=== PATIENT | female | born 1970 | race Caucasian/White ===

== ENCOUNTER 2019-11-19 07:22 | Outpatient (REF) | payer MEDICAID, SELFPAY ==
[2019-11-19 08:04] LABS: MANUAL DIFF FLAG NO
[2019-11-19 08:07] LABS: Basophils Percent Auto 0.3 % (0-2); Eosinophils Absolute Auto 0.4 X10*3/uL (0.0-0.4); Eosinophils Percent Auto 5.6 % (0-4); Hematocrit 35.7 % (37-47); Hemoglobin 11.7 g/dl (12.0-16.0); Imm Gran Abs Auto 0.03 X10*3/uL (0.00-0.03); Imm Gran Pct Auto 0.5 % (0.0-0.4); Lymphocytes Absolute Auto 1.6 X10*3/uL (1.2-4.9); Mean Corpuscular HGB Conc 32.8 g/dl (31.0-35.0); Mean Corpuscular Hemoglobin 27.7 pg (27.0-33.0); Mean Corpuscular Volume 84.4 fL (80-98); Mean Platelet Volume 10.7 fL (9.4-12.3); Monocytes Absolute Auto 0.6 X10*3/uL (0.1-1.2); Monocytes Percent Auto 10.1 % (2-11); Neutrophils Absolute Auto 3.6 X10*3/uL (2.0-8.3); Neutrophils Percent Auto 57.5 % (45-73); Platelet Count 252 X10*3/uL (160-400); Red Blood Count 4.23 X10*6/uL (4.20-5.50); Red Cell Distribution Width 13.2 % (11.0-16.0); White Blood Count 6.3 X10*3/uL (4.8-10.8)
[2019-11-19 08:49] LABS: Alanine Aminotransferase 28 U/L (0-31); Alkaline Phosphatase 73 U/L (39-117); Anion Gap 11 (12-20); Aspartate Amino Transferase 26 U/L (5-31); Bilirubin Direct 0.2 mg/dL (0.0-0.5); Bilirubin Total 0.5 mg/dL (0.0-1.0); Blood Urea Nitrogen 10 mg/dL (9-16); Calcium 8.6 mg/dL (8.4-10.2); Carbon Dioxide 26 mmol/L (22-29); Chloride 105 mmol/L (96-108); Cholesterol 184 mg/dL; Estimated Glomerular Filt Rate > 60; Glucose Random 100 mg/dL (60-115); HDL Cholesterol 50 mg/dL; LDL Cholesterol Calculated 113 mg/dl; Potassium 4.2 mmol/l (3.3-5.1); Sodium 138 mmol/L (135-145); Total Protein 6.7 g/dL (6.5-8.0); Triglycerides 106 mg/dL
[2019-11-19 09:13] LABS: Glucose Urine UA NEG (NEG); Leukocyte Esterase Urine NEG (NEG); Nitrite Urine POS (NEG); Specific Gravity - Urine 1.025 (1.005-1.025); Urine Blood NEG (NEG); Urine Ketones NEG (NEG); Urine Protein NEG (NEG-TRACE)
[2019-11-19 09:17] LABS: Amphetamine Screen Urine Not Detected (Not Detect); Barbiturates, Urine Not Detected (Not Detect); Benzodiazepines Screen Urine Not Detected (Not Detect); Cannabinoid Screen Urine Not Detected (Not Detect); Cocaine Screen Urine Not Detected (Not Detect); Opiate Screen Urine Not Detected (Not Detect); Phencyclidine Screen Urine Not Detected (Not Detect)
[2019-11-19 09:34] LABS: Appearance Urine HAZY; Color Urine YELLOW
[2019-11-19 09:52] LABS: Bacteria Urine TRACE /LPF; Squamous Epithelial Cell Urine 1+ /LPF
== END 2019-11-19 07:23 | disposition home or self-care (01) ==
LOC: HO.LAB 07:22
PROVIDERS: PCP Nurse Practitioner Family; Visit Provider Nurse Practitioner Psychiatric/Mental Health
DX: Z79.899 Other long term (current) drug therapy (principal)
CPT/HCPCS: 36415; 80053; 80061; 80076; 80307; 81001; 81003; 85025

== ENCOUNTER 2020-02-23 10:38 | Outpatient (REF) | payer MEDICAID, SELFPAY | END 2020-02-23 10:39 | disposition home or self-care (01) | LOC: HO.LAB 10:38 | PROVIDERS: Visit Provider Internal Medicine | DX: Z20.828 Contact with and (suspected) exposure to other viral communicable diseases (principal) | CPT/HCPCS: 36415; C9803; U0003 ==

== ENCOUNTER 2020-05-15 10:15 | Outpatient (REF) | payer MEDICAID, SELFPAY ==
--- NOTE | ~2020-05-15 | XR_ITS ---
EXAMINATION: XR LUMBOSACRAL SPINE WITH OBLIQUES CLINICAL INFORMATION: Lower back pain COMPARISON: 08/04/2012 CT TECHNIQUE: AP, both oblique, and lateral views of the lumbar spine. Lateral view of the lumbosacral junction. FINDINGS: The vertebral bodies and posterior elements are normal. The disc spaces are preserved and the vertebral alignment is normal. There is mild multilevel facet arthropathy at the lower lumbar spine. The sacroiliac joints are symmetric. The sacrum appears intact. The paraspinal soft tissues are normal. XR/XR lumbar spine 4V min IMPRESSION: Degenerative changes of the lower lumbar spine with facet arthropathy.
== END 2020-05-15 10:16 | disposition home or self-care (01) ==
LOC: HO.XRAY 10:15
PROVIDERS: PCP Registered Nurse Community Health; Visit Provider Registered Nurse Community Health
DX: M54.5 Low back pain (principal)
CPT/HCPCS: 72110

== ENCOUNTER → 2020-06-24 08:16 | Outpatient (BNVA) | payer MEDICAID, SELFPAY | PROVIDERS: Visit Provider Physician Assistant ==

== ENCOUNTER 2020-11-20 12:10 | Outpatient (REF) | payer MEDICAID, SELFPAY ==
--- NOTE | ~2020-11-20 | XR_ITS ---
EXAMINATION: XR KNEE, RIGHT CLINICAL INFORMATION: Pain. COMPARISON: None TECHNIQUE: Four views of the right knee. FINDINGS: Bones and soft tissues are normal. No fracture or joint effusion. Alignment is anatomic. Joint spaces are well maintained. No abnormal soft tissue calcification. XR/XR knee RT 4V IMPRESSION: Normal right knee.
== END 2020-11-20 12:11 | disposition home or self-care (01) ==
LOC: HO.XRAY 12:10
PROVIDERS: PCP Registered Nurse Community Health; Visit Provider Registered Nurse Community Health
DX: M25.561 Pain in right knee (principal)
CPT/HCPCS: 73564

== ENCOUNTER 2023-01-12 | Outpatient (REF) | payer MEDICAID, SELFPAY ==
[2023-01-14 23:53] LABS: C. trachomatis RNA TMA NOT DETECTED (NOT DETECTED); Candida glabrata RNA NOT DETECTED (NOT DETECTED); Candida species RNA NOT DETECTED (NOT DETECTED); N. gonorrhoeae RNA TMA NOT DETECTED (NOT DETECTED); Trichomonas vaginalis RNA NOT DETECTED (NOT DETECTED)
== END 2023-01-12 00:01 | disposition home or self-care (01) ==
LOC: HO.HHCLNP
PROVIDERS: Visit Provider Emergency Medicine
DX: N89.8 Other specified noninflammatory disorders of vagina (principal)
CPT/HCPCS: 36415; 81513; 87481; 87491; 87591; 87661

== ENCOUNTER 2023-01-18 11:14 | Outpatient (REF) | payer MEDICAID, SELFPAY | END 2023-01-18 11:15 | disposition home or self-care (01) | LOC: HO.HHCL 11:14 | PROVIDERS: Visit Provider Emergency Medicine | DX: R30.0 Dysuria (principal) | CPT/HCPCS: 87086 ==

== ENCOUNTER 2023-01-27 09:01 | Outpatient (REF) | payer MEDICAID, SELFPAY ==
[2023-01-27 11:39] LABS: MANUAL DIFF FLAG NO
[2023-01-27 12:06] LABS: Basophils Percent Auto 0.4 % (0-2); Eosinophils Absolute Auto 0.2 X10*3/uL (0.0-0.4); Eosinophils Percent Auto 2.7 % (0-4); Hematocrit 37.4 % (37.0-47.0); Hemoglobin 11.9 g/dl (12.0-16.0); Imm Gran Abs Auto 0.02 X10*3/uL (0.00-0.03); Imm Gran Pct Auto 0.3 % (0.0-0.4); Lymphocytes Absolute Auto 1.7 X10*3/uL (1.2-4.9); Lymphocytes Percent Auto 25.9 % (20-40); Mean Corpuscular HGB Conc 31.8 g/dl (31.0-35.0); Mean Corpuscular Hemoglobin 27.2 pg (27.0-33.0); Mean Corpuscular Volume 85.4 fL (80.0-98.0); Mean Platelet Volume 11.1 fL (9.4-12.3); Monocytes Absolute Auto 0.5 X10*3/uL (0.1-1.2); Monocytes Percent Auto 7.8 % (2-11); Neutrophils Absolute Auto 4.2 x10*3/uL (2.0-8.3); Neutrophils Percent Auto 62.9 % (45-73); Platelet Count 313 X10*3/uL (160-400); Red Blood Count 4.38 X10*6/uL (4.20-5.50); Red Cell Distribution Width 13.6 % (11.0-16.0); White Blood Count 6.7 X10*3/uL (4.8-10.8)
[2023-01-27 12:18] LABS: Cholesterol 223 mg/dL (<200); HDL Cholesterol 56 mg/dL (>40); LDL Cholesterol Calculated 144 mg/dL (<100); Triglycerides 118 mg/dL (<150)
[2023-01-27 12:40] LABS: TSH reflex Free T4 3.16 uIU/mL (0.32-4.0)
== END 2023-01-27 09:02 | disposition home or self-care (01) ==
LOC: HO.HHCL 09:01
PROVIDERS: Visit Provider Registered Nurse
DX: N95.1 Menopausal and female climacteric states (principal)
CPT/HCPCS: 36415; 80061; 84443; 85025

== ENCOUNTER 2023-08-31 09:03 | Outpatient (REF) | payer MEDICAID, SELFPAY ==
[2023-09-03 00:09] LABS: TS Negative Control Passed; TS Panel A 0; TS Panel B 0; TS Positive Control Passed; TSpotTB Negative (Negative)
== END 2023-08-31 09:04 | disposition home or self-care (01) ==
LOC: HO.HHCL 09:03
PROVIDERS: Visit Provider Registered Nurse
DX: Z11.1 Encounter for screening for respiratory tuberculosis (principal)
CPT/HCPCS: 36415; 86481

== ENCOUNTER 2023-10-31 10:03 | Outpatient (REF) | payer MEDICAID, SELFPAY ==
[2023-10-31 11:39] LABS: MANUAL DIFF FLAG NO
[2023-10-31 11:52] LABS: Basophils Percent Auto 0.5 % (0-2); Eosinophils Absolute Auto 0.2 X10*3/uL (0.0-0.4); Eosinophils Percent Auto 2.6 % (0-4); Hematocrit 37.9 % (37.0-47.0); Hemoglobin 12.7 g/dl (12.0-16.0); Imm Gran Abs Auto 0.02 X10*3/uL (0.00-0.03); Imm Gran Pct Auto 0.3 % (0.0-0.4); Lymphocytes Absolute Auto 1.6 X10*3/uL (1.2-4.9); Lymphocytes Percent Auto 23.7 % (20-40); Mean Corpuscular HGB Conc 33.5 g/dl (31.0-35.0); Mean Corpuscular Hemoglobin 27.7 pg (27.0-33.0); Mean Corpuscular Volume 82.8 fL (80.0-98.0); Mean Platelet Volume 10.9 fL (9.4-12.3); Monocytes Absolute Auto 0.4 X10*3/uL (0.1-1.2); Monocytes Percent Auto 6.7 % (2-11); Neutrophils Absolute Auto 4.3 x10*3/uL (2.0-8.3); Neutrophils Percent Auto 66.2 % (45-73); Platelet Count 267 X10*3/uL (160-400); Red Blood Count 4.58 X10*6/uL (4.20-5.50); Red Cell Distribution Width 13.4 % (11.0-16.0); White Blood Count 6.5 X10*3/uL (4.8-10.8)
[2023-10-31 12:31] LABS: Ferritin 104 ng/mL (10-250); TSH reflex Free T4 1.89 uIU/mL (0.32-4.0)
[2023-11-02 15:24] LABS: HPV mRNA E6/E7 Not Detected (Not Detected)
== END 2023-10-31 10:04 | disposition home or self-care (01) ==
LOC: HO.HHCL 10:03
PROVIDERS: Visit Provider Registered Nurse
DX: Z12.4 Encounter for screening for malignant neoplasm of cervix (principal); R53.83 Other fatigue; R30.0 Dysuria
CPT/HCPCS: 36415; 82728; 84443; 85025; 87086; 87088; 87186; 87624; 88175

== ENCOUNTER 2023-11-18 10:32 | Outpatient (REF) | payer MEDICAID, SELFPAY ==
--- NOTE | ~2023-11-18 | US_ITS ---
EXAMINATION: US PELVIS, LIMITED/FOLLOW UP CLINICAL INFORMATION: Palpable nodule of the right external vulva. COMPARISON: None available. TECHNIQUE: Using a linear array transducer with grayscale and color modalities, ultrasound examination is performed in the area of clinical concern in the right labia majora. FINDINGS: Within the right labia majora, a 3.4 x 2.0 x 2.3 cm heterogeneous echotexture cystic and solid lesion is noted. This shows no associated color Doppler flow, and there is decrease in through sound transmission. Margins are circumscribed. US/US pelvic limited IMPRESSION: A 3.4 cm cystic and solid, nonvascular lesion is seen of the right labia majora, corresponding with the palpable finding. This could represent a complex Bartholin's gland cyst or tumor or possibly a complex Tamie's duct cyst. Gynecology evaluation and management is recommended. Electronically signed by: Nino Gaines MD 01/12/2024 08:14 PM ELMO
== END 2023-11-18 10:33 | disposition home or self-care (01) ==
LOC: HO.US 10:32
PROVIDERS: PCP Registered Nurse; Visit Provider Registered Nurse
DX: N90.89 Other specified noninflammatory disorders of vulva and perineum (principal)
CPT/HCPCS: 76857

== ENCOUNTER 2023-12-20 09:05 | Outpatient (REF) | payer MEDICAID, SELFPAY ==
--- NOTE | ~2023-12-20 | MM_ITS ---
EXAMINATION: MM SCREENING DIGITAL BREAST TOMOSYNTHESIS, BILATERAL CLINICAL INFORMATION: Screening. Asymptomatic. COMPARISON: Mammography: Comparison is made with available priors TECHNIQUE: Digital breast mammography with tomosynthesis is performed in both the craniocaudal and mediolateral oblique views along with computer-aided detection (CAD). FINDINGS: There are scattered areas of fibroglandular density (ACR BI-RADS breast composition Category b). Bilateral reduction mammoplasty changes. There are no significant masses, abnormal calcifications, or other abnormalities. MM/MM tomosynthesis screening BI IMPRESSION: No mammographic evidence of malignancy. ASSESSMENT: BI-RADS BI-RADS 2 - Benign Findings RECOMMENDATION: Routine annual mammography screening. 1 year F/U This examination should not preclude the clinical evaluation of a suspicious palpable abnormality. This patient's information was entered into a reminder system with a target due date for their next mammogram. Electronically signed by: Jeannine Richter DO 12/28/2023 12:20 PM ELMO
== END 2023-12-20 09:06 | disposition home or self-care (01) ==
LOC: HO.MAMMO 09:05
PROVIDERS: PCP Registered Nurse; Visit Provider Registered Nurse
DX: Z12.31 Encounter for screening mammogram for malignant neoplasm of breast (principal)
CPT/HCPCS: 77063; 77067

== ENCOUNTER → 2023-12-20 09:15 | Outpatient (BNV) | payer MEDICAID, SELFPAY | PROVIDERS: PCP Registered Nurse; Visit Provider Internal Medicine | DX: Z12.31 Encounter for screening mammogram for malignant neoplasm of breast (principal) | CPT/HCPCS: 77063; 77067 ==

== ENCOUNTER → 2024-03-26 13:26 | Outpatient (REF) | LOC: HO.CARD 13:26 | DX: R07.89 Other chest pain (principal) | CPT/HCPCS: 93225 ==

== ENCOUNTER → 2024-03-26 13:29 | Outpatient (BNV) | payer MEDICAID, SELFPAY | PROVIDERS: PCP Registered Nurse; Visit Provider Internal Medicine | DX: I49.3 Ventricular premature depolarization (principal) | CPT/HCPCS: 93227 ==

== ENCOUNTER 2024-05-07 11:28 | Outpatient (AMB) | payer MEDICAID, SELFPAY ==
--- NOTE | 2024-05-07 11:35 | MHC.OFFVIS ---
Intake Visit Reasons: vulva mass/DO NOT RS Learning Center Instructor Required: Yes Learning Center Instructor Language: Repairer [employer] Services: Learning Center Instructor Present (in person) Learning Center Instructor Name: DELORIS Luis Information Interpreted: non-clinical & clinical Equipment Or Machinery Cleaner: Equipment Or Machinery Cleaner Present (DELORIS Luis) Accompanied by: Self / Same As Patient Allergies morphine [MORPHINE] Adverse Reaction (Intermediate, Verified 05/07/24 11:36) CHEST TIGHTNESS-DYSPHORIA HPI Comments Details: Presenting referred from PCP regarding right vulvar mass of 3 years' duration that has increased in size, the right vulvar mass is mildly tender no history of discharge or resolution or recurrence. In addition the patient is complaining of an episode of postmenopausal bleeding PFSH Surgical History Hx of colonoscopy Hx of esophagogastroduodenoscopy Family History Mother Diabetes HTN (hypertension) Father Diabetes HTN (hypertension) Daughter Diabetes Social History Household Members: Children and None Alcohol intake: never Review of Systems Const All systems reviewed & are unremarkable except as noted in HPI and below Physical Exam General: Yes no CVA tenderness External Female Exam: normal appearance of the urethra and other (Right 4 x 4 cm upper labia majora mass in the subcu layer) Speculum Exam - Vagina: normal appearance of the vagina, normal palpation, no lesions and no masses Speculum Exam - Cervix: normal appearance of the cervix, normal palpation, no lesions, no masses and nontender Bimanual exam- vagina & uterus: normal bimanual exam, normal palpation, uterine size normal, normal palpation, uterine shape normal, No Cervical tenderness present and non-tender Bimanual Exam- Adnexa, other: normal adnexae Back/Spine/Pelvis Back: no CVA tenderness Assessment & Plan Assessment & Plan (1) Vulvar mass: Comment: Right-sided Code(s): N90.89 - Other specified noninflammatory disorders of vulva and perineum Category: Medical Plan: Discussed with the patient the finding on pelvic exam showing a right labia majora upper subcuticular mass, recommended ultrasound-guided biopsy and depending on the pathology , the next step will be determined accordingly. Instructions given the patient to schedule the ultrasound guided biopsy within 1-2 weeks and a follow-up appointment afterwards. (2) Postmenopausal bleeding: Code(s): N95.0 - Postmenopausal bleeding Category: Medical Plan: GC/CT with BV panel collected. Discussed with the patient the differential diagnosis of post menopausal bleeding with normal pelvic exam including but not limited to, endometrial hyperplasia, cancer, polyps and other causes; co testing done, recommended ultrasound to measure the endometrial stripe; discussed with the patient that if the endometrial thickness is 4 mm or less the negative predictive value of endometrial pathology is 99%, otherwise If endometrial thickness is more than 4 mm will proceed with endometrial sampling versus hysteroscopy D&C polypectomy depending on the ultrasound findings. Instructed the patient to schedule an ultrasound with a follow-up appointment in 2 weeks. All questions answered, the patient verbalized understanding and agreed with the plan. This note was generated with a voice recognition program. Some errors may have been overlooked during the review of this note. Sometimes these errors may affect the content or meaning of a given sentence. Orders: Orders US pelvic and transvaginal Today N95.0 - Postmenopausal bleeding US biopsy subcutaneous skin Today N90.89 - Other specified noninflammatory disorders of vulva and perineum Coding Level of Care Code New Pt Level 3 (64138) Diagnoses Vulvar mass N90.89 Postmenopausal bleeding N95.0
== END 2024-05-07 13:34 | disposition home or self-care (01) ==
LOC: HO.HWS 11:28
PROVIDERS: PCP Registered Nurse; Visit Provider Obstetrics & Gynecology
DX: N90.89 Other specified noninflammatory disorders of vulva and perineum (principal); N95.0 Postmenopausal bleeding
CPT/HCPCS: 99203

== ENCOUNTER 2024-05-07 11:28 | Outpatient (REF) | payer MEDICAID, SELFPAY ==
[2024-05-08 11:47] LABS: Bacterial Vaginosis PCR POSITIVE (Negative); Candida Group PCR NOT DETECTED (Not Detect); Candida glab krusei PCR NOT DETECTED (Not Detect); Trichomonas vaginalis PCR NOT DETECTED (Not Detect)
[2024-05-08 12:20] LABS: CT PCR NOT DETECTED (Not Detect.); NG PCR NOT DETECTED (Not Detect.)
[2024-05-10 15:04] LABS: HPV Genotype 16 Negative (Negative); HPV Genotype 18 Negative (Negative); HPV High Risk Negative (Negative)
== END 2024-05-07 11:29 | disposition home or self-care (01) ==
LOC: HO.LNP 11:28
PROVIDERS: PCP Registered Nurse; Visit Provider Obstetrics & Gynecology
DX: N95.0 Postmenopausal bleeding (principal); N90.89 Other specified noninflammatory disorders of vulva and perineum
CPT/HCPCS: 81515; 87491; 87591; 87626; 88175; 99202

== ENCOUNTER 2024-05-18 16:17 | Outpatient (REF) | payer MEDICAID, SELFPAY | END 2024-05-18 16:18 | disposition home or self-care (01) | LOC: HO.HHCLNP 16:17 | PROVIDERS: Visit Provider Registered Nurse | DX: R30.0 Dysuria (principal) | CPT/HCPCS: 87086; 87088; 87186 ==

== ENCOUNTER 2024-06-05 11:20 | Outpatient (REF) | payer MEDICAID, SELFPAY ==
--- NOTE | ~2024-06-05 | US_ITS ---
EXAMINATION: US PELVIS CLINICAL INFORMATION: Postmenopausal bleeding. COMPARISON: None available. TECHNIQUE: Ultrasound of the pelvis is performed using both transabdominal and transvaginal transducers along with Doppler. Transvaginal imaging is performed due to inadequate visualization transabdominally. FINDINGS: Uterus: The uterus is retroverted, retroflexed, and measures 7.3 x 3.5 x 4.0 cm. Normal cervix with small bulla seen cysts. The endometrium could not be visualized as per technologist note due to retroverted uterus with shadowing. The uterus is smooth in contour and has normal myometrial echogenicity. No visible fibroid. Adnexa: The right ovary was visualized. There is a normal color flow to the right adnexa. The left ovary could not be visualized. There is no pelvic ascites or fluid collection. Right ovary: Not visualized. Left ovary measures 1.7 x 1.2 x 1.2 cm. Volume = 1.2 mL. Normal sonographic appearance. US/US pelvic and transvaginal IMPRESSION: 1. Limited examination due to the technologist unable to visualize the endometrium as detailed in the technologist's note. Retroverted and retroflexed uterus without definite fibroid. 2. Right ovary could not be visualized. 3. Normal left ovary. Electronically signed by: Manuelito Florian MD 06/06/2024 12:23 PM EDT
--- OUTSIDE RECORDS SUMMARY | 2024-06-05 13:39 | XMS_ITS | Clinical Summary ---
Author Organization [employer] Address [address] [facility] [address] [place] [address] Care Team Providers Care Silk Weaver Name Role Phone Lyn [facility] Primary Care Provider [phone] Allergies No known active allergies Medications cloNIDine (Catapres) 0.1 MG tablet TAKE 1 TABLET BY MOUTH TWICE A DAY NEEDED FOR ANXIETY/PANIC Active cyclobenzaprine (Flexeril) 10 MG tablet TAKE 1/2 TO 1 TABLET BY MOUTH EVERY NIGHT AT BEDTIME NEEDED Active fluconazole (Diflucan) 150 MG tablet TOME HESHAM TABLETA TODOS LOS D ONE DOSE Active fluticasone (Flonase) 50 MCG/ACT nasal spray SPRAY 1 - 2 SPRAYS IN EACH NOSTRIL EVERY DAY NEEDED Active ketorolac (Toradol) 10 MG tablet PLEASE SEE ATTACHED FOR DETAILED DIRECTIONS Active Lidocaine, Anorectal, (Topicaine 5) 5 % gel Apply to affected area as needed Active linaCLOtide (Linzess) 145 MCG capsule Take by mouth. Act evita meloxicam (Mobic) 15 MG tablet TOME HESHAM TABLETA TODOS LOS D CON ALIMENTO Active mirtazapine (Remeron) 45 MG tablet TOME HESHAM TABLETA TODOS LOS D AL ACOSTARSE Active montelukast (Singulair) 10 MG tablet TOME HESHAM TABLETA TODOS LOS D EN LA NOCHE Active OXcarbazepine (Trileptal) 300 MG tablet Take 300 mg by mouth at bedtime. Take (150mg) by mouth in the morning and 300mg in the evening. Prescribed by psych team Active escitalopram (Lexapro) 20 MG tablet TOME HESHAM TABLETA TODOS LOS D 023 Active cetirizine (ZyrTEC) 10 MG tablet TOME HESHAM TABLETA TODOS LOS IBARRA CUANDO SEA NECESARIO 90 tablet 3 024 Active omeprazole (PriLOSEC) [address] capsuleIndicati ons:Dyspepsia TAKE 2 CAPSULE BY MOUTH EVERY DAY BEFORE A MEAL 180 capsule 1 024 Active albuterol (2.5 MG/3ML) 0.083% nebulizer solution inhale 3 milliliter by nebulization route 3 times every day 75 mL 025 Active budesonide-form oterol (Symbicort) 80-4.5 MCG/ACT inhalerIndicati ons:Mild intermittent asthma without complication Inhale 2 puffs every 4-6 hours as needed for cough or wheezing 1 each 11 025 Active Ventolin HFA 108 (90 Base) MCG/ACT inhalerIndicati ons:Exacerbatio n of asthma, unspecified asthma severity, unspecified whether persistent INHALE 2 PUFFS POR VIA ORAL EVERY 4 HOURS IF NEEDED FOR WHEEZING. 18 g 1 025 Active ARIPiprazole (Abilify) 20 MG tablet TOME 1 TABLETA POR V A ORAL TODOS LOS D 025 Active OXcarbazepine (Trileptal) 150 MG tablet TAKE 1 TABLET BY MOUTH EVERY MORNING (TAKES 900MG AT BEDTIME,THIS DOSE IN ADDED TO TAKE IN MORNING 025 Active polyethylene glycol, PEG, 3350 (MiraLax) 17 GM/SCOOP powderIndicatio ns:Constipation , unspecified constipation type Take 17 g by mouth Once per day. 510 g 025 2024 Active senna (Senokot) 8.6 MG tabletIndicatio ns:Constipation , unspecified constipation type Take 1 tablet (8.6 mg) by mouth at bedtime. 120 tablet 025 Active topiramate (Topamax) 25 MG tabletIndicatio ns:Hot flashes Take 1 tablet (25 mg) by mouth before evening meal. 30 tablet 11 025 2025 Active D3-1000 25 MCG (1000 UT) capsuleIndicati ons:Hot flashes Take 1 capsule (25 mcg) by mouth Once per day. 30 capsule 11 025 2025 Active Ketotifen Fumarate 0.035 % solutionIndicat ions:Seasonal allergic rhinitis due to other allergic trigger Administer 1 drop into affected eye(s) if needed in the morning and at bedtime (itchitness). 5 mL 1 025 2024 Active docusate sodium (Colace) 100 MG capsuleIndicati ons:Constipatio n, unspecified constipation type TOME 1 CAPSULA POR VIA ORAL TODOS LOS IBARRA 90 capsule Active ARIPiprazole (Abilify) 30 MG tablet TOME HESHAM TABLETA TODOS LOS D 022 2024 Discontinued(T herapy completed) benzonatate (Tessalon) 100 MG capsule TOME HESHAM C PSULA NATHANAEL VECES AL D A CUANDO SEA NECESARIO PARA LA TOS 022 2024 Discontinued D3-1000 25 MCG (1000 UT) capsule TOME HESHAM C PSULA TODOS LOS D 022 2024 Discontinued(R eorder (will not trigger notification to Pharmacy)) estradiol-noret hindrone (CombiPatch) 0.05-0.14 MG/DAYIndicatio ns:Menopause syndrome Place 1 patch on the skin 2 (two) times a week. 8 patch 11 023 2024 Discontinued ketotifen (Zaditor) 0.025 % ophthalmic solution instill 1 Drop by Ophthalmic route 2 times every day as needed 10 mL 3 024 2024 Discontinued(T herapy completed) albuterol 108 (90 Base) MCG/ACT inhalerIndicati ons:Exacerbatio n of asthma, unspecified asthma severity, unspecified whether persistent INHALE 2 PUFFS EVERY 4 HOURS IF NEEDED FOR WHEEZING. 8.5 g 1 025 2024 Discontinued docusate sodium (Colace) 100 MG capsuleIndicati ons:Constipatio n, unspecified constipation type Take 1 capsule (100 mg) by mouth Once per day. 30 capsule 1 025 2024 Discontinued nitrofurantoin, macrocrystal-mo nohydrate, (Macrobid) 100 MG capsuleIndicati ons:Acute cystitis without hematuria Take 1 capsule (100 mg) by mouth 2 times daily for 5 days. 10 capsule 025 2024 Active Problems Patient Care Coordination No te Formatting of this note migh t be different from the original. C3/CM Livia Johnson RN Problem Noted Date Diagnosed Date Asthma exacerbation 03/06/2024 Assessment & Plan (03/06/2024 2:51 PM EST): Refills for inhalers done Patient educated to avoid triggers ED precautions reviewed Prednisone 40mg for 5 days Albuterol PRN Acute bacterial conjunctivitis of both eyes 02/15 Primary osteoarthritis involving multiple joints 02/16/2022 Severe recurrent major depre ssion without psychotic features 09/15/2018 Panic attack 03/24/2018 Posttraumatic stress disorder 03/24/2018 Vitamin D deficiency 03/24/2018 Allergic rhinitis 06/10/2016 Constipation 06/10/2016 Hemangioma of liver 06/10/2016 Mild persistent asthma 06/10/2016 Encounters Date Type Department Care Team Description 05/25/2024 Outside Procedure [facility] [address] [place] [address] Donnie Schroedern, OD Presbyopia (Primary Dx) 05/24/2024 2:45 PM EDT Office Visit [facility] [address] [place] [address] Donnie Schroedern, OD Myopia of both eyes (Primary Dx) 05/24/2024 Telephone [facility] [address] [place] [address] Deborah Nicholson FNP recall 05/18/2024 11:15 AM EDT Office Visit [facility] [address] [place], [place] [phone] Deborah Nicholson FNP Acute cystitis without hematuria (Primary Dx); Constipation, unspecified constipation type; Hot flashes; Seasonal allergic rhinitis due to other allergic trigger; Encounter for screening for malignant neoplasm of colon 05/18/2024 Refill [facility] [address] [place] [address] Deborah Nicholson FNP Constipation, unspecified constipation type 05/18/2024 Travel 05/09/2024 Refill [facility] [address] [place] [address] Deborah Nicholson FNP Exacerbation of asthma, unspecified asthma severity, unspecified whether persistent 05/07/2024 Orders Only GENERIC EXTERNAL DATA DEPARTMENT Provider, Generic External Data 04/27/2024 Population Health Risk Score [facility] () Department [address] [place] [phone] Provider, Population Health Generic 04/26/2024 3:00 PM EDT Office Visit [facility] [address] [place] [address] Alexandre, Lizzette, OD Presbyopia (Primary Dx); 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 04/26/2024 Travel 03/16/2024 11:00 AM EST Office Visit [facility] [address] [place] [address] Deborah Nicholson FNP Intermittent left-sided chest pain (Primary Dx); Mild intermittent asthma without complication; Vulvar mass; Class 1 obesity due to excess calories with serious comorbidity and body mass index (BMI) of 33.0 to 33.9 in adult; Dietary counseling; Exercise counseling 03/16/2024 Travel 03/15/2024 Telephone [facility] [address] [place] [address] Deborah Nicholson FNP chart prep from Last 3 Months Immunizations Name Administration Dates Next Due Hep B, Adolescent or Pediatric 05/07/2002,2001,11/13/2001 MMR 06/20/1995 Pneumococcal Polysaccharide PPSV23 06/15/2010 TD (adult), 2 Lf tetanus tox oid, preservative free, adsorbed 08/23/2005,06/20/1995 Tdap 06/14/2018,06/01/2012 Social History Tobacco Use Types Packs/Day Years Used Date Smoking Tobacco: Never Smokeless Tobacco: Never Tobacco Cessation:Counseling Given: Not Answered Alcohol Use Standard Drinks/Week Comments Never 0 (1 standard drink = 0.6 oz pur e alcohol) Alcohol Answer Date Recorded How often do you have a drink containing alcohol ? 1 03/16/2024 Average Number of Drinks Not on file 025 Frequency of Binge Drinking Not on file 02/16 Depression Answer Date Recorded Patient Health Questionnaire-9 Score 17 03/16/2024 Patient Health Questionnaire-9 Score 17 03/16/2024 Last PHQ-9: Questionnaire Data Not on file 0 03/16/2024 Housing Stability Answer Date Recorded What is your housing situation today? I have uriel beasley 03/16/[address] you li ve. Do you have problems with any of the following? None of the above 03/16/2024 Food Insecurity Answer Date Recorded Within the past 12 months, y ou worried that your food would run out before you got money to buy more: Never True 03/16/2024 Within the past 12 months,th e food you bought just didn't last and you didn't have enough money to get more: Never True Transportation Answer Date Recorded In the past 12 months, has l ack of transportation kept you from medical appts, meetings, work or from getting things needed for daily living? No 03/16/2024 Utilities Answer Date Recorded In the past 12 months, has t he electric, gas, oil or water company threatened to shut off services in your home? No 03/16/2024 Depression Answer Date Recorded Patient Health Questionnaire-2 Score 5 03/16/2024 Internet Access Answer Date Recorded Internet Access Q1 Yes 03/16/2024 Internet Access Q2 Not on file 03/16/2024 Comments Unknown Sex and Gender Information Value Date Recorded Sex Assigned at Female 12/14/2021 10:14 AM EDT Legal Sex Female 10:14 AM EDT Gender Identity Female 12/14/2021 10:14 AM EDT Sexual Orientation Straight 12/14/2021 10 :14 AM EDT Last Filed Vital Signs Vital Sign Reading Time Taken Comments Blood Pressure 123/86 05/18/2024 11:15 AM EDT Pulse 72 05/18/2024 11:15 AM EDT Temperature 36.2 ??C (97.1 ??F) 05/18/2024 11:15 AM E DT Respiratory Rate 18 05/18/2024 11:15 AM EDT Oxygen Saturation 99% 03/16/2024 10:57 AM EST Inhaled Oxygen Concentration - - Weight 78.7 kg (173 lb 9.6 oz) 05/18/2024 11:15 AM EDT Height 157.5 cm (5' 2 ) 05/18/2024 11:15 AM EDT Body Mass Index 31.75 05/18/2024 11:15 AM EDT Plan of Treatment Upcoming Encounters Date Type Department Care Team (Late st Contact Info) Description 08/29/2024 11:30 AM EDT Office Visit [facility] [address] [place] [address] [place], Deborah, TAFFY CANDY MAKER [address] [place], [place] [phone] Health Maintenance Due Date Last Done Comments CT Colonography 1971 FIT DNA/Cologuard 1970 FIT 1970 FOBT 1970 HIV Screening 1970 Sigmoidoscopy 1970 Family Planning (PISQ) 12/24/1986 Hepatitis C Screening 12/24/1989 Hepatitis A Vaccines (1 of 2 - Risk 2-dose series) 12/24/1990 Hepatitis B Vaccines (1 of 3 - 19+ 3-dose series) 12/24/1990 05/07/2002, 12/13/2001, 11/13/2001 Pneumococcal Vaccine: 50+ Years (2 of 2 - PCV) 06/16/2011 06/15/2010 Colonoscopy 02/29/2020 02/28/2019 Colorectal Cancer Screening 02/29/2020 Zoster Vaccines (1 of 2) 12/24/2021 COVID-19 Vaccine (3 - 2023- season) 2023 10/23/2020, 10/02/2020 Influenza Vaccine (#1) 2023 Depression Monitoring 09/13/2024 03/16/2024, 025 Mammogram 12/19/2024 12/20/2023 Alcohol/Substance Use Screening 03/16/2025 03/16/2024 Depression Screening 03/16/2025 03/16/2024, 03/16/19 25 SDOH Screening 03/16/2025 03/16/2024 Tobacco Screening 05/21/2025 05/21/2024 Lipid Panel 01/28/2028 01/27/2023 DTaP/Tdap/Td Vaccines (3 - Td or Tdap) 06/14/2028 06/14/2018, 06/01/2012, 08/23/2005, Additional history exists Cervical Cancer Screening 05/07/2029 HPV/Cotest 05/07/2029 05/07/2024, 10/15, 06/10/2016 Pap Smear 05/07/2029 05/07/2024, 10/31/2023 RSV Patients and Patients Aged 60 years or older (1 - 1-dose 75+ series) 12/24/2046 HIB Vaccines Aged Out No longer eligi ble based on patient's age to complete this topic HPV Vaccines Aged Out No longer eligi ble based on patient's age to complete this topic IPV Vaccines Aged Out No longer eligi ble based on patient's age to complete this topic Meningococcal Vaccine Aged Out No jaycee darrius eligible based on patient's age to complete this topic RSV under 20 months Aged Out No longe r eligible based on patient's age to complete this topic Rotavirus Vaccines Aged Out No longer eligible based on patient's age to complete this topic Procedures Procedure Name Priority Date/Time Associated Diagnosis Comments CULTURE, URINE, ROUTINE Routine 05/18/2024 11:33 AM EDT Acute cystitis without hematuria PAP SMEAR Routine 05/07/2024 12:31 PM EDT HPV DNA, LOW/HIGH RISK Routine 12:31 PM EDT CHLAMYDIA/N. GONORRHOEAE RNA, TMA, UROGENITAL Routine 05/07/2024 11:28 AM EDT BACTERIAL VAGINOSIS PANEL Routine 05/07/2024 11:28 AM EDT BI MAMMOGRAM SCREENING TOMOSYNTHESIS BILATERAL Routine 12/20/2023 9:15 AM EST Encounter for screening mammogram for breast cancer LIPID PANEL, STANDARD Routine 01/27/2023 9:05 AM EST Menopause syndrome HM COLONOSCOPY Routine 02/28/2019 8:21 AM EST from Last 3 Months or Most Recently Relevant to Health Maintenance Results * Culture, Urine, Routine (05/18/2024 11:33 AM EDT) Urine Urine specimen obtained by clean catch procedure / Unknown 05/18/2024 11:33 AM EDT 05/18/2024 4:17 PM EDT Comment:UACC Narrative [facility] - 05/20/2024 8:16 AM EDT Escherichia coli Quant > 100,000 cfu/mL Escherichia coli: Ampicillin >=32(R) Escherichia coli: Cefazolin (Urine) <=1(S) Escherichia coli: Cefepime <=0.12(S) Escherichia coli: Ceftriaxone <=0.25(S) Escherichia coli: Ciprofloxacin >=4(R) Escherichia coli: Gentamicin <=1(S) Escherichia coli: Nitrofurantoin <=16(S) Escherichia coli: Trimethoprim/Sulfamethoxazole <=20(S) Specimen Source: Urine clean catch [facility] LAB MICROBIOLOGY - GENERAL OR DERABLES Final Result [facility] [address] [place] [phone] * HPV DNA, Low/High Risk (05/07/2024 12:31 PM EDT) HPV High Risk Negative Negative [facility] HPV Genotype 16 Negative Negative [facility] HPV Genotype 18 Negative Negative [facility] Comment:HPV testing performe d at [facility] (CLIA#[id number]), [address] [place] [address].Testing for HPV was performed using the Ander ROSA M 6800system. The presence of HPV in the female genital tract isassociated with a number of diseases, including cervicalcarcinoma. The HPV DNA high risk pool tests for HPV 31, 33,35, 39, 45, 51, 52, 56, 58, 59, 66 and 68. The testing forHPV 16 and 18 genotypes has also been performed. A positiveresult indicates detection of nucleic acid sequences fromone or more subtypes, whereas a negative result indicatessuch sequences were not detected. 05/07/2024 12:3 1 PM EDT 05/08/2024 6:00 AM EDT us Generic External Data Provider LAB BLOOD ORDERAB LES Final Result [facility] [address] [place] [phone] * Pap Smear (05/07/2024 12:31 PM EDT) 05/07/2024 12:3 1 PM EDT 05/08/2024 6:00 AM EDT Narrative [facility] - 05/10/2024 10:43 AM EDT ----- ------- Name: Serrano,Magalys ?Age/Sex: 53/F ? : 1970 Unit#: [id number] ?? Attend Dr: Philippe Layton MD ?Re05/07/24 ?Status: DEP REF ? Location: HO.LNP ?Disch: ? ----- ------- SPEC : [id number] ? RECD: 05/08/24 ? STATUS: ??SOUT ? REQ NUM: [id number] ? SARAH: 05/07/24-1231 ? SUBM DR: Philippe Layton MD ? ENTERED: ??05/08/24 ?SP TYPE: Pap Smr ?OTHR DR: Deborah Nicholson TAFFY CANDY MAKER ? ORDERED: ??Pap Smear ? Interpretation ?? Satisfactory for evaluation. ?? Negative for intraepithelial lesion or malignancy. ? HPV High Risk: ??Negative ? HPV Genotyping 16: ??Negative ?? HPV Genotyping 18: ??Negative ?Clinical Information LMP: Post menopausal Previous PAP test: Unknown date/findings ? Material Received ?? Cervix Copies To: ?? Deborah Nicholson TAFFY CANDY MAKER ?? [address] ?? [place] [address] ?? [phone] ?? Philippe Layton MD ?? [facility] ?? [address] ?? [place] [address] ?? [phone] ----- ------- Signed (signature on file) KO Marie (ASCP) 05/10/24 1043 ? ----- ------- ? END OF REPORT ? us Generic External Data Provider LAB CYTOLOGY CHRISTIE PONCE Final Result [facility] [address] [place] [phone] * (ABNORMAL) Bacterial Vaginosis (05/07/2024 11:28 AM EDT) TRICHOMONAS VAGINALIS DETECTION BY PCR NOT DETECTED Not Detect [facility] BACTERIAL VAGINOSIS DETECTION BY PCR POSITIVE(A) Negative [facility] Comment:The BV organism targ ets of the Xpert Xpress MVP test can becommensal in women; Xpert Xpress MVP positive results forbacterial vaginosis should be considered in conjunction withother clinical and patient information to determine thedisease status. Organisms that are not detected by the XpertXpress MVP test have also been reported to be associatedwith BV and aerobic vaginitis.The Xpert Xpress MVP test performance has not been evaluatedin patients under the age of 14. RACHEL GROUP DETECTION BY PCR NOT DETECTED Not Detect [facility] Rachel glab krusei PCR NOT DETECTED Not Detect [facility] 05/07/2024 11:2 8 AM EDT 05/07/2024 3:17 PM EDT us Generic External Data Provider LAB MICROBIOLOGY - GENERAL ORDERABLES Final Result [facility] [address] [place] [phone] * Chlamydia/N. Gonorrhoeae RNA, TMA, Urogenitial (05/07/2024 11:28 AM EDT) CT PCR NOT DETECTED Not Detect. [facility] Comment:A not detected test result does not exclude the possibilityof infection because test results can be affected byimproper specimen collection, concurrent antibiotic therapy,or the number of organisms in the specimen which may bebelow the sensitivity of the test. As with many diagnostictests, results from the Xpert CT/NG assay should beinterpreted in conjunction with other laboratory andclinical data available to the clinician.Xpert CT/NG performance has not been evaluated in patientsless than 14 years of age. The assay should not be used forthe evaluationof suspected sexual abuse or for other medico-legalindications. Additional testing is recommended in anycircumstance when false positive or false negative resultscould lead to adverse medical, social or psychologicalconsequences. NG PCR NOT DETECTED Not Detect. [facility] Comment:A not detected test result does not exclude the possibilityof infection because test results can be affected byimproper specimen collection, concurrent antibiotic therapy,or the number of organisms in the specimen which may bebelow the sensitivity of the test. As with many diagnostictests, results from the Xpert CT/NG assay should beinterpreted in conjunction with other laboratory andclinical data available to the clinician.Xpert CT/NG performance has not been evaluated in patientsless than 14 years of age. The assay should not be used forthe evaluationof suspected sexual abuse or for other medico-legalindications. Additional testing is recommended in anycircumstance when false positive or false negative resultscould lead to adverse medical, social or psychologicalconsequences. 05/07/2024 11:2 8 AM EDT 05/07/2024 3:17 PM EDT Narrative [facility] - 05/08/2024 12:20 PM EDT Vaginal us Generic External Data Provider LAB MICROBIOLOGY - GENERAL ORDERABLES Final Result Performing Organization Address City/State/RUST Co de Phone Number [facility] [address] [place] [address] [phone] * BI Mammogram Screening Tomosynthesis Bilateral (12/20/2023 9:15 AM EST) Anatomical Region Laterality Modality Breast Bilateral Mammography 12/20/2023 9:15 AM EST Narrative 12/28/2023 12:23 PM EST ? [facility] ? [address] ?[place] [address] ? Mammography Report ? Signed ? Patient: Serrano,Magalys ?MR#: [id number] ? : 1970 ?Acct:[id number] ? Age/Sex: 52 / F ?ADM Date: 11//24 ? Loc: HO.MAMMO ? Attending Dr: Deborah [place] TAFFY CANDY MAKER ? Ordering Physician: Lyn,Deborah TAFFY CANDY MAKER ?Results: 2Beni ?? gn Findings ? Date of Service: 12/19/ ?Follow Up: 1 Year From Orig ?? inal Mammogram ? Procedure(s): MM tomosynthesis screening BI ?? Accession Number(s): [id number] ? cc: Lyn,Deborah TAFFY CANDY MAKER ? EXAMINATION: ?? MM SCREENING DIGITAL BREAST TOMOSYNTHESIS, BILATERAL ? CLINICAL INFORMATION: ? Screening. Asymptomatic. ? COMPARISON: ?? Mammography: Comparison is made with available priors ? TECHNIQUE: ?? Digital breast mammography with tomosynthesis is performed in both the ?? craniocaudal and mediolateral oblique views along with computer-aided ?? detection (CAD). ? FINDINGS: ?? There are scattered areas of fibroglandular density (ACR BI-RADS breast ?? composition Category b). ?? Bilateral reduction mammoplasty changes. ?? There are no significant masses, abnormal calcifications, or other ?? abnormalities. ? MM/MM tomosynthesis screening BI ?? IMPRESSION: ?? No mammographic evidence of malignancy. ? ASSESSMENT: ? BI-RADS BI-RADS 2 - Benign Findings ? RECOMMENDATION: ?? Routine annual mammography screening. ? 1 year F/U ? This examination should not preclude the clinical evaluation of a ?? suspicious palpable abnormality. ? This patient's information was entered into a reminder system with a ?? target due date for their next mammogram. ? Electronically signed by: ??Jeannine Richter DO ??12/28/2023 12:20 PM EST ? Dictated By: ?Jeannine Richter DO ? Signed By: ?<Electronically signed by Jeannine Richter, DO in OV> ? 12/28/23 1220 ? DD/ 4 ? TD/TT: 12/20/23 0930 ? Social Research Assistant: ? Procedure Note Oliver Maharaj - 12/28/2023 [facility] [address] [place] [address] Dr. [place], [place] [address] Mammography Report Signed Patient: Bart Serrano#: [id number] : 1970Acct:[id number] Age/Sex: 52 / FADM Date: 12/20/23 Loc: HO.MAMMO Attending Dr: Deborah Nicholson TAFFY CANDY MAKER Ordering Physician: Deborah Nicholson FNPResults: 2Beni gn Findings Date of Service: 12/20/23Follow Up: 1 Year From Orig inal Mammogram Procedure(s): MM tomosynthesis screening BI Accession Number(s): [id number] cc: Deborah Nicholson TAFFY CANDY MAKER EXAMINATION: MM SCREENING DIGITAL BREAST TOMOSYNTHESIS, BILATERAL CLINICAL INFORMATION: Screening. Asymptomatic. COMPARISON: Mammography: Comparison is made with available priors TECHNIQUE: Digital breast mammography with tomosynthesis is performed in both the craniocaudal and mediolateral oblique views along with computer-aided detection (CAD). FINDINGS: There are scattered areas of fibroglandular density (ACR BI-RADS breast composition Category b). Bilateral reduction mammoplasty changes. There are no significant masses, abnormal calcifications, or other abnormalities. MM/MM tomosynthesis screening BI IMPRESSION: No mammographic evidence of malignancy. ASSESSMENT: BI-RADS BI-RADS 2 - Benign Findings RECOMMENDATION: Routine annual mammography screening. 1 year F/U This examination should not preclude the clinical evaluation of a suspicious palpable abnormality. This patient's information was entered into a reminder system with a target due date for their next mammogram. Electronically signed by: Jeannine Richter DO 12/28/2023 12:20 PM EST Dictated By: Jeannine Richter DO Signed By: <Electronically signed by Jeannine Richter DO in OV> 12/28/23 1220 DD/ 0915 TD/TT: 12/20/23 0930 Social Research Assistant: [facility] TAFFY CANDY MAKER IMG BI PROCEDURES Final Resul t * (ABNORMAL) Lipid Panel, Standard (01/27/2023 9:05 AM EST) Triglycerides 118 <150 mg/dL [facility] Comment:Desirable Triglyceri de: less than 150 mg/dLBorderline High Triglyceride 150-199 mg/dLHigh Triglyceride: 200-499 mg/dLVery High Triglyceride: greater than or equal to 5OO mg/dL Cholesterol 223(H) <200 mg/dL [facility] [facility] Comment:Desirable Cholestero l: less than 200 mg/dLBorderline High Cholesterol: 200-239 mg/dLHigh Cholesterol: greater than 239 mg/dL LDL Cholesterol Calculated 144(H) <100 mg/dL [facility] Comment:Desirable LDL: less than 100 mg/dLNear Optimal/Above Optimal LDL: 110- 129 mg/dLBorderline High LDL: 130-159 mg/dLHigh LDL: 160-189 mg/dLVery High LDL: greater than or equal to 190 mg/dL HDL Cholesterol 56 >40 mg/dL [facility] Comment:Desirable HDL: great er than 40 mg/dL Note: This HDL assay may give artificially low results in patients with liver disease. Blood Venous blood specimen / Unknown 01/27/2023 9:05 AM EST 01/27/2023 11:36 AM EST [facility] LAB BLOOD ORDERABLES Final Re sult [facility] [address] [place] [phone] * Hm Colonoscopy (02/28/2019 8:21 AM EST) Historical Provider HEALTH MAINTENANCE Final Result from Last 3 Months or Most Recently Relevant to Health Maintenance Insurance [facility] C3 Care Teams Silk Weaver Relationship Specialty Start Date End Date Deborah Nicholson FNP [address] [place] [id number] PCP - General Family Medicine 10/12/21
--- OUTSIDE RECORDS SUMMARY | 2024-06-05 13:39 | XMS_ITS | Encounter Summary ---
Author Organization [employer] Address [address] [facility] [address]t [place] [address] Care Team Providers Care Cotton Dispatcher Name Role Phone Idamay [facility] Primary Care Provider [phone] Reason for Visit * Reason Comments Med Refill Encounter Details Date Type Department Care Team ([facility] Contact Info) Description 09/12/2023 Refill [facility] [address] [place], [place] [phone] [facility] [address] [place], [place] [phone] Social History Tobacco Use Types Packs/Day Years Used Date Smoking Tobacco: Never Smokeless Tobacco: Never Alcohol Use Standard Drinks/Week Comments Never 0 (1 standard drink = 0.6 oz pur e alcohol) Depression Answer Date Recorded Patient Health Questionnaire-9 Score 8 03/16/2023 Patient Health Questionnaire-9 Score 8 03/16/2023 Last PHQ-9: Questionnaire Data Not on file 0 03/16/2023 Housing Stability Answer Date Recorded What is your housing situation today? I have uriel beasley 12/20/[address] you li ve. Do you have problems with any of the following? None of the above 12/20/2022 Food Insecurity Answer Date Recorded Within the past 12 months, y ou worried that your food would run out before you got money to buy more: Never True 03/04/2023 Within the past 12 months,th e food you bought just didn't last and you didn't have enough money to get more: Never True Transportation Answer Date Recorded In the past 12 months, has l ack of transportation kept you from medical appts, meetings, work or from getting things needed for daily living? No 12/20/2022 Utilities Answer Date Recorded In the past 12 months, has t he electric, gas, oil or water company threatened to shut off services in your home? No 12/20/2022 Depression Answer Date Recorded Patient Health Questionnaire-2 Score 2 03/16/2023 Comments Unknown Sex and Gender Information Value Date Recorded Sex Assigned at Female 12/14/2021 10:14 AM EDT Legal Sex Female 10:14 AM EDT Gender Identity Female 12/14/2021 10:14 AM EDT Sexual Orientation Straight 12/14/2021 10 :14 AM EDT documented as of this encounter Plan of Treatment Upcoming Encounters Date Type Department Care Team (Late st Contact Info) Description 08/29/2024 11:30 AM EDT Office Visit [facility] [address] [place] [address] Deborah Nicholson FNP [address] [place] [address] documented as of this encounter Visit Diagnoses Not on filedocumented in this encounter Additional Health Concerns Assessment Noted Time PHQ-9 Depression Total Score: 8 03/16/19 24 2:08 PM EST documented as of this encounter Care Teams Cotton Dispatcher Relationship Specialty Start Date End Date Deborah Nicholson FNP [address] [place] [phone] PCP - General Family Medicine 10/12/21 documented as of this encounter
--- OUTSIDE RECORDS SUMMARY | 2024-06-05 13:39 | XMS_ITS | Encounter Summary ---
Author Organization [employer] Address [address] [facility] 7t [place] [address] Care Team Providers Care Wood Gluer Name Role Phone [facility] Primary Care Provider [phone] Encounter Details Date Type Department Care Team ([facility] st Contact Info) Description 08/23/2023 Telephone [facility] MED[facility]INE [address] [place], [place] [phone] [facility] [address] [place], [place] [phone] Social History Tobacco Use Types Packs/Day Years [...] t he electric, gas, oil or water [employer] threatened to shut off services in your home? No 12/20/2022 Depression Answer Date Recorded Patient Health Questionnaire-2 Score 2 03/16/2023 Comments Unknown Sex and Gender Information Value Date Recorded Sex Assigned at Female 12/14/2021 10:14 AM EDT Legal Sex Female 10:14 AM EDT Gender Identity Female 12/14/2021 10:14 AM EDT Sexual Orientation Straight 12/14/2021 10 :14 AM EDT documented as of this encounter Miscellaneous Notes * Telephone Encounter - Cortney Montiel RN - 08/23/2023 4:39 PM EDT TB order placed, pt. Had physical completed 03/16/23. documented in this encounter Plan of Treatment Upcoming Encounters Date Type Department Care Team (Late st Contact Info) Description 08/29/2024 11:30 AM EDT Office Visit [facility] MED[facility]INE [address] [place], [place] [phone] [facility] [address] [place], [place] [phone] documented as of this encounter Procedures Procedure Name Priority Date/Time Associated Diagnosis Comments T-SPOT(R).TB Routine 08/31/2023 9:06 AM EDT Screening examination for pulmonary tuberculosis documented in this encounter Results * T-SPOT??.TB (08/31/2023 9:06 AM EDT) [facility] T Spot TB Negative Negative [facility] Comment:A negative test resu lt does not exclude the possibilityof exposure to or infection with Mycobacteriumtuberculosis (M. tuberculosis). Patients with recentexposure to TB infected individuals exhibiting anegative T-SPOT.TB result should be considered forretesting within 6 weeks or if other relevant clinicalsymptoms indicate. Results from T-SPOT.TB testing mustbe used in conjunction with each individual'sepidemiological history, current medical status,and results of other diagnostic evaluations.The T-SPOT.TB test is qualitative and results arereported as positive, borderline, or negative, giventhat the test controls perform as expected. In linewith the Centers for Disease Control and Prevention's2010 recommendation to report quantitative measurementsalongside the qualitative result, the laboratoryprovides spot counts for informational purposes only.The T-SPOT.TB test should not be interpreted as aquantitative test. TS PANEL A 0 [facility] TS PANEL B 0 [facility] Negative Control Passed [facility] Positive Control Passed [facility] Comment:For additional infor mation, please refer tohttp://education.Entelos/faq/GAO298(This link is being provided for informational/educational purposes only.)THIS TEST WAS PERFORMED AT[facility] [employer] [id number] [place] [id number] W. MASON,MD,PHD 08/31/2023 9:06 AM EDT 08/31/2023 11:12 AM EDT [facility] LAB BLOOD ORDERABLES Final Re sult [facility] [address] [place] [phone] documented in this encounter Visit Diagnoses Diagnosis Screening examination for pulmonary tuberculosis documented in this encounter Additional Health Concerns Assessment Noted Time PHQ-9 Depression Total Score: 8 03/16/19 24 2:08 PM EST documented as of this encounter Care Teams Wood Gluer Relationship Specialty Start Date End Date [facility] [address] [place] [phone] PCP - General Family Medicine 10/12/21 documented as of this encounter
--- OUTSIDE RECORDS SUMMARY | 2024-06-05 13:39 | XMS_ITS | Encounter Summary ---
Author Organization [employer] Address [address] [facility] 7t [place] [address] Care Team Providers Care Costume Director Name Role Phone Elkins [facility] Primary Care Provider [phone] Reason for Visit * Reason Comments Med Refill Encounter Details Date Type Department Care Team ([facility] Contact Info) Description 06/14/2023 Refill [facility] [address] [place], [place] [phone] [facility] [address] [place], [place] [phone] Dyspepsia Social History Tobacco Use Types Packs/Day Years [...] Description 08/29/2024 11:30 AM EDT Office Visit [facility] [address] [place] [address] Deborah Nicholson FNP [address] [place] [address] documented as of this encounter Visit Diagnoses Diagnosis Dyspepsia Dyspepsia and other specified disorders of function of stomach documented in this encounter Additional Health Concerns Assessment Noted Time PHQ-9 Depression Total Score: 8 03/16/19 24 2:08 PM EST documented as of this encounter Care Teams Costume Director Relationship Specialty Start Date End Date Deborah Nicholson FNP [address] [place] [address] PCP - General Family Medicine 10/12/21 documented as of this encounter
--- OUTSIDE RECORDS SUMMARY | 2024-06-05 13:39 | XMS_ITS | Encounter Summary ---
Author Organization [employer] Address [address] [place] [address] Care Team Providers Care Desktop Specialist Name Role Phone Deborah Nicholson [employer] Primary Care Provider [phone] Encounter Details Date Type Department Care Team (Late st Contact Info) Description 05/25/2023 Orders Only [facility] MEDICINE [address] [place], [place] [phone] Provider, MD Kaye Social History Tobacco Use Types Packs/Day Years [...] is your housing situation today? I have uriellenka beasley 12/20/[address] you [...] Description 08/29/2024 11:30 AM EDT Office Visit [facility] [address] [place] [address] Deborah Nicholson FNP [address] [place] [address] documented as of this encounter Procedures Procedure Name Priority Date/Time Associated Diagnosis Comments HM COLONOSCOPY Routine 02/28/2019 8:21 AM EST documented in this encounter Results * Hm Colonoscopy (02/28/2019 8:21 AM EST) us Historical Provider HEALTH MAINTENANCE Final Result documented in this encounter Visit Diagnoses Not on filedocumented in this encounter Additional Health Concerns Assessment Noted Time PHQ-9 Depression Total Score: 8 03/16/19 24 2:08 PM EST documented as of this encounter Care Teams Desktop Specialist Relationship Specialty Start Date End Date Deborah Nicholson FNP [address] [place] [address] PCP - General Family Medicine 10/12/21 documented as of this encounter
== END 2024-06-05 11:21 | disposition home or self-care (01) ==
LOC: HO.US 11:20
PROVIDERS: PCP Registered Nurse; Visit Provider Obstetrics & Gynecology
DX: N95.0 Postmenopausal bleeding (principal)
CPT/HCPCS: 76830; 76856

== ENCOUNTER → 2024-06-05 11:22 | Outpatient (BNV) | payer MEDICAID, SELFPAY | PROVIDERS: PCP Registered Nurse; Visit Provider Radiology Diagnostic Radiology | DX: N95.0 Postmenopausal bleeding (principal) | CPT/HCPCS: 76830; 76856 ==

== ENCOUNTER 2024-06-11 16:11 | Outpatient (REF) | payer MEDICAID, SELFPAY ==
[2024-06-11 18:10] LABS: Bacterial Vaginosis PCR POSITIVE (Negative); Candida Group PCR NOT DETECTED (Not Detect); Candida glab krusei PCR NOT DETECTED (Not Detect); Trichomonas vaginalis PCR NOT DETECTED (Not Detect)
--- OUTSIDE RECORDS SUMMARY | 2024-06-11 18:54 | XMS_ITS | Encounter Summary ---
Author Organization [employer] Address [address] [facility] 7t [place] [address] Care Team Providers Care Bridge Inspector Name Role Phone Lyn Deborah LAUNDRY TECH Primary Care Provider [phone] Encounter Details Date Type Department Care Team (Latest Contact Info) Description 06/11/2024 Travel Social History Tobacco Use Types Packs/Day Years [...] your housing situation today? I have uriel gale 03/16/[address] you li [...] t he electric, gas, oil or water [employer] threatened to shut off services in your [...] Description 08/29/2024 11:30 AM EDT Office Visit [facility] MEDICINE [address] [place] [address] Deborah Nicholson FNP [address] [place] [address] documented as of this encounter Visit Diagnoses Not on filedocumented in this encounter Additional Health Concerns Assessment Noted Time PHQ-9 Depression Total Score: 17 025 11:26 AM EST documented as of this encounter Care Teams Bridge Inspector Relationship Specialty Start Date End Date Deborah Nicholson FNP [address] [place] [address] PCP - General Family Medicine 10/12/21 documented as of this encounter
--- OUTSIDE RECORDS SUMMARY | 2024-06-11 18:54 | XMS_ITS | Encounter Summary ---
Author Organization [employer] Address [address] [facility] 7[address] [place] [address] Care Team Providers Care Syrup Maker Cook Name Role Phone Deborah Nicholson ANIMAL HEALTH TECHNICIAN Primary Care Provider [phone] Reason for Visit * Reason Comments sick onsite Vaginal odor Encounter Details Date Type Department Care Team ([facility] Contact Info) Description 06/11/2024 11:15 AM EDT Office Visit [facility] [address] [place], [place] [phone] Jie Nicolas NP [address] [place], [place] [phone] Vaginal symptom (Primary Dx); Urinary frequency Social History Tobacco Use Types Packs/Day Years [...] AM EDT documented as of this encounter Last Filed Vital Signs Vital Sign Reading Time Taken Comments Blood Pressure 125/78 06/11/2024 11:25 AM EDT Pulse 69 06/11/2024 11:25 AM EDT Temperature 36.7 ??C (98 ??F) 06/11/2024 11: 25 AM EDT Respiratory Rate 18 06/11/2024 11:2 5 AM EDT Oxygen Saturation 98% 06/11/2024 11: 25 AM EDT Inhaled Oxygen Concentration - - Weight 77.9 kg (171 lb 12.8 oz) 025 11:25 AM EDT Height 157.5 cm (5' 2 ) 06/11/2024 11:2 5 AM EDT Body Mass Index 31.42 06/11/2024 11:25 AM EDT documented in this encounter Progress Notes * Jie Nicolas NP - 06/11/2024 11:15 AM EDT SUBJECTIVE: Magalys Serrano is a 53 y.o. female presents for sick visit. Complains of vaginal odor. HPI: Magalys reports malodorous vaginal discharge that's been present since undergoing transvaginal US six days ago. She also complains of dysuria and and urinary frequency. States she was recently treatedfor UTI and believes urinary frequency is r/t menopause symptoms. She denies pelvic, abdominal, or flank pains, fever, or chills. She is sexually active with male partner; denies concern for STI. Review of Systems Constitutional: Negative. Negative for chills and fever. Respiratory: Negative for chest tightness and shortness of breath. Cardiovascular: Negative for chest pain. Gastrointestinal: Negative for abdominal pain, constipation, diarrhea and nausea. Genitourinary: Positive for dysuria, frequency and vaginal discharge. Negative for difficulty urinating, dyspareunia, flank pain, menstrual problem, pelvic pain, urgency, vaginal bleeding and vaginalpain. Musculoskeletal: Negative for arthralgias, back pain, myalgias and neck pain. Skin: Negative. Negative for rash and wound. Neurological: Negative for weakness, light-headedness and headaches. Psychiatric/Behavioral: Negative for behavioral problems, confusion, decreased concentration and suicidal ideas. OBJECTIVE: Visit Vitals BP 125/78 (BP Location: Left arm, Patient Position: Sitting, BP Cuff Size: Large adult) Pulse 69 Temp 98 ??F (36.7 ??C) (Oral) Resp 18 Ht 5' 2 (1.575 m) Wt 171 lb 12.8 oz (77.9 kg) SpO2 98% BMI 31.42 kg/m?? Smoking Status Never BSA 1.85 m?? 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 ([facility]) Vitamin D deficiency Asthma exacerbation Acute bacterial conjunctivitis of both eyes Current Outpatient Medications: albuterol (2.5 MG/3ML) 0.083% nebulizer solution, inhale 3 milliliter by nebulization route 3 timesevery day, Disp: 75 mL, Rfl: 0 ARIPiprazole (Abilify) 20 MG tablet, TOME 1 TABLETA POR V A ORAL TODOS LOS D , Disp: , Rfl: budesonide-formoterol (Symbicort) 80-4.5 MCG/ACT inhaler, Inhale 2 puffs every 4-6 hours as needed for cough or wheezing, Disp: 1 each, Rfl: 11 cetirizine (ZyrTEC) 10 MG tablet, TOME HESHAM TABLETA TODOS LOS IBARRA CUANDO SEA NECESARIO, Disp: 90 tablet, Rfl: 3 cloNIDine (Catapres) 0.1 MG tablet, TAKE 1 TABLET BY MOUTH TWICE A DAY NEEDED FOR ANXIETY/PANIC,Disp: , Rfl: cyclobenzaprine (Flexeril) 10 MG tablet, TAKE 1/2 TO 1 TABLET BY MOUTH EVERY NIGHT AT BEDTIME NEEDED, Disp: , Rfl: D3-1000 25 MCG (1000 UT) capsule, Take 1 capsule (25 mcg) by mouth Once per day., Disp: 30 capsule,Rfl: 11 docusate sodium (Colace) 100 MG capsule, TOME 1 CAPSULA POR VIA ORAL TODOS LOS IBARRA, Disp: 90 capsule, Rfl: 0 escitalopram (Lexapro) 20 MG tablet, TOME HESHAM TABLETA TODOS LOS D , Disp: , Rfl: fluconazole (Diflucan) 150 MG tablet, TOME HESHAM TABLETA LOS D ONE DOSE, Disp: , Rfl: fluticasone (Flonase) 50 MCG/ACT nasal spray, SPRAY 1 - 2 SPRAYS IN EACH NOSTRIL EVERY DAY NEEDED, Disp: , Rfl: ketorolac (Toradol) 10 MG tablet, PLEASE SEE ATTACHED FOR DETAILED DIRECTIONS, Disp: , Rfl: Ketotifen Fumarate 0.035 % solution, Administer 1 drop into affected eye(s) if needed in the morning and at bedtime (itchitness)., Disp: 5 mL, Rfl: 1 Lidocaine, Anorectal, (Topicaine 5) 5 % gel, Apply to affected area as needed, Disp: , Rfl: linaCLOtide (Linzess) 145 MCG capsule, Take by mouth., Disp: , Rfl: meloxicam (Mobic) 15 MG tablet, TOME HESHAM TABLETA TODOS LOS D CON ALIMENTO, Disp: , Rfl: mirtazapine (Remeron) 45 MG tablet, TOME HESHAM TABLETA TODOS LOS D AL ACOSTARSE, Disp: , Rfl: montelukast (Singulair) 10 MG tablet, TOME HESHAM TABLETA TODOS LOS D EN LA NOCHE, Disp: , Rfl: nitrofurantoin, macrocrystal-monohydrate, (Macrobid) 100 MG capsule, Take 1 capsule (100 mg) by mouth 2 times daily for 7 days., Disp: 14 capsule, Rfl: 0 omeprazole (PriLOSEC) [address] capsule, TAKE 2 CAPSULE BY MOUTH EVERY DAY BEFORE A MEAL, Disp: 180 capsule, Rfl: 1 OXcarbazepine (Trileptal) 150 MG tablet, TAKE 1 TABLET BY MOUTH EVERY MORNING (TAKES 900MG AT BEDTIME,THIS DOSE IN ADDED TO TAKE IN MORNING, Disp: , Rfl: OXcarbazepine (Trileptal) 300 MG tablet, Take 300 mg by mouth at bedtime. Take (150mg) by mouth in the morning and 300mg in the evening. Prescribed by psych team , Disp: , Rfl: polyethylene glycol, PEG, 3350 (MiraLax) 17 GM/SCOOP powder, Take 17 g by mouth Once per day., Disp: 510 g, Rfl: 0 senna (Senokot) 8.6 MG tablet, Take 1 tablet (8.6 mg) by mouth at bedtime., Disp: 120 tablet, Rfl: 0 topiramate (Topamax) 25 MG tablet, Take 1 tablet (25 mg) by mouth before evening meal., Disp: 30 tablet, Rfl: 11 Ventolin HFA 108 (90 Base) MCG/ACT inhaler, INHALE 2 PUFFS POR VIA ORAL EVERY 4 HOURS IF NEEDED FORWHEEZING., Disp: 18 g, Rfl: 1 Office Visit on 06/11/2024 Component Date Value Ref Range Status Color, UA 06/11/2024 Yellow Final Clarity, UA 06/11/2024 Clear Final Glucose, UA 06/11/2024 Negative Final Bilirubin, UA 06/11/2024 Negative Final Ketones, 06/11/2024 Negative Final Spec Grav, UA 06/11/2024 1.025 Final Blood, UA 06/11/2024 Positive (A) Negative, None Detected Final trace-intact pH, UA 06/11/2024 5.5 Final Protein, UA 06/11/2024 Trace Final Urobilinogen, UA 06/11/2024 0.2 Final Leukocytes, UA 06/11/2024 Negative Negative, Rare, Trace Final Nitrite, UA 06/11/2024 Positive (A) Negative, None Detected Final Appearance, UA 06/11/2024 clear Final QC Media Lot # 06/11/2024 [id number] Final Lot# Expiration Date 06/11/2024 113,025 Final Physical Exam Vitals reviewed. Constitutional: General: She is not in acute distress. Appearance: Normal appearance. She is not ill-appearing. HENT: Head: Normocephalic and atraumatic. Right Ear: External ear normal. Left Ear: External ear normal. Nose: Nose normal. Eyes: General: No scleral icterus. Extraocular Movements: Extraocular movements intact. Cardiovascular: Rate and Rhythm: Normal rate and regular rhythm. Pulses: Normal pulses. Heart sounds: Normal heart sounds. Pulmonary: Effort: Pulmonary effort is normal. No respiratory distress. Breath sounds: Normal breath sounds. Abdominal: Tenderness: There is no abdominal tenderness. There is no guarding. Musculoskeletal: General: Normal range of motion. Cervical back: Normal range of motion. Skin: General: Skin is warm and dry. Neurological: General: No focal deficit present. Mental Status: She is alert and oriented to person, place, and time. Gait: Gait normal. Psychiatric: Mood and Affect: Mood normal. Behavior: Behavior normal. Current Outpatient Medications Medication Sig Dispense Refill albuterol (2.5 MG/3ML) 0.083% nebulizer solution inhale 3 milliliter by nebulization route 3 times every day 75 mL 0 ARIPiprazole (Abilify) 20 MG tablet TOME 1 TABLETA POR V A ORAL TODOS LOS D budesonide-formoterol (Symbicort) 80-4.5 MCG/ACT inhaler Inhale 2 puffs every 4- 6 hours as needed for cough or wheezing 1 each 11 cetirizine (ZyrTEC) 10 MG tablet TOME HESHAM TABLETA TODOS LOS IBARRA CUANDO SEA NECESARIO 90 tablet 3 cloNIDine (Catapres) 0.1 MG tablet TAKE 1 TABLET BY MOUTH TWICE A DAY NEEDED FOR ANXIETY/PANIC cyclobenzaprine (Flexeril) 10 MG tablet TAKE 1/2 TO 1 TABLET BY MOUTH EVERY NIGHT AT BEDTIME NEEDED D3-1000 25 MCG (1000 UT) capsule Take 1 capsule (25 mcg) by mouth Once per day. 30 capsule 11 docusate sodium (Colace) 100 MG capsule TOME 1 CAPSULA POR VIA ORAL TODOS LOS IBARRA 90 capsule 0 escitalopram (Lexapro) 20 MG tablet TOME HESHAM TABLETA TODOS LOS D fluconazole (Diflucan) 150 MG tablet TOME HESHAM TABLETA TODOS LOS D ONE DOSE fluticasone (Flonase) 50 MCG/ACT nasal spray SPRAY 1 - 2 SPRAYS IN EACH NOSTRIL EVERY DAY NEEDED ketorolac (Toradol) 10 MG tablet PLEASE SEE ATTACHED FOR DETAILED DIRECTIONS Ketotifen Fumarate 0.035 % solution Administer 1 drop into affected eye(s) if needed in the morningand at bedtime (itchitness). 5 mL 1 Lidocaine, Anorectal, (Topicaine 5) 5 % gel Apply to affected area as needed linaCLOtide (Linzess) 145 MCG capsule Take by mouth. meloxicam (Mobic) 15 MG tablet TOME HESHAM TABLETA TODOS LOS D CON ALIMENTO mirtazapine (Remeron) 45 MG tablet TOME HESHAM TABLETA TODOS LOS D AL ACOSTARSE montelukast (Singulair) 10 MG tablet TOME HESHAM TABLETA TODOS LOS D EN LA NOCHE nitrofurantoin, macrocrystal-monohydrate, (Macrobid) 100 MG capsule Take 1 capsule (100 mg) by mouth 2 times daily for 7 days. 14 capsule 0 omeprazole (PriLOSEC) [address] capsule TAKE 2 CAPSULE BY MOUTH EVERY DAY BEFORE A MEAL 180 capsule 1 OXcarbazepine (Trileptal) 150 MG tablet TAKE 1 TABLET BY MOUTH EVERY MORNING (TAKES 900MG AT BEDTIME,THIS DOSE IN ADDED TO TAKE IN MORNING OXcarbazepine (Trileptal) 300 MG tablet Take 300 mg by mouth at bedtime. Take (150mg) by mouth in the morning and 300mg in the evening. Prescribed by psych team polyethylene glycol, PEG, 3350 (MiraLax) 17 GM/SCOOP powder Take 17 g by mouth Once per day. 510 g 0 senna (Senokot) 8.6 MG tablet Take 1 tablet (8.6 mg) by mouth at bedtime. 120 tablet 0 topiramate (Topamax) 25 MG tablet Take 1 tablet (25 mg) by mouth before evening meal. 30 tablet 11 Ventolin HFA 108 (90 Base) MCG/ACT inhaler INHALE 2 PUFFS POR VIA ORAL EVERY 4 HOURS IF NEEDED FOR WHEEZING. 18 g 1 No current facility-administered medications for this visit. Assessment/Plan Diagnoses and all orders for this visit: Vaginal symptom Comments: -vaginal swab obtained to test for BV/yeast. -will treat according to infection type. Patient prefers oral treatment if BV positive. -advised if BV test positive, consider having partner treated to prevent reinfection given + BV 1 month ago. -will call with results Orders: - Bacterial Vaginosis, Yeast and Trich; Future - POCT urinalysis dipstick manually resulted Urinary frequency Comments: -POCT urinalysis positive with nitrites and trace blood; sample sent out for culture -rx'ed nitrufurantoin -advised increase water intake, and pure cranberry juice consumption -patient re-educated on feminine cleansing techniques -Return and emergency precautions reviewed -Will call with results Orders: - Culture, Urine, Routine; Future - nitrofurantoin, macrocrystal-monohydrate, (Macrobid) 100 MG capsule; Take 1 capsule (100 mg) by mouth 2 times daily for 7 days. Visit Conducted in: Faroese Translation by: Provided by [employer] Manager Phone Service [employer] ID #[id number] documented in this encounter Plan of Treatment Upcoming Encounters Date Type Department Care Team (Late st Contact Info) Description 08/29/2024 11:30 AM EDT Office Visit [facility] [address] [place] [address] [facility] [address] [place] [address] Scheduled Orders Name Type Priority Associated Diagnoses Orde r Schedule Bacterial Vaginosis, Yeast and Trich Microbiology Routine Vaginal symptom Expected: 06/11/2024 (Approximate), Expires: 06/11/2025 Culture, Urine, Routine Microbiology Routine Urinary frequency Expected: 06/11/2024 (Approximate), Expires: 06/11/2025 documented as of this encounter Procedures Procedure Name Priority Date/Time Associated Diagnosis Comments POCT URINALYSIS DIPSTICK Routine 06/11/2024 12:10 PM EDT Vaginal symptom documented in this encounter Results * (ABNORMAL) POCT urinalysis dipstick manually resulted (06/11/2024 12:10 PM EDT) Color, UA Yellow Clarity, UA Clear Glucose, UA Negative Bilirubin, UA Negative Ketones, UA Negative Spec Grav, UA 1.025 Blood, UA Positive(A) Negative, None Detected Comment:trace-intact pH, UA 5.5 Protein, UA Trace Urobilinogen, UA 0.2 Leukocytes, UA Negative Negative, Rare, Trace Nitrite, UA Positive(A) Negative, None Detected Appearance, UA clear QC Media Lot # [id number] Lot# Expiration Date Urine 06/11/2024 12:1 0 PM EDT Jie Nicolas PERSONAL LINES INSURANCE AGENT POINT OF CARE TEST ENTER/EDIT O RDERABLES Final Result documented in this encounter Visit Diagnoses Diagnosis Vaginal symptom- Primary Urinary frequency documented in this encounter Additional Health Concerns Assessment Noted Time PHQ-9 Depression Total Score: 17 025 11:26 AM EST documented as of this encounter Care Teams Syrup Maker Cook Relationship Specialty Start Date End Date Deborah Nicholson FNP [address] [place] [id number] PCP - General Family Medicine 10/12/21 documented as of this encounter
--- OUTSIDE RECORDS SUMMARY | 2024-06-11 18:54 | XMS_ITS | Encounter Summary ---
Author Organization [employer] Address [address] [facility] 7t [place] [address] Care Team Providers Care Clinical Documentation Improvement Specialist Name Role Phone [place] [facility] Primary Care Provider [phone] Reason for Visit * Reason Onset Date Comments Nurse Triage 06/08/2024 Encounter Details Date Type Department Care Team ([facility] Contact Info) Description 06/08/2024 Telephone [facility] [address] [place], [place] [phone] [facility] [address] [place], [place] [phone] Nurse Triage Social History Tobacco Use Types Packs/Day Years [...] encounter Miscellaneous Notes * Telephone Encounter - Daksha Hooper RN - 06/08/2024 1:27 PM EDT Triage call Pt reports was at [facility] 06/05/24 and had a vaginal ultra sound. Pt reports, something was put into the vagina and now there is a bad odor. Pt was recently treated for acute cystits and hematuria 05/18/24 OV. Pt was prescribed antibiotics at that time. Pt reports continues to have urinary sx as well. Pt is offered to come to [facility] today to be seen but, declines reports, I cant walk today . ASK apt with [facility] 06/11/24 @ 1115am. Pt agrees with this disposition. Insurance is verifiedas active prior to booking. Protocol Used: Vaginal Symptoms (Adult) Protocol-Based Disposition: See in Office or Video Visit within 3 Days Positive Triage Question: * Patient wants to be seen * All higher-acuity triage questions were negative Care Advice Discussed: * Reasons To Call Back - Rash or severe itching - Yellow or green vaginal discharge - Discharge smells bad - You become worse * Telephone Encounter - Judd Cardona - 06/08/2024 1:08 PM EDT Symptom: Vaginal Symptoms - Not Bleeding Outcome: Schedule an urgent appointment (within 4 hours) or talk to a nurse or provider soon Reason: Foul-smelling vaginal discharge The caller accepted this outcome. documented in this encounter Plan of Treatment Upcoming Encounters Date Type Department Care Team (Late st Contact Info) Description 08/29/2024 11:30 AM EDT Office Visit [facility] [address] [place] [address] Deborah Nicholson FNP [address] [place] [address] documented as of this encounter Visit Diagnoses Not on filedocumented in this encounter Additional Health Concerns Assessment Noted Time PHQ-9 Depression Total Score: 17 025 11:26 AM EST documented as of this encounter Care Teams Clinical Documentation Improvement Specialist Relationship Specialty Start Date End Date Deborah Nicholson FNP [address] [place] [id number] PCP - General Family Medicine 10/12/21 documented as of this encounter
--- OUTSIDE RECORDS SUMMARY | 2024-06-11 18:54 | XMS_ITS | Clinical Summary ---
Author Organization [employer] Address 75 [facility] 7t [place] [address] Care Team Providers Care Oil Gas And Pipe Tester Name Role Phone Lyn [facility] Primary Care Provider [phone] Allergies No known active allergies Medications cloNIDine [...] ORAL TODOS LOS IBARRA 90 capsule Active nitrofurantoin, macrocrystal-mo nohydrate, (Macrobid) 100 MG capsuleIndicati ons:Urinary frequency Take 1 capsule (100 mg) by mouth 2 times daily for 7 days. 14 capsule 025 2024 Active benzonatate (Tessalon) 100 MG capsule TOME HESHAM C PSULA NATHANAEL VECES AL D A CUANDO SEA NECESARIO PARA LA TOS 2024 Discontinued D3-1000 25 MCG (1000 UT) capsule TOME HESHAM C PSULA TODOS LOS D 022 2024 Discontinued(R eorder (will not trigger notification to Pharmacy)) estradiol-noret hindrone (CombiPatch) 0.05-0.14 MG/DAYIndicatio ns:Menopause syndrome Place 1 patch on the skin 2 (two) times a week. 8 patch 11 023 2024 Discontinued docusate sodium (Colace) 100 MG [...] Encounters Date Type Department Care Team Description 06/11/2024 11:15 AM EDT Office Visit [facility] [address] [place] [address] Jie Nicolas NP Vaginal symptom (Primary Dx); Urinary frequency 06/11/2024 Orders Only [facility] [address] [place] [address] Jie Nicolas NP 06/11/2024 Travel 06/08/2024 Telephone [facility] [address] [place] [address] Deborah Nicholson FNP Nurse Triage 05/25/2024 Outside Procedure [facility] [address] [place] [address] Lizzette Schroeder, OD Presbyopia (Primary Dx) 05/24/2024 2:45 PM EDT Office Visit [facility] [address] [place] [address] Donnie Schroedern, OD Myopia of both eyes (Primary Dx) 05/24/2024 Telephone [facility] [address] [place] [address] Deborah Nicholson FNP julia's recall 05/18/2024 11:15 AM EDT Office Visit [facility] [address] [place] [address] Deborah NicholsonBERNARDP Acute cystitis without hematuria (Primary Dx); Constipation, unspecified constipation type; Hot flashes; Seasonal allergic rhinitis due to other allergic trigger; Encounter for screening for malignant neoplasm of colon 05/18/2024 Refill [facility] [address] [place] [address] Deborah Nicholson FNP Constipation, unspecified constipation type 05/18/2024 Travel 05/09/2024 Refill [facility] [address] [place] [address] Deborah NicholsonDANIEL Exacerbation of asthma, unspecified asthma severity, unspecified whether persistent 05/07/2024 Orders Only GENERIC EXTERNAL DATA DEPARTMENT Provider, Generic External Data 04/27/2024 Population Health Risk Score [facility] (C3) Department [address] [place] [phone] Provider, Population Health Generic 04/26/2024 3:00 PM EDT Office Visit [facility] [address] [place] [address] Alexandre, Lizzette, OD Presbyopia (Primary Dx); 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 04/26/2024 Travel 03/16/2024 11:00 AM EST Office Visit [facility] [address] [place] [address] Lyn BERNARD CabreraP Intermittent left-sided chest pain (Primary Dx); Mild intermittent asthma without complication; Vulvar mass; Class 1 obesity due to excess calories with serious comorbidity and body mass index (BMI) of 33.0 to 33.9 in adult; Dietary counseling; Exercise counseling 03/16/2024 Travel 03/15/2024 Telephone [facility] [address] [place] [address] Lyn DANIEL Cabrera chart prep from Last 3 Months Immunizations [...] Mass Index 31.42 06/11/2024 11:25 AM EDT Plan of Treatment Upcoming Encounters Date Type Department Care Team (Late st Contact Info) Description 08/29/2024 11:30 AM EDT Office Visit [facility] [address] [place], [place] [phone] [facility] [address] [place], [place] [phone] Health Maintenance Due Date Last Done Comments [...] 2023 10/23/2020, 10/02/2020 Influenza Vaccine (#1) 2023 Mammogram 12/19/2024 12/20/2023 Alcohol/Substance Use Screening 03/16/2025 03/16/2024 Depression Screening 03/16/2025 03/16/2024, 03/16/19 25 SDOH Screening 03/16/2025 03/16/2024 Tobacco Screening 06/11/2025 06/11/2024 Lipid Panel 01/28/2028 01/27/2023 DTaP/Tdap/Td Vaccines (3 [...] Routine 06/11/2024 12:10 PM EDT Vaginal symptom BACTERIAL VAGINOSIS PANEL Routine 06/11/2024 12:00 AM EDT US PELVIS TRANSVAGINAL Routine 11:37 AM EDT CULTURE, URINE, ROUTINE Routine 05/18/2024 11:33 AM [...] Recently Relevant to Health Maintenance Results * (ABNORMAL) POCT urinalysis dipstick manually [...] 06/11/2024 12:1 0 PM EDT Jie Nicolas ICT SECURITY SPECIALIST POINT OF CARE TEST ENTER/EDIT O RDERABLES Final Result * (ABNORMAL) Bacterial Vaginosis (06/11/2024 12:00 AM EDT) Only the most recent of2 resultswithin the time period is included. TRICHOMONAS VAGINALIS DETECTION BY PCR NOT DETECTED Not Detect [facility] BACTERIAL VAGINOSIS DETECTION BY PCR POSITIVE(A) Negative [facility] Comment:The BV organism targ ets of [...] DETECTION BY PCR NOT DETECTED Not Detect [facility] Rachel glab krusei PCR NOT DETECTED Not Detect [facility] 06/11/2024 06/11/2024 Jie Nicolas ICT SECURITY SPECIALIST LAB MICROBIOLOGY - GENERAL [place] ROSARIO Final Result [facility] [address] [place] [address] [phone] * Pelvis Transvaginal (06/05/2024 11:37 AM EDT) Anatomical Region Laterality Modality Pelvis Ultrasound 06/05/2024 11:3 7 AM EDT Narrative 06/06/2024 12:26 PM EDT ? [facility] ?[address] ?[place] [address] ? Ultrasound Report ? Signed ? Patient: Magalys Serrano ?MR#: [id number] ? : 1970 ?Acct:[id number] ? Age/Sex: 53 / F ?ADM Date: 06/05/24 ? Loc: HO.US ? Attending Dr: Philippe Layton MD ? Ordering Physician: Philippe Layton MD ?? Date of Service: 06/05/24 ?? Procedure(s): US pelvic and transvaginal ?? Accession Number(s): [id number] ? cc: Deborah Nicholson MODEL MAKER PLASTIC; Philippe Layton MD ? EXAMINATION: ? US PELVIS ? CLINICAL INFORMATION: ? Postmenopausal bleeding. ? COMPARISON: ?? None available. ? TECHNIQUE: ?? Ultrasound of the pelvis is performed using both transabdominal and ?? transvaginal transducers along with Doppler. Transvaginal imaging is ?? performed due to inadequate visualization transabdominally. ? FINDINGS: ?? Uterus: ?? The uterus is retroverted, retroflexed, and measures 7.3 x 3.5 x 4.0 ?? cm. ??Normal cervix with small bulla seen cysts. ? The endometrium could not be visualized as per technologist note due to ?? retroverted uterus with shadowing. ? The uterus is smooth in contour and has normal myometrial echogenicity. ?No visible fibroid. ? Adnexa: ?? The right ovary was visualized. There is a normal color flow to the ?? right adnexa. The left ovary could not be visualized. There is no ?? pelvic ascites or fluid collection. ? Right ovary: Not visualized. ? Left ovary measures 1.7 x 1.2 x 1.2 cm. Volume = 1.2 mL. Normal ?? sonographic appearance. ? US/US pelvic and transvaginal ?? IMPRESSION: ?? 1. Limited examination due to the technologist unable to visualize the ?? endometrium as detailed in the technologist's note. Retroverted and ?? retroflexed uterus without definite fibroid. ?? 2. Right ovary could not be visualized. ?? 3. Normal left ovary. ? Electronically signed by: ??Manuelito Florian MD ??06/06/2024 12:23 PM EDT RP ? Dictated By: ?Manuelito Florian MD ? Signed By: ?<Electronically signed by Manuelito Florian MD in OV> ?06/06/24 1223 ? DD/ 1137 ? TD/TT: 06/05/24 1149 ? Sexual Assault Counselor: ? Procedure Note Oliver Maharaj - 06/06/[address] [address] Ultrasound Report Signed Patient: Bart Serrano#: [id number] : 1970Acct:[id number] Age/Sex: 53 / FADM Date: 06/05/24 Loc: HO.US Attending Dr: Philippe Layton MD Ordering Physician: Philippe Layton MD Date of Service: 06/05/24 Procedure(s): US pelvic and transvaginal Accession Number(s): [id number] cc: Deborah Nicholson MODEL MAKER PLASTIC; Philippe Layton MD EXAMINATION: US PELVIS CLINICAL INFORMATION: Postmenopausal bleeding. COMPARISON: None available. TECHNIQUE: Ultrasound of the pelvis is performed using both transabdominal and transvaginal transducers along with Doppler. Transvaginal imaging is performed due to inadequate visualization transabdominally. FINDINGS: Uterus: The uterus is retroverted, retroflexed, and measures 7.3 x 3.5 x 4.0 cm. Normal cervix with small bulla seen cysts. The endometrium could not be visualized as per technologist note due to retroverted uterus with shadowing. The uterus is smooth in contour and has normal myometrial echogenicity. No visible fibroid. Adnexa: The right ovary was visualized. There is a normal color flow to the right adnexa. The left ovary could not be visualized. There is no pelvic ascites or fluid collection. Right ovary: Not visualized. Left ovary measures 1.7 x 1.2 x 1.2 cm. Volume = 1.2 mL. Normal sonographic appearance. US/US pelvic and transvaginal IMPRESSION: 1. Limited examination due to the technologist unable to visualize the endometrium as detailed in the technologist's note. Retroverted and retroflexed uterus without definite fibroid. 2. Right ovary could not be visualized. 3. Normal left ovary. Electronically signed by: Manuelito Florian MD 06/06/2024 12:23 PM EDT Dictated By: Manuelito Florian MD Signed By: <Electronically signed by Manuelito Florian MD in OV> 06/06/24 1223 DD/ 1137 TD/TT: 06/05/24 1149 Sexual Assault Counselor: [facility] External Provider IMG US PROCEDURES Final Result * Culture, Urine, Routine (05/18/2024 11:33 AM EDT) Urine Urine specimen obtained by clean catch procedure / Unknown 05/18/2024 11:33 AM EDT 05/18/2024 4:17 PM EDT Comment:RUST Narrative [facility] - 05/20/2024 8:16 AM EDT Escherichia coli Quant > 100,000 cfu/mL Escherichia coli: Ampicillin >=32(R) Escherichia coli: Cefazolin (Urine) <=1(S) Escherichia coli: Cefepime <=0.12(S) Escherichia coli: Ceftriaxone <=0.25(S) Escherichia coli: Ciprofloxacin >=4(R) Escherichia coli: Gentamicin <=1(S) Escherichia coli: Nitrofurantoin <=16(S) Escherichia coli: Trimethoprim/Sulfamethoxazole <=20(S) Specimen Source: Urine clean catch [facility] MODEL MAKER PLASTIC LAB MICROBIOLOGY - GENERAL OR DERABLES Final Result Performing Organization Address [facility]/ZIP Co de Phone Number [facility] [address] [place] [address] [phone] * HPV DNA, Low/High Risk (05/07/2024 12:31 PM EDT) Pathologist [facility] HPV High Risk Negative Negative [facility] HPV Genotype 16 Negative Negative [facility] HPV Genotype 18 Negative Negative [facility] Comment:HPV testing performe d at [facility] (CLIA#[id number]), [address] [place] [address].Testing for HPV was performed using the Ander [...] 1 PM EDT 05/08/2024 6:00 AM EDT Generic External Data Provider LAB BLOOD ORDERAB LES Final Result Performing Organization Address [facility]/ZIP Co de Phone Number [facility] [address] [place] [address] [phone] * Pap Smear (05/07/2024 12:31 PM EDT) 05/07/2024 12:3 1 PM EDT 05/08/2024 6:00 AM EDT [facility] - 05/10/2024 10:43 AM EDT ----- ------- Name: Magalys Serrano ?Age/Sex: 53/F ? : 1970 Unit#: [id number] ?? Attend Dr: Philippe Layton MD ?Re05/07/24 ?Status: DEP REF ? Location: HO.LNP ?Disch: ? ----- ------- SPEC : [id number] ? RECD: 05/08/24-599 ? STATUS: ??SOUT ? REQ NUM: [id number] ? SARAH: 05/07/24-1231 ? SUBM DR: Philippe Layton MD ? ENTERED: ??05/08/24-636 ?SP TYPE: Pap Smr ?OTHR DR: Deborah Nciholson MODEL MAKER PLASTIC ? ORDERED: ??Pap Smear ? Interpretation ?? Satisfactory for evaluation. ?? Negative for intraepithelial lesion or malignancy. ? HPV High Risk: ??Negative ? HPV Genotyping 16: ??Negative ?? HPV Genotyping 18: ??Negative ?Clinical Information LMP: Post menopausal Previous PAP test: Unknown date/findings ? Material Received ?? Cervix Copies To: ?? Deborah Nicholson MODEL MAKER PLASTIC ?? [address] ?? [place] [address] ?? [phone] ?? Philippe Layton MD ?? [facility] ?? [address] ?? [place] [address] ?? [phone] ----- ------- Signed (signature on file) KO Marie (ASC) 05/10/24 1043 ? ----- ------- ? END OF REPORT ? us Generic External Data Provider LAB CYTOLOGY CHRISTIE PONCE Final Result [facility] [address] [place] [address] [phone] * Chlamydia/N. Gonorrhoeae RNA, TMA, Urogenitial (05/07/2024 11:28 AM EDT) CT PCR NOT DETECTED Not Detect. [facility] Comment:A not detected test result does [...] psychologicalconsequences. NG PCR NOT DETECTED Not Detect. [facility] Comment:A not detected test result does [...] AM EDT 05/07/2024 3:17 PM EDT Narrative [facility] - 05/08/2024 12:20 PM EDT Vaginal us Generic External Data Provider LAB MICROBIOLOGY - GENERAL ORDERABLES Final Result [facility] [address] [place] [address] [phone] * BI Mammogram Screening Tomosynthesis Bilateral (12/20/2023 9:15 AM EST) Anatomical Region Laterality Modality Breast Bilateral Mammography 12/20/2023 9:15 AM EST Narrative 12/28/2023 12:23 PM EST ? [facility] ? [address] ?[place] [address] ? Mammography Report ? Signed ? Patient: Serrano,Magalys ?MR#: [id number] ? : 1970 ?Acct:[id number] ? Age/Sex: 52 / F ?ADM Date: 11/05/24 ? Loc: HO.MAMMO ? Attending Dr: Deborah Lyn MODEL MAKER PLASTIC ? Ordering Physician: Lyn,Deborah MODEL MAKER PLASTIC ?Results: 2Beni ?? gn Findings ? Date of Service: 11//24 ?Follow Up: 1 Year From Orig ?? inal Mammogram ? Procedure(s): MM tomosynthesis screening BI ?? Accession Number(s): [id number] ? cc: Deborah Nicholson MODEL MAKER PLASTIC ? EXAMINATION: ?? MM SCREENING DIGITAL BREAST [...] ??12/28/2023 12:20 PM EST ? Dictated By: ?Rober,Jeannine DO ? Signed By: ?<Electronically signed by Jeannine Richter, DO in OV> ? 12/28/23 1220 ? DD/ 0915 ? TD/TT: 12/20/23 0930 ? Sexual Assault Counselor: ? Procedure Note Oliver Maharaj - 12/28/2023 [place] [facility] [address] [place] [address] Mammography Report Signed Patient: Melissa SerranoJeremy#: [id number] : 1970Acct:[id number] Age/Sex: 52 / FADM Date: 12/20/23 Loc: HO.MAMMO Attending Dr: Deborah WAGNERP Ordering Physician: Deborah Nicholson FNPResults: 2Beni gn Findings Date of Service: 12/20/23Follow Up: 1 Year From [facility] ina Mammogram Procedure(s): MM tomosynthesis screening BI Accession Number(s): [id number] cc: Deborah Nicholson MODEL MAKER PLASTIC EXAMINATION: MM SCREENING DIGITAL BREAST TOMOSYNTHESIS, BILATERAL [...] 12/28/23 1220 DD/ 0915 TD/TT: 12/20/23 0930 Sexual Assault Counselor: [facility] MODEL MAKER PLASTIC IMG BI PROCEDURES Final Resul t * (ABNORMAL) Lipid Panel, Standard (01/27/2023 9:05 AM EST) Triglycerides 118 <150 mg/dL [facility] Comment:Desirable Triglyceri de: less than 150 mg/dLBorderline High Triglyceride 150-199 mg/dLHigh Triglyceride: 200-499 mg/dLVery High Triglyceride: greater than or equal to 5OO mg/dL Cholesterol 223(H) <200 mg/dL [facility] Comment:Desirable Cholestero l: less than 200 mg/dLBorderline High Cholesterol: 200-239 mg/dLHigh Cholesterol: greater than 239 mg/dL LDL Cholesterol Calculated 144(H) <100 mg/dL [facility] Comment:Desirable LDL: less than 100 mg/dLNear Optimal/Above Optimal LDL: 110- 129 mg/dLBorderline High LDL: 130-159 mg/dLHigh LDL: 160-189 mg/dLVery High LDL: greater than or equal to 190 mg/dL HDL Cholesterol 56 >40 mg/dL [facility] Comment:Desirable HDL: great er than 40 mg/dL Note: This HDL assay may give artificially low results in patients with liver disease. Blood Venous blood specimen / Unknown 01/27/2023 9:05 AM EST 01/27/2023 11:36 AM EST [facility] MODEL MAKER PLASTIC LAB BLOOD ORDERABLES Final Re sult [facility] [address] [place] [address] [phone] * Hm Colonoscopy (02/28/2019 8:21 AM EST) Historical Provider HEALTH MAINTENANCE Final Result from Last 3 Months or Most Recently Relevant to Health Maintenance Insurance [address] [place] [address] [facility] Care Teams Oil Gas And Pipe Tester Relationship Specialty Start Date End Date RowleyDeborah hayes FNP [address] [place] [address] PCP - General Family Medicine 10/12/21
--- OUTSIDE RECORDS SUMMARY | 2024-06-11 18:55 | XMS_ITS | Encounter Summary ---
Author Organization [employer] Address 75 [facility] 7t [place] [address] Care Team Providers Care Health Associate Name Role Phone [place] [facility] Primary Care Provider [phone] Reason for Visit * Reason Comments Med Refill Encounter Details Date Type Department Care Team ([facility] Contact Info) Description 09/12/2023 Refill [facility] [address] [place], [place] [phone] [facility] [address] [place], [place] [phone] Social History Tobacco Use Types Packs/Day Years [...] Description 08/29/2024 11:30 AM EDT Office Visit [facility] [address] [place] [address] Deborah Nicholson FNP [address] [place] [address] documented as of this encounter Visit Diagnoses Not on filedocumented in this encounter Additional Health Concerns Assessment Noted Time PHQ-9 Depression Total Score: 8 03/16/19 24 2:08 PM EST documented as of this encounter Care Teams Health Associate Relationship Specialty Start Date End Date Deborah Nicholson FNP [address] [place] [address] PCP - General Family Medicine 10/12/21 documented as of this encounter
--- OUTSIDE RECORDS SUMMARY | 2024-06-11 18:55 | XMS_ITS | Encounter Summary ---
Author Organization [employer] Address 75 [facility] 7t [place] [address] Care Team Providers Care Marine Radio Installer And Servicer Name Role Phone [place] [facility] Primary Care Provider [phone] Encounter Details Date Type Department Care Team ([facility] st Contact Info) Description 08/23/[address] [facility] [address] [place], [place] [phone] [place] [facility] [address] [place], [place] [phone] Social History Tobacco Use Types Packs/Day Years [...] t he electric, gas, oil or water Collarity threatened to shut off services in your [...] Description 08/29/2024 11:30 [address] EDT [address] [facility] [address] [place], [place] [phone] [facility] [address] [place], [place] [phone] documented as of this encounter Procedures Procedure Name Priority Date/Time Associated Diagnosis Comments T-SPOT(R).TB Routine 08/31/2023 9:06 AM EDT Screening examination for pulmonary tuberculosis documented in this encounter Results * T-SPOT??.TB (08/31/2023 9:06 AM EDT) [facility] T Spot TB Negative Negative [facility] Comment:A negative test resu lt [...] as aquantitative test. TS PANEL A 0 [facility] TS PANEL B 0 [facility] Negative Control Passed [facility] Positive Control Passed [facility] Comment:For additional infor mation, please refer tohttp://education.[employer]/faq/REP575(This link is being provided for informational/educational purposes only.)THIS TEST WAS PERFORMED AT:[employer] [id number] [place] [address]GTVUJPQ W. MASON,MD,PHD 08/31/2023 9:06 AM EDT 08/31/2023 11:12 AM EDT [facility] LAB BLOOD ORDERABLES Final Re sult [facility] [address] [place] [phone] documented in this encounter Visit Diagnoses Diagnosis Screening examination for pulmonary tuberculosis documented in this encounter Additional Health Concerns Assessment Noted Time PHQ-9 Depression Total Score: 8 03/16/19 24 2:08 PM EST documented as of this encounter Care Teams Marine Radio Installer And Servicer Relationship Specialty Start Date End Date [facility] [address] [place] [phone] PCP - General Family Medicine 10/12/21 documented as of this encounter
--- OUTSIDE RECORDS SUMMARY | 2024-06-11 18:55 | XMS_ITS | Encounter Summary ---
Author Organization [employer] Address 75 [facility] 7t [place] [address] Care Team Providers Care Parachute Cushion Installer Name Role Phone Deborah Nicholson MENTAL HEALTH UNIT LEAD PSYCHOLOGIST Primary Care Provider [phone] Encounter Details Date Type Department Care Team ([facility] st Contact Info) Description 06/11/2024 Orders Only [facility] [address] [place], [place] [phone] Jie Nicolas NP [address] [place], [place] [phone] Social History Tobacco Use Types Packs/Day Years [...] Description 08/29/2024 11:30 AM EDT Office Visit [facility] [address] [place] [address] [facility] [address] [place] [address] documented as of this encounter Procedures Procedure Name Priority Date/Time Associated Diagnosis Comments BACTERIAL VAGINOSIS PANEL Routine 06/11/2024 12:00 AM EDT documented in this encounter Results * (ABNORMAL) Bacterial Vaginosis (06/11/2024 12:00 AM EDT) TRICHOMONAS VAGINALIS DETECTION BY PCR NOT DETECTED Not Detect [facility] BACTERIAL VAGINOSIS DETECTION BY PCR POSITIVE(A) Negative [facility] Comment:The BV organism targ [...] DETECTION BY PCR NOT DETECTED Not Detect [facility] Rachel glab krusei PCR NOT DETECTED Not Detect [facility] 06/11/2024 06/11/2024 Jie Nicolas POOL HALL INSPECTOR LAB MICROBIOLOGY - GENERAL CHRISTIE PONCE Final Result [facility] [address] [place] [address] [phone] documented in this encounter Visit Diagnoses Not on filedocumented in this encounter Additional Health Concerns Assessment Noted Time PHQ-9 Depression Total Score: 17 025 11:26 AM EST documented as of this encounter Care Teams Parachute Cushion Installer Relationship Specialty Start Date End Date Deborah Nicholson FNP [address] [place] [phone] PCP - General Family Medicine 10/12/21 documented as of this encounter
--- OUTSIDE RECORDS SUMMARY | 2024-06-11 18:55 | XMS_ITS | Encounter Summary ---
Author Organization [employer] Address [address] [facility] [address] 7[address] [place] [address] Care Team Providers Care Paster Operator Name Role Phone Deborah Nicholson SALES REPRESENTATIVE ELECTRIC SERVICE Primary Care Provider [phone] Encounter Details Date Type Department Care Team (Late st Contact Info) Description 05/25/2023 Orders Only [facility] [address] [place], [place] [phone] Provider, MD Kaye Social History Tobacco Use [...] Description 08/29/2024 11:30 AM EDT Office Visit [facility] [address] [place] [address] Deborah Nicholson FNP [address] [place] [address] documented as of this encounter Procedures Procedure [...] documented as of this encounter Care Teams Paster Operator Relationship Specialty Start Date End Date Deborah Nicholson FNP [address] [place] [address] PCP - General Family Medicine 10/12/21 documented as of this encounter
--- OUTSIDE RECORDS SUMMARY | 2024-06-11 18:55 | XMS_ITS | Encounter Summary ---
Author Organization [employer] Address [address] [facility] 7t [place] [address] Care Team Providers Care Teacher Of The Visually Impaired Name Role Phone [place] [facility] Primary Care Provider [phone] Reason for Visit * Reason Comments Med Refill Encounter Details Date Type Department Care Team ([facility] Contact Info) Description 06/14/2023 Refill [facility] [address] [place], [place] [phone] [facility] [address] [place], [place] [phone] Dyspepsia Social History Tobacco Use Types Packs/Day [...] Description 08/29/2024 11:30 AM EDT Office Visit [facility] [address] [place] [address] Deborah Nicholson FNP [address] [place] [address] documented as of this encounter Visit Diagnoses Diagnosis Dyspepsia Dyspepsia and other specified disorders of function of stomach documented in this encounter Additional Health Concerns Assessment Noted Time PHQ-9 Depression Total Score: 8 03/16/19 24 2:08 PM EST documented as of this encounter Care Teams Teacher Of The Visually Impaired Relationship Specialty Start Date End Date Deborah Nicholson FNP [address] [place] [address] PCP - General Family Medicine 10/12/21 documented as of this encounter
== END 2024-06-11 16:12 | disposition home or self-care (01) ==
LOC: HO.HHCLNP 16:11
PROVIDERS: Visit Provider Nurse Practitioner
DX: R35.0 Frequency of micturition (principal); N94.9 Unspecified condition associated with female genital organs and menstrual cycle
CPT/HCPCS: 81515; 87086; 87088; 87186

== ENCOUNTER 2024-06-14 15:40 | Outpatient (AMB) | payer MEDICAID, SELFPAY ==
--- NOTE | 2024-06-14 15:53 | A.OFFVIS_ITS ---
Vital Signs 06/14/24 16:05 Height 5 ft 3 in Weight 170 lb BMI 30.1 BP 120/74 Intake Visit Reasons: EMB Systems Design Engineer Required: Yes Systems Design Engineer Language: Revenue Enforcement Collection Agent Services: Systems Design Engineer Present (in person) Systems Design Engineer Name: Lisbeth PUENTES Information Interpreted: non-clinical & clinical National Service Officer: National Service Officer Present (Lisbeth PUENTES) Accompanied by: Spouse Allergies morphine [MORPHINE] Adverse Reaction (Intermediate, Verified 06/14/24 16:06) CHEST TIGHTNESS-DYSPHORIA Is last menstrual period known: Yes Last menstrual period: 12/13/19 Post menopausal: Yes Patient : No Do you need a note to return to daycare/school/sports/work: Yes (for surgery on tuesday) HPI Comments Details: Presenting for EMB [facility] Surgical History Hx of colonoscopy Hx of esophagogastroduodenoscopy Family History Mother Diabetes HTN (hypertension) Father Diabetes HTN (hypertension) Daughter Diabetes Social History Household Members: Children and None Alcohol intake: never Female Reproductive History Menstrual Date of last menstrual period: 12/13/19 Total pregnancies: 2 Full term: 2 Review of Systems Card Reports as per HPI and Reports no additional complaints Resp Reports as per HPI and Reports no additional complaints GI Reports as per HPI and Reports no additional complaints Reports as per HPI Physical Exam Vital Signs: Last Vital Signs BP 120/74 06/14/24 16:05 BMI result Body Mass Index 30.1 Const General: cooperative, healthy appearing and comfortable Resp Effort & Inspection: normal respiratory effort Auscultation: clear to auscultation bilaterally Percussion: percussion normal Cardio Palpation: normal PMI Rate: regular rate Rhythm: regular rhythm Heart sounds: no murmurs and no rubs Peripheral pulses: Peripheral pulses 2+ throughout GI Inspection: Yes normal to inspection Palpation (GI): Soft to palpation, nontender, no guarding, not rigid and No hepatosplenomegaly present Percussion: Yes normal to percussion Auscultation: normal bowel sounds Rectal Exam - Female: deferred Assessment & Plan Assessment & Plan (1) Postmenopausal bleeding: Code(s): N95.0 - Postmenopausal bleeding Category: Medical Plan: EMB attempted, the patient could not tolerate the procedure, the procedure was aborted per patient's request. Recommended next step hysteroscopy D&C possible polypectomy/myomectomy. Discussed with the patient the procedure , all benefits and risks including but not limited to inability to complete the procedure , insufficient endometrial tissue for a complete evaluation of the endometrial cavity , bleeding, infection, possible need for blood transfusion with all its risk ( HIV,syphilis, Hepatitis, anaphylaxis shock, others..), injury to bladder, rectum, possible need for laparoscopy/laparotomy or hysterectomy. The patient verbalized understanding and signed the consent. Instructions given the patient to stay NPO after midnight the day prior to the procedure and to take only the specific medication (s) discussed the morning of the surgical procedure and to schedule a 2 week postoperative appointment Coding Level of Care Code Est Pt Level 3 (31136) Diagnoses Postmenopausal bleeding N95.0
[2024-06-14 16:05] VITALS: BP 120/74; BMI 30.1
--- OUTSIDE RECORDS SUMMARY | 2024-06-14 17:16 | XMS_ITS | Clinical Summary ---
Author Organization [employer] Address [address] [facility] 7t [place] [address] Care Team Providers Care Machinist Mate Name Role Phone Lyn [facility] Primary Care Provider [phone] Allergies No known active allergies Medications cloNIDine [...] 7 days. 14 capsule 025 2024 Active metroNIDAZOLE (Flagyl) 500 MG tabletIndicatio ns:Bacterial vaginosis Take 1 tablet (500 mg) by mouth 2 times daily for 7 days. 14 tablet 2024 Active benzonatate (Tessalon) 100 MG capsule [...] Encounters Date Type Department Care Team Description 06/13/2024 Telephone [facility] [address] [place] [address] Jie Nicolas NP Results 06/12/2024 Telephone [facility] [address] [place] [address] JeffersonDeborah FNP Results 06/12/[address] [address] Mary Lou Chilel [place] Results 06/12/2024 Orders Only [facility] [address] [place] [address] Jie Nicolas NP Bacterial vaginosis (Primary Dx) 06/11/2024 11:15 AM EDT Office Visit [facility] [address] [place] [address] Jie Nicolas NP Vaginal symptom (Primary Dx); Urinary frequency 06/11/2024 Orders Only [facility] [address] [place] [address] Jie Nicolas NP 06/11/2024 Travel 06/08/2024 Telephone [facility] [address] [facility] [place] [address] Deborah Nicholson FNP Nurse Triage 05/25/2024 Outside Procedure [facility] [address] [place] [address] Donnie Schroedern, OD Presbyopia (Primary Dx) 05/24/2024 2:45 PM EDT Office Visit [facility] [address] [facility] [place] [address] Alexandre Lizzette, OD Myopia of both eyes (Primary Dx) 05/24/2024 Telephone [facility] [address] [facility] [place] [address] Deborah Nicholson FNP august' recall 05/18/2024 11:15 AM EDT Office Visit [facility] [address] [facility] [place] [address] Deborah Nicholson FNP Acute cystitis without hematuria (Primary Dx); Constipation, unspecified constipation type; Hot flashes; Seasonal allergic rhinitis due to other allergic trigger; Encounter for screening for malignant neoplasm of colon 05/18/2024 Refill [facility] [address] [facility] [place] [address] Deborah Nicholson FNP Constipation, unspecified constipation type 05/18/2024 Travel 05/09/2024 Refill [facility] [address] [facility] [place] [address] Deborah Nicholson FNP Exacerbation of asthma, unspecified asthma severity, unspecified whether persistent 05/07/2024 Orders Only GENERIC EXTERNAL DATA DEPARTMENT Provider, Generic External Data 04/27/2024 Population Health Risk Score [facility] [address] [place] [phone] Provider, Population Health Generic 04/26/2024 3:00 PM EDT Office Visit [facility] [address] [facility] [address] Donnie Schroedern, OD Presbyopia (Primary Dx); 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 04/26/2024 Travel from Last 3 Months Immunizations Name Administration [...] Description 08/29/2024 11:30 AM EDT Office Visit [facility] [address] [place] [address] [facility] [address] [place] [address] Health Maintenance Due Date Last Done Comments [...] Vaccines (1 of 2) 12/24/2021 COVID-19 Vaccine ( season) 2023 10/23/2020, 10/02/2020 Influenza Vaccine (#1) [...] VAGINOSIS PANEL Routine 06/11/2024 12:00 AM EDT CULTURE, URINE, ROUTINE Routine 06/11/2024 12:00 AM EDT Urinary frequency US PELVIS TRANSVAGINAL Routine 11:37 AM EDT [...] Date Urine 06/11/2024 12:1 0 PM EDT us Jie Nicolas NP POINT OF CARE TEST ENTER/EDIT O RDERABLES Final Result * (ABNORMAL) Bacterial Vaginosis (06/11/2024 12:00 AM EDT) Only the most recent of2 resultswithin the time period is included. TRICHOMONAS VAGINALIS DETECTION BY PCR NOT DETECTED Not Detect [facility] BACTERIAL VAGINOSIS DETECTION BY PCR POSITIVE(A) Negative [facility] Comment:The BV organism targ [...] DETECTION BY PCR NOT DETECTED Not Detect [facility] Rachel glab krusei PCR NOT DETECTED Not Detect [facility] 06/11/2024 06/11/2024 [facility] MICROBIOLOGY - GENERAL ORDE [facility] Final Result [facility] [address] [place] [phone] * Culture, Urine, Routine (06/11/2024 12:00 AM EDT) Only the most recent of2 resultswithin the time period is included. Urine Urine specimen obtained by clean catch procedure / Unknown 06/11/2024 06/11/2024 Comment:UA Narrative [facility] - 06/13/2024 8:09 AM EDT Escherichia coli Quant > 100,000 cfu/mL Escherichia coli: Ampicillin >=32(R) Escherichia coli: Cefazolin (Urine) <=1(S) Escherichia coli: Cefepime <=0.12(S) Escherichia coli: Ceftriaxone <=0.25(S) Escherichia coli: Ciprofloxacin >=4(R) Escherichia coli: Gentamicin <=1(S) Escherichia coli: Nitrofurantoin <=16(S) Escherichia coli: Trimethoprim/Sulfamethoxazole <=20(S) Specimen Source: Urine clean catch [employer] LAB MICROBIOLOGY - GENERAL ORDE RABLarosco Final Result [facility] [address] [place] [address] [phone] * US Pelvis Transvaginal (06/05/2024 11:37 AM EDT) Anatomical Region Laterality Modality Pelvis Ultrasound 06/05/2024 11:3 7 AM EDT Narrative 06/06/2024 12:26 PM EDT ? [facility] ?[address] ?[place] [address] ? Ultrasound Report ? Signed ? Patient: Serrano,Magalys ?MR#: [id number] ? : 1970 ?Acct:[id number] ? Age/Sex: 53 / F ?ADM Date: 06/05/24 ? Loc: HO.US ? Attending Dr: Philippe Layton MD ? Ordering Physician: Philippe Layton MD ?? Date of Service: 06/05/24 ?? Procedure(s): US pelvic and transvaginal ?? Accession Number(s): [id number] ? cc: Deborah Nicholson; Philippe Layton MD ? EXAMINATION: ? US [...] DD/ 1137 ? TD/TT: 06/05/24 1149 ? Drone Operator: ? Procedure Note Donotosmaninterpreter, Image - 06/06/2024 [place] [address] Ultrasound Report Signed Patient: Bart Serrano#: [id number] : 1970Acct:[id number] Age/Sex: 53 / FADM Date: 06/05/24 Loc: HO.US Attending Dr: Philippe Layton MD Ordering Physician: Philippe Layton MD Date of Service: 06/05/24 Procedure(s): US pelvic and transvaginal Accession Number(s): [id number] cc: Deborah Nicholson; Philippe Layton MD EXAMINATION: US PELVIS CLINICAL [...] Manuelito Florian MD 06/06/2024 12:23 PM EDT RP Dictated By: Manuelito Florian MD Signed By: <Electronically signed by Manuelito Florian MD in OV> 06/06/24 1223 DD/ 1137 TD/TT: 06/05/24 1149 Drone Operator: [facility] External Provider IMG US PROCEDURES Final Result * HPV DNA, Low/High Risk (05/07/2024 12:31 PM EDT) HPV High Risk Negative Negative [facility] HPV Genotype 16 Negative Negative [facility] HPV Genotype 18 Negative Negative [facility] Comment:HPV testing performe d at [facility] (CLIA#[id number]), [address] [place] [address].Testing for HPV was performed using the Ander [...] Provider LAB BLOOD ORDERAB LES Final Result [facility] [address] [place] [address] [phone] * Pap Smear (05/07/2024 12:31 PM EDT) 05/07/2024 12:3 1 PM EDT 05/08/2024 6:00 AM EDT Narrative [facility] - 05/10/2024 10:43 AM EDT ----- ------- Name: Magalys Serrano ?Age/Sex: 53/F ? : 1970 Unit#: [id number] ?? Attend Dr: Philippe Layton MD ?Re05/07/24 ?Status: DEP REF ? Location: HO.LNP ?Disch: ? ----- ------- SPEC : [id number] ? RECD: 05/08/24 ? STATUS: ??SOUT ? REQ NUM: [id number] ? SARAH: 05/07/24-1231 ? SUBM DR: Philippe Layton MD ? ENTERED: ??05/08/24 ?SP TYPE: Pap Smr ?OTHR DR: Deborah Nicholson BLOOD BANK ORDER CONTROL CLERK ? ORDERED: ??Pap Smear ? Interpretation ?? Satisfactory for evaluation. ?? Negative for intraepithelial lesion or malignancy. ? HPV High Risk: ??Negative ? HPV Genotyping 16: ??Negative ?? HPV Genotyping 18: ??Negative ?Clinical Information LMP: Post menopausal Previous PAP test: Unknown date/findings ? Material Received ?? Cervix Copies To: ?? LynDeborah BLOOD BANK ORDER CONTROL CLERK ?? [address] [facility] ?? [place] [address] ?? [phone] ?? Philippe Layton MD ?? [facility] ?? [address] [facility] [address] ?? [place] [address] ?? [phone] ----- ------- Signed (signature on file) KO Marie ([facility]) 05/10/24 1043 ? ----- ------- ? END OF REPORT ? us Generic External Data Provider LAB CYTOLOGY CHRISTEI PONCE Final Result [facility] [address] [place] [phone] * Chlamydia/N. Gonorrhoeae RNA, TMA, Urogenitial (05/07/2024 11:28 AM EDT) [facility] CT PCR NOT DETECTED Not Detect. [facility] Comment:A not detected test [...] psychologicalconsequences. NG PCR NOT DETECTED Not Detect. [facility] Comment:A not detected test [...] AM EDT 05/07/2024 3:17 PM EDT Narrative [facility] - 05/08/2024 12:20 PM EDT Vaginal us Generic External Data Provider LAB MICROBIOLOGY - GENERAL ORDERABLES Final Result Performing Organization Address City/State/[facility] de Phone Number [facility] [address] [place] [address] [phone] * BI Mammogram Screening Tomosynthesis Bilateral (12/20/2023 9:15 AM EST) Anatomical Region Laterality Modality Breast Bilateral Mammography 12/20/2023 9:15 AM EST Narrative 12/28/2023 12:23 PM EST ? [facility] ? [address] [facility] ?[place] [address] ? Mammography Report ? Signed ? Patient: Serrano,Magalys ?MR#: [id number] ? : 1970 ?Acct:[id number] ? Age/Sex: 52 / F ?ADM Date: 11/05/24 ? Loc: HO.MAMMO ? Attending Dr: Deborah Jefferson BLOOD BANK ORDER CONTROL CLERK ? Ordering Physician: Jefferson,Deborah BLOOD BANK ORDER CONTROL CLERK ?Results: 2Beni ?? gn Findings ? Date of Service: 12/20/23 ?Follow Up: 1 Year From Orig ?? inal Mammogram ? Procedure(s): MM tomosynthesis screening BI ?? Accession Number(s): [id number] ? cc: Deborah Nicholson BLOOD BANK ORDER CONTROL CLERK ? EXAMINATION: ?? MM SCREENING DIGITAL BREAST [...] ??Jeannine Richter DO ??12/28/2023 12:20 PM EST ?? RP ? Dictated By: ?Jeannine Richter DO ? Signed By: ?<Electronically signed by Jeannine Richter, DO in OV> ? 12/28/23 1220 ? DD/ 0915 ? TD/TT: 12/20/23 0930 ? Drone Operator: ? Procedure Note Donotuseinterpreter, Image - 12/28/2023 [facility] [address] [place] [address] Mammography Report Signed Patient: Bart Serrano#: [id number] : 1970Acct:[id number] Age/Sex: 52 / FADM Date: 12/20/23 Loc: HO.MAMMO Attending Dr: Deborah Nicholson BLOOD BANK ORDER CONTROL CLERK Ordering Physician: Deborah Nicholson FNPResults: 2Beni gn Findings Date of Service: 12/20/23Follow Up: 1 Year From Orig inal Mammogram Procedure(s): MM tomosynthesis screening BI Accession Number(s): [id number] cc: Deborah Nicholson EXAMINATION: MM SCREENING DIGITAL BREAST TOMOSYNTHESIS, BILATERAL [...] by: Jeannine Richter DO 12/28/2023 12:20 PM [facility] Dictated By: Jeannine Richter DO Signed By: <Electronically signed by Jeannine Richter DO in OV> 12/28/23 1220 DD/ 0915 TD/TT: 12/20/23 0930 Drone Operator: [facility] IMG BI PROCEDURES Final Resul t * (ABNORMAL) Lipid Panel, Standard (01/27/2023 9:05 AM EST) Triglycerides 118 <150 mg/dL [facility] Comment:Desirable Triglyceri de: less than 150 mg/dLBorderline High Triglyceride 150-199 mg/dLHigh Triglyceride: 200-499 mg/dLVery High Triglyceride: greater than or equal to 5OO mg/dL Cholesterol 223(H) <200 mg/dL [facility] Comment:Desirable Cholestero l: less than 200 mg/dLBorderline High Cholesterol: 200-239 mg/dLHigh Cholesterol: greater than 239 mg/dL LDL Cholesterol Calculated 144(H) <100 mg/dL [facility] Comment:Desirable LDL: less than 100 mg/dLNear Optimal/Above Optimal LDL: 110- 129 mg/dLBorderline High LDL: 130-159 mg/dLHigh LDL: 160-189 mg/dLVery High LDL: greater than or equal to 190 mg/dL HDL Cholesterol 56 >40 mg/dL [facility] Comment:Desirable HDL: great er than 40 mg/dL Note: This HDL assay may give artificially low results in patients with liver disease. Blood Venous blood specimen / Unknown 01/27/2023 9:05 AM EST 01/27/2023 11:36 AM EST [facility] LAB BLOOD ORDERABLES Final Re sult [facility] [address] [place] [phone] * Colonoscopy (02/28/2019 8:21 AM EST) Historical Provider HEALTH MAINTENANCE Final Result from Last 3 Months or Most Recently Relevant to Health Maintenance Insurance [facility] C3 Care Teams Machinist Mate Relationship Specialty Start Date End Date Deborah Nicholson FNP [address] [place] [address] PCP - General Family Medicine 10/12/21
--- OUTSIDE RECORDS SUMMARY | 2024-06-14 17:16 | XMS_ITS | Encounter Summary ---
Author Organization [employer] Address [address] [facility] 7t [place] [address] Care Team Providers Care Exhibit Preparator Name Role Phone Lyn Deborah HOSE INSPECTOR AND PATCHER Primary Care Provider [phone] Encounter Details Date Type Department Care Team [...] t he electric, gas, oil or water [employer] threatened to shut off services in your [...] Description 08/29/2024 11:30 AM EDT Office Visit [facility] [address] [place] [address] Deborah Nicholson FNP [address] [place] [address] documented as of this encounter Visit Diagnoses Not on filedocumented in this encounter Additional Health Concerns Assessment Noted Time PHQ-9 Depression Total Score: 17 025 11:26 AM EST documented as of this encounter Care Teams Exhibit Preparator Relationship Specialty Start Date End Date Deborah Nicholson FNP [address] [place] [address] PCP - General Family Medicine 10/12/21 documented as of this encounter
--- OUTSIDE RECORDS SUMMARY | 2024-06-14 17:16 | XMS_ITS | Encounter Summary ---
Author Organization [employer] Address [address] [facility] 7t [place] [address] Care Team Providers Care Ribbon Cutter Name Role Phone Deborah Nicholson BOILER RELINER Primary Care Provider [phone] Reason for Visit * Reason Comments sick onsite Vaginal odor Encounter Details Date Type Department Care Team ([facility] Contact Info) Description 06/11/2024 11:15 AM EDT Office Visit [facility] [address] [place], [place] [phone] Jie Nicolas NP [address] [place], [place] [phone] Vaginal symptom (Primary Dx); Urinary frequency Social [...] Severe recurrent major depression without psychotic features ([facility]) Vitamin D deficiency Asthma exacerbation Acute bacterial [...] 1 CAPSULA POR VIA ORAL [place], Disp: 90 capsule, Rfl: 0 escitalopram (Lexapro) [...] daily for 7 days. Visit Conducted in: [place]i Translation by: Provided by [employer] Phone Service Nkechi ID #[id number] documented in this encounter Plan of Treatment Upcoming Encounters Date Type Department Care Team (Late st Contact Info) Description 08/29/2024 11:30 AM EDT Office Visit [facility] [address] [place] [address] [facility] [address] [place] [address] Scheduled Orders Name Type Priority Associated Diagnoses Orde r Schedule Bacterial Vaginosis, Yeast and Trich Microbiology Routine Vaginal symptom Expected: 06/11/2024 (Approximate), Expires: 06/11/2025 documented as of this encounter Procedures Procedure Name Priority Date/Time Associated Diagnosis Comments POCT URINALYSIS DIPSTICK Routine 06/11/2024 12:10 PM EDT Vaginal symptom CULTURE, URINE, ROUTINE Routine 06/11/2024 12:00 AM EDT Urinary frequency documented in this encounter Results * (ABNORMAL) [...] 06/11/2024 12:1 0 PM EDT Jie Nicolas DESIGN/ANIMATION INSTRUCTOR POINT OF CARE TEST ENTER/EDIT O RDERABLES Final Result * Culture, Urine, Routine (06/11/2024 12:00 AM EDT) Urine Urine specimen obtained by clean catch procedure / Unknown 06/11/2024 06/11/2024 Comment:UACC Narrative [facility] - 06/13/2024 8:09 AM EDT Escherichia coli Quant > 100,000 cfu/mL Escherichia coli: Ampicillin >=32(R) Escherichia coli: Cefazolin (Urine) <=1(S) Escherichia coli: Cefepime <=0.12(S) Escherichia coli: Ceftriaxone <=0.25(S) Escherichia coli: Ciprofloxacin >=4(R) Escherichia coli: Gentamicin <=1(S) Escherichia coli: Nitrofurantoin <=16(S) Escherichia coli: Trimethoprim/Sulfamethoxazole <=20(S) Specimen Source: Urine clean catch Jie Nicolas DESIGN/ANIMATION INSTRUCTOR LAB MICROBIOLOGY - GENERAL CHRISTIE PONCE Final Result [facility] [address] [place] [address] [phone] documented in this encounter Visit Diagnoses Diagnosis Vaginal symptom- Primary Urinary frequency documented in this encounter Additional Health Concerns Assessment Noted Time PHQ-9 Depression Total Score: 17 025 11:26 AM EST documented as of this encounter Care Teams Ribbon Cutter Relationship Specialty Start Date End Date Deborah Nicholson FNP [address] [place] [phone] PCP - General Family Medicine 10/12/21 documented as of this encounter
--- OUTSIDE RECORDS SUMMARY | 2024-06-14 17:17 | XMS_ITS | Encounter Summary ---
Author Organization [employer] Address [address] [facility] [address] 7[address] [place] [address] Care Team Providers Care Leak Inspector Name Role Phone Lyn Deborah COPYIST Primary Care Provider [phone] Encounter Details Date Type Department Care Team (Late st Contact Info) Description 05/25/2023 Orders Only [facility] [address] [place], [place] [phone] Provider, MD Kaye Social History Tobacco Use [...] 08/29/2024 11:30 AM EDT Office Visit [facility] [address] [place] [address] Deborah Nicholson FNP [address] [place] [address] documented as of this encounter Procedures Procedure [...] documented as of this encounter Care Teams Leak Inspector Relationship Specialty Start Date End Date Deborah Nicholson FNP [address] [place] [address] PCP - General Family Medicine 10/12/21 documented as of this encounter
--- OUTSIDE RECORDS SUMMARY | 2024-06-14 17:17 | XMS_ITS | Encounter Summary ---
Author Organization [employer] Address 75 [facility] 7t [place] [address] Care Team Providers Care Enologist Name Role Phone [place] [facility] Primary Care Provider [phone] Reason for Visit * Reason Onset Date Comments Nurse Triage 06/08/2024 Encounter Details Date Type Department Care Team ([facility] Contact Info) Description 06/08/2024 Telephone [facility] [address] [place], [place] [phone] [facility] 230 [place], [place] [phone] Nurse Triage Social History Tobacco Use Types [...] encounter Miscellaneous Notes * Telephone Encounter - Geraldine Luna RN - 06/12/2024 1:53 PM EDT TC x 2 placed to pt via [email or web address] category manager (Ronald ID#[id number]) per below provider message. No answer, LVMto call office back and ask to speak to the blue team nurses. ----- Message from Jie Nicolas sent at 06/12/2024 1:32 PM EDT ----- Please inform patient of positive BV test. Oral metronidazole has been sent to pharmacy for her. Thanks * Telephone Encounter - Daksha Hooper RN - 06/08/2024 1:27 PM EDT Triage call Pt reports was at [facility] [place]24 and had a vaginal ultra sound. Pt reports, something was put into the vagina and now there is a bad odor. Pt was recently treated for acute cystits and hematuria 05/18/24 OV. Pt was prescribed antibiotics at that time. Pt reports continues to have urinarysx as well. Pt is offered to come to [facility] today to be seen but, declines reports, I cant walk today . ASK apt with FORM GRADER OPERATOR [employer] 06/11/24 @ 1115am. Pt agrees with this disposition. Insurance is verified as active prior to booking. Protocol Used: Vaginal [...] 11:30 AM EDT Office Visit [facility] [address] [place] [address] Deborah Nicholson FNP 230 [place] [address] documented as of this encounter Visit Diagnoses Not on filedocumented in this encounter Additional Health Concerns Assessment Noted Time PHQ-9 Depression Total Score: 17 025 11:26 AM EST documented as of this encounter Care Teams Enologist Relationship Specialty Start Date End Date Deborah Nicholson FNP 230 [place] [address] PCP - General Family Medicine 10/12/21 documented as of this encounter
--- OUTSIDE RECORDS SUMMARY | 2024-06-14 17:17 | XMS_ITS | Encounter Summary ---
Author Organization [employer] Address 75 [facility] 7t [place] [address] Care Team Providers Care Hurl Shaker Name Role Phone Deborah Nicholson PROGRAM ADVOCATE Primary Care Provider [phone] Reason for Visit * Reason Onset Date Comments Results 06/13/2024 Encounter Details Date Type Department Care Team ([facility] Contact Info) Description 06/13/2024 Telephone [facility] MED[facility]INE 230 [place], [place] [phone] Jie Nicolas NP 230 [place], [place] [phone] Results Social History Tobacco Use Types Packs/Day Years [...] Telephone Encounter - Geraldine Luna RN - 06/13/2024 9:03 AM EDT TC placed to pt via LogMeIn certified court/medical interpreter (ID#) per below provider message. Pt reports she has picked up one of the medications but not the other. Advised pt they are to take both medications. Pt verbalized understanding of urine culture being positive for infection and they are to complete both medications. Pt denies questions at this time. ----- Message from Jie Nicolas sent at 06/13/2024 8:59 AM EDT ----- Please inform patient urine culture is positive for infection. Advise she complete the nitrofurantoin prescribed during her visit. Also confirm that she's been able to cone picker flagyl to treat the positive BV test. thanks documented in this encounter Plan of Treatment Upcoming Encounters Date Type Department Care Team (Late st Contact Info) Description 08/29/2024 11:30 AM EDT Office Visit [facility] MEDICINE [address] [place] [address] Deborah Nicholson FNP 230 [place] [address] documented as of this encounter Visit Diagnoses Not on filedocumented in this encounter Additional Health Concerns Assessment Noted Time PHQ-9 Depression Total Score: 17 025 11:26 AM EST documented as of this encounter Care Teams Hurl Shaker Relationship Specialty Start Date End Date Deborah Nicholson FNP 230 [place] [address] PCP - General Family Medicine 10/12/21 documented as of this encounter
--- OUTSIDE RECORDS SUMMARY | 2024-06-14 17:17 | XMS_ITS | Encounter Summary ---
Author Organization [employer] Address [address] [facility] 7t [place] [address] Care Team Providers Care Doors Prefitter Name Role Phone [place] [facility] Primary Care Provider [phone] Reason for Visit * Reason Onset Date Comments Results 06/12/2024 Encounter Details Date Type Department Care Team ([facility] Contact Info) Description 06/12/2024 Telephone [facility] MED[facility]INE 230 [place], [place] [phone] [facility] 230 [place], [place] [phone] Results Social History Tobacco Use Types Packs/Day [...] Encounter - Geraldine Luna RN - 06/12/2024 2:25 PM EDT TC placed to pt via Pombai sign language interpreter (Yudith ID#[id number]) per below provider message. Advised of below provider message. Pt verbalized understanding. Pt asked if partner is to be treated as well. Pt reports they do not believe their partner has any symptoms but will ask. Advised to come to WIC or call PCP if pt's partner is symptomatic. Pt agreeable to plan and denies questions at this time. ----- Message from Jie Nicolas sent at 06/12/2024 1:32 PM EDT ----- Please inform patient of positive BV test. Oral metronidazole has been sent to pharmacy for her. Thanks * Telephone Encounter - Dagmar Orosco - 06/12/2024 2:16 PM EDT Tc from pt stating she received a voicemail requesting a call back to divide team nurse. Contact pt at [phone] (mozambican) documented in this encounter Plan of Treatment Upcoming Encounters Date Type Department Care Team (Late st Contact Info) Description 08/29/2024 11:30 AM EDT Office Visit [facility] MEDICINE [address] [place] [address] Deborah Nicholson FNP [address] [place] [address] documented as of this encounter Visit Diagnoses Not on filedocumented in this encounter Additional Health Concerns Assessment Noted Time PHQ-9 Depression Total Score: 17 025 11:26 AM EST documented as of this encounter Care Teams Doors Prefitter Relationship Specialty Start Date End Date Deborah Nicholson FNP [address] [place] [address] PCP - General Family Medicine 10/12/21 documented as of this encounter
--- OUTSIDE RECORDS SUMMARY | 2024-06-14 17:17 | XMS_ITS | Encounter Summary ---
Author Organization [employer] Address 75 [facility] 7t [place] [address] Care Team Providers Care Jetting Machine Operator Name Role Phone [facility] Primary Care Provider [phone] Reason for Visit * Reason Comments Med Refill Encounter Details Date Type Department Care Team ([facility] Contact Info) Description 09/12/2023 Refill [facility] MEDICINE 230 [place], [place] [phone] [facility] 230 [place], [place] [phone] Social History Tobacco Use Types Packs/Day Years [...] Description 08/29/2024 11:30 AM EDT Office Visit [facility] MEDICINE 230 [place] [address] Deborah Nicholson FNP 230 [place] [address] documented as of this encounter Visit Diagnoses Not on filedocumented in this encounter Additional Health Concerns Assessment Noted Time PHQ-9 Depression Total Score: 8 03/16/19 24 2:08 PM EST documented as of this encounter Care Teams Jetting Machine Operator Relationship Specialty Start Date End Date Deborah Nicholson FNP 230 [place] [address] PCP - General Family Medicine 10/12/21 documented as of this encounter
--- OUTSIDE RECORDS SUMMARY | 2024-06-14 17:17 | XMS_ITS | Encounter Summary ---
Author Organization [employer] Address 75 [facility] 7t [place] [address] Care Team Providers Care Brand Representative Name Role Phone [facility] Primary Care Provider [phone] Reason for Visit * Reason Comments Med Refill Encounter Details Date Type Department Care Team ([facility] Contact Info) Description 06/14/2023 Refill [facility] MEDICINE 230 [place], [place] [phone] [facility] 230 [place], [place] [phone] Dyspepsia Social History Tobacco Use Types Packs/Day [...] Visit [facility]INE 230 [place] [address] Deborah Nicholson FNP 230 [place] [address] documented as of this encounter Visit Diagnoses Diagnosis Dyspepsia Dyspepsia and other specified disorders of function of stomach documented in this encounter Additional Health Concerns Assessment Noted Time PHQ-9 Depression Total Score: 8 03/16/19 24 2:08 PM EST documented as of this encounter Care Teams Brand Representative Relationship Specialty Start Date End Date Deborah Nicholson FNP 230 [place] [address] PCP - General Family Medicine 10/12/21 documented as of this encounter
--- OUTSIDE RECORDS SUMMARY | 2024-06-14 17:17 | XMS_ITS | Encounter Summary ---
Author Organization [employer] Address [address] [facility] 7t [place] [address] Care Team Providers Care Senior Firewall Engineer Name Role Phone Lyn Deborah MACHINE HOSTLER Primary Care Provider [phone] Encounter Details Date Type Department Care Team ([facility] st Contact Info) Description 06/12/2024 Orders Only [facility] MEDICINE 230 [place], [place] [phone] Jie Nicolas NP 230 [place], [place] [phone] Bacterial vaginosis (Primary Dx) Social History Tobacco Use Types Packs/Day Years [...] Description 08/29/2024 11:30 AM EDT Office Visit [facility] MEDICINE [address] [place] [address] [facility] 230 [place] [address] documented as of this encounter Visit Diagnoses Diagnosis Bacterial vaginosis- Primary Unspecified vaginitis and vulvovaginitis documented in this encounter Additional Health Concerns Assessment Noted Time PHQ-9 Depression Total Score: 17 025 11:26 AM EST documented as of this encounter Care Teams Senior Firewall Engineer Relationship Specialty Start Date End Date Deborah Nicholson [facility] 230 [place] [address] PCP - General Family Medicine 10/12/21 documented as of this encounter
--- OUTSIDE RECORDS SUMMARY | 2024-06-14 17:17 | XMS_ITS | Encounter Summary ---
Author Organization [employer] Address [address] [facility] 7t [place] [address] Care Team Providers Care Community Service Officer Coordinator Name Role Phone [place] [facility] Primary Care Provider [phone] Encounter Details Date Type Department Care Team ([facility] st Contact Info) Description 08/23/2023 Telephone [facility] MEDICINE 230 [place], [place] [phone] [place] [facility] 230 [place], [place] [phone] Social History Tobacco Use Types Packs/Day Years [...] t he electric, gas, oil or water [employer] threatened to shut off services in your [...] Description 08/29/2024 11:30 AM EDT Office Visit [facility] 230 [place], [place] [phone] [facility] 230 [place], [place] [phone] documented as of this encounter Procedures Procedure Name Priority Date/Time Associated Diagnosis Comments T-SPOT(R).TB Routine 08/31/2023 9:06 AM EDT Screening examination for pulmonary tuberculosis documented in this encounter Results * T-SPOT??.TB (08/31/2023 9:06 AM EDT) [facility] T Spot TB Negative Negative [facility] Comment:A negative test resu lt does [...] as aquantitative test. TS PANEL A 0 [facility] TS PANEL B 0 [facility] Negative Control Passed [facility] Positive Control Passed [facility] Comment:For additional infor mation, please refer tohttp://education.Abiquo/faq/BRK064(This link is being provided for informational/educational purposes only.)THIS TEST WAS PERFORMED AT:[employer] [id number] [place] [address]WYDIDPC W. MASON,MD,PHD 08/31/2023 9:06 AM EDT 08/31/2023 11:12 AM EDT [facility] LAB BLOOD ORDERABLES Final Re sult [facility] [address] [place] [phone] documented in this encounter Visit Diagnoses Diagnosis Screening examination for pulmonary tuberculosis documented in this encounter Additional Health Concerns Assessment Noted Time PHQ-9 Depression Total Score: 8 03/16/19 24 2:08 PM EST documented as of this encounter Care Teams Community Service Officer Coordinator Relationship Specialty Start Date End Date [facility] [address] [place] [address] PCP - General Family Medicine 10/12/21 documented as of this encounter
--- OUTSIDE RECORDS SUMMARY | 2024-06-14 17:17 | XMS_ITS | Encounter Summary ---
Author Organization [employer] Address [address] [facility] 7t [place] [address] Care Team Providers Care Microfilm Technician Name Role Phone Deborah Nicholson MONKEY KEEPER Primary Care Provider Encounter Details Date Type Department Care Team ([facility] st Contact Info) Description 06/11/2024 Orders Only [facility] MEDICINE 230 [place], [place] [phone] Jie Nicolas NP 230 [place], [place] [phone] Social History Tobacco Use Types Packs/Day Years [...] Office Visit [facility] MEDICINE [address] [place] [address] [facility] 230 [place] [address] documented as of this encounter Procedures Procedure Name Priority Date/Time Associated Diagnosis Comments BACTERIAL VAGINOSIS PANEL Routine 06/11/2024 12:00 AM EDT documented in this encounter Results * (ABNORMAL) Bacterial Vaginosis (06/11/2024 12:00 AM EDT) TRICHOMONAS VAGINALIS DETECTION BY PCR NOT DETECTED Not Detect [facility] BACTERIAL VAGINOSIS DETECTION BY PCR POSITIVE(A) Negative [facility] Comment:The BV organism targ ets [...] DETECTION BY PCR NOT DETECTED Not Detect [facility] Rachel glab krusei PCR NOT DETECTED Not Detect [facility] 06/11/2024 06/11/2024 Jie Nicolas IMPORT CUSTOMER SERVICE MANAGER LAB MICROBIOLOGY - GENERAL CHRISTIE PONCE Final Result [facility] [address] [place] [phone] documented in this encounter Visit Diagnoses Not on filedocumented in this encounter Additional Health Concerns Assessment Noted Time PHQ-9 Depression Total Score: 17 025 11:26 AM EST documented as of this encounter Care Teams Microfilm Technician Relationship Specialty Start Date End Date Deborah Nicholson FNP [address] [place] [address] PCP - General Family Medicine 10/12/21 documented as of this encounter
--- OUTSIDE RECORDS SUMMARY | 2024-06-14 17:17 | XMS_ITS | Encounter Summary ---
Author Organization [employer] Address [address] [facility] [address] 7t [place] [address] Care Team Providers Care Checker/Stocker Name Role Phone Lyn Deborah DATA ANALYST ETL DEVELOPER Primary Care Provider [phone] Reason for Visit * Reason Onset Date Comments Results 06/12/2024 Encounter Details Date Type Department Care Team ([facility] Contact Info) Description 06/12/2024 Telephone [facility] 230 [place], [place] [phone] Mary Lou Chilel MA Results Social History Tobacco Use Types Packs/Day [...] encounter Miscellaneous Notes * Telephone Encounter - Mary Lou Chilel MA - 06/12/2024 1:31 PM EDT T/C placed medical apparatus model maker spoke with pt, and explain to the patient PCP instruction about urine results and medication treatment . Pt agree to complete medication treatment given for 7 days for UTI. Waiting for urine culture results if results becomes abnormal PCP will make changes on antibiotics,this was told to the patient has well. documented in this encounter Plan of Treatment Upcoming Encounters Date Type Department Care Team (Late st Contact Info) Description 08/29/2024 11:30 AM EDT Office [facility] [address] [place] [address] Deborah Nicholson FNP [address] [place] [address] documented as of this encounter Visit Diagnoses Not on filedocumented in this encounter Additional Health Concerns Assessment Noted Time PHQ-9 Depression Total Score: 17 025 11:26 AM EST documented as of this encounter Care Teams Checker/Stocker Relationship Specialty Start Date End Date Deborah Nicholson FNP 230 [place] [address] PCP - General Family Medicine 10/12/21 documented as of this encounter
== END 2024-06-14 16:37 | disposition home or self-care (01) ==
LOC: HO.HWS 15:40
PROVIDERS: PCP Registered Nurse; Visit Provider Obstetrics & Gynecology
DX: N95.0 Postmenopausal bleeding (principal)
CPT/HCPCS: 99213

== ENCOUNTER → 2024-06-14 15:40 | Outpatient (BNVA) | payer MEDICAID, SELFPAY | PROVIDERS: PCP Registered Nurse; Visit Provider Obstetrics & Gynecology | DX: N95.0 Postmenopausal bleeding (principal) | CPT/HCPCS: 99212 ==

== ENCOUNTER 2024-06-28 11:26 | Day surgery (SDC) | payer MEDICAID, SELFPAY ==
--- OUTSIDE RECORDS SUMMARY | 2024-06-20 14:34 | XMS_ITS | Encounter Summary ---
Author Organization [employer] Address [address] [facility] 7t [place] [address] Care Team Providers Care Fancy Packer Name Role Phone [facility] Primary Care Provider [phone] Encounter Details Date Type Department Care Team (Late st Contact Info) Description 08/23/2023 Telephone [facility] MEDICINE 230 [place], [place] [phone] [facility] 230 [place], [place] [phone] Social History Tobacco Use Types Packs/Day Years [...] t he electric, gas, oil or water [employer] threatened to shut off services in your [...] 11:30 AM EDT Office Visit [facility] MEDICINE 230 [place] [address] [facility] 230 [place] [address] documented as of this encounter Procedures Procedure Name Priority Date/Time Associated Diagnosis Comments T-SPOT(R).TB Routine 08/31/2023 9:06 AM EDT Screening examination for pulmonary tuberculosis documented in this encounter Results * T-SPOT??.TB (08/31/2023 9:06 AM EDT) [facility] T Spot TB Negative Negative [facility] Comment:A negative test resu lt [...] as aquantitative test. TS PANEL A 0 [facility] TS PANEL B 0 [facility] Negative Control Passed [facility] Positive Control Passed [facility] Comment:For additional infor matalton, please refer tohttp://education.Peoplefilter Technology/faq/UHI790(This link is being provided for informational/educational purposes only.)THIS TEST WAS PERFORMED AT:[employer] [id number] [place] [address]ESENPWVERINN PENA MD,PHD 08/31/2023 9:06 AM EDT 08/31/2023 11:12 AM EDT [facility] LAB BLOOD ORDERABLES Final Re sult [facility] [address] [place] [phone] documented in this encounter Visit Diagnoses Diagnosis Screening examination for pulmonary tuberculosis documented in this encounter Additional Health Concerns Assessment Noted Time PHQ-9 Depression Total Score: 8 03/16/19 24 2:08 PM EST documented as of this encounter Care Teams Fancy Packer Relationship Specialty Start Date End Date [facility] [address] [place] [address] PCP - General Family Medicine 10/12/21 documented as of this encounter
--- OUTSIDE RECORDS SUMMARY | 2024-06-20 14:34 | XMS_ITS | Encounter Summary ---
Author Organization [employer] Address [address] [facility] [address] 7t [place] [address] Care Team Providers Care Computer Instructor Name Role Phone Deborah Nicholson DATABASE MODELER Primary Care Provider [phone] Encounter Details Date Type Department Care Team (Late st Contact Info) Description 05/25/2023 Orders Only [facility] MEDICINE 230 [place], [place] [phone] ProviderKaye MD Social History Tobacco Use Types Packs/Day Years [...] Description 08/29/2024 11:30 AM EDT Office Visit [facility] MEDICINE 230 [place] [address] Deborah Nicholson FNP 230 [place] [address] documented as of this encounter Procedures Procedure [...] documented as of this encounter Care Teams Computer Instructor Relationship Specialty Start Date End Date Deborah Nicholson FNP 230 [place] [address] PCP - General Family Medicine 10/12/21 documented as of this encounter
--- OUTSIDE RECORDS SUMMARY | 2024-06-20 14:34 | XMS_ITS | Encounter Summary ---
Author Organization [employer] Address [address] [facility] 7t [place] [address] Care Team Providers Care Vehicle Fuel Systems Converter Name Role Phone [place] [facility] Primary Care Provider [phone] Reason for Visit * Reason Comments Med Refill Encounter Details Date Type Department Care Team ([facility] Contact Info) Description 06/14/2023 Refill [facility] MEDICINE 230 [place], [place] [phone] [facility] 230 [place], [place] [phone] Dyspepsia Social History Tobacco Use Types Packs/Day [...] Description 08/29/2024 11:30 AM EDT Office Visit [facility] MEDICINE [address] [place] [address] Deborah Nicholson FNP 230 [place] [address] documented as of this encounter Visit Diagnoses Diagnosis Dyspepsia Dyspepsia and other specified disorders of function of stomach documented in this encounter Additional Health Concerns Assessment Noted Time PHQ-9 Depression Total Score: 8 03/16/19 24 2:08 PM EST documented as of this encounter Care Teams Vehicle Fuel Systems Converter Relationship Specialty Start Date End Date Deborah Nicholson FNP 230 [place] [address] PCP - General Family Medicine 10/12/21 documented as of this encounter
--- OUTSIDE RECORDS SUMMARY | 2024-06-20 14:34 | XMS_ITS | Encounter Summary ---
Author Organization [employer] Address 75 [facility] 7t [place] [address] Care Team Providers Care Musical Performer Name Role Phone [facility] Primary Care Provider [phone] Reason for Visit * Reason Comments Med Refill Encounter Details Date Type Department Care Team ([facility] Contact Info) Description 09/12/2023 Refill [facility] MEDICINE 230 [place], [place] [phone] [facility] 230 [place], [place] [phone] Social History Tobacco Use Types Packs/Day Years [...] 11:30 AM EDT Office Visit [facility] MEDICINE 230 [place] [address] Deborah Nicholson FNP 230 [place] [address] documented as of this encounter Visit Diagnoses Not on filedocumented in this encounter Additional Health Concerns Assessment Noted Time PHQ-9 Depression Total Score: 8 03/16/19 24 2:08 PM EST documented as of this encounter Care Teams Musical Performer Relationship Specialty Start Date End Date Deborah Nicholson FNP 230 [place] [address] PCP - General Family Medicine 10/12/21 documented as of this encounter
--- OUTSIDE RECORDS SUMMARY | 2024-06-20 14:34 | XMS_ITS | Clinical Summary ---
Author Organization [employer] Address [address] [facility] 7[address] [place] [address] Care Team Providers Care Hay Chopper Name Role Phone Deborah Nicholson [facility] Primary Care Provider [phone] Allergies No known active allergies Medications cloNIDine (Catapres) 0.1 MG tablet TAKE 1 TABLET BY MOUTH TWICE A DAY NEEDED FOR ANXIETY/PANIC 02/08/20 22 Active cyclobenzaprine (Flexeril) 10 MG tablet TAKE 1/2 TO 1 TABLET BY MOUTH EVERY NIGHT AT BEDTIME NEEDED 11/20/19 22 Active fluconazole (Diflucan) 150 MG tablet TOME HESHAM TABLETA TODOS LOS D ONE DOSE 10/28/19 22 Active fluticasone (Flonase) 50 MCG/ACT nasal spray SPRAY 1 - 2 SPRAYS IN EACH NOSTRIL EVERY DAY NEEDED 05/12/19 22 Active ketorolac (Toradol) 10 MG tablet PLEASE SEE ATTACHED FOR DETAILED DIRECTIONS 05/14/19 22 Active Lidocaine, Anorectal, (Topicaine 5) 5 % gel Apply to affected area as needed 11/21/19 21 Active linaCLOtide (Linzess) 145 MCG capsule Take by mouth. Act evita meloxicam (Mobic) 15 MG tablet TOME HESHAM TABLETA TODOS LOS D CON ALIMENTO 06/05/19 22 Active mirtazapine (Remeron) 45 MG tablet TOME HESHAM TABLETA TODOS LOS D AL ACOSTARSE 01/15/20 22 Active montelukast (Singulair) 10 MG tablet TOME HESHAM TABLETA TODOS LOS D EN LA NOCHE 01/15/20 22 Active OXcarbazepine (Trileptal) 300 MG tablet Take 300 mg by mouth at bedtime. Take (150mg) by mouth in the morning and 300mg in the evening. Prescribed by psych team Active escitalopram (Lexapro) 20 MG tablet TOME HESHAM TABLETA TODOS LOS D 10/16/19 23 Active cetirizine (ZyrTEC) 10 MG tablet TOME HESHAM TABLETA TODOS LOS IBARRA CUANDO SEA NECESARIO 90 tablet 3 11/04/19 24 Active omeprazole (PriLOSEC) [address] capsuleIndicatio ns:Dyspepsia TAKE 2 CAPSULE BY MOUTH EVERY DAY BEFORE A MEAL 180 capsule 1 01/20/20 24 Active albuterol (2.5 MG/3ML) 0.083% nebulizer solution inhale 3 milliliter by nebulization route 3 times every day 75 mL 03/02/19 25 Active budesonide-formo terol (Symbicort) 80-4.5 MCG/ACT inhalerIndicatio ns:Mild intermittent asthma without complication Inhale 2 puffs every 4-6 hours as needed for cough or wheezing 1 each 11 03/16/19 25 Active Ventolin HFA 108 (90 Base) MCG/ACT inhalerIndicatio ns:Exacerbation of asthma, unspecified asthma severity, unspecified whether persistent INHALE 2 PUFFS POR VIA ORAL EVERY 4 HOURS IF NEEDED FOR WHEEZING. 18 g 1 05/10/19 25 Active ARIPiprazole (Abilify) 20 MG tablet TOME 1 TABLETA POR V A ORAL TODOS LOS D 04/03/19 25 Active OXcarbazepine (Trileptal) 150 MG tablet TAKE 1 TABLET BY MOUTH EVERY MORNING (TAKES 900MG AT BEDTIME,THIS DOSE IN ADDED TO TAKE IN MORNING 04/03/19 25 Active senna (Senokot) 8.6 MG tabletIndication s:Constipation, unspecified constipation type Take 1 tablet (8.6 mg) by mouth at bedtime. 120 tablet 05/19/19 25 Active topiramate (Topamax) 25 MG tabletIndication s:Hot flashes Take 1 tablet (25 mg) by mouth before evening meal. 30 tablet 11 05/19/19 25 026 Active D3-1000 25 MCG (1000 UT) capsuleIndicatio ns:Hot flashes Take 1 capsule (25 mcg) by mouth Once per day. 30 capsule 05/19/19 25 026 Active docusate sodium (Colace) 100 MG capsuleIndicatio ns:Constipation, unspecified constipation type TOME 1 CAPSULA POR VIA ORAL TODOS LOS IBARRA 90 capsule 05/19/19 25 Active polyethylene glycol, PEG, 3350 (MiraLax) 17 GM/SCOOP powderIndication s:Constipation, unspecified constipation type Take 17 g by mouth Once per day. 510 g 05/19/19 25 025 nitrofurantoin, macrocrystal-mon ohydrate, (Macrobid) 100 MG capsuleIndicatio ns:Acute cystitis without hematuria Take 1 capsule (100 mg) by mouth 2 times daily for 5 days. 10 capsule 05/19/19 25 025 Ketotifen Fumarate 0.035 % solutionIndicati ons:Seasonal allergic rhinitis due to other allergic trigger Administer 1 drop into affected eye(s) if needed in the morning and at bedtime (itchitness). 5 mL 1 05/19/19 25 025 nitrofurantoin, macrocrystal-mon ohydrate, (Macrobid) 100 MG capsuleIndicatio ns:Urinary frequency Take 1 capsule (100 mg) by mouth 2 times daily for 7 days. 14 capsule 06/12/19 25 025 metroNIDAZOLE (Flagyl) 500 MG tabletIndication s:Bacterial vaginosis Take 1 tablet (500 mg) by mouth 2 times daily for 7 days. 14 tablet 06/13/19 25 025 Active Problems Patient Care Coordination No te [...] Type Department Care Team Description 06/13/[address] [facility] [place] [address] Jie Nicolas NP Results 06/12/2024 Telephone [facility] [address] Deborah Nicholson FNP Results 06/12/[address] [facility] [place] [address] Mary Lou Chilel MA Results 06/12/[address] [facility] [place] [address] Jie Nicolas NP Bacterial vaginosis (Primary Dx) 06/11/2024 11:15 AM EDT Office Visit [facility] [place] [address] Jie Nicolas NP Vaginal symptom (Primary Dx); Urinary frequency 06/11/[address] [facility] [place] [address] Jie Nicolas NP 06/11/2024 Travel 06/08/2024 Telephone [facility] [address] Deborah Nicholson FNP Nurse Triage 05/25/[address] [facility] [address] [place] [address] Lizzette Schroeder, OD Presbyopia (Primary Dx) 05/24/2024 2:45 PM EDT Office Visit [facility] [address] [place] [address] Lizzette Schroeder, OD Myopia of both eyes (Primary Dx) 05/24/[address] [facility] [place] [address] Deborah Nicholson FNP julai's recall 05/18/2024 11:15 AM EDT Office Visit [facility] [place] [address] Lyn, Deborah, [employer] Acute cystitis without hematuria (Primary Dx); Constipation, unspecified constipation type; Hot flashes; Seasonal allergic rhinitis due to other allergic trigger; Encounter for screening for malignant neoplasm of colon 05/18/[address] [facility] [address] [place] [address] Deborah Nicholson FNP Constipation, unspecified constipation type 05/18/2024 Travel 05/09/[address] [facility] [address] [place] [address] Deborah Nicholson FNP Exacerbation of asthma, unspecified asthma severity, unspecified whether persistent 05/07/2024 Orders Only GENERIC EXTERNAL DATA DEPARTMENT Provider, Generic External Data 04/27/2024 [facility] () Department [address] [place] [phone] Provider, Population Health Generic 04/26/2024 3:00 PM EDT Office Visit [facility] [address] [place] [address] Alexandre, Lizzette, OD Presbyopia (Primary Dx); Congenital [...] 08/29/2024 11:30 AM EDT Office Visit [facility] [address] [place] [address] Deborah Nicholson, [employer] [address] [place] [address] Health Maintenance Due Date Last Done Comments [...] (1 of 2) 12/24/2021 COVID-19 Vaccine ( - season) 2023 10/23/2020, 10/02/2020 Influenza Vaccine (#1) [...] Routine 01/27/2023 9:05 AM EST Menopause syndrome COLONOSCOPY Routine 02/28/2019 8:21 AM EST from [...] Date Urine 06/11/2024 12:1 0 PM EDT [facility] SENIOR DIGITAL DESIGNER POINT OF CARE TEST ENTER/EDIT O RDERABLES Final Result * (ABNORMAL) Bacterial Vaginosis (06/11/2024 12:00 AM EDT) Only the most recent of2 resultswithin the time period is included. TRICHOMONAS VAGINALIS DETECTION BY PCR NOT DETECTED Not Detect [facility] BACTERIAL VAGINOSIS DETECTION BY PCR POSITIVE(A) Negative [facility] Comment:The BV organism targ ets [...] DETECTION BY PCR NOT DETECTED Not Detect [facility] Rachel glab krusei PCR NOT DETECTED Not Detect [facility] 06/11/2024 06/11/2024 Jie Nicolas SENIOR DIGITAL DESIGNER LAB MICROBIOLOGY - GENERAL ORDE RABLES Final Result Performing Organization Address [facility] de Phone Number [facility] [address] [place] [address] [phone] * Culture, Urine, Routine (06/11/2024 12:00 AM EDT) Only the most recent of2 resultswithin the time period is included. Urine Urine specimen obtained by clean catch procedure / Unknown 06/11/2024 06/11/2024 Comment:[facility] Narrative [facility] - 06/13/2024 8:09 AM EDT Escherichia coli Quant > 100,000 cfu/mL Escherichia coli: Ampicillin >=32(R) Escherichia coli: Cefazolin (Urine) <=1(S) Escherichia coli: Cefepime <=0.12(S) Escherichia coli: Ceftriaxone <=0.25(S) Escherichia coli: Ciprofloxacin >=4(R) Escherichia coli: Gentamicin <=1(S) Escherichia coli: Nitrofurantoin <=16(S) Escherichia coli: Trimethoprim/Sulfamethoxazole <=20(S) Specimen Source: Urine clean catch Jie Nicolas NP LAB [facility] - [facility] Final Result Performing Organization Address [facility] de Phone Number [facility] [address] [place] [phone] * US Pelvis Transvaginal (06/05/2024 11:37 AM EDT) Anatomical Region Laterality Modality Pelvis Ultrasound 06/05/2024 11:3 7 AM EDT Narrative 06/06/2024 12:26 PM EDT ? [facility] ?[address] [facility] ?[place] [address] ? Ultrasound Report ? Signed ? Patient: Serrano,Magalys ?MR#: [id number] ? : 1970 ?Acct:[id number] ? Age/Sex: 53 / F ?ADM Date: 04/22/25 ? Loc: HO.US ? Attending Dr: Philippe Layton MD ? Ordering Physician: Philippe Layton MD ?? Date of Service: 06/05/24 ?? Procedure(s): US pelvic and transvaginal ?? Accession Number(s): [id number] ? cc: Deborah Nicholson [employer]; Philippe Layton MD ? EXAMINATION: ? US [...] DD/ 1137 ? TD/TT: 06/05/24 1149 ? Biomedical Engineering Technologist: ? Procedure Note Carol Ann, Image - 06/06/[address] [address] Ultrasound Report Signed Patient: Bart Serrano#: [id number] : 1970Acct:[id number] Age/Sex: 53 / FADM Date: 06/05/24 Loc: HO.US Attending Dr: Philippe Layton MD Ordering Physician: Philippe Layton MD Date of Service: 06/05/24 Procedure(s): US pelvic and transvaginal Accession Number(s): [id number] [facility] Philippe Layton MD EXAMINATION: US PELVIS CLINICAL [...] 06/06/24 1223 DD/ 1137 TD/TT: 06/05/24 1149 Biomedical Engineering Technologist: [facility] External Provider IMG US PROCEDURES Final Result * HPV DNA, Low/High Risk (05/07/2024 12:31 PM EDT) HPV High Risk Negative Negative [facility] HPV Genotype 16 Negative Negative [facility] HPV Genotype 18 Negative Negative [facility] Comment:HPV testing performe d at [facility] (CLIA#[id number]), [address] [place] [address].Testing for HPV was performed using the [employer]system. The presence of HPV in the female [...] ORDERAB LES Final Result Performing Organization Address City/State/[facility] Co de Phone Number [facility] [address] [place] [phone] * Pap Smear (05/07/2024 12:31 PM EDT) 05/07/2024 12:3 1 PM EDT 05/08/2024 6:00 AM EDT Narrative [facility] - 05/10/2024 10:43 AM EDT ----- ------- Name: Magalys Serrano ?Age/Sex: 53/F ? : 1970 Unit#: [id number] ?? Attend Dr: Philippe Layton MD ?Re05/07/24 ?Status: DEP REF ? Location: HO.LNP ?Disch: ? ----- ------- SPEC : [id number] ? RECD: 05/08/24 ? STATUS: ??SOUT ? REQ NUM: [id number] ? SARAH: 05/07/24-1231 ? SUBM DR: Philippe Layton MD ? ENTERED: ??05/08/24 ?SP TYPE: Pap Smr ?OTHR DR: Deborah Nicholson [employer] ? ORDERED: ??Pap Smear ? Interpretation ?? Satisfactory for evaluation. ?? Negative for intraepithelial lesion or malignancy. ? HPV High Risk: ??Negative ? HPV Genotyping 16: ??Negative ?? HPV Genotyping 18: ??Negative ?Clinical Information LMP: Post menopausal Previous PAP test: Unknown date/findings ? Material Received ?? Cervix Copies To: ?? Romeo,Deborah [employer] ?? [address] ?? [place] [address] ?? [phone] ?? Philippe Layton MD ?? [facility] ?? [address] ?? [place] [address] ?? [phone] ----- ------- Signed (signature on file) KO Marie (ASCP) 05/10/24 1043 ? ----- ------- ? END OF REPORT ? us Generic External Data Provider LAB CYTOLOGY CHRISTIE PONCE Final Result [facility] [address] [place] [phone] [phone] * Chlamydia/N. Gonorrhoeae RNA, TMA, Urogenitial (05/07/2024 11:28 AM EDT) CT PCR NOT DETECTED Not Detect. [facility] Comment:A not detected test result [...] psychologicalconsequences. NG PCR NOT DETECTED Not Detect. [facility] Comment:A not detected test result [...] AM EDT 05/07/2024 3:17 PM EDT Narrative [facility] - 05/08/2024 12:20 PM EDT Vaginal us Generic External Data Provider LAB MICROBIOLOGY - GENERAL ORDERABLES Final Result [facility] [address] [place] [address] [phone] * BI Mammogram Screening Tomosynthesis Bilateral (12/20/2023 9:15 AM EST) Anatomical Region Laterality Modality Breast Bilateral Mammography 12/20/2023 9:15 AM EST Narrative 12/28/2023 12:23 PM EST ? [facility] ? [address] ?[place] [address] ? Mammography Report ? Signed ? Patient: Serrano,Magalys ?MR#: [id number] ? : 1970 ?Acct:[id number] ? Age/Sex: 52 / F ?ADM Date: 12/20/23 ? Loc: HO.MAMMO ? Attending Dr: Deborah Lyn [employer] ? Ordering Physician: Romeo,Deborah [employer] ?Results: 2Beni ?? gn Findings ? Date of Service: 12/20/23 ?Follow Up: 1 Year From Orig ?? inal Mammogram ? Procedure(s): MM tomosynthesis screening BI ?? Accession Number(s): [id number] ? cc: Lyn,Deborah [employer] ? EXAMINATION: ?? MM SCREENING DIGITAL BREAST [...] DD/ 0915 ? TD/TT: 12/20/23 0930 ? Biomedical Engineering Technologist: ? Procedure Note Carol Ann, Image - 12/28/2023 [facility] [address] [place] [address] Mammography Report Signed Patient: Bart Serrano#: [id number] : 1970Acct:[id number] Age/Sex: 52 / FADM Date: 12/20/23 Loc: KJ Attending Dr: Deborah Nicholson [employer] Ordering Physician: Deborah Nicholson FNPResults: 2Beni gn Findings Date of Service: 12/20/23Follow Up: 1 Year From Orig inal Mammogram Procedure(s): MM tomosynthesis screening BI Accession Number(s): [id number] cc: Deborah Nicholson [employer] EXAMINATION: MM SCREENING DIGITAL BREAST TOMOSYNTHESIS, BILATERAL [...] Jeannine Richter DO 12/28/2023 12:20 PM EST RP Dictated By: Jeannine Richter DO Signed By: <Electronically signed by Jeannine Richter DO in OV> 12/28/23 1220 DD/ TD/TT: 12/20/23 0930 Biomedical Engineering Technologist: [facility] [employer] IMG BI PROCEDURES Final Resul t * (ABNORMAL) Lipid Panel, Standard (01/27/2023 9:05 AM EST) Triglycerides 118 <150 mg/dL [facility] Comment:Desirable Triglyceri de: less than 150 mg/dLBorderline High Triglyceride 150-199 mg/dLHigh Triglyceride: 200-499 mg/dLVery High Triglyceride: greater than or equal to 5OO mg/dL Cholesterol 223(H) <200 mg/dL [facility] Comment:Desirable Cholestero l: less than 200 mg/dLBorderline High Cholesterol: 200-239 mg/dLHigh Cholesterol: greater than 239 mg/dL LDL Cholesterol Calculated 144(H) <100 mg/dL [facility] Comment:Desirable LDL: less than 100 mg/dLNear Optimal/Above Optimal LDL: 110- 129 mg/dLBorderline High LDL: 130-159 mg/dLHigh LDL: 160-189 mg/dLVery High LDL: greater than or equal to 190 mg/dL HDL Cholesterol 56 >40 mg/dL [facility] Comment:Desirable HDL: great er than 40 mg/dL Note: This HDL assay may give artificially low results in patients with liver disease. Blood Venous blood specimen / Unknown 01/27/2023 9:05 AM EST 01/27/2023 11:36 AM EST [facility] [employer] LAB BLOOD ORDERABLES Final Re sult [facility] [address] [place] [phone] [phone] * Hm Colonoscopy (02/28/2019 8:21 AM EST) Historical Provider HEALTH MAINTENANCE Final Result from Last 3 Months or Most Recently Relevant to Health Maintenance [place] [address] [address] C3 Care Teams Hay Chopper Relationship Specialty Start Date End Date RomeoDeborah, DANIEL [address] [place] [address] PCP - General Family Medicine 10/12/21
[2024-06-28] VITALS (12 sets, daily range): BP systolic 100–146; BP diastolic 58–89; PULSE 56–67; RESP 14–18; TEMP 36.2–36.8; O2SAT 98–100
--- NOTE | ~2024-06-28 | US_ITS ---
EXAMINATION: Ultrasound biopsy right vulvar mass. CLINICAL INDICATION: Right labial majora mass. COMPARISON: Ultrasound pelvis 06/05/2024. TECHNIQUE: Following explaining ultrasound-guided right labia majora mass biopsy procedure, benefits and risk, a consent was obtained. Patient was placed supine in lithotomy position and preliminary imaging of right labia was obtained. An optimal site was selected and marked on the skin. The marked site was cleaned and draped in the usual sterile manner with 2% chlorhexidine solution. 1% lidocaine was injected at puncture site. Under sterile ultrasound guidance a small skin incision performed with 25-gauge needles attached to the syringes were advanced and a 3 pass fine-needle aspiration biopsy performed. Subsequently a 22-gauge guide needle was advanced and coaxial biopsy needle was advanced and 3 pass core biopsy was performed. Postprocedure complete hemostasis achieved. Simple dressing applied post procedure. FINDINGS/ US/US guided fine needle asp IMPRESSION: There is subcutaneous right labia majora mass. Fine-needle aspiration passes were performed however the sample was sent in the wrong solution and not evaluated. 3 core biopsies performed was sent in formaldehyde solution and was evaluated. Electronically signed by: Kaushal Fields MD 06/29/2024 11:49 AM EDT
--- NOTE | ~2024-06-28 | US_ITS ---
EXAMINATION: Ultrasound biopsy right vulvar mass. CLINICAL INDICATION: Right labial majora mass. COMPARISON: Ultrasound pelvis 06/05/2024. TECHNIQUE: Following explaining ultrasound-guided right labia majora mass biopsy procedure, benefits and risk, a consent was obtained. Patient was placed supine in lithotomy position and preliminary imaging of right labia was obtained. An optimal site was selected and marked on the skin. The marked site was cleaned and draped in the usual sterile manner with 2% chlorhexidine solution. 1% lidocaine was injected at puncture site. Under sterile ultrasound guidance a small skin incision performed with 25-gauge needles attached to the syringes were advanced and a 3 pass fine-needle aspiration biopsy performed. Subsequently a 22-gauge guide needle was advanced and coaxial biopsy needle was advanced and 3 pass core biopsy was performed. Postprocedure complete hemostasis achieved. Simple dressing applied post procedure. FINDINGS/ US/US Biopsy Vulva Perineum IMPRESSION: There is subcutaneous right labia majora mass. Fine-needle aspiration passes were performed however the sample was sent in the wrong solution and not evaluated. 3 core biopsies performed was sent in formaldehyde solution and was evaluated. Electronically signed by: Kaushal Fields MD 06/29/2024 11:49 AM EDT
[2024-06-28 12:43] LABS: MANUAL DIFF FLAG NO
[2024-06-28 12:46] LABS: Basophils Percent Auto 0.5 % (0-2); Eosinophils Absolute Auto 0.4 X10*3/uL (0.0-0.4); Eosinophils Percent Auto 5.7 % (0-4); Hematocrit 36.1 % (37.0-47.0); Hemoglobin 11.9 g/dl (12.0-16.0); Imm Gran Abs Auto 0.01 X10*3/uL (0.00-0.03); Imm Gran Pct Auto 0.2 % (0.0-0.4); Lymphocytes Absolute Auto 1.8 X10*3/uL (1.2-4.9); Lymphocytes Percent Auto 29.9 % (20-40); Mean Corpuscular Hemoglobin 27.2 pg (27.0-33.0); Mean Corpuscular Volume 82.6 fL (80.0-98.0); Mean Platelet Volume 10.9 fL (9.4-12.3); Monocytes Absolute Auto 0.4 X10*3/uL (0.1-1.2); Monocytes Percent Auto 7.2 % (2-11); Neutrophils Absolute Auto 3.4 x10*3/uL (2.0-8.3); Neutrophils Percent Auto 56.5 % (45-73); Platelet Count 259 X10*3/uL (160-400); Red Blood Count 4.37 X10*6/uL (4.20-5.50); Red Cell Distribution Width 13.3 % (11.0-16.0); White Blood Count 6.1 X10*3/uL (4.8-10.8)
[2024-06-28 12:55] LABS: Prothrombin Time 11.5 SEC (10.9-12.4)
[2024-06-28 12:57] LABS: Anion Gap 11 (12-20); Blood Urea Nitrogen 14 mg/dL (9-16); Calcium 8.8 mg/dL (8.4-10.2); Carbon Dioxide 24 mmol/L (22-29); Chloride 110 mmol/L (96-108); Creatinine Clr Calc Pharmacy 88.1; Estimated Glomerular Filt Rate > 60; Glucose Random 95 mg/dL (60-115); Sodium 141 mmol/L (135-145)
[2024-06-28] MEDS: fentaNYL citrate/PF 100 MCG/2 ML VIAL 25 MCG IVPUSH (14:50)
[2024-06-28] MEDS: Midazolam HCl 2 MG/2 ML VIAL 0.5 MG IVPUSH ×2 (14:50→14:55)
[2024-06-28] MEDS: Lidocaine HCl 1 % MPF 5 ML VIAL SUBCUT (15:23)
== END 2024-06-28 16:05 | disposition home or self-care (01) ==
LOC: HO.SSS 11:27
PROVIDERS: Radiology Diagnostic Radiology; PCP Registered Nurse; Visit Provider Obstetrics & Gynecology
DX: N90.89 Other specified noninflammatory disorders of vulva and perineum (principal)
CPT/HCPCS: 10005; 11104; 36415; 56605; 80048; 85025; 85610; 88305; 99152; 99153; J2003; J2250; J3010

== ENCOUNTER → 2024-06-28 13:38 | Outpatient (BNV) | payer MEDICAID, SELFPAY | PROVIDERS: PCP Registered Nurse; Visit Provider Radiology Diagnostic Radiology | DX: N90.89 Other specified noninflammatory disorders of vulva and perineum (principal) | CPT/HCPCS: 10005 ==

== ENCOUNTER 2024-07-11 13:20 | Outpatient (AMB) | payer MEDICAID, SELFPAY ==
--- NOTE | 2024-07-11 13:36 | A.OFFVIS_ITS ---
Vital Signs 07/11/24 13:44 Height 5 ft 3 in Weight 170 lb BMI 30.1 Intake Visit Reasons: pre op/ultrasound results Motion Picture Projectionist Apprentice Required: Yes Motion Picture Projectionist Apprentice Language: Stand Up Forklift Operator Services: Motion Picture Projectionist Apprentice Present (in person) Motion Picture Projectionist Apprentice Name: Lisbeth PUENTES Information Interpreted: non-clinical & clinical Accompanied by: Self / Same As Patient Allergies morphine [MORPHINE] Adverse Reaction (Intermediate, Verified 07/11/24 13:37) CHEST TIGHTNESS-DYSPHORIA HPI Comments Details: Presenting for follow-up status post ultrasound-guided right vulvar subcutaneous mass, the pathology showed the following: Vulva, right, mass, biopsy: Minute fragments of fibrous stroma, non-diagnostic. Comment: Consider re-sampling In addition the patient had an episode of postmenopausal bleeding, polyp ult rasound showed the following: IMPRESSION: 1. Limited examination due to the technologist unable to visualize the endometrium as detailed in the technologist's note. Retroverted and retroflexed uterus without definite fibroid. 2. Right ovary could not be visualized. 3. Normal left ovary Office EMB was attempted but could not be tolerated with the the patient 05/08 co testing was negative PFSH Medical History Menopause GERD (gastroesophageal reflux disease) Asthma Depression Anxiety Surgical History Hx of colonoscopy Hx of esophagogastroduodenoscopy Family History Mother Diabetes HTN (hypertension) Father Diabetes HTN (hypertension) Daughter Diabetes Social History Household Members: Children and None Alcohol intake: never Review of Systems Const All systems reviewed & are unremarkable except as noted in HPI and below Reports as per HPI and Reports no additional complaints GI Reports no additional complaints Reports no additional complaints Assessment & Plan Assessment & Plan (1) Vulvar mass: Comment: Right-sided Code(s): N90.89 - Other specified noninflammatory disorders of vulva and perineum Category: Medical Plan: Discussed with the patient the results the pathology, recommended referral to [facility] for further management (2) Postmenopausal bleeding: Code(s): N95.0 - Postmenopausal bleeding Category: Medical Plan: Discussed with the patient the endometrial pathology including hyperplasia or malignancy has not been ruled out, recommended hysteroscopy D&C possible polypectomy, the patient will be refer to [facility] Instructed the patient to call our office back in case a referral appointment is not scheduled, missed or canceled so that we will assist on rescheduling another appointment, the patient verbalized understanding agreed with the plan. Coding Level of Care Code Est Pt Level 3 (32163) Diagnoses Vulvar mass N90.89 Postmenopausal bleeding N95.0
[2024-07-11 13:44] VITALS: BMI 30.1
--- OUTSIDE RECORDS SUMMARY | 2024-07-11 14:11 | XMS_ITS | Clinical Summary ---
Author Organization [employer] Address [address] [facility] 7t [place] [address] Care Team Providers Care Senior Living Advisor Name Role Phone Deborah Nicholson [facility] Primary Care Provider [phone] Allergies No known active allergies Medications cloNIDine [...] mouth Once per day. 30 capsule 11 05/19/19 25 026 Active docusate sodium (Colace) 100 MG capsuleIndicatio ns:Constipation, unspecified constipation type TOME 1 CAPSULA POR VIA ORAL TODOS LOS IBARRA 90 capsule 05/19/19 25 Active polyethylene glycol, PEG, 3350 (MiraLax) 17 GM/SCOOP powderIndication s:Constipation, unspecified constipation type Take 17 g by mouth Once per day. 510 g 05/19/19 25 025 Ketotifen Fumarate 0.035 % [...] Encounters Date Type Department Care Team Description 06/29/2024 Refill [facility] [address] [address] Yudith Estrella MD Exacerbation of asthma, unspecified asthma severity, unspecified whether persistent 06/28/2024 Orders Only GENERIC EXTERNAL DATA DEPARTMENT Provider, Generic External Data 06/13/[address] [address] Jie Nicolas NP Results 06/12/[address] [address] Deborah Nicholson FNP Results 06/12/[address] [address] Mary Lou Chilel [place] Results 06/12/2024 Orders Only [address] [place] [address] Jie Nicolas NP Bacterial vaginosis (Primary Dx) 06/11/2024 11:15 AM EDT Office Visit [address] [address] Jie Nicolas NP Vaginal symptom (Primary Dx); Urinary frequency 06/11/2024 Orders Only [address] [address] Jie Nicolas NP 06/11/2024 Travel 06/08/[address] [address] Deborah Nicholson FNP Nurse Triage 05/25/2024 Outside Procedure [facility] [address] [place] [address] Lizzette Schroeder, OD Presbyopia (Primary Dx) 05/24/2024 2:45 PM EDT Office Visit [facility] [address] [place] [address] Lizzette Schroeder, OD Myopia of both eyes (Primary Dx) 05/24/2024 Telephone [facility] [address] [place] [address] Deborah Nicholson FNP julia's recall 05/18/2024 11:15 AM EDT Office Visit [address] [address] Deborah Nicholson FNP Acute cystitis without hematuria (Primary Dx); Constipation, unspecified constipation type; Hot flashes; Seasonal allergic rhinitis due to other allergic trigger; Encounter for screening for malignant neoplasm of colon 05/18/2024 Refill [facility] [address] [place] [address] Deborah Nicholson FNP Constipation, unspecified constipation type 05/18/2024 Travel 05/09/2024 Refill [facility] [address] [place] [address] Deborah Nicholson FNP Exacerbation of asthma, unspecified asthma severity, unspecified whether persistent 05/07/2024 Orders Only GENERIC EXTERNAL DATA DEPARTMENT Provider, Generic External Data 04/27/2024 Population Health Risk Score [facility] () Department [address] [place] [phone] Provider, Population Health Generic 04/26/2024 3:00 PM EDT Office Visit [facility] [address] [place] [address] Alexandre, Lizzette, OD Presbyopia (Primary Dx); 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 04/26/2024 Travel from Last 3 Months Immunizations Immunization Administration Dates Next Due Hep B, Adolescent [...] 11:30 AM EDT Office Visit [facility] [address] [place] [address] LynDeborah hayes, DEFECT CUTTER [address] [place] [address] Health Maintenance Due Date Last Done Comments CT Colonography 1971 FIT DNA/Cologuard 1971 FIT 1970 FOBT 1970 HIV Screening 1970 Sigmoidoscopy 1970 Disability Screening 1971 Family Planning (PISQ) 12/24/1986 Hepatitis C [...] patient's age to complete this topic Meningococcal B Vaccine Aged Out No l onger eligible based on patient's age to complete [...] Procedure Name Priority Date/Time Associated Diagnosis Comments HEMATOXYLIN AND EOSIN STAIN Routine 06/28/2024 2:41 PM EDT US BIOPSY SUBCUTANEOUS SKIN Routine 06/28/2024 1:38 PM EDT BASIC METABOLIC PANEL Routine 06/28/2024 12:40 PM EDT PROTHROMBIN TIME-INR Routine 06/28/2024 12:40 PM EDT CBC WITH AUTO DIFFERENTIAL Routine 06/28/2024 12:40 PM EDT POCT URINALYSIS DIPSTICK Routine 06/11/2024 12:10 PM [...] Recently Relevant to Health Maintenance Results * Hematoxylin and Eosin Stain (06/28/2024 2:41 PM EDT) 06/28/2024 2:41 PM EDT 06/29/2024 9:22 AM EDT [facility] - 07/02/2024 3:19 PM EDT ----- ------- Name: Magalys Serrano ?Age/Sex: 53/F ? : 1970 Unit#: [id number] ?? Attend Dr: Philippe Layton MD ?Re06/28/24 ?Status: DEP SDC ? Location: HO.SSS ?Disch: ? ----- ------- SPEC : [id number] ? RECD: 06/29/24 ? STATUS: ??SOUT ? REQ NUM: [id number] ? SARAH: 06/28/241440 ? SUBM DR: Kaushal Fields MD ? ENTERED: ??06/29/24 ?SP TYPE: Surgical ? OTHR DR: Deboarh Nicholson DEFECT CUTTER ?Philippe Layton MD ORDERED: ??ANDREIA Stain/3, Gross Micro L4 ? COMMENTS: The tissue fragments are extremely tiny and may be difficult ?to identify during processing and may fail to survive ?processing. ? Diagnosis ?? Vulva, right, mass, biopsy: ??Minute fragments of fibrous stroma, non- diagnostic. ? Comment: ??Consider re-sampling. ?Clinical History Lipoma, right vulvar mass ?Microscopic Description Microscopic sections reviewed. ? Material Received ?? Right vulvar mass ? Gross Description Received in formalin labeled ?right labia majora? are 2 minute shards of cramer-white tissue each measuring 0.15 cm, submitted in toto in a cassette labeled AMari CEDS This case was reviewed intradepartmentally. Copies To: ?? Kaushal Fields MD ?? [address] [facility] ?? [place] [address] ?? [phone] ?? [facility] ?? [address] [facility] ?? [place] ?? [phone] ? CONTINUED ON NEXT PAGE ----- ------- Name: Magalys Serrano ?Age/Sex: 53/F ? : 1970 Unit#: [id number] ?? Attend Dr: Philippe Layton MD ?Re06/28/24 ?Status: DEP [facility] ? Location: HO.SSS ?Disch: ? ----- ------- SPEC : [id number] ? RECD: 06/29/24 ? STATUS: ??SOUT ? REQ NUM: [id number] ? SARAH: 06/28/24 ? SUBM DR: Kaushal Fields MD ? ENTERED: ??06/29/24 ?SP TYPE: Surgical ? OTHR DR: Deborah Nicholson DEFECT CUTTER ?Philippe Layton MD ORDERED: ??HE Stain/3, Gross Micro L4 ? COMMENTS: The tissue fragments are extremely tiny and may be difficult ?to identify during processing and may fail to survive ?processing. Copies To: ??(Continued) ?? Philippe Layton MD ?? [facility] Women's Services ?? [address] [facility] [address] ?? [place] [address] ?? [phone] ----- ------- Signed (signature on file) Brooklynn Ace 07/02/24 1519 ? ----- ------- ? END OF REPORT ? us Generic External Data Provider LAB BLOOD ORDERAB LES Final Result [facility] [address] [place] [phone] * US BIOPSY SUBCUTANEOUS SKIN (06/28/2024 1:38 PM EDT) Anatomical Region Laterality Modality Abdomen Ultrasound 06/28/2024 1:38 PM EDT Narrative 06/29/2024 11:51 AM EDT ? [facility] ?[address] [facility] ?[place] [address] ? Ultrasound Report ? Signed ? Patient: Serrano,Magalys ?MR#: [id number] ? : 1970 ?Acct:[id number] ? Age/Sex: 53 / F ?ADM Date: 05/15/25 ? Loc: HO.SSS ? Attending Dr: Philippe Layton MD ? Ordering Physician: Philippe Layton MD ?? Date of Service: 06/28/24 ?? Procedure(s): US biopsy subcutaneous skin ?? Accession Number(s): [id number] ? cc: Deborah Nicholson; Philippe Layton MD ? EXAMINATION: Ultrasound biopsy right vulvar mass. ? CLINICAL INDICATION: Right labial majora mass. ? COMPARISON: Ultrasound pelvis 06/05/2024. ? TECHNIQUE: Following explaining ultrasound-guided right labia majora ?? mass biopsy procedure, benefits and risk, a consent was obtained. ?? Patient was placed supine in lithotomy position and preliminary imaging ?? of right labia was obtained. An optimal site was selected and marked on ?? the skin. The marked site was cleaned and draped in the usual sterile ?? manner with 2% chlorhexidine solution. 1% lidocaine was injected at ?? puncture site. Under sterile ultrasound guidance a small skin incision ?? performed with 25-gauge needles attached to the syringes were advanced ?? and a 3 pass fine-needle aspiration biopsy performed. Subsequently a ?? 22-gauge guide needle was advanced and coaxial biopsy needle was ?? advanced and 3 pass core biopsy was performed. Postprocedure complete ?? hemostasis achieved. Simple dressing applied post procedure. ? FINDINGS/ ? US/US biopsy subcutaneous skin ?? IMPRESSION: There is subcutaneous right labia majora mass. ? Fine-needle aspiration passes were performed however the sample was ?? sent in the wrong solution and not evaluated. ? 3 core biopsies performed was sent in formaldehyde solution and was ?? evaluated. ? Electronically signed by: ??Kaushal Fields MD ??06/29/2024 11:49 AM EDT RP ? Dictated By: ?Kaushal Fields MD ? Signed By: ?<Electronically signed by Kaushal Fields MD in OV> ?06/29/24 1149 ? DD/ 1338 ? TD/TT: 06/28/24 1530 ? Weather Clerk: MSM ? Procedure Note Oliver Maharaj - 07/02/[address] [address] Ultrasound Report Signed Patient: Bart Serrano#: [id number] : 1970Acct:[id number] Age/Sex: 53 / FADM Date: 06/28/24 Loc: HO.SSS Attending Dr: Philippe Layton MD Ordering Physician: Philippe Layton MD Date of Service: 06/28/24 Procedure(s): US biopsy subcutaneous skin Accession Number(s): [id number] cc: Deborah Nicholson DEFECT CUTTER; Philippe Layton MD EXAMINATION: Ultrasound biopsy right vulvar mass. CLINICAL INDICATION: Right labial majora mass. COMPARISON: Ultrasound pelvis 06/05/2024. TECHNIQUE: Following explaining ultrasound-guided right labia majora mass biopsy procedure, benefits and risk, a consent was obtained. Patient was placed supine in lithotomy position and preliminary imaging of right labia was obtained. An optimal site was selected and marked on the skin. The marked site was cleaned and draped in the usual sterile manner with 2% chlorhexidine solution. 1% lidocaine was injected at puncture site. Under sterile ultrasound guidance a small skin incision performed with 25-gauge needles attached to the syringes were advanced and a 3 pass fine-needle aspiration biopsy performed. Subsequently a 22-gauge guide needle was advanced and coaxial biopsy needle was advanced and 3 pass core biopsy was performed. Postprocedure complete hemostasis achieved. Simple dressing applied post procedure. FINDINGS/ US/US biopsy subcutaneous skin IMPRESSION: There is subcutaneous right labia majora mass. Fine-needle aspiration passes were performed however the sample was sent in the wrong solution and not evaluated. 3 core biopsies performed was sent in formaldehyde solution and was evaluated. Electronically signed by: Kaushal Fields MD 06/29/2024 11:49 AM EDT Dictated By: Kaushal Fields MD Signed By: <Electronically signed by Kaushal Fields MD in OV> 06/29/24 1149 DD/ 1338 TD/TT: 06/28/24 1530 Weather Clerk: ENRIQUE [facility] External Provider IMG US PROCEDURES Edited Result - Final * (ABNORMAL) CBC auto differential (06/28/2024 12:40 PM EDT) White Blood Count 6.1 4.8 - 10.8 X10*3/uL [facility] Red Blood Count 4.37 4.20 - 5.50 X10*6/uL [facility] Hemoglobin 11.9(L) 12.0 - 16.0 g/dl [facility] Hematocrit 36.1(L) 37.0 - 47.0 % [facility] Mean Corpuscular Volume 82.6 80.0 - 98.0 fL [facility] Mean Corpuscular Hemoglobin 27.2 27.0 - 33.0 pg [facility] Mean Corpuscular HGB Conc 33.0 31.0 - 35.0 g/dl [facility] Red Cell Distribution Width 13.3 11.0 - 16.0 % [facility] Platelet Count 259 160 - 400 X10*3/uL [facility] Mean Platelet Volume 10.9 9.4 - 12.3 fL [facility] Neutrophils Percent Auto 56.5 45 - 73 % [facility] Imm Gran Pct Auto 0.2 0.0 - 0.4 % [facility] Lymphocytes Percent Auto 29.9 20 - 40 % [facility] Monocytes Percent Auto 7.2 2 - 11 % [facility] Eosinophils Percent Auto 5.7(H) 0 - 4 % [facility] Basophils Percent Auto 0.5 0 - 2 % [facility] NRBC Pct Auto 0.0 0.0 - 0.2 /100WBC [facility] Neutrophils Absolute Auto 3.4 2.0 - 8.3 x10*3/uL [facility] Imm Gran Abs Auto 0.01 0.00 - 0.03 X10*3/uL [facility] Lymphocytes Absolute Auto 1.8 1.2 - 4.9 X10*3/uL [facility] Monocytes Absolute Auto 0.4 0.1 - 1.2 X10*3/uL [facility] Eosinophils Absolute Auto 0.4 0.0 - 0.4 X10*3/uL [facility] Basophils Absolute Auto 0.0 0.0 - 0.2 X10*3/uL [facility] NRBC Abs Auto 0.000 0.0 - 0.012 X10*3/uL [facility] 06/28/2024 12:4 0 PM EDT 06/28/2024 12:42 PM EDT Generic External Data Provider LAB BLOOD ORDERAB LES Final Result Performing Organization Address [facility] Co de Phone Number [facility] [address] [place] [phone] * Prothrombin Time-INR (06/28/2024 12:40 PM EDT) Pathologist [facility] Prothrombin Time 11.5 10.9 - 12.4 SEC [facility] INTERNATIONAL NORM RATIO 1.0 0.9 - 1.1 [facility] Comment:INTERNATIONAL NORMAL IZED RATIO (INR) REFERENCE RANGES Reference RangeFor patients not on anticoagulant therapy: 0.9 - 1.1INR ranges for oral anticoagulanttherapy:For prevention and treatment of venous thrombosis and pulmonary embolism: 2.0 - 3.0For acute myocardial infarction with aspirin therapy: 2.0 - 3.0For acute myocardial infarction without aspirin therapy: 3.0 - 4.0For patients with mechanical prosthetic heart valves: 2.5 - 3.5 06/28/2024 12:4 0 PM EDT 06/28/2024 12:42 PM EDT Generic External Data Provider LAB BLOOD ORDERAB LES Final Result Performing Organization Address [facility] Co de Phone Number [facility] [address] [place] [phone] * (ABNORMAL) Basic Metabolic Panel (06/28/2024 12:40 PM EDT) Pathologist [facility] Sodium 141 135 - 145 mmol/L [facility] Potassium 4.0 3.3 - 5.1 mmol/L [facility] Chloride 110(H) 96 - 108 mmol/L [facility] Carbon Dioxide 24 22 - 29 mmol/L [facility] Anion Gap 11(L) 12 - 20 [facility] Urea Nitrogen (BUN) 14 9 - 16 mg/dL [facility] Creatinine, Serum 0.72 0.5 - 1.4 mg/dL [facility] Creatinine Clr Calc Pharmacy 88.1 [facility] Comment:Provided height and weight: 157.48 cm,77.5 kg.eGFR (calculated from the MDRD study equation) and eCrCl(calculated from the Cockcroft-Gault equation) are based ondifferent parameters and may not yield comparable results.If eCrCl result is absurd, please check patient'sheight/weight. Estimated Glomerular Filt Rate >60 [facility] Comment:Chronic Kidney Disea se: Estimated GFR < 60 mL/min/1.13r8Wtieph Kidney Disease: Estimated GFR < 15 mL/min/1.73m2 Glucose 95 60 - 115 mg/dL [facility] Calcium 8.8 8.4 - 10.2 mg/dL [facility] 06/28/2024 12:4 0 PM EDT 06/28/2024 12:42 PM EDT Generic External Data Provider LAB BLOOD ORDERAB LES Final Result [facility] [address] [place] [phone] * (ABNORMAL) POCT urinalysis dipstick manually resulted [...] 06/11/2024 12:1 0 PM EDT Jie Nicolas NP POINT OF CARE TEST ENTER/EDIT O RDERABLES Final Result * (ABNORMAL) Bacterial Vaginosis (06/11/2024 12:00 AM EDT) Only the most recent of2 resultswithin the time period is included. TRICHOMONAS VAGINALIS DETECTION BY PCR NOT DETECTED Not Detect [facility] BACTERIAL VAGINOSIS DETECTION BY PCR POSITIVE(A) Negative [facility] Comment:The BV organism targ ets of [...] DETECTION BY PCR NOT DETECTED Not Detect [facility] Rachel glab krusei PCR NOT DETECTED Not Detect [facility] 06/11/2024 06/11/2024 Jie Nicolas [facility] MICROBIOLOGY - GENERAL [place] [facility] Final Result [facility] [address] [place] [phone] * Culture, Urine, Routine (06/11/2024 12:00 AM EDT) Only the most recent of2 resultswithin the time period is included. Urine Urine specimen obtained by clean catch procedure / Unknown 06/11/2024 06/11/2024 Comment:[facility] Narrative [facility] - 06/13/2024 8:09 AM EDT Escherichia coli Quant > 100,000 cfu/mL Escherichia coli: Ampicillin >=32(R) Escherichia coli: Cefazolin (Urine) <=1(S) Escherichia coli: Cefepime <=0.12(S) Escherichia coli: Ceftriaxone <=0.25(S) Escherichia coli: Ciprofloxacin >=4(R) Escherichia coli: Gentamicin <=1(S) Escherichia coli: Nitrofurantoin <=16(S) Escherichia coli: Trimethoprim/Sulfamethoxazole <=20(S) Specimen Source: Urine clean catch us Jie Fidencio [facility] MICROBIOLOGY - GENERAL CHRISTIE PONCE Final Result [facility] [address] [facility] [place] [address] [phone] * US Pelvis Transvaginal (06/05/2024 11:37 AM EDT) Anatomical Region Laterality Modality Pelvis Ultrasound 06/05/2024 11:3 7 AM EDT Narrative 06/06/2024 12:26 PM EDT ? [facility] ?[address] ?[place] [address] ? Ultrasound Report ? Signed ? Patient: Serrano,Magalys ?MR#: [id number] ? : 1970 ?Acct:[id number] ? Age/Sex: 53 / F ?ADM Date: 06/05/24 ? Loc: HO.US ? Attending Dr: Philippe Layton MD ? Ordering Physician: Philippe Layton MD ?? Date of Service: 06/05/24 ?? Procedure(s): US pelvic and transvaginal ?? Accession Number(s): [id number] ? cc: Deborah Nicholson DEFECT CUTTER; Philippe Layton MD ? EXAMINATION: ? US [...] DD/ 1137 ? TD/TT: 06/05/24 1149 ? Weather Clerk: ? Procedure Note Carol Ann, Image - 06/06/2024 [place] [address] Ultrasound Report Signed Patient: Bart Serrano#: [id number] : 1970Acct:[id number] Age/Sex: 53 / FADM Date: 06/05/24 Loc: HO.US Attending Dr: Philippe Layton MD Ordering Physician: Philippe Layton MD Date of Service: 06/05/24 Procedure(s): US pelvic and transvaginal Accession Number(s): [id number] cc: Deborah Nicholson DEFECT CUTTER; Philippe Layton MD EXAMINATION: US PELVIS CLINICAL [...] 06/06/24 1223 DD/ 1137 TD/TT: 06/05/24 1149 Weather Clerk: [facility] External Provider IMG US PROCEDURES Final Result * HPV DNA, Low/High Risk (05/07/2024 12:31 PM EDT) HPV High Risk Negative Negative [facility] HPV Genotype 16 Negative Negative [facility] HPV Genotype 18 Negative Negative [facility] Comment:HPV testing performe d at [facility] (CLIA#[id number]), [address] [place] [phone].Testing for HPV was performed using the [employer] M Clutch0system. The presence of HPV in the female [...] Provider LAB BLOOD ORDERAB LES Final Result [facility] [address] [place] [phone] * Pap Smear (05/07/2024 12:31 PM EDT) 05/07/2024 12:3 1 PM EDT 05/08/2024 6:00 AM EDT Narrative [facility] - 05/10/2024 10:43 AM EDT ----- ------- Name: Magalys Serrano ?Age/Sex: 53/F ? : 1970 Unit#: [id number] ?? Attend Dr: Philippe Layton MD ?Re05/07/24 ?Status: DEP REF ? Location: HO.LNP ?Disch: ? ----- ------- SPEC : [id number] ? RECD: 05/08/24 ? STATUS: ??SOUT ? REQ NUM: [id number] ? SARAH: 05/07/24-1231 ? SUBM DR: Philippe Layton MD ? ENTERED: ??05/08/24 ?SP TYPE: Pap Smr ?OTHR DR: Deborah Nicholson DEFECT CUTTER ? ORDERED: ??Pap Smear ? Interpretation ?? Satisfactory for evaluation. ?? Negative for intraepithelial lesion or malignancy. ? HPV High Risk: ??Negative ? HPV Genotyping 16: ??Negative ?? HPV Genotyping 18: ??Negative ?Clinical Information LMP: Post menopausal Previous PAP test: Unknown date/findings ? Material Received ?? Cervix Copies To: ?? NorridgewockDeborah DEFECT CUTTER ?? [address] [facility] ?? [place] [address] ?? [phone] ?? Philippe Layton MD ?? [facility] Women's Services ?? [address] [facility] [address] ?? [place] [address] ?? [phone] ----- ------- Signed (signature on file) Latrell BrunoKO ([facility]) 05/10/24 1043 ? ----- ------- ? END OF REPORT ? us Generic External Data Provider LAB [facility]OLOGY [facility] Final Result [facility] [address] [place] [phone] * Chlamydia/N. Gonorrhoeae RNA, TMA, Urogenitial (05/07/2024 11:28 AM EDT) [facility] CT PCR NOT DETECTED Not Detect. [facility] Comment:A not detected test result does [...] psychologicalconsequences. NG PCR NOT DETECTED Not Detect. [facility] Comment:A not detected test result does [...] AM EDT 05/07/2024 3:17 PM EDT Narrative [facility] - 05/08/2024 12:20 PM EDT Vaginal us Generic External Data Provider LAB MICROBIOLOGY - GENERAL ORDERABLES Final Result [facility] [address] [place] [address] [phone] * BI Mammogram Screening Tomosynthesis Bilateral (12/20/2023 9:15 AM EST) Anatomical Region Laterality Modality Breast Bilateral Mammography 12/20/2023 9:15 AM EST Narrative 12/28/2023 12:23 PM EST ? [facility] ? [address] ?[place] [address] ? Mammography Report ? Signed ? Patient: Serrano,Magalys ?MR#: [id number] ? : 1970 ?Acct:[id number] ? Age/Sex: 52 / F ?ADM Date: 11/05/24 ? Loc: HO.MAMMO ? Attending Dr: Deborah Nicholson DEFECT CUTTER ? Ordering Physician: Deborah Nicholson DEFECT CUTTER ?Results: 2Beni ?? gn Findings ? Date of Service: 12/20/23 ?Follow Up: 1 Year From Orig ?? inal Mammogram ? Procedure(s): MM tomosynthesis screening BI ?? Accession Number(s): [id number] ? cc: Deborah Nicholson DEFECT CUTTER ? EXAMINATION: ?? MM SCREENING DIGITAL BREAST [...] DD/ 0915 ? TD/TT: 12/20/23 0930 ? Weather Clerk: ? Procedure Note Carol Ann, Image - 12/28/2023 [facility] [address] [place] [address] Mammography Report Signed Patient: Bart Serrano#: [id number] : 1970Acct:[id number] Age/Sex: 52 / FADM Date: 12/20/23 Loc: HO.MAMMO Attending Dr: Deborah Nicholson DEFECT CUTTER Ordering Physician: Deborah Nichoslon FNPResults: 2Beni gn Findings Date of Service: 12/20/23Follow Up: 1 Year From Orig inal Mammogram Procedure(s): MM tomosynthesis screening BI Accession Number(s): [id number] cc: Deborah Nicholson DEFECT CUTTER EXAMINATION: MM SCREENING DIGITAL BREAST TOMOSYNTHESIS, BILATERAL [...] by: Jeannine Richter DO 12/28/2023 12:20 PM [facility] Dictated By: Jeannine Richter DO Signed By: <Electronically signed by Jeannine Richter DO in OV> 12/28/23 1220 DD/ 4 TD/TT: 12/20/23929 Weather Clerk: [facility] IMG BI PROCEDURES Final Resul t * (ABNORMAL) Lipid Panel, Standard (01/27/2023 9:05 AM EST) Triglycerides 118 <150 mg/dL [facility] Comment:Desirable Triglyceri de: less than 150 mg/dLBorderline High Triglyceride 150-199 mg/dLHigh Triglyceride: 200-499 mg/dLVery High Triglyceride: greater than or equal to 5OO mg/dL Cholesterol 223(H) <200 mg/dL [facility] Comment:Desirable Cholestero l: less than 200 mg/dLBorderline High Cholesterol: 200-239 mg/dLHigh Cholesterol: greater than 239 mg/dL LDL Cholesterol Calculated 144(H) <100 mg/dL [facility] Comment:Desirable LDL: less than 100 mg/dLNear Optimal/Above Optimal LDL: 110- 129 mg/dLBorderline High LDL: 130-159 mg/dLHigh LDL: 160-189 mg/dLVery High LDL: greater than or equal to 190 mg/dL HDL Cholesterol 56 >40 mg/dL [facility] Comment:Desirable HDL: great er than 40 mg/dL Note: This HDL assay may give artificially low results in patients with liver disease. Blood Venous blood specimen / Unknown 01/27/2023 9:05 AM EST 01/27/2023 11:36 AM EST [facility] LAB BLOOD ORDERABLES Final Re sult [facility] [address] [place] [phone] * Hm Colonoscopy (02/28/2019 8:21 AM EST) Historical Provider HEALTH MAINTENANCE Final Result from Last 3 Months or Most Recently Relevant to Health Maintenance Insurance [facility] C3 Care Teams Senior Living Advisor Relationship Specialty Start Date End Date Deborah Nicholson FNP [address] [place] [phone] PCP - General Family Medicine 10/12/21
== END 2024-07-11 13:54 | disposition home or self-care (01) ==
LOC: HO.HWS 13:20
PROVIDERS: PCP Registered Nurse; Visit Provider Obstetrics & Gynecology
DX: N90.89 Other specified noninflammatory disorders of vulva and perineum (principal); N95.0 Postmenopausal bleeding
CPT/HCPCS: 99213

== ENCOUNTER → 2024-07-11 13:20 | Outpatient (BNVA) | payer MEDICAID, SELFPAY | PROVIDERS: PCP Registered Nurse; Visit Provider Obstetrics & Gynecology | DX: N90.89 Other specified noninflammatory disorders of vulva and perineum (principal); N95.0 Postmenopausal bleeding | CPT/HCPCS: 99212 ==

== ENCOUNTER 2024-10-04 18:18 | Outpatient (REF) | payer MEDICAID, SELFPAY | END 2024-10-04 18:19 | disposition home or self-care (01) | LOC: HO.HHCLNP 18:18 | PROVIDERS: Visit Provider Family Medicine | DX: N39.0 Urinary tract infection, site not specified (principal); R30.0 Dysuria | CPT/HCPCS: 87086; 87088; 87186 ==

== ENCOUNTER 2024-10-30 10:52 | Outpatient (AMB) | payer MEDICAID, SELFPAY ==
--- NOTE | 2024-10-30 10:58 | A.OFFVIS_ITS ---
Vital Signs 3 10/30/24 11:01 Height 5 ft 3 in Weight 172 lb 6.424 oz BMI 30.5 BP 124/97 H Blood Pressure Location Rt brachial Position Sitting Pulse 63 Intake Visit Reasons: Colonoscopy Screening Intake Note: New patient in office today for colonoscopy screening. CC: Patient c/o epigastric pain, nausea, constipation, and heartburn. Sales Associate Cashier Required: Yes Sales Associate Cashier Language: Fijian Accompanied by: Self / Same As Patient Allergies morphine (MORPHINE) Adverse Reaction (Intermediate, Verified 10/30/24 11:14) CHEST TIGHTNESS-DYSPHORIA HPI HPI Colonoscopy Screening: Details: 53-year-old female here for preprocedural meeting to discuss a screening colonoscopy. She is referred by [facility]. PMX Allergic rhinitis Asthma GERD Generalized osteoarthritis Constipation PTSD/anxiety/depression H pylori infection * SURGICAL HISTORY Colonoscopy-20 20- exam Esophagogastroduodenoscopy -2019= H pylori and active esophagitis Breast reduction Tubal ligation uterine ablation Bladder sling surgery * ALLERGIES: NKDA * [facility]: Laboratory Tests 06/28/24 12:40 WBC 6.1 Hgb 11.9 L Hct 36.1 L MCV 82.6 MCH 27.2 Plt Count 259 Estimated GFR > 60 Needs chemistry panel TODAY'S VISIT [place] [facility] [facility] Medical History Menopause GERD (gastroesophageal reflux disease) Asthma Depression Anxiety Surgical History Hx of colonoscopy Hx of esophagogastroduodenoscopy Family History Mother Diabetes HTN (hypertension) Father Diabetes HTN (hypertension) Daughter Diabetes Social History Household Members: Children and None Alcohol intake: never Review of Systems Const Denies fatigue, Denies fever(s), Denies night sweats, Denies poor appetite and Denies weight loss ENT Reports Normal hearing present, Denies dental pain, Denies dysphagia, Denies hearing loss, Denies mouth pain, Denies odynophagia, Denies throat swelling, Denies tongue swelling and Reports other (Dentition adequate) Card Reports no additional complaints Resp Reports no additional complaints GI Details: Reports abdominal pain, Denies melena, Reports bloating, Denies hematochezia, Denies constipation, Denies GI cramping, Denies dysphagia, Denies excessive flatus, Denies early satiety, Reports heartburn, Denies diarrhea, Denies nausea, Denies odynophagia, Denies vomiting and Denies hematemesis Reports urinary incontinence Skin/Breast Denies pruritus, Denies lesions, Denies rash and Denies jaundice Neuro Reports Normal hearing present and Denies Abnormal speech present Endo Denies fatigue Aller/Immun Denies throat swelling and Denies tongue swelling Physical Exam Vital Signs: Last Vital Signs Pulse 63 10/30/24 11:01 BP 124/97 H 10/30/24 11:01 BMI result Body Mass Index 30.5 Const General: cooperative, no acute distress, well developed and well groomed Nutritional Appearance: well nourished and obese Orientation/consciousness: oriented to person, oriented to place and oriented to time Limitations: language barrier HEENT Head: Yes normocephalic and Yes atraumatic Eyes General: appearance normal, both eyes and all related structures Pupils: Equal, round and reactive pupils present Neck Neck: Yes normal visual inspection and Yes no lymphadenopathy Thyroid: Thyroid normal Resp Effort & Inspection: normal respiratory effort and able to speak in complete sentences Auscultation: clear to auscultation bilaterally Cardio Rate: regular rate Rhythm: regular rhythm Heart sounds: Normal, physiologic split S2 sound present Peripheral pulses: radial pulses present and posterior tibial pulses present GI Inspection: No distended, No Abdominal panniculus present and Yes obesity Palpation (GI): Soft to palpation, Tenderness to palpation present (GI) in the epigastrum, no guarding, not rigid and No hepatosplenomegaly present Percussion: Yes normal to percussion Auscultation: normal bowel sounds Rectal Exam - Female: deferred Abdomen image: 2 1. surgical scar Skin General skin exam: no rashes or lesions noted, turgor normal, skin not dry, no jaundice, No spider nevi and no striae Rashes: no rashes Nails: normal Neuro General: oriented to person, oriented to place and oriented to time Cranial nerves: Yes Equal, round and reactive pupils present and Yes Normal hearing present Speech: No Abnormal speech present Extrem General: Yes normal to inspection, No clubbing, No cyanosis and No edema Psych Appearance: grossly normal and well kempt Mental Status: mental status grossly normal Speech and movement: Normal speech and movement present Affect: normal affect Attitude: cooperative Thought process: Normal thought process present and not confabulating Thought content: Normal thought content present Insight: Limited insight present (Psych) Judgement: Limited judgement present (Psych) Assessment & Plan Assessment & Plan (1) Pre-op examination: Code(s): Z01.818 - Encounter for other preprocedural examination Category: Medical (2) History of Helicobacter pylori infection: Code(s): Z86.19 - Personal history of other infectious and parasitic diseases Category: Medical (3) Acid reflux: Comment: Avoid weight gain, keep food diary, avoid culprits Code(s): K21.9 - Gastro-esophageal reflux disease without esophagitis Category: Medical (4) Constipation: Code(s): K59.00 - Constipation, unspecified Category: Medical Plan Fijian # touch it out Live - The patient is a 53-year-old female presenting with chronic epigastric pain and for evaluation regarding a repeat colonoscopy. She had insufficient prep in 2020 but also denied getting instructions about how to appropriately prep. - Upper endoscopy and colonoscopy from 2020 erosions in the stomach and esophagitis attributed to H. pylori, which wasn't fully treated due to adverse antibiotic effects. - Pain occurs amidst consumption of sweets despite daily omeprazole use, presenting as constant yet exacerbated heartburn. She has stopped drinking soda in his avoiding spicy/acid he foods. - Longstanding constipation issues date back to childhood, she currently is only on Colace which isn't helping and she will go as much as 2 days without having a bowel movement. She has also used senna, MiraLax, fiber, bisacodyl, milk of magnesia without relief. - Reports significant gas-related discomfort contributing to her pain. - Surgical history includes breast reduction, uterine ablation, potential hysterectomy, and a bladder lift procedure. - Allergic to strong analgesics like Percocet with adverse side effects only, not true allergies. We will order a repeat colonoscopy and she was given a lengthy Education about how to prepare for the procedure. She was also given our pamphlet in Fijian listing out clear liquids and giving instructions. It is also possible she did not clear because of her serious constipation. I am going to start her on Linzess 145 micro g and titrate to affect her side effect. Her asthma is well controlled and she denies any cardiac problems. There are no prior problems with anesthesia or sedation. There are no infectious disease problems. I will need to assess at the next visit where there is a family history of colon cancer or colon polyps. Return office visit in 4 weeks. Orders: Orders 2 H pylori Ag Stool Today Z86.19 - Personal history of other infectious and parasitic diseases Comprehensive Met. Panel Today Z01.818 - Encounter for other preprocedural examination Referrals 2 GI Procedure Notification Z01.818 - Encounter for other preprocedural examination Medications: New 2 peg 3350-electrolytes 236-22.74-6.74 -5.86 gram (Golytely) until fecal effluent is clear; do not exceed a total volume of 2,000 mL 240 mL PO Q10M 4,000 mL 0RF 1 day Z12.11 - Encounter for screening for malignant neoplasm of colon bisacodyl (Dulcolax (bisacodyl)) 10 mg (2 x 5 mg) PO BEDTIME 4 tabs 0RF 2 days linaclotide (Linzess) Take first thing in the morning with a full glass of water. 145 mcg PO QAM 30 caps 6RF K58.1 - Irritable bowel syndrome with constipation omeprazole 20 mg PO DAILY 30 caps 6RF K21.9 - Gastro-esophageal reflux disease without esophagitis, K59.00 - Constipation, unspecified Coding Level of Care Code New Pt Level 3 (39334) Diagnoses Pre-op examination Z01.818 History of Helicobacter pylori infection Z86.19 Acid reflux K21.9 Constipation K59.00
[2024-10-30 11:01] VITALS: BP 124/97; PULSE 63; BMI 30.5
--- OUTSIDE RECORDS SUMMARY | 2024-10-30 14:34 | XMS_ITS | Encounter Summary ---
Author Organization [employer] Address [address] [place] [address] Care Team Providers Care Solaris Administrator Name Role Phone [place] [facility] Primary Care Provider [phone] Reason for Visit * Reason Comments Med Refill Encounter Details Date Type Department Care Team ([facility] Contact Info) Description 09/12/2023 Refill [facility] MEDICINE [address] [place], [place] [phone] [facility] [address] [place], [place] [phone] Social History Tobacco Use Types Packs/Day Years [...] as of this encounter Plan of Treatment Not on file documented as of this encounter Visit Diagnoses Not on filedocumented in this encounter Additional Health Concerns Assessment Noted Time PHQ-9 Depression Total Score: 8 03/16/19 24 2:08 PM EST documented as of this encounter Care Teams Solaris Administrator Relationship Specialty Start Date End Date Deborah Nicholson FNP [address] [place] [phone] PCP - General Family Medicine 10/12/21 documented as of this encounter
--- OUTSIDE RECORDS SUMMARY | 2024-10-30 14:34 | XMS_ITS | Encounter Summary ---
Author Organization [employer] Address [address] [place] [address] Care Team Providers Care Front Desk Admin Name Role Phone Deborah Nicholson PROCESSING ASSOCIATE Primary Care Provider Encounter Details Date Type Department Care Team (Late st Contact Info) Description 05/25/2023 Orders Only [facility] MEDICINE [address] [place], [place] [phone] ProviderKaye MD Social History Tobacco Use Types [...] on file documented as of this encounter Procedures Procedure [...] documented as of this encounter Care Teams Front Desk Admin Relationship Specialty Start Date End Date Deborah Nicholson FNP [address] [place] [phone] PCP - General Family Medicine 10/12/21 documented as of this encounter
--- OUTSIDE RECORDS SUMMARY | 2024-10-30 14:34 | XMS_ITS | Encounter Summary ---
Author Organization [employer] Address [address] [facility] [address] [place] [address] Care Team Providers Care Customer Relations Assistant Name Role Phone [place] [facility] Primary Care Provider [phone] Encounter Details Date Type Department Care Team ([facility] st Contact Info) Description 08/23/2023 Telephone [facility] MEDICINE [address] [place], [place] [phone] [place] [facility] [address] [place], [place] [phone] Social History Tobacco Use Types Packs/Day Years [...] t he electric, gas, oil or water [employer] threatened to shut off services in your [...] documented in this encounter Plan of Treatment Not on file documented as of this encounter Procedures Procedure Name Priority Date/Time Associated Diagnosis Comments T-SPOT(R).TB Routine 08/31/2023 9:06 AM EDT Screening examination for pulmonary tuberculosis documented in this encounter Results * T-SPOT??.TB (08/31/2023 9:06 AM EDT) [facility] T Spot TB Negative Negative [facility] Comment:A negative test resu lt [...] as aquantitative test. TS PANEL A 0 [facility] TS PANEL B 0 [facility] Negative Control Passed [facility] Positive Control Passed [facility] Comment:For additional infor sarah, please refer [email or web address]/faq/[email or web address](This link is being provided for informational/educational purposes only.)THIS TEST WAS PERFORMED AT:[employer] [id number] [place] [id number] PENA MD,PHD 08/31/2023 9:06 AM EDT 08/31/2023 11:12 AM EDT [facility] LAB BLOOD ORDERABLES Final Re sult [facility] [address] [place] [phone] [phone] documented in this encounter Visit Diagnoses Diagnosis Screening examination for pulmonary tuberculosis documented in this encounter Additional Health Concerns Assessment Noted Time PHQ-9 Depression Total Score: 8 03/16/19 24 2:08 PM EST documented as of this encounter Care Teams Customer Relations Assistant Relationship Specialty Start Date End Date Deborah Nicholson FNP [address] [place] [phone] PCP - General Family Medicine 10/12/21 documented as of this encounter
--- OUTSIDE RECORDS SUMMARY | 2024-10-30 14:34 | XMS_ITS | Clinical Summary ---
Author Organization [employer] Address 75 [facility] 7t [place] [address] Care Team Providers Care Electric Dolly Operator Name Role Phone Deborah Nicholson [facility] Primary Care Provider [phone] Allergies No known active allergies Medications cloNIDine [...] VIA [facility] [place] [place] 90 capsule 08/29/19 25 Active Estrogens Conjugated (Premarin) 0.625 MG/GM cream Insert 0.5 g into the vagina 2 (two) times a week. 30 g 2 10/05/19 25 026 Active sulfamethoxazole -trimethoprim (Bactrim DS) 800-160 MG tablet Take 1 tablet by mouth 2 times daily for 3 days. 6 tablet 10/05/19 25 025 Active Problems Patient Care Coordination No te Formatting of this note migh t be different from the original. C3/CM Livia Johnsno RN Problem Noted Date Diagnosed Date Asthma exacerbation 03/06/2024 Assessment & Plan (03/06/2024 2:51 PM EST): Refills for inhalers done Patient educated to avoid triggers ED precautions reviewed Prednisone 40mg for 5 days Albuterol PRN Primary osteoarthritis involving multiple joints 02/16/2022 Severe recurrent major depre ssion without psychotic features 09/15/2018 Panic attack 03/24/2018 Posttraumatic stress disorder 03/24/2018 Vitamin D deficiency 03/24/2018 Allergic rhinitis 06/10/2016 Constipation 06/10/2016 Hemangioma of liver 06/10/2016 Mild persistent asthma 06/10/2016 Resolved Problems Problem Noted Date Diagnosed Date Resolved Date Acute bacterial conjunctivitis of both eyes 03/06/2024 10/04/2024 Encounters Date Type Department Care Team Description 10/30/2024 Orders Only GENERIC EXTERNAL DATA DEPARTMENT Provider, Generic External Data 10/26/2024 Telephone [facility] MEDICINE [address] [place] [address] Deborah Nicholson FNP Nov Recall 10/04/2024 1:20 PM EDT Office Visit [facility] [address] [place] [phone] Cielo Garland DO Recurrent UTI (Primary Dx); Burning with urination 10/04/2024 Travel 10/04/2024 Telephone [facility] MEDICINE [address] [place] [address] Deborah Nicholson FNP Nurse Triage 08/29/2024 Telephone [facility] MEDICINE [address] [place] [address] Deborah Nicholson FNP No Show 08/28/2024 Telephone [facility] MEDICINE [address] [place] [address] Deborah Nicholson FNP CHART PREP 08/26/2024 Refill [facility] [address] [place] [address] Deborah Nicholson FNP Constipation, unspecified constipation type from Last 3 Months Immunizations Immunization Administration [...] Sign Reading Time Taken Comments Blood Pressure 114/76 10/04/2024 1:12 PM EDT Pulse 70 10/04/2024 1:12 PM EDT Temperature 36.6 C (97.9 F) 10/04/2024 1:12 PM EDT Respiratory Rate 14 10/04/2024 1:12 PM EDT Oxygen Saturation 98% 06/11/2024 11:25 AM EDT Inhaled Oxygen Concentration - - Weight 77.4 kg (170 lb 9.6 oz) 10/04/2024 1:12 P M EDT Height 157.5 cm (5' 2 ) 10/04/2024 1:12 PM EDT Body Mass Index 31.2 10/04/2024 1:12 PM EDT Plan of Treatment Health Maintenance Due Date Last Done Comments [...] 02/29/2020 Zoster Vaccines (1 of 2) 12/24/2021 Depression Monitoring 09/13/2024 03/16/2024, 025 COVID-19 Vaccine (3 - season) 2024 10/23/2020, 10/02/2020 Influenza Vaccine (#1) 2024 Mammogram 12/19/2024 12/20/2023 Alcohol/Substance Use Screening 03/16/2025 03/16/2024 SDOH Screening 03/16/2025 03/16/2024 Tobacco Screening 10/04/2025 10/04/2024 Lipid Panel 01/28/2028 01/27/2023 DTaP/Tdap/Td Vaccines (3 [...] Procedure Name Priority Date/Time Associated Diagnosis Comments COMPREHENSIVE METABOLIC PANEL Routine 10/30/2024 12:17 PM EDT POCT URINALYSIS DIPSTICK Routine 10/04/2024 1:23 PM EDT Recurrent UTI Burning with urination CULTURE, URINE, ROUTINE Routine 10/04/2024 1:23 PM EDT Recurrent UTI Burning with urination HPV DNA, LOW/HIGH RISK Routine 12:31 PM EDT PAP SMEAR Routine 05/07/2024 12:31 PM EDT BI MAMMOGRAM SCREENING TOMOSYNTHESIS BILATERAL Routine 12/20/2023 9:15 AM EST Encounter for screening mammogram for breast cancer LIPID PANEL, STANDARD Routine 01/27/2023 9:05 AM EST Menopause syndrome HM COLONOSCOPY Routine 02/28/2019 8:21 AM EST from Last 3 Months or Most Recently Relevant to Health Maintenance Results * (ABNORMAL) Comprehensive Metabolic Panel (10/30/2024 12:17 PM EDT) Sodium 141 135 - 145 mmol/L [facility] Potassium 4.2 3.3 - 5.1 mmol/L [facility] Chloride 106 96 - 108 mmol/L [facility] Carbon Dioxide 29 22 - 29 mmol/L [facility] Anion Gap 10(L) 12 - 20 [facility] Urea Nitrogen (BUN) 16 9 - 16 mg/dL [facility] Creatinine, Serum 0.68 0.5 - 1.4 mg/dL [facility] Estimated Glomerular Filt Rate >60 [facility] Comment:Chronic Kidney Disea se: Estimated GFR < 60 mL/min/[id number] Kidney Disease: Estimated GFR < 15 mL/min/1.73m2 Glucose 87 60 - 115 mg/dL [facility] Calcium 10.1 8.4 - 10.2 mg/dL [facility] Bilirubin, Total 0.4 0.0 - 1.0 mg/dL [facility] Aspartate Amino Transferase 32(H) 5 - 31 U/L [facility] Alanine Aminotransferase 40(H) 0 - 31 U/L [facility] Total Protein 7.4 6.5 - 8.0 g/dL [facility] Albumin Level 4.2 3.5 - 5.0 g/dL [facility] Alkaline Phosphatase 122(H) 39 - 117 U/L [facility] 10/30/2024 12:1 7 PM EDT 10/30/2024 12:17 PM EDT Generic External Data Provider LAB BLOOD ORDERAB LES Final Result [facility] [address] [place] [address] [phone] * (ABNORMAL) POCT urinalysis dipstick manually resulted (10/04/2024 1:23 PM EDT) Color, UA Yellow Clarity, UA Clear Glucose, UA Negative Bilirubin, UA Negative Ketones, UA Negative Spec Grav, UA 1.025 Blood, UA Negative Negative, None Detected pH, UA 5.5 Protein, UA Negative Urobilinogen, UA 0.2 Comment:0.2 E.U. /dL Leukocytes, UA Trace Negative, Rare, Trace Nitrite, UA Positive(A) Negative, None Detected Appearance, UA clear QC Media Lot # [id number] Lot# Expiration Date Urine 10/04/2024 1:23 PM EDT Cielo Graland DO POINT OF CARE TEST ENTER/PEBBLES T ORDERABLES Final Result * Culture, Urine, Routine (10/04/2024 1:23 PM EDT) Urine Urine specimen obtained by clean catch procedure / Unknown 10/04/2024 1:23 PM EDT 10/04/2024 6:20 PM EDT Comment:UACC Narrative [facility] - 10/07/2024 8:02 AM EDT Escherichia coli Quant > 100,000 cfu/mL Escherichia coli: Ampicillin >=32(R) Escherichia coli: Cefazolin (Urine) 4(S) Escherichia coli: Cefepime <=0.12(S) Escherichia coli: Ceftriaxone <=0.25(S) Escherichia coli: Ciprofloxacin >=4(R) Escherichia coli: Gentamicin <=1(S) Escherichia coli: Nitrofurantoin <=16(S) Escherichia coli: Trimethoprim/Sulfamethoxazole <=20(S) Specimen Source: Urine clean catch Cielo Garland DO LAB MICROBIOLOGY - GENERAL O RDERABLES Final Result Performing Organization Address [facility]/ZIP Co de Phone Number [facility] [address] [place] [phone] * HPV DNA, Low/High Risk (05/07/2024 12:31 PM EDT) HPV High Risk Negative Negative [facility] HPV Genotype 16 Negative Negative [facility] HPV Genotype 18 Negative Negative [facility] Comment:HPV testing performe d at [facility] (CLIA#[id number]), [address] [place] [address].Testing for HPV was performed using the Ander [...] ORDERAB LES Final Result Performing Organization Address [facility]/ZIP Co de Phone Number [facility] [address] [place] [phone] * Pap Smear (05/07/2024 12:31 PM EDT) 05/07/2024 12:3 1 PM EDT 05/08/2024 6:00 AM EDT [facility] - 05/10/2024 10:43 AM EDT ----- ------- Name: Magalys Serrano Age/Sex: 53/F : 1970 Unit#: [id number] Attend Dr: Philippe Layton MD Re05/07/24 Status: DEP REF Location: [facility] Disch: ----- ------- SPEC : [id number] RECD: 05/08/24-599 STATUS: MANDI [facility] NUM: [id number] SARAH: 05/07/24-[address] [facility] [address]: Philippe Layton MD ENTERED: 05/08/24 SP TYPE: Pap Smr OTHR DR: Deborah Nicholson ORDERED: Pap Smear Interpretation Satisfactory for evaluation. Negative for intraepithelial lesion or malignancy. HPV High Risk: Negative HPV Genotyping 16: Negative HPV Genotyping 18: Negative Clinical Information LMP: Post menopausal Previous PAP test: Unknown date/findings Material Received Cervix Copies To: Deborah Nicholson [address] [place] [address] Philippe Layton MD [facility] [address] [place], [place] [phone] ----- ------- Signed (signature on file) KO Marie (ASCP) 05/10/24 1043 ----- ------- END OF REPORT Generic External Data Provider LAB CYTOLOGY CHRISTIE PONCE Final Result Performing Organization Address City/State/[facility] Co de Phone Number [facility] [address] [place] [phone] * BI Mammogram Screening Tomosynthesis Bilateral (12/20/2023 9:15 AM EST) Anatomical Region Laterality Modality Breast Bilateral Mammography 12/20/2023 9:15 AM EST Narrative 12/28/2023 12:23 PM EST [facility] [address] [place] [address] Mammography Report Signed Patient: Magalys Serrano MR#: [id number] : 1970 Acct:[id number] Age/Sex: 52 / F ADM Date: 12/20/23 Loc: [facility] Attending Dr: Deborah SANCHEZ Ordering Physician: Deborah Nicholson Results: 2Beni gn Findings Date of Service: 12/20/23 Follow Up: 1 Year From Orig inal Mammogram Procedure(s): MM tomosynthesis screening BI Accession Number(s): [id number] cc: Deborah Nicholson EXAMINATION: MM SCREENING DIGITAL [...] by: Jeannine Richter DO 12/28/2023 12:20 PM [facility] Dictated By: Jeannine Richter DO Signed By: <Electronically signed by Jeannine Richter DO in OV> 12/28/23 1220 DD/ 0915 TD/TT: 12/20/23 0930 [facility] Agent: Procedure Note Donotuseinterpreter, Image - 12/28/2023 [facility] [address] [place], [place] [address] Mammography Report Signed Patient: Bart Serrano#: [id number] : 1970Acct:[id number] Age/Sex: 52 / FADM Date: 12/20/23 Loc: MAMMO Attending Dr: Deborah Nicholson LANDSCAPE DRAFTER Ordering Physician: Deborah Nicholson FNPResults: 2Beni gn Findings Date of Service: 12/20/23Follow Up: 1 Year From Orig inal Mammogram Procedure(s): MM tomosynthesis screening BI Accession Number(s): [id number] cc: Deborah Nicholson LANDSCAPE DRAFTER EXAMINATION: MM SCREENING DIGITAL BREAST TOMOSYNTHESIS, BILATERAL [...] OV> 12/28/23 1220 DD/ 4 TD/TT: 12/20/23929 [facility] [employer] [facility] Agent: [facility] LANDSCAPE DRAFTER IMG BI PROCEDURES Final Resul t * (ABNORMAL) Lipid Panel, Standard (01/27/2023 9:05 AM EST) Triglycerides 118 <150 mg/dL [facility] Comment:Desirable Triglyceri de: less than 150 mg/dLBorderline High Triglyceride 150-199 mg/dLHigh Triglyceride: 200-499 mg/dLVery High Triglyceride: greater than or equal to 5OO mg/dL Cholesterol 223(H) <200 mg/dL [facility] Comment:Desirable Cholestero l: less than 200 mg/dLBorderline High Cholesterol: 200-239 mg/dLHigh Cholesterol: greater than 239 mg/dL LDL Cholesterol Calculated 144(H) <100 mg/dL [facility] Comment:Desirable LDL: less than 100 mg/dLNear Optimal/Above Optimal LDL: 110- 129 mg/dLBorderline High LDL: 130-159 mg/dLHigh LDL: 160-189 mg/dLVery High LDL: greater than or equal to 190 mg/dL HDL Cholesterol 56 >40 mg/dL [facility] Comment:Desirable HDL: great er than 40 mg/dL Note: This HDL assay may give artificially low results in patients with liver disease. Blood Venous blood specimen / Unknown 01/27/2023 9:05 AM EST 01/27/2023 11:36 AM EST [facility] LAB BLOOD ORDERABLES Final Re sult [facility] [address] [place] [phone] * Hm Colonoscopy (02/28/2019 8:21 AM EST) Historical Provider MD HEALTH MAINTENANCE Final Result from Last 3 Months or Most Recently Relevant to Health Maintenance Insurance [facility] C3 Care Teams Electric Dolly Operator Relationship Specialty Start Date End Date Monte[place]Deborah [facility] [address] [place] [address] PCP - General Family Medicine 10/12/21
--- OUTSIDE RECORDS SUMMARY | 2024-10-30 14:34 | XMS_ITS | Encounter Summary ---
Author Organization [employer] Address [address] [facility] 7t [place] [address] Care Team Providers Care Doctor Of Audiology Name Role Phone [facility] Primary Care Provider [phone] Reason for Visit * Reason Comments Med Refill Encounter Details Date Type Department Care Team ([facility] Contact Info) Description 06/14/2023 Refill [facility] MEDICINE [address] [place], [place] [phone] [facility] [address] [place], [place] [phone] Dyspepsia Social History Tobacco Use Types Packs/Day [...] documented as of this encounter Care Teams Doctor Of Audiology Relationship Specialty Start Date End Date Deborah Nicholson FNP [address] [place] [phone] PCP - General Family Medicine 10/12/21 documented as of this encounter
--- OUTSIDE RECORDS SUMMARY | 2024-10-30 14:34 | XMS_ITS | Encounter Summary ---
Author Organization [employer] Address 75 [facility] [address]t [place] [address] Care Team Providers Care Animal Behaviourist Name Role Phone Deborah Nicholson [employer] HISTORY INSTRUCTOR Primary Care Provider [phone] Reason for Visit * Reason Comments Med Refill Encounter Details Date Type Department Care Team ([facility] Contact Info) Description 06/29/2024 Refill [facility] [address] [place], [place] [phone] Yudith Estrella MD [address] [place] [address] Exacerbation of asthma, unspecified asthma severity, unspecified whether persistent Social History Tobacco Use Types Packs/Day Years [...] your housing situation today? I have uriel ebasley 03/16/[address] you li [...] as of this encounter Visit Diagnoses Diagnosis Exacerbation of asthma, unspecified asthma severity, unspecified whether persistent documented in this encounter Additional Health Concerns Assessment Noted Time PHQ-9 Depression Total Score: 17 025 11:26 AM EST documented as of this encounter Care Teams Animal Behaviourist Relationship Specialty Start Date End Date Deborah Nicholson FNP [address] [place] [phone] PCP - General Family Medicine 10/12/21 documented as of this encounter
--- OUTSIDE RECORDS SUMMARY | 2024-10-30 14:34 | XMS_ITS | Encounter Summary ---
Author Organization [employer] Address 75 [facility] 7t [place] [address] Care Team Providers Care Loan Representative Name Role Phone Deborah Nicholson [facility] Primary Care Provider [phone] Reason for Visit * Reason Onset Date Comments Nov Recall 10/26/2024 Encounter Details Date Type Department Care Team ([facility] Contact Info) Description 10/26/2024 Telephone [facility] MEDICINE [address] [place], [place] [phone] [facility] [address] [place], [place] [phone] Nov Recall Social History Tobacco Use Types Packs/Day Years [...] housing situation today? I have uriellenka beasley 03/16/[address] you [...] encounter Miscellaneous Notes * Telephone Encounter - Cassidy Cagle MA - 10/26/2024 1:56 PM EDT Telephone call to patient to schedule a recall appointment. No answer, Left voicemail to return call to clinic.. Recall letter sent. Visit type: Follow up Appointment notes: F/u weight 30min okay to book on ( Danielle) Month due: December With: [place] Please schedule appointment above if patient returns call documented in this encounter Plan of Treatment Not on file documented as of this encounter Visit Diagnoses Not on filedocumented in this encounter Additional Health Concerns Assessment Noted Time PHQ-9 Depression Total Score: 17 025 11:26 AM EST documented as of this encounter Care Teams Loan Representative Relationship Specialty Start Date End Date Deborah Nicholson FNP [address] [place] [address] PCP - General Family Medicine 10/12/21 documented as of this encounter
--- OUTSIDE RECORDS SUMMARY | 2024-10-30 14:34 | XMS_ITS | Encounter Summary ---
Author Organization [employer] Address [address] [facility] 7t [place] [address] Care Team Providers Care Line Walker Name Role Phone Deborah Nicholson SYSTEMS ANALYST Primary Care Provider [phone] Encounter Details Date Type Department Care Team ([facility] Contact Info) Description 10/30/2024 Orders Only GENERIC EXTERNAL DATA DEPARTMENT Provider, Generic External Data Social History Tobacco Use Types Packs/Day Years [...] is your housing situation today? I have urilelenka beasley 03/16/[address] you [...] METABOLIC PANEL Routine 10/30/2024 12:17 PM EDT documented in this encounter Results * (ABNORMAL) Comprehensive Metabolic Panel (10/30/2024 12:17 PM EDT) Sodium 141 135 - 145 mmol/L [facility] Potassium 4.2 3.3 - 5.1 mmol/L [facility] Chloride 106 96 - 108 mmol/L [facility] Carbon Dioxide 29 22 - 29 mmol/L [facility] Anion Gap 10(L) 12 - 20 [facility] Urea Nitrogen (BUN) 16 9 - 16 mg/dL [facility] Creatinine, Serum 0.68 0.5 - 1.4 mg/dL [facility] Estimated Glomerular Filt Rate >60 [facility] Comment:Chronic Kidney Disea se: Estimated GFR < 60 mL/min/1.75f8Fozckt Kidney Disease: Estimated GFR < 15 mL/min/1.73m2 Glucose 87 60 - 115 mg/dL [facility] Calcium 10.1 8.4 - 10.2 mg/dL [facility] Bilirubin, Total 0.4 0.0 - 1.0 mg/dL [facility] Aspartate Amino Transferase 32(H) 5 - 31 U/L [facility] Alanine Aminotransferase 40(H) 0 - 31 U/L [facility] Total Protein 7.4 6.5 - 8.0 g/dL [facility] Albumin Level 4.2 3.5 - 5.0 g/dL [facility] Alkaline Phosphatase 122(H) 39 - 117 U/L [facility] 10/30/2024 12:1 7 PM EDT 10/30/2024 12:17 PM EDT us Generic External Data Provider LAB BLOOD ORDERAB LES Final Result [facility] [address] [place] [phone] documented in this encounter Visit Diagnoses Not on filedocumented in this encounter Additional Health Concerns Assessment Noted Time PHQ-9 Depression Total Score: 17 025 11:26 AM EST documented as of this encounter Care Teams Line Walker Relationship Specialty Start Date End Date Deborah Nicholson FNP [address] [place] [phone] PCP - General Family Medicine 10/12/21 documented as of this encounter
== END 2024-10-30 12:06 | disposition home or self-care (01) ==
LOC: HO.HGI 10:53
PROVIDERS: PCP Registered Nurse; Visit Provider Nurse Practitioner
DX: Z01.818 Encounter for other preprocedural examination (principal); Z12.11 Encounter for screening for malignant neoplasm of colon; Z86.19 Personal history of other infectious and parasitic diseases; K21.9 Gastro-esophageal reflux disease without esophagitis; K59.00 Constipation, unspecified
CPT/HCPCS: 99203

== ENCOUNTER 2024-10-30 10:52 | Outpatient (REF) | payer MEDICAID, SELFPAY ==
[2024-10-30 13:08] LABS: Alanine Aminotransferase 40 U/L (0-31); Albumin Level 4.2 g/dL (3.5-5.0); Alkaline Phosphatase 122 U/L (39-117); Anion Gap 10 (12-20); Aspartate Amino Transferase 32 U/L (5-31); Blood Urea Nitrogen 16 mg/dL (9-16); Calcium 10.1 mg/dL (8.4-10.2); Carbon Dioxide 29 mmol/L (22-29); Chloride 106 mmol/L (96-108); Estimated Glomerular Filt Rate > 60; Potassium 4.2 mmol/L (3.3-5.1); Sodium 141 mmol/L (135-145); Total Protein 7.4 g/dL (6.5-8.0)
== END 2024-10-30 10:53 | disposition home or self-care (01) ==
LOC: HO.LAB 10:52
PROVIDERS: PCP Registered Nurse; Visit Provider Nurse Practitioner
DX: Z01.818 Encounter for other preprocedural examination (principal); Z12.11 Encounter for screening for malignant neoplasm of colon; K21.9 Gastro-esophageal reflux disease without esophagitis; K58.1 Irritable bowel syndrome with constipation; Z86.19 Personal history of other infectious and parasitic diseases
CPT/HCPCS: 36415; 80053; 99212

== ENCOUNTER 2024-11-09 16:18 | Outpatient (REF) | payer MEDICAID, SELFPAY ==
--- OUTSIDE RECORDS SUMMARY | 2024-11-06 14:40 | XMS_ITS | Encounter Summary ---
Author Organization [employer] Address 75 [facility] 7t [place] [address] Care Team Providers Care Quality Control Specialist Name Role Phone Deborah Nicholson ANIMAL NURSERY WORKER Primary Care Provider [phone] Reason for Visit * Reason Comments Allergic Reaction Encounter Details Date Type Department Care Team (Latest Contact Info) Description 11/06/2024 2:40 PM EDT Office Visit [facility] [address] [place] [address] [phone] Yudith Estrella MD [address] [place] [address] Allergic conjunctivitis of both eyes (Primary Dx); Dry skin Social History Tobacco Use Types Packs/Day Years [...] Sign Reading Time Taken Comments Blood Pressure 122/78 11/06/2024 2:55 PM EDT Pulse 71 11/06/2024 2:55 PM EDT Temperature 36.5 C (97.7 F) 11/06/2024 2:55 PM EDT Respiratory Rate 17 11/06/2024 2:55 PM EDT Oxygen Saturation 97% 11/06/2024 2:55 PM EDT Inhaled Oxygen Concentration - - Weight 78.6 kg (173 lb 3.2 oz) 11/06/2024 2:55 P M EDT Height - - Body Mass Index 31.68 10/04/2024 1:12 PM EDT documented in this encounter Progress Notes * Yudith Oconnor MD - 11/06/2024 2:40 PM EDT SUBJECTIVE: Magalys Serrano is a 53 y.o. year old female who presents for acute visit . 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 HENT: Negative. Eyes: Positive for redness and itching. Tearing Respiratory: Negative. Cardiovascular: Negative. Skin: Dry skin OBJECTIVE: Vitals: 11/06/24 1455 BP: 122/78 BP Location: Left arm Patient Position: Sitting BP Cuff Size: Adult Pulse: 71 Resp: 17 Temp: 97.7 ??F (36.5 ??C) TempSrc: Temporal SpO2: 97% Weight: 173 lb 3.2 oz (78.6 kg) Physical Exam Constitutional: Appearance: Normal appearance. Eyes: Conjunctiva/sclera: Conjunctivae normal. Cardiovascular: Rate and Rhythm: Normal rate. Pulmonary: Effort: Pulmonary effort is normal. Breath sounds: Normal breath sounds. Abdominal: General: Abdomen is flat. Palpations: Abdomen is soft. Neurological: Mental Status: She is alert. Follow Up: No follow-ups on file. 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 [3] Current Outpatient Medications on File Prior to Visit Medication Sig Dispense Refill albuterol (2.5 MG/3ML) [...] 11 cetirizine (ZyrTEC) 10 MG tablet TOME HSEHAM TABLETA TODOS LOS IBARRA CUANDO SEA NECESARIO [...] tablet TOME HESHAM TABLETA TODOS LOS D Estrogens Conjugated (Premarin) 0.625 MG/GM cream Insert 0.5 g into the vagina 2 (two) times a week. 30 g 2 fluconazole (Diflucan) 150 MG tablet TOME HESHAM TABLETA TODOS LOS D ONE DOSE fluticasone (Flonase) 50 MCG/ACT nasal spray SPRAY 1 - 2 SPRAYS IN EACH NOSTRIL EVERY DAY NEEDED ketorolac (Toradol) 10 MG tablet PLEASE SEE ATTACHED FOR DETAILED DIRECTIONS Lidocaine, Anorectal, (Topicaine 5) 5 % gel Apply to affected area as needed linaCLOtide (Linzess) 145 MCG capsule Take by mouth. meloxicam (Mobic) 15 MG tablet TOME HESHAM TABLETA TODOS LOS D CON ALIMENTO mirtazapine (Remeron) 45 MG tablet TOME HESHAM TABLETA TODOS LOS D AL ACOSTARSE montelukast (Singulair) 10 MG tablet TOME HESHAM TABLETA TODOS LOS D EN LA NOCHE omeprazole (PriLOSEC) [address] capsule TAKE [...] in the evening. Prescribed by psych team valeria (Senokot) 8.6 MG tablet Take 1 tablet (8.6 mg) by mouth at bedtime. 120 tablet 0 topiramate (Topamax) 25 MG tablet Take 1 tablet (25 mg) by mouth before evening meal. 30 tablet 11 Ventolin HFA 108 (90 Base) MCG/ACT inhaler INHALE 2 PUFFS POR VIA ORAL EVERY 4 HOURS IF NEEDED FOR WHEEZING. 18 g 1 No current facility-administered medications on file prior to visit. documented in this encounter Miscellaneous Notes * Assessment & Plan Note - Yudith Oconnor MD - 11/06/2024 4:09 PM EDT Associated Problem(s): Dry skin I advised to stop using hydrocortisone on her face and instead use moisturizer * Assessment & Plan Note - Yudith Oconnor MD - 11/06/2024 4:08 PM EDT Associated Problem(s): Allergic conjunctivitis of both eyes Patient does have ketotifen prescription at home, I advised to start using it for itchy eyes and tearing documented in this encounter Plan of Treatment Not on file documented as of this encounter Visit Diagnoses Diagnosis Allergic conjunctivitis of both eyes- Primary Other chronic allergic conjunctivitis Dry skin Other symptoms involving skin and integumentary tissues documented in this encounter Additional Health Concerns Assessment Noted Time PHQ-9 Depression Total Score: 17 025 11:26 AM EST documented as of this encounter Care Teams Quality Control Specialist Relationship Specialty Start Date End Date Deborah Nicholson FNP [address] [place] [phone] PCP - General Family Medicine 10/12/21 documented as of this encounter
--- OUTSIDE RECORDS SUMMARY | 2024-11-09 16:21 | XMS_ITS | Encounter Summary ---
Author Organization [employer] Address 75 [facility] 7t [place] [address] Care Team Providers Care Campus Security Officer Name Role Phone Aberc[facility]bie [facility] Primary Care Provider [phone] Reason for Visit * Reason Comments Med Refill Encounter Details Date Type Department Care Team ([facility] Contact Info) Description 06/14/2023 Refill [facility] [address] [place], [place] [phone] [facility] [address] [place], [place] [phone] Dyspepsia Social History Tobacco Use Types Packs/Day [...] documented as of this encounter Care Teams Campus Security Officer Relationship Specialty Start Date End Date Deborah Nicholson FNP [address] [place] [phone] PCP - General Family Medicine 10/12/21 documented as of this encounter
--- OUTSIDE RECORDS SUMMARY | 2024-11-09 16:21 | XMS_ITS | Encounter Summary ---
Author Organization [employer] Address 75 [facility] 7t [place] [address] Care Team Providers Care Retirement Actuary Name Role Phone Deborah Nicholson UNION ORGANISER Primary Care Provider [phone] Reason for Visit * Reason Comments Med Refill Encounter Details Date Type Department Care Team ([facility] Contact Info) Description 06/29/2024 Refill [facility] [address] [place], [place] [phone] Yudith Estrella MD [address] [place] [address] Exacerbation of asthma, unspecified asthma severity, unspecified [...] documented as of this encounter Care Teams Retirement Actuary Relationship Specialty Start Date End Date Deborah Nicholson FNP [address] [place] [phone] PCP - General Family Medicine 10/12/21 documented as of this encounter
--- OUTSIDE RECORDS SUMMARY | 2024-11-09 16:21 | XMS_ITS | Clinical Summary ---
Author Organization [employer] Address 75 [facility] 7t [place] [address] Care Team Providers Care Binder And Wrapper Packer Name Role Phone Deborah Nicohlson [facility] Primary Care Provider [phone] Allergies No known active allergies Medications cloNIDine (Catapres) 0.1 MG tablet TAKE 1 TABLET BY MOUTH TWICE A DAY NEEDED FOR ANXIETY/PANIC 2 Active cyclobenzaprine (Flexeril) 10 MG tablet TAKE 1/2 TO 1 TABLET BY MOUTH EVERY NIGHT AT BEDTIME NEEDED 2 Active fluconazole (Diflucan) 150 MG tablet TOME HESHAM TABLETA TODOS LOS D ONE DOSE 2 Active fluticasone (Flonase) 50 MCG/ACT nasal spray SPRAY 1 - 2 SPRAYS IN EACH NOSTRIL EVERY DAY NEEDED 2 Active ketorolac (Toradol) 10 MG tablet PLEASE SEE ATTACHED FOR DETAILED DIRECTIONS 2 Active Lidocaine, Anorectal, (Topicaine 5) 5 % gel Apply to affected area as needed 1 Active linaCLOtide (Linzess) 145 MCG capsule Take by mouth. Act evita meloxicam (Mobic) 15 MG tablet TOME HESHAM TABLETA TODOS LOS D CON ALIMENTO 2 Active mirtazapine (Remeron) 45 MG tablet TOME HESHAM TABLETA TODOS LOS D AL ACOSTARSE 2 Active montelukast (Singulair) 10 MG tablet TOME HESHAM TABLETA TODOS LOS D EN LA NOCHE 2 Active OXcarbazepine (Trileptal) 300 MG tablet Take 300 mg by mouth at bedtime. Take (150mg) by mouth in the morning and 300mg in the evening. Prescribed by psych team Active escitalopram (Lexapro) 20 MG tablet TOME HESHAM TABLETA TODOS LOS D 3 Active cetirizine (ZyrTEC) 10 MG tablet TOME HESHAM TABLETA TODOS LOS IBARRA CUANDO SEA NECESARIO 90 tablet 3 4 Active omeprazole (PriLOSEC) [address] capsuleIndicatio ns:Dyspepsia TAKE 2 CAPSULE BY MOUTH EVERY DAY BEFORE A MEAL 180 capsule 1 4 Active albuterol (2.5 MG/3ML) 0.083% nebulizer solution inhale 3 milliliter by nebulization route 3 times every day 75 mL 5 Active budesonide-formo terol (Symbicort) 80-4.5 MCG/ACT inhalerIndicatio ns:Mild intermittent asthma without complication Inhale 2 puffs every 4-6 hours as needed for cough or wheezing 1 each 11 5 Active Ventolin HFA 108 (90 Base) MCG/ACT inhalerIndicatio ns:Exacerbation of asthma, unspecified asthma severity, unspecified whether persistent INHALE 2 PUFFS POR VIA ORAL EVERY 4 HOURS IF NEEDED FOR WHEEZING. 18 g 1 5 Active ARIPiprazole (Abilify) 20 MG tablet TOME 1 TABLETA POR V A ORAL TODOS LOS D 5 Active OXcarbazepine (Trileptal) 150 MG tablet TAKE 1 TABLET BY MOUTH EVERY MORNING (TAKES 900MG AT BEDTIME,THIS DOSE IN ADDED TO TAKE IN MORNING 5 Active senna (Senokot) 8.6 MG tabletIndication s:Constipation, unspecified constipation type Take 1 tablet (8.6 mg) by mouth at bedtime. 120 tablet 5 Active topiramate (Topamax) 25 MG tabletIndication s:Hot flashes Take 1 tablet (25 mg) by mouth before evening meal. 30 tablet 11 5 026 Active D3-1000 25 MCG (1000 UT) capsuleIndicatio ns:Hot flashes Take 1 capsule (25 mcg) by mouth Once per day. 30 capsule 11 5 026 Active docusate sodium (Colace) 100 MG capsuleIndicatio ns:Constipation, unspecified constipation type TOME 1 CAPSULA POR VIA ORAL TODOS LOS IBARRA 90 capsule 5 Active Estrogens Conjugated (Premarin) 0.625 MG/GM cream Insert 0.5 g into the vagina 2 (two) times a week. 30 g 2 5 026 Active Active Problems Patient Care Coordination No te Formatting of this note migh t be different from the original. C3/CM Livia Johnson RN Problem Noted Date Diagnosed Date Allergic conjunctivitis of both eyes 11/06/2024 Assessment & Plan (11/06/2024 4:08 PM EDT): Patient does have ketotifen prescription at home, I advised to start using it for itchy eyes and tearing Dry skin 11/06/2024 Assessment & Plan (11/06/2024 4:09 PM EDT): I advised to stop using hydrocortisone on her face and instead use moisturizer Asthma exacerbation 03/06/2024 Assessment & Plan (03/06/2024 [...] Encounters Date Type Department Care Team Description 11/06/2024 2:40 PM EDT Office Visit [facility] [address] [place] [phone] Yudith Estrella MD Allergic conjunctivitis of both eyes (Primary Dx); Dry skin 11/06/2024 Travel 10/30/2024 Orders Only GENERIC EXTERNAL DATA DEPARTMENT Provider, Generic External Data 10/26/2024 Telephone [facility] [address] [place] [address] Deborah Nicholson FNP Nov Recall 10/04/2024 1:20 PM EDT Office Visit [facility] [place] [address] Cielo Garland DO Recurrent UTI (Primary Dx); Burning with urination 10/04/2024 Travel 10/04/2024 Telephone [facility] [address] [place] [address] Deborah Nicholson FNP Nurse Triage 08/29/[address] [address] Deborah Nicholson FNP No Show 08/28/2024 Telephone [facility] [address] [place] [address] Deborah Nicholson FNP CHART PREP 08/26/2024 Refill [facility] [address] [place] [address] Deborah Nicholson FNP Constipation, unspecified constipation type [...] oz) 11/06/2024 2:55 P M EDT Height 157.5 cm (5' 2 ) 10/04/2024 1:12 PM EDT Body Mass Index 31.68 10/04/2024 1:12 PM EDT Plan of Treatment [...] Depression Monitoring 09/13/2024 03/16/2024, 025 COVID-19 Vaccine ( - season) 2024 10/23/2020, 10/02/2020 Influenza Vaccine [...] EDT) Sodium 141 135 - 145 mmol/L [facility] Potassium 4.2 3.3 - 5.1 mmol/L [facility] Chloride 106 96 - 108 mmol/L [facility] Carbon Dioxide 29 22 - 29 mmol/L [facility] Anion Gap 10(L) 12 - 20 [facility] Urea Nitrogen (BUN) 16 9 - 16 mg/dL [facility] Creatinine, Serum 0.68 0.5 - 1.4 mg/dL [facility] Estimated Glomerular Filt Rate >60 [facility] Comment:Chronic Kidney Disea se: Estimated GFR < 60 mL/min/1.96u4Szmsnj Kidney Disease: Estimated GFR < 15 mL/min/1.73m2 Glucose 87 60 - 115 mg/dL [facility] Calcium 10.1 8.4 - 10.2 mg/dL [facility] Bilirubin, Total 0.4 0.0 - 1.0 mg/dL [facility] Aspartate Amino Transferase 32(H) 5 - 31 U/L [facility] Alanine Aminotransferase 40(H) 0 - 31 U/L [facility] Total Protein 7.4 6.5 - 8.0 g/dL [facility] Albumin Level 4.2 3.5 - 5.0 g/dL [facility] Alkaline Phosphatase 122(H) 39 - 117 U/L [facility] 10/30/2024 12:1 7 PM EDT 10/30/2024 12:17 PM EDT us Generic External Data Provider LAB BLOOD ORDERAB LES Final Result [facility] [address] [place] [address] [phone] * (ABNORMAL) POCT urinalysis dipstick manually [...] Media Lot # [id number] Lot# Expiration Date ,026 Urine 10/04/2024 1:23 PM EDT Cielo Garland DO POINT OF CARE TEST ENTER/PEBBLES T ORDERABLES Final Result * Culture, Urine, Routine (10/04/2024 1:23 PM EDT) Urine Urine specimen obtained by clean catch procedure / Unknown 10/04/2024 1:23 PM EDT 10/04/2024 6:20 PM EDT Comment:UACC Narrative [facility] - 10/07/2024 8:02 AM EDT Escherichia coli Quant > 100,000 cfu/mL Escherichia coli: Ampicillin >=32(R) Escherichia coli: Cefazolin (Urine) 4(S) Escherichia coli: Cefepime <=0.12(S) Escherichia coli: Ceftriaxone <=0.25(S) Escherichia coli: Ciprofloxacin >=4(R) Escherichia coli: Gentamicin <=1(S) Escherichia coli: Nitrofurantoin <=16(S) Escherichia coli: Trimethoprim/Sulfamethoxazole <=20(S) Specimen Source: Urine clean catch Cielo Garland DO LAB MICROBIOLOGY - GENERAL O RDERABLES Final Result [facility] [address] [place] [phone] * HPV DNA, Low/High Risk (05/07/2024 12:31 PM EDT) HPV High Risk Negative Negative [facility] HPV Genotype 16 Negative Negative [facility] HPV Genotype 18 Negative Negative [facility] Comment:HPV testing performe d at [facility] (CLIA#[id number]), [address] [place] [address].Testing for HPV was performed using the Ander [...] Provider LAB BLOOD ORDERAB LES Final Result [facility] [address] [place] [phone] * Pap Smear (05/07/2024 12:31 PM EDT) 05/07/2024 12:3 1 PM EDT 05/08/2024 6:00 AM EDT Narrative [facility] - 05/10/2024 10:43 AM EDT ----- ------- Name: Magalys Serrano Age/Sex: 53/F : 1970 Unit#: [id number] Attend Dr: Philippe Layton MD Re05/07/24 Status: DEP REF Location: .[facility] Disch: ----- ------- SPEC : [id number] RECD: 05/08/24 STATUS: MANDI HAMILTON NUM: [id number] SARAH: 05/07/24-[address] [facility] [address]: Philippe Layton MD ENTERED: 03/25/25-0637 SP TYPE: Pap Smr OTHR DR: Deborah Nicholson EFFICIENCY ANALYST ORDERED: Pap Smear Interpretation Satisfactory for evaluation. Negative for intraepithelial lesion or malignancy. HPV High Risk: Negative HPV Genotyping 16: Negative HPV Genotyping 18: Negative Clinical Information LMP: Post menopausal Previous PAP test: Unknown date/findings Material Received Cervix Copies To: Deborah Nicholson EFFICIENCY ANALYST [address] [place] [address] Philippe Layton MD [facility] [address] [place] [address] ----- ------- Signed (signature on file) KO Marie (ASCP) 05/10/24 1043 ----- ------- END OF REPORT us Generic External Data Provider LAB CYTOLOGY CHRISTIE PONCE Final Result [facility] [address] [place] [address] [phone] * BI Mammogram Screening Tomosynthesis Bilateral (12/20/2023 9:15 AM EST) Anatomical Region Laterality Modality Breast Bilateral Mammography 12/20/2023 9:15 AM EST Narrative 12/28/2023 12:23 PM EST [address] [place] [address] Mammography Report Signed Patient: Magalys Serrano MR#: [id number] : 1970 Acct:[id number] Age/Sex: 52 / F ADM Date: 12/20/23 Loc: HO.MAMMO Attending Dr: Deborah Nicholson EFFICIENCY ANALYST Ordering Physician: Deborah Nicholson EFFICIENCY ANALYST Results: 2Beni gn Findings Date of Service: 12/20/23 Follow Up: 1 Year From Orig inal Mammogram Procedure(s): MM tomosynthesis screening BI Accession Number(s): [id number] cc: Deborah Nicholson EFFICIENCY ANALYST EXAMINATION: MM SCREENING DIGITAL BREAST TOMOSYNTHESIS, BILATERAL [...] by: Jeannine Richter DO 12/28/2023 12:20 PM [facility] Dictated By: Jeannine Richter DO Signed By: <Electronically signed by Jeannine Richter DO in OV> 12/28/23 1220 DD/ 0915 TD/TT: 12/20/23 0930 Hand Upper And Bottom Lacer: Procedure Note Dongriselter, Image - 12/28/2023 [facility] [address] [place] [address] [place] [address] Mammography Report Signed Patient: Melissa SerranoR#: [id number] : 1970Acct:[id number] Age/Sex: 52 / FADM Date: 12/20/23 Loc: HO.MAMMO Attending Dr: Deborah Nicholson EFFICIENCY ANALYST Ordering Physician: Deborah Nicholson FNPResults: 2Beni gn Findings Date of Service: 12/20/23Follow Up: 1 Year From Orig ina Mammogram Procedure(s): MM tomosynthesis screening BI Accession Number(s): [id number] cc: Deborah Nicholson EFFICIENCY ANALYST EXAMINATION: MM SCREENING DIGITAL BREAST TOMOSYNTHESIS, BILATERAL [...] 12/28/23 1220 DD/ 0915 TD/TT: 12/20/23 0930 Hand Upper And Bottom Lacer: [facility] EFFICIENCY ANALYST IMG BI PROCEDURES Final Resul t * (ABNORMAL) Lipid Panel, Standard (01/27/2023 9:05 AM EST) Triglycerides 118 <150 mg/dL [facility] Comment:Desirable Triglyceri de: less than 150 mg/dLBorderline High Triglyceride 150-199 mg/dLHigh Triglyceride: 200-499 mg/dLVery High Triglyceride: greater than or equal to 5OO mg/dL Cholesterol 223(H) <200 mg/dL [facility] Comment:Desirable Cholestero l: less than 200 mg/dLBorderline High Cholesterol: 200-239 mg/dLHigh Cholesterol: greater than 239 mg/dL LDL Cholesterol Calculated 144(H) <100 mg/dL [facility] Comment:Desirable LDL: less than 100 mg/dLNear Optimal/Above Optimal LDL: 110- 129 mg/dLBorderline High LDL: 130-159 mg/dLHigh LDL: 160-189 mg/dLVery High LDL: greater than or equal to 190 mg/dL HDL Cholesterol 56 >40 mg/dL [facility] Comment:Desirable HDL: great er than 40 mg/dL Note: This HDL assay may give artificially low results in patients with liver disease. Blood Venous blood specimen / Unknown 01/27/2023 9:05 AM EST 01/27/2023 11:36 AM EST [facility] EFFICIENCY ANALYST LAB BLOOD ORDERABLES Final Re sult Performing Organization Address City/State/[facility] Co de Phone Number [facility] [address] [place] [address] [phone] * Hm Colonoscopy (02/28/2019 8:21 AM EST) Historical Provider HEALTH MAINTENANCE Final Result from Last 3 Months or Most Recently Relevant to Health Maintenance [place] [id number] [facility] C3 Care Teams Binder And Wrapper Packer Relationship Specialty Start Date End Date [place] CityDeborah FNP [address] [place] [phone] PCP - General Family Medicine 10/12/21
--- OUTSIDE RECORDS SUMMARY | 2024-11-09 16:21 | XMS_ITS | Encounter Summary ---
Author Organization [employer] Address [address] [facility] [address]t [place] [address] Care Team Providers Care Manager Drilling Name Role Phone Deborah Nicholson INSTRUMENT ENGINEER Primary Care Provider [phone] Encounter Details Date Type Department Care Team (Late st Contact Info) Description 05/25/2023 Orders Only [facility] [address] [place], [place] [phone] ProviderKaye MD Social History Tobacco Use Types [...] documented as of this encounter Care Teams Manager Drilling Relationship Specialty Start Date End Date Deborah Nicholson FNP [address] [place] [phone] PCP - General Family Medicine 10/12/21 documented as of this encounter
--- OUTSIDE RECORDS SUMMARY | 2024-11-09 16:21 | XMS_ITS | Encounter Summary ---
Author Organization [employer] Address [address] [facility] 7t [place] [address] Care Team Providers Care Engineering Consultant Name Role Phone [place] [facility] Primary Care Provider [phone] Encounter Details Date Type Department Care Team ([facility] st Contact Info) Description 08/23/2023 Telephone [facility] [address] [place], [place] [phone] [place] [facility] [address] [place], [place] [phone] Social History Tobacco Use Types Packs/Day Years [...] t he electric, gas, oil or water [employer] threatened to shut off services in your [...] Results * T-SPOT??.TB (08/31/2023 9:06 AM EDT) [facility] T Spot TB Negative Negative [facility] Comment:A negative test resu lt does [...] as aquantitative test. TS PANEL A 0 [facility] TS PANEL B 0 [facility] Negative Control Passed [facility] Positive Control Passed [facility] Comment:For additional infor sarah, please refer [email or web address]/faq/[email or web address](This link is being provided for informational/educational purposes only.)THIS TEST WAS PERFORMED AT:[facility] [id number] [place] [address]RLCHGVUERINN PENA MD,PHD 08/31/2023 9:06 AM EDT 08/31/2023 11:12 AM EDT [facility] LAB BLOOD ORDERABLES Final Re sult [facility] [address] [place] [phone] [phone] documented in this encounter Visit Diagnoses Diagnosis Screening examination for pulmonary tuberculosis documented in this encounter Additional Health Concerns Assessment Noted Time PHQ-9 Depression Total Score: 8 03/16/19 24 2:08 PM EST documented as of this encounter Care Teams Engineering Consultant Relationship Specialty Start Date End Date Deborah Nicholson FNP [address] [place] [phone] PCP - General Family Medicine 10/12/21 documented as of this encounter
--- OUTSIDE RECORDS SUMMARY | 2024-11-09 16:21 | XMS_ITS | Encounter Summary ---
Author Organization [employer] Address [address] [facility] 7t [place] [address] Care Team Providers Care Brick Tester Name Role Phone Deborah Nicholson HYBRID TESTER Primary Care Provider [phone] Encounter Details Date Type Department Care Team (Latest Contact Info) Description 11/06/2024 Travel Social History Tobacco Use Types Packs/Day [...] t he electric, gas, oil or water [employer] threatened to shut off services in your [...] documented as of this encounter Care Teams Brick Tester Relationship Specialty Start Date End Date Deborah Nicholson FNP [address] [place] [phone] PCP - General Family Medicine 10/12/21 documented as of this encounter
--- OUTSIDE RECORDS SUMMARY | 2024-11-09 16:21 | XMS_ITS | Encounter Summary ---
Author Organization [employer] Address [address] [facility] 7t [place] [address] Care Team Providers Care Phlebotomy Manager Name Role Phone [facility]off [facility] Primary Care Provider [phone] Reason for Visit * Reason Comments Med Refill Encounter Details Date Type Department Care Team ([facility] Contact Info) Description 09/12/2023 Refill [facility] [address] [place], [place] [phone] [facility] [address] [place], [place] [phone] Social History Tobacco Use Types Packs/Day Years [...] documented as of this encounter Care Teams Phlebotomy Manager Relationship Specialty Start Date End Date Deborah Nicholson FNP [address] [place] [phone] PCP - General Family Medicine 10/12/21 documented as of this encounter
== END 2024-11-09 16:19 | disposition home or self-care (01) ==
LOC: HO.LNP 16:18
PROVIDERS: Visit Provider Nurse Practitioner
DX: Z86.19 Personal history of other infectious and parasitic diseases (principal)
CPT/HCPCS: 87338

== ENCOUNTER 2024-11-30 13:36 | Outpatient (AMB) | payer MEDICAID, SELFPAY ==
--- NOTE | 2024-11-30 13:55 | MHC.OFFVIS ---
Vital Signs 11/30/24 13:58 Height 5 ft 3 in Weight 177 lb BMI 31.4 BP 133/88 Blood Pressure Location Lt brachial Position Sitting Pulse 77 Intake Visit Reasons: 1 mos FUV. Intake Note: Patient comes back today for lab results. CC: Patient reports doing better from constipation with Linzess. Reimbursement Coordinator Required: Yes Accompanied by: Self / Same As Patient Allergies morphine (MORPHINE) Adverse Reaction (Intermediate, Verified 11/30/24 14:11) CHEST TIGHTNESS-DYSPHORIA HPI HPI 1 mos FUV.: Details: Assessment & Plan (1) Pre-op examination: Code(s): Z01.818 - Encounter for other preprocedural examination Category: Medical (2) History of Helicobacter pylori infection: Code(s): Z86.19 - Personal history of other infectious and parasitic diseases Category: Medical (3) Acid reflux: Comment: Avoid weight gain, keep food diary, avoid culprits Code(s): K21.9 - Gastro-esophageal reflux disease without esophagitis Category: Medical (4) Constipation: Code(s): K59.00 - Constipation, unspecified Category: Medical Plan Libyan # touch it out Live - The patient is a 53-year-old female presenting with chronic epigastric pain and for evaluation regarding a repeat colonoscopy. She had insufficient prep in 2020 but also denied getting instructions about how to appropriately prep. - Upper endoscopy and colonoscopy from 2020 erosions in the stomach and esophagitis attributed to H. pylori, which wasn't fully treated due to adverse antibiotic effects. - Pain occurs amidst consumption of sweets despite daily omeprazole use, presenting as constant yet exacerbated heartburn. She has stopped drinking soda in his avoiding spicy/acid he foods. - Longstanding constipation issues date back to childhood, she currently is only on Colace which isn't helping and she will go as much as 2 days without having a bowel movement. She has also used senna, MiraLax, fiber, bisacodyl, milk of magnesia without relief. - Reports significant gas-related discomfort contributing to her pain. - Surgical history includes breast reduction, uterine ablation, potential hysterectomy, and a bladder lift procedure. - Allergic to strong analgesics like Percocet with adverse side effects only, not true allergies. We will order a repeat colonoscopy and she was given a lengthy Education about how to prepare for the procedure. She was also given our pamphlet in Libyan listing out clear liquids and giving instructions. It is also possible she did not clear because of her serious constipation. I am going to start her on Linzess 145 micro g and titrate to affect her side effect. Her asthma is well controlled and she denies any cardiac problems. There are no prior problems with anesthesia or sedation. There are no infectious disease problems. I will need to assess at the next visit where there is a family history of colon cancer or colon polyps. Return office visit in 4 weeks. Orders: Orders H pylori Ag Stool Today Z86.19 - Personal history of other infectious and parasitic diseases Comprehensive Met. Panel Today Z01.818 - Encounter for other preprocedural examination Referrals GI Procedure Notification Z01.818 - Encounter for other preprocedural examination Medications: New peg 3350-electrolytes 236-22.74-6.74 -5.86 gram (Golytely) until fecal effluent is clear; do not exceed a total volume of 2,000 mL 240 mL PO Q10M 4,000 mL 0RF 1 day Z12.11 - Encounter for screening for malignant neoplasm of colon bisacodyl (Dulcolax (bisacodyl)) 10 mg (2 x 5 mg) PO BEDTIME 4 tabs 0RF 2 days linaclotide (Linzess) Take first thing in the morning with a full glass of water. 145 mcg PO QAM 30 caps 6RF K58.1 - Irritable bowel syndrome with constipation omeprazole 20 mg PO DAILY 30 caps 6RF K21.9 - Gastro-esophageal reflux disease without esophagitis, K59.00 - Constipation, unspecified LABS: Laboratory Tests 06/28/24 10/30/24 12:40 12:17 WBC 6.1 RBC 4.37 Hgb 11.9 L Hct 36.1 L MCV 82.6 MCH 27.2 Plt Count 259 Estimated GFR > 60 Total Bilirubin 0.4 AST 32 H ALT 40 H Alkaline Phosphatase 122 H Laboratory Tests 11/09/24 16:20 Stool H. pylori Ag negative COLONOSCOPY BIOPSY TODAY'S VISIT Brianna Swanson [facility] Medical History Acid reflux History of Helicobacter pylori infection Menopause GERD (gastroesophageal reflux disease) Asthma Depression Anxiety Surgical History H/O midurethral sling procedure History of tubal ligation History of endometrial ablation H/O bilateral breast reduction surgery Hx of colonoscopy Hx of esophagogastroduodenoscopy Family History Mother Diabetes HTN (hypertension) Father Diabetes HTN (hypertension) Daughter Diabetes Social History Household Members: Children and None Alcohol intake: never Review of Systems Const Denies fatigue, Denies fever(s), Denies night sweats, Denies poor appetite and Denies weight loss ENT Reports Normal hearing present, Denies dental pain, Denies dysphagia, Denies hearing loss, Denies mouth pain, Denies odynophagia, Denies throat swelling, Denies tongue swelling and Reports other (Dentition adequate) Card Reports no additional complaints Resp Reports no additional complaints GI Details: Reports abdominal pain, Denies melena, Denies bloating, Denies hematochezia, Reports constipation, Denies GI cramping, Denies dysphagia, Denies excessive flatus, Denies early satiety, Reports heartburn, Denies diarrhea, Denies nausea, Denies odynophagia, Denies vomiting and Denies hematemesis Skin/Breast Denies pruritus, Denies lesions, Denies rash and Denies jaundice Neuro Reports Normal hearing present and Denies Abnormal speech present Endo Denies fatigue Aller/Immun Denies throat swelling and Denies tongue swelling Physical Exam Vital Signs: Last Vital Signs Pulse 77 11/30/24 13:58 BP 133/88 11/30/24 13:58 BMI result Body Mass Index 31.4 Const General: cooperative, no acute distress, well developed and well groomed Nutritional Appearance: well nourished and obese Orientation/consciousness: oriented to person, oriented to place and oriented to time Limitations: language barrier HEENT Head: Yes normocephalic and Yes atraumatic Eyes General: appearance normal, both eyes and all related structures Pupils: Equal, round and reactive pupils present Neck Neck: Yes normal visual inspection and Yes no lymphadenopathy Thyroid: Thyroid normal Resp Effort & Inspection: normal respiratory effort and able to speak in complete sentences Auscultation: clear to auscultation bilaterally Cardio Rate: regular rate Rhythm: regular rhythm Heart sounds: Normal, physiologic split S2 sound present Peripheral pulses: radial pulses present and posterior tibial pulses present GI Inspection: No distended, Yes Abdominal panniculus present and Yes obesity Palpation (GI): Soft to palpation, nontender, no guarding, not rigid and No hepatosplenomegaly present Percussion: Yes normal to percussion Auscultation: normal bowel sounds Rectal Exam - Female: deferred Skin General skin exam: no rashes or lesions noted, turgor normal, skin not dry, no jaundice, No spider nevi and no striae Rashes: no rashes Nails: normal Neuro General: oriented to person, oriented to place and oriented to time Cranial nerves: Yes Equal, round and reactive pupils present and Yes Normal hearing present Speech: No Abnormal speech present Extrem General: Yes normal to inspection, No clubbing, No cyanosis and No edema Psych Appearance: grossly normal and well kempt Mental Status: mental status grossly normal Speech and movement: Normal speech and movement present Affect: normal affect Attitude: cooperative Thought process: Normal thought process present and not confabulating Thought content: Normal thought content present Insight: Fair insight present (Psych) and Limited insight present (Psych) Judgement: Fair judgement present (Psych) and Limited judgement present (Psych) Assessment & Plan Assessment & Plan (1) Resistance to antibiotic: Comment: H pylori resistant to any antibiotics she can tolerate Code(s): Z16.20 - Resistance to unspecified antibiotic Category: Medical (2) Constipation: Code(s): K59.00 - Constipation, unspecified Category: Medical (3) GERD (gastroesophageal reflux disease): Code(s): K21.9 - Gastro-esophageal reflux disease without esophagitis Category: Medical (4) Transaminitis: Code(s): R74.01 - Elevation of levels of liver transaminase levels Category: Medical (5) Obesity (BMI 30.0-34.9): Code(s): E66.811 - Obesity, class 1 Category: Medical Plan [place] #Erma Swanson Her current GI regimen consists of Linzess 145 micro g, Colace, and omeprazole 20 mg. ? FHX CRC She received the Linzess, although it took awhile she has only had it for a few days. She believes at the 145 micro g dose it is helping her move her bowels. It is still early to tell if this will resolve all of her issues with respect to bloating and abdominal pain. It is also too early to say whether restoring better motility will help her with her epigastric pain and GERD. She continues on her omeprazole which she feels is a good medication fit for her. For now she agrees she wants to stay in the 145 dose for a few more weeks and wait and see how things develop. With review of her labs she has elevated transaminases which likely is fatty liver. However I will initiate a workup to be sure there are no other modifiable factors. The patient says she drinks alcohol socially on occasions, there is no known family history of liver disease, but she is obese. She was educated that if it is fatty liver she will need to control her weight, her blood sugars and not drink alcohol on a regular basis to protect her future liver health. Return office visit in 6 weeks Labs: ULTRASOUND OF THE ABDOMEN COLONOSCOPY BIOPSY Orders: Orders BRIAN Reflex Titer and Pattern Today E66.811 - Obesity, class 1, R74.01 - Elevation of levels of liver transaminase levels Alpha Fetoprotein Today E66.811 - Obesity, class 1, R74.01 - Elevation of levels of liver transaminase levels Ferritin Today E66.811 - Obesity, class 1, R74.01 - Elevation of levels of liver transaminase levels Hepatitis A,B,C Profile Today E66.811 - Obesity, class 1, R74.01 - Elevation of levels of liver transaminase levels HIV Ab/Ag Today E66.811 - Obesity, class 1, R74.01 - Elevation of levels of liver transaminase levels Liver Fibrosis Pnl Today E66.811 - Obesity, class 1, R74.01 - Elevation of levels of liver transaminase levels Phosphatidylethanol, Blood Today E66.811 - Obesity, class 1, R74.01 - Elevation of levels of liver transaminase levels Smooth Muscle Antibody Today E66.811 - Obesity, class 1, R74.01 - Elevation of levels of liver transaminase levels Mitochondrial Antibody Today E66.811 - Obesity, class 1, R74.01 - Elevation of levels of liver transaminase levels US abdomen complete Today E66.811 - Obesity, class 1, R74.01 - Elevation of levels of liver transaminase levels Coding Level of Care Code Est Pt Level 4 (51520) Diagnoses Resistance to antibiotic Z16.20 Constipation K59.00 GERD (gastroesophageal reflux disease) K21.9 Transaminitis R74.01 Obesity (BMI 30.0-34.9) E66.811 Time Spent (min) 35
[2024-11-30 13:58] VITALS: BP 133/88; PULSE 77; BMI 31.4
--- OUTSIDE RECORDS SUMMARY | 2024-11-30 16:09 | XMS_ITS | Clinical Summary ---
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) 09/15/2018 Panic attack 03/24/2018 Posttraumatic stress disorder 03/24/2018 Vitamin D deficiency 03/24/2018 Allergic rhinitis 06/10/2016 Constipation 06/10/2016 Hemangioma of liver 06/10/2016 Mild persistent asthma 06/10/2016 Resolved Problems Problem Noted Date Diagnosed Date Resolved Date Acute bacterial conjunctivitis of both eyes 03/06/2024 10/04/2024 Encounters Date Type Department Care Team Description 11/06/2024 2:40 PM EDT Office Visit [facility] [address] [address] Yudith Estrella MD Allergic conjunctivitis of both eyes (Primary Dx); Dry skin 11/06/2024 Travel 10/30/2024 Orders Only GENERIC EXTERNAL DATA DEPARTMENT Provider, Generic External Data 10/26/2024 Telephone [facility] [address] [place] [address] Deborah Nicholson FNP Nov Recall 10/04/2024 1:20 PM EDT Office Visit [facility] [address] [place] [address] Cielo Garland DO Recurrent UTI (Primary Dx); Burning with urination 10/04/2024 Travel 10/04/2024 Telephone [facility] [address] [facility] [place] [phone] Deborah Nicholson FNP Nurse Triage from Last 3 Months Immunizations Immunization Administration [...] EDT) Sodium 141 135 - 145 mmol/L [facility] Potassium 4.2 3.3 - 5.1 mmol/L [facility] Chloride 106 96 - 108 mmol/L [facility] Carbon Dioxide 29 22 - 29 mmol/L [facility] Anion Gap 10(L) 12 - 20 [facility] Urea Nitrogen (BUN) 16 9 - 16 mg/dL [facility] Creatinine, Serum 0.68 0.5 - 1.4 mg/dL [facility] Estimated Glomerular Filt Rate >60 [facility] Comment:Chronic Kidney Disea se: Estimated GFR < 60 mL/min/1.63c6Dymvtu Kidney Disease: Estimated GFR < 15 mL/min/1.73m2 Glucose 87 60 - 115 mg/dL [facility] Calcium 10.1 8.4 - 10.2 mg/dL [facility] Bilirubin, Total 0.4 0.0 - 1.0 mg/dL [facility] Aspartate Amino Transferase 32(H) 5 - 31 U/L [facility] Alanine Aminotransferase 40(H) 0 - 31 U/L [facility] Total Protein 7.4 6.5 - 8.0 g/dL [facility] Albumin Level 4.2 3.5 - 5.0 g/dL [facility] Alkaline Phosphatase 122(H) 39 - 117 U/L [facility] 10/30/2024 12:1 7 PM EDT 10/30/2024 12:17 PM EDT us Generic External Data Provider LAB BLOOD ORDERAB LES Final Result [facility] [address] [place] [phone] * (ABNORMAL) POCT urinalysis dipstick manually [...] Media Lot # [id number] Lot# Expiration Date , Urine 10/04/2024 1:23 PM EDT Cielo Garland DO POINT OF CARE TEST ENTER/PEBBLES T ORDERABLES Final Result * Culture, Urine, Routine (10/04/2024 1:23 PM EDT) Urine Urine specimen obtained by clean catch procedure / Unknown 10/04/2024 1:23 PM EDT 10/04/2024 6:20 PM EDT Comment:UACC Narrative [facility] - 10/07/2024 8:02 AM EDT Escherichia coli Quant > 100,000 cfu/mL Escherichia coli: Ampicillin >=32(R) Escherichia coli: Cefazolin (Urine) 4(S) Escherichia coli: Cefepime <=0.12(S) Escherichia coli: Ceftriaxone <=0.25(S) Escherichia coli: Ciprofloxacin >=4(R) Escherichia coli: Gentamicin <=1(S) Escherichia coli: Nitrofurantoin <=16(S) Escherichia coli: Trimethoprim/Sulfamethoxazole <=20(S) Specimen Source: Urine clean catch us Cielo Garland DO LAB MICROBIOLOGY - GENERAL O RDERABLES Final Result Performing Organization Address [facility]/ZIP Co de Phone Number [facility] [address] [place] [phone] * HPV DNA, Low/High Risk (05/07/2024 12:31 PM EDT) [facility] HPV High Risk Negative Negative [facility] HPV Genotype 16 Negative Negative [facility] HPV Genotype 18 Negative Negative [facility] Comment:HPV testing performe d at [facility] (CLIA#[id number]), [address] [place] [address].Testing for HPV was performed using the Ander [...] ORDERAB LES Final Result Performing Organization Address [facility]/ZIP Co de Phone Number [facility] [address] [place] [phone] * Pap Smear (05/07/2024 12:31 PM EDT) 05/07/2024 12:3 1 PM EDT 05/08/2024 6:00 AM EDT [facility] - 05/10/2024 10:43 AM EDT ----- ------- Name: Magalys Serrano Age/Sex: 53/F : 1970 Unit#: [id number] Attend Dr: Philippe Layton MD Re05/07/24 Status: DEP REF Location: [facility] Disch: ----- ------- SPEC : [id number] RECD: 05/08/24-599 STATUS: MANDI HAMILTON NUM: [id number] SARAH: 05/07/24-1231 [facility] DR: Philippe Layton MD ENTERED: 05/08/24-06 SP TYPE: Pap Smr OTHR DR: Deborah Nicholson ORDERED: Pap Smear Interpretation Satisfactory for evaluation. Negative for intraepithelial lesion or malignancy. HPV High Risk: Negative HPV Genotyping 16: Negative HPV Genotyping 18: Negative Clinical Information LMP: Post menopausal Previous PAP test: Unknown date/findings Material Received Cervix Copies To: Deborah Nicholson [address] [place] [address] [facility] [address] [place] [phone] ----- ------- Signed (signature on file) KO Marie (ASCP) 05/10/24 1043 ----- ------- END OF REPORT us Generic External Data Provider LAB CYTOLOGY CHRISTIE PONCE Final Result [facility] [address] [place] [phone] * BI Mammogram Screening Tomosynthesis Bilateral (12/20/2023 9:15 AM EST) Anatomical Region Laterality Modality Breast Bilateral Mammography 12/20/2023 9:15 AM EST Narrative 12/28/2023 12:23 PM EST [facility] [address] [place] [address] Mammography Report Signed Patient: Magalys Serrano MR#: [id number] : 1970 Acct:[id number] Age/Sex: 52 / F ADM Date: 12/20/23 Loc: [facility] Attending Dr: Deborah Nicholson [employer] Ordering Physician: Deborah Nicholson Results: 2Beni gn Findings Date of Service: 12/20/23 Follow Up: 1 Year From Orig inal Mammogram Procedure(s): MM tomosynthesis screening BI Accession Number(s): [id number] cc: Deborah Nicholson [employer]ARD EXAMINATION: MM SCREENING DIGITAL BREAST TOMOSYNTHESIS, BILATERAL [...] by: Jeannine Richter DO 12/28/2023 12:20 PM [facility] Dictated By: Jeannine Richter DO Signed By: <Electronically signed by Jeannine Richter DO in OV> 12/28/23 1220 DD/ TD/TT: 12/20/23 0930 Patrol Conductor: Procedure Note Donotuseinterpreter, Image - 12/28/2023 [facility] [address] [place], [place] [address] Mammography Report Signed Patient: Bart Serrano#: [id number] : 1970Acct:[id number] Age/Sex: 52 / FADM Date: 12/20/23 Loc: HO.MAMMO Attending Dr: Deborah Nicholson [employer]ARD Ordering Physician: Deborah Nicholson FNPResults: 2Beni gn Findings Date of Service: 12/20/23Follow Up: 1 Year From Orig inal Mammogram Procedure(s): MM tomosynthesis screening BI Accession Number(s): [id number] cc: Deborah Nicholson SCHO[employer] TRAFFIC GUARD EXAMINATION: MM SCREENING DIGITAL BREAST TOMOSYNTHESIS, BILATERAL [...] OV> 12/28/23 1220 DD/ TD/TT: 12/20/23 0930 Patrol Conductor: [facility] S[employer]FF[employer]ARD IMG BI PROCEDURES Final Resul t * (ABNORMAL) Lipid Panel, Standard (01/27/2023 9:05 AM EST) Triglycerides 118 <150 mg/dL [facility] Comment:Desirable Triglyceri de: less than 150 mg/dLBorderline High Triglyceride 150-199 mg/dLHigh Triglyceride: 200-499 mg/dLVery High Triglyceride: greater than or equal to 5OO mg/dL Cholesterol 223(H) <200 mg/dL [facility] Comment:Desirable Cholestero l: less than 200 mg/dLBorderline High Cholesterol: 200-239 mg/dLHigh Cholesterol: greater than 239 mg/dL LDL Cholesterol Calculated 144(H) <100 mg/dL [facility] Comment:Desirable LDL: less than 100 mg/dLNear Optimal/Above Optimal LDL: 110- 129 mg/dLBorderline High LDL: 130-159 mg/dLHigh LDL: 160-189 mg/dLVery High LDL: greater than or equal to 190 mg/dL HDL Cholesterol 56 >40 mg/dL [facility] Comment:Desirable HDL: great er than 40 mg/dL Note: This HDL assay may give artificially low results in patients with liver disease. Blood Venous blood specimen / Unknown 01/27/2023 9:05 AM EST 01/27/2023 11:36 AM EST [facility] S[employer]FFIC GUARD LAB BLOOD ORDERABLES Final Re sult [facility] [address] [place] [phone] * Hm Colonoscopy (02/28/2019 8:21 AM EST) Historical Provider MD HEALTH MAINTENANCE Final Result from Last 3 Months or Most Recently Relevant to Health Maintenance Insurance [facility] [address] [place] [address] Care Teams Mountain Or Glacier Guide Relationship Specialty Start Date End Date [place] DANIEL Cabrera [address] [place] [address] PCP - General Family Medicine 10/12/21
--- OUTSIDE RECORDS SUMMARY | 2024-11-30 16:09 | XMS_ITS | Encounter Summary ---
Author Organization [employer] Address [address] [facility] 7t [place] [address] Care Team Providers Care Sole Trimmer Name Role Phone [facility] Primary Care Provider [phone] Reason for Visit * Reason Comments Med Refill Encounter Details Date Type Department Care Team ([facility] Contact Info) Description 06/14/[address] [facility] [address] [place], [place] [phone] [facility] [address] [place], [place] [phone] Dyspepsia Social History Tobacco Use Types Packs/Day [...] documented as of this encounter Care Teams Sole Trimmer Relationship Specialty Start Date End Date Deborah Nicholson FNP [address] [place] [phone] PCP - General Family Medicine 10/12/21 documented as of this encounter
--- OUTSIDE RECORDS SUMMARY | 2024-11-30 16:09 | XMS_ITS | Encounter Summary ---
Author Organization [email or web address] Address [address] [facility] 7t [place] [address] Care Team Providers Care Stitch Cleaner Name Role Phone [facility] Primary Care Provider [phone] Reason for Visit * Reason Comments Med Refill Encounter Details Date Type Department Care Team ([facility] Contact Info) Description 09/12/2023 Refill [facility] [address] [place], [place] [phone] [facility] [address] [place], [place] [phone] Social History Tobacco Use Types Packs/Day Years [...] documented as of this encounter Care Teams Stitch Cleaner Relationship Specialty Start Date End Date Deborah Nicholson FNP [address] [place] [phone] PCP - General Family Medicine 10/12/21 documented as of this encounter
--- OUTSIDE RECORDS SUMMARY | 2024-11-30 16:09 | XMS_ITS | Encounter Summary ---
Author Organization [employer] Address 75 [facility] 7t [place] [address] Care Team Providers Care Sports Development Officer Name Role Phone Deborah Nicholson AWNING SPREADER Primary Care Provider [phone] Reason for Visit * Reason Comments Med Refill Encounter Details Date Type Department Care Team ([facility] Contact Info) Description 06/29/2024 Refill [facility] [address] [place], [place] [phone] Yudith Estrella MD 230 [place] [address] Exacerbation of asthma, unspecified asthma severity, unspecified [...] documented as of this encounter Care Teams Sports Development Officer Relationship Specialty Start Date End Date Deborah Nicholson FNP [address] [place] [address] PCP - General Family Medicine 10/12/21 documented as of this encounter
--- OUTSIDE RECORDS SUMMARY | 2024-11-30 16:09 | XMS_ITS | Encounter Summary ---
Author Organization [employer] Address [address] [facility] [address] [facility] [address] 7t [place] [address] Care Team Providers Care Director Of Spa And Guest Experience Name Role Phone Deborah Nicholson PATIENT SUPPORT ASSISTANT Primary Care Provider [phone] Encounter Details Date Type Department Care Team (Late st Contact Info) Description 05/25/2023 Orders Only [facility] 230 [place], [place] [phone] ProviderKaye MD Social History Tobacco Use Types [...] documented as of this encounter Care Teams Director Of Spa And Guest Experience Relationship Specialty Start Date End Date Deborah Nicholson FNP [address] [place] [phone] PCP - General Family Medicine 10/12/21 documented as of this encounter
--- OUTSIDE RECORDS SUMMARY | 2024-11-30 16:09 | XMS_ITS | Encounter Summary ---
Author Organization [employer] Address 75 [facility] 7t [place] [address] Care Team Providers Care Ironworker Name Role Phone [facility] Primary Care Provider [phone] Encounter Details Date Type Department Care Team ([facility] st Contact Info) Description 08/23/2023 Telephone [facility] 230 [place], [place] [phone] [place] [facility] 230 [place], [place] [phone] Social History Tobacco Use Types Packs/Day Years [...] t he electric, gas, oil or water [employer] threatened to shut off services in your [...] Results * T-SPOT??.TB (08/31/2023 9:06 AM EDT) [facility] T Spot TB Negative Negative [facility] Comment:A negative test resu lt [...] as aquantitative test. TS PANEL A 0 [facility] TS PANEL B 0 [facility] Negative Control Passed [facility] Positive Control Passed [facility] Comment:For additional infor sarah, please refer tohttp://education.Celulares.com/faq/RSM262(This link is being provided for informational/educational purposes only.)THIS TEST WAS PERFORMED AT:[employer] [id number] [place] [address]PPSEAUNERINN PENA MD,PHD 08/31/2023 9:06 AM EDT 08/31/2023 11:12 AM EDT [facility] LAB BLOOD ORDERABLES Final Re sult [facility] [address] [place] [address] [phone] documented in this encounter Visit Diagnoses Diagnosis Screening examination for pulmonary tuberculosis documented in this encounter Additional Health Concerns Assessment Noted Time PHQ-9 Depression Total Score: 8 03/16/19 24 2:08 PM EST documented as of this encounter Care Teams Ironworker Relationship Specialty Start Date End Date Deborah Nicholson FNP [address] [place] [phone] PCP - General Family Medicine 10/12/21 documented as of this encounter
== END 2024-11-30 14:29 | disposition home or self-care (01) ==
PROVIDERS: PCP Registered Nurse; Visit Provider Nurse Practitioner
DX: Z16.20 Resistance to unspecified antibiotic (principal); K59.00 Constipation, unspecified; K21.9 Gastro-esophageal reflux disease without esophagitis; R74.01 Elevation of levels of liver transaminase levels; E66.811 Obesity, class 1
CPT/HCPCS: 99214

== ENCOUNTER → 2024-11-30 13:36 | Outpatient (BNVA) | payer MEDICAID, SELFPAY | PROVIDERS: PCP Registered Nurse; Visit Provider Nurse Practitioner | DX: Z01.818 Encounter for other preprocedural examination (principal); K21.9 Gastro-esophageal reflux disease without esophagitis; K59.00 Constipation, unspecified; Z86.19 Personal history of other infectious and parasitic diseases; R74.01 Elevation of levels of liver transaminase levels; E66.811 Obesity, class 1 | CPT/HCPCS: 99212 ==

== ENCOUNTER 2024-12-03 14:51 | Outpatient (REF) | payer MEDICAID, SELFPAY ==
[2024-12-03 17:11] LABS: Ferritin 86 ng/mL (10-250)
--- OUTSIDE RECORDS SUMMARY | 2024-12-03 19:02 | XMS_ITS | Encounter Summary ---
Author Organization [employer] Address [address] [facility] 7t [place] [address] Care Team Providers Care Cellophane Bath Mixer Name Role Phone [facility] Primary Care Provider [phone] Reason for Visit * Reason Comments Med Refill Encounter Details Date Type Department Care Team ([facility] Contact Info) Description 06/14/2023 Refill [facility] [address] [place] [employer], [place] [phone] [facility] 230 [place], [place] [phone] Dyspepsia Social History Tobacco Use Types Packs/Day [...] documented as of this encounter Care Teams Cellophane Bath Mixer Relationship Specialty Start Date End Date Deborah Nicholson FNP [address] [place] [address] PCP - General Family Medicine 10/12/21 documented as of this encounter
--- OUTSIDE RECORDS SUMMARY | 2024-12-03 19:02 | XMS_ITS | Encounter Summary ---
Author Organization [employer] Address 75 [facility] 7t [place] [address] Care Team Providers Care Professional Skater Name Role Phone Deborah Nicholson MATERIALS AND CORROSION ENGINEER Primary Care Provider [phone] Encounter Details Date Type Department Care Team ([facility] Contact Info) Description 12/03/2024 Orders Only GENERIC EXTERNAL DATA DEPARTMENT Provider, [...] Procedure Name Priority Date/Time Associated Diagnosis Comments FERRITIN Routine 12/03/2024 3:01 PM EDT documented in this encounter Results * Ferritin (12/03/2024 3:01 PM EDT) Ferritin 86 10 - 250 ng/mL [facility] 12/03/2024 3:01 PM EDT 12/03/2024 3:01 PM EDT us Generic External Data Provider LAB BLOOD ORDERAB LES Final Result [facility] [address] [place] [phone] documented in this encounter Visit Diagnoses Not on filedocumented in this encounter Additional Health Concerns Assessment Noted Time PHQ-9 Depression Total Score: 17 025 11:26 AM EST documented as of this encounter Care Teams Professional Skater Relationship Specialty Start Date End Date Deborah Nicholson FNP 230 [place] [address] PCP - General Family Medicine 10/12/21 documented as of this encounter
--- OUTSIDE RECORDS SUMMARY | 2024-12-03 19:02 | XMS_ITS | Encounter Summary ---
Author Organization [employer] Address 75 [facility] 7t [place] [address] Care Team Providers Care Lumber Tailer Name Role Phone [facility] Primary Care Provider [phone] Encounter Details Date Type Department Care Team ([facility] st Contact Info) Description 08/23/2023 Telephone [facility] 230 [place], [place] [phone] [facility] 230 [place], [place] [phone] Social History Tobacco Use Types Packs/Day Years [...] t he electric, gas, oil or water [employer] threatened to shut off services in your [...] Results * T-SPOT??.TB (08/31/2023 9:06 AM EDT) [facility] T Spot TB Negative Negative [facility] Comment:A negative test resu lt [...] as aquantitative test. TS PANEL A 0 [facility] TS PANEL B 0 [facility] Negative Control Passed [facility] Positive Control Passed [facility] Comment:For additional infor sarah, please refer tohttp://education.FiscalNote/faq/UST854(This link is being provided for informational/educational purposes only.)THIS TEST WAS PERFORMED AT:[employer] [id number] [place] [address]NNBORZGERINN PENA MD,PHD 08/31/2023 9:06 AM EDT 08/31/2023 11:12 AM EDT [facility] LAB BLOOD ORDERABLES Final Re sult [facility] [address] [place] [address] [phone] documented in this encounter Visit Diagnoses Diagnosis Screening examination for pulmonary tuberculosis documented in this encounter Additional Health Concerns Assessment Noted Time PHQ-9 Depression Total Score: 8 03/16/19 24 2:08 PM EST documented as of this encounter Care Teams Lumber Tailer Relationship Specialty Start Date End Date Deborah Nicholson FNP [address] [place] [phone] PCP - General Family Medicine 10/12/21 documented as of this encounter
--- OUTSIDE RECORDS SUMMARY | 2024-12-03 19:02 | XMS_ITS | Clinical Summary ---
Author Organization [employer] Address 75 [facility] 7t [place] [address] Care Team Providers Care Dial Painter Name Role Phone Deborah Nicholson [facility] Primary Care Provider [phone] Allergies No known active allergies Medications cloNIDine [...] recurrent major depre ssion without psychotic features ([facility]) 09/15/2018 Panic attack 03/24/2018 Posttraumatic stress disorder 03/24/2018 Vitamin D deficiency 03/24/2018 Allergic rhinitis 06/10/2016 Constipation 06/10/2016 Hemangioma of liver 06/10/2016 Mild persistent asthma 06/10/2016 Resolved Problems Problem Noted Date Diagnosed Date Resolved Date Acute bacterial conjunctivitis of both eyes 03/06/2024 10/04/2024 Encounters Date Type Department Care Team Description 12/03/2024 Orders Only GENERIC EXTERNAL DATA DEPARTMENT Provider, Generic External Data 11/06/2024 2:40 PM EDT Office Visit [facility] [address] [phone] Yudith Estrella MD Allergic conjunctivitis of both eyes (Primary Dx); Dry skin 11/06/2024 Travel 10/30/2024 Orders Only GENERIC EXTERNAL DATA DEPARTMENT Provider, Generic External Data 10/26/2024 Telephone [facility] 230 [place], [place] [phone] Deborah Nicholson FNP Nov Recall 10/04/2024 1:20 PM EDT Office Visit [facility] 230 [place], [place] [phone] Cielo Garland DO Recurrent UTI (Primary Dx); Burning with urination 10/04/2024 Travel 10/04/2024 Telephone [facility] 230 [place] [address] Deborah Nicholson FNP Nurse Triage from Last [...] 09/13/2024 03/16/2024, 025 COVID-19 Vaccine (3 - 2024- season) 2024 10/23/2020, 10/02/2020 Influenza Vaccine (#1) [...] Comments FERRITIN Routine 12/03/2024 3:01 PM EDT COMPREHENSIVE METABOLIC PANEL Routine 10/30/2024 12:17 PM [...] Recently Relevant to Health Maintenance Results * Ferritin (12/03/2024 3:01 PM EDT) Ferritin 86 10 - 250 ng/mL [facility] 12/03/2024 3:01 PM EDT 12/03/2024 3:01 PM EDT us Generic External Data Provider LAB BLOOD ORDERAB LES Final Result [facility] [address] [place] [address] [phone] * (ABNORMAL) Comprehensive Metabolic Panel (10/30/2024 12:17 PM EDT) Sodium 141 135 - 145 mmol/L [facility] Potassium 4.2 3.3 - 5.1 mmol/L [facility] Chloride 106 96 - 108 mmol/L [facility] Carbon Dioxide 29 22 - 29 mmol/L [facility] Anion Gap 10(L) 12 - 20 [facility] Urea Nitrogen (BUN) 16 9 - 16 mg/dL [facility] Creatinine, Serum 0.68 0.5 - 1.4 mg/dL [facility] Estimated Glomerular Filt Rate >60 [facility] Comment:Chronic Kidney Disea se: Estimated GFR < 60 mL/min/1.54b5Qbsjat Kidney Disease: Estimated GFR < 15 mL/min/1.73m2 Glucose 87 60 - 115 mg/dL [facility] Calcium 10.1 8.4 - 10.2 mg/dL [facility] Bilirubin, Total 0.4 0.0 - 1.0 mg/dL [facility] Aspartate Amino Transferase 32(H) 5 - 31 U/L [facility] Alanine Aminotransferase 40(H) 0 - 31 U/L [facility] Total Protein 7.4 6.5 - 8.0 g/dL [facility] Albumin Level 4.2 3.5 - 5.0 g/dL [facility] Alkaline Phosphatase 122(H) 39 - 117 U/L [facility] 10/30/2024 12:1 7 PM EDT 10/30/2024 12:17 PM EDT us Generic External Data Provider LAB BLOOD ORDERAB LES Final Result [facility] [address] [place] [phone] * (ABNORMAL) POCT urinalysis dipstick manually [...] Media Lot # [id number] Lot# Expiration Date [id number] Urine 10/04/2024 1:23 PM EDT Cielo Garland DO POINT OF CARE TEST ENTER/PEBBLES T ORDERABLES Final Result * Culture, Urine, Routine (10/04/2024 1:23 PM EDT) Urine Urine specimen obtained by clean catch procedure / Unknown 10/04/2024 1:23 PM EDT 10/04/2024 6:20 PM EDT Comment:UACC Narrative [facility] - 10/07/2024 8:02 AM EDT Escherichia coli Quant > 100,000 cfu/mL Escherichia coli: Ampicillin >=32(R) Escherichia coli: Cefazolin (Urine) 4(S) Escherichia coli: Cefepime <=0.12(S) Escherichia coli: Ceftriaxone <=0.25(S) Escherichia coli: Ciprofloxacin >=4(R) Escherichia coli: Gentamicin <=1(S) Escherichia coli: Nitrofurantoin <=16(S) Escherichia coli: Trimethoprim/Sulfamethoxazole <=20(S) Specimen Source: Urine clean catch Cielo Garland DO LAB MICROBIOLOGY - GENERAL O RDERABLES Final Result [facility] [address] [place] [phone] * HPV DNA, Low/High Risk (05/07/2024 12:31 PM EDT) HPV High Risk Negative Negative [facility] HPV Genotype 16 Negative Negative [facility] HPV Genotype 18 Negative Negative [facility] Comment:HPV testing performe d at [facility] (CLIA#[id number]), [address] [place] [address].Testing for HPV was performed using the Ander ROSA M [employer]system. The presence of HPV in the female [...] Provider LAB BLOOD ORDERAB LES Final Result [facility] [address] [place] [phone] * Pap Smear (05/07/2024 12:31 PM EDT) 05/07/2024 12:3 1 PM EDT 05/08/2024 6:00 AM EDT Josefina [facility] - 05/10/2024 10:43 AM EDT ----- ------- Name: ZachMagalys Age/Sex: 53/F : 1970 Unit#: [id number] Attend Dr: Philippe Layton MD Re05/07/24 Status: DEP REF Location: HO.LNP Disch: ----- ------- SPEC : [id number] RECD: 05/08/24 STATUS: MANDI HAMILTON NUM: [id number] SARAH: 05/07/24-1231 [facility] DR: Philippe Layton MD ENTERED: 05/08/24 SP TYPE: Pap Smr OTHR DR: Deborah Nicholson MOTORBOAT OPERATOR ORDERED: Pap Smear Interpretation Satisfactory for evaluation. Negative for intraepithelial lesion or malignancy. HPV High Risk: Negative HPV Genotyping 16: Negative HPV Genotyping 18: Negative Clinical Information LMP: Post menopausal Previous PAP test: Unknown date/findings Material Received Cervix Copies To: Deborah Nicholson [facility] [address] [place], [place] [phone] Philippe Layton MD [facility] [address] [place], [place] [phone] ----- ------- Signed (signature on file) KO Marie (ASCP) 05/10/24 1043 ----- ------- END OF REPORT us Generic External Data Provider LAB CYTOLOGY CHRISTIE PONCE Final Result [facility] [address] [place], [place] [phone] * BI Mammogram Screening Tomosynthesis Bilateral (12/20/2023 9:15 AM EST) Anatomical Region Laterality Modality Breast Bilateral Mammography 12/20/2023 9:15 AM EST Narrative 12/28/2023 12:23 PM EST [facility] [address] [place] [address] Mammography Report Signed Patient: Magalys Serrano MR#: [id number] : 1970 Acct:[id number] Age/Sex: 52 / F ADM Date: 12/20/23 Loc: HO.MAMMO Attending Dr: Deborah Nicholson MOTORBOAT OPERATOR Ordering Physician: Deborah Nicholson MOTORBOAT OPERATOR Results: 2Beni gn Findings Date of Service: 12/20/23 Follow Up: 1 Year From Orig inal Mammogram Procedure(s): MM tomosynthesis screening BI Accession Number(s): [id number] cc: Deborah Nicholson MOTORBOAT OPERATOR EXAMINATION: MM SCREENING DIGITAL BREAST TOMOSYNTHESIS, BILATERAL [...] 12/28/23 1220 DD/ 0915 TD/TT: 12/20/23 0930 Artillery Specialist: Procedure Note Donotuseinterpreter, Image - 12/28/2023 [facility] [address] [place] [address] Mammography Report Signed Patient: Bart Serrano#: [id number] : 1970Acct:[id number] Age/Sex: 52 / FADM Date: 12/20/23 Loc: HO.MAMMO Attending Dr: Deborah WAGNERP Ordering Physician: Deborah Nicholson FNPResults: 2Beni gn Findings Date of Service: 12/20/23Follow Up: 1 Year From Orig inal Mammogram Procedure(s): MM tomosynthesis screening BI Accession Number(s): [id number] cc: Deborah Nicholson EXAMINATION: MM SCREENING DIGITAL [...] in OV> 12/28/23 1220 DD/ TD/TT: 12/20/23 09 Artillery Specialist: Deborah SANCHEZ IMG BI PROCEDURES Final Resul t * (ABNORMAL) Lipid Panel, Standard (01/27/2023 9:05 AM EST) Triglycerides 118 <150 mg/dL [facility] Comment:Desirable Triglyceri de: less than 150 mg/dLBorderline High Triglyceride 150-199 mg/dLHigh Triglyceride: 200-499 mg/dLVery High Triglyceride: greater than or equal to 5OO mg/dL Cholesterol 223(H) <200 mg/dL [facility] Comment:Desirable Cholestero l: less than 200 mg/dLBorderline High Cholesterol: 200-239 mg/dLHigh Cholesterol: greater than 239 mg/dL LDL Cholesterol Calculated 144(H) <100 mg/dL [facility] Comment:Desirable LDL: less than 100 mg/dLNear Optimal/Above Optimal LDL: 110- 129 mg/dLBorderline High LDL: 130-159 mg/dLHigh LDL: 160-189 mg/dLVery High LDL: greater than or equal to 190 mg/dL HDL Cholesterol 56 >40 mg/dL [facility] Comment:Desirable HDL: great er than 40 mg/dL Note: This HDL assay may give artificially low results in patients with liver disease. Blood Venous blood specimen / Unknown 01/27/2023 9:05 AM EST 01/27/2023 11:36 AM EST [facility] MOTORBOAT OPERATOR LAB BLOOD ORDERABLES Final Re sult [facility] [address] [place] [address] [phone] * Hm Colonoscopy (02/28/2019 8:21 AM EST) Historical Provider HEALTH MAINTENANCE Final Result from Last 3 Months or Most Recently Relevant to Health Maintenance Insurance [address] [place] [address] [facility] C[facility] Care Teams Dial Painter Relationship Specialty Start Date End Date Deborah Nicholson FNP [address] [place] [phone] PCP - General Family Medicine 10/12/21
--- OUTSIDE RECORDS SUMMARY | 2024-12-03 19:02 | XMS_ITS | Encounter Summary ---
Author Organization [employer] Address [address] [facility] [address] 7t [place] [address] Care Team Providers Care Telegrapher Agent Name Role Phone Deborah Nicholson AIRLINE MECHANIC Primary Care Provider [phone] Encounter Details Date Type Department Care Team (Late st Contact Info) Description 05/25/2023 Orders Only [facility] MEDICINE [address] [place], [place] [phone] ProviderKaye MD Social History Tobacco Use Types [...] documented as of this encounter Care Teams Telegrapher Agent Relationship Specialty Start Date End Date Deborah Nicholson FNP [address] [place] [address] PCP - General Family Medicine 10/12/21 documented as of this encounter
--- OUTSIDE RECORDS SUMMARY | 2024-12-03 19:02 | XMS_ITS | Encounter Summary ---
Author Organization [employer] Address 75 [facility] 7t [place] [address] Care Team Providers Care Spoilage Worker Name Role Phone [facility] Primary Care Provider [phone] Reason for Visit * Reason Comments Med Refill Encounter Details Date Type Department Care Team ([facility] Contact Info) Description 09/12/2023 Refill [facility] MEDICINE 230 [place], [place] [phone] [facility] 230 [place], [place] [phone] Social History Tobacco Use Types Packs/Day Years [...] documented as of this encounter Care Teams Spoilage Worker Relationship Specialty Start Date End Date Deborah Nicholson FNP [address] [place] [phone] PCP - General Family Medicine 10/12/21 documented as of this encounter
--- OUTSIDE RECORDS SUMMARY | 2024-12-03 19:02 | XMS_ITS | Encounter Summary ---
Author Organization [employer] Address 75 [facility] 7t [place] [address] Care Team Providers Care Shank Threader Name Role Phone Deborah Nicholson WOOL PRESSER Primary Care Provider [phone] Reason for Visit * Reason Comments Med Refill Encounter Details Date Type Department Care Team ([facility] Contact Info) Description 06/29/2024 Refill [facility] 230 [place], [place] [phone] Yudith Estrella MD 230 [place] [address] Exacerbation of asthma, unspecified asthma severity, unspecified [...] documented as of this encounter Care Teams Shank Threader Relationship Specialty Start Date End Date Deborah Nicholson FNP [address] [place] [address] PCP - General Family Medicine 10/12/21 documented as of this encounter
[2024-12-04 13:21] LABS: HBS Num1 171.17 mIU/mL (0-7.99); HBc Num1 0.11 S/CO (0.00-0.79); HBsAGNum1 0.51 S/CO (0.00-0.99); HIV Num 1 0.06 S/CO (0.00-0.99); Hepatitis A Antibody IgM 0.54 Index (0-0.79); Hepatitis B Surface Antigen Negative (Negative); ~HepC Num1 0.21 S/CO (0.00-0.79); ~Hepatitis A Antibody IgM Nonreactive (Nonreactive); ~Hepatitis B Surface Antibody REACTIVE (Nonreactive); ~Hepatitis C Antibody Nonreactive (Nonreactive)
[2024-12-06 17:47] LABS: FIB-ALT 16 U/L (6-29); FIB-Alpha-2-Macroglobulin 149 mg/dL (106-279); FIB-Apolipoprotein A1 180 mg/dL (101-198); FIB-GGT 33 U/L (3-70); FIB-Haptoglobin 148 mg/dL (43-212); FIB-Total Bilirubin 0.4 mg/dL (0.2-1.2); Liver Fibrosis Score 0.07; Liver Fibrosis Stage F0; Nec Inflam Act Grade A0; Nec Inflam Act Score 0.04
[2024-12-07 09:08] LABS: Mitochondrial Ab Titer 1:320 titer (<1:20)
[2024-12-10 11:37] LABS: Anti Nuclear Antibody Screen POSITIVE (NEGATIVE); Anti Nuclear Antibody Titer 1:320 titer
== END 2024-12-03 14:52 | disposition home or self-care (01) ==
LOC: HO.LAB 14:51
PROVIDERS: PCP Registered Nurse; Visit Provider Nurse Practitioner
DX: Z01.84 Encounter for antibody response examination (principal); R74.01 Elevation of levels of liver transaminase levels; E66.811 Obesity, class 1; Z11.59 Encounter for screening for other viral diseases; Z11.4 Encounter for screening for human immunodeficiency virus [HIV]
CPT/HCPCS: 36415; 80321; 81596; 82105; 82728; 86015; 86038; 86039; 86381; 86704; 86706; 86709; 86803; 87340; 87389

== ENCOUNTER 2024-12-11 09:00 | Outpatient (REF) | payer MEDICAID, SELFPAY ==
--- OUTSIDE RECORDS SUMMARY | 2024-12-11 11:00 | XMS_ITS | Encounter Summary ---
Author Organization [employer] Address [address] [facility] [address] [place] [address] Care Team Providers Care Rate Clerk Passenger Name Role Phone Deborah Nicholson TAX MAP TECHNICIAN Primary Care Provider [phone] Reason for Visit * Reason Comments UTI Encounter Details Date Type Department Care Team ([facility] Contact Info) Description 12/11/2024 11:00 AM EDT Office Visit [facility] [address] [place] [address] [phone] Quinton Fountain MD [address] [place], [place] [phone] UTI symptoms Social History Tobacco Use Types Packs/Day Years [...] Sign Reading Time Taken Comments Blood Pressure 135/81 12/11/2024 10:33 AM EDT Pulse 69 12/11/2024 10:33 AM EDT Temperature 37.2 C (98.9 F) 12/11/2024 10:33 AM EDT Respiratory Rate 18 12/11/2024 10:33 AM EDT Oxygen Saturation 100% 12/11/2024 10:33 AM EDT Inhaled Oxygen Concentration - - Weight 78 kg (172 lb) 12/11/2024 10:33 AM EDT Height - - Body Mass Index 31.46 10/04/2024 1:12 PM EDT documented in this encounter Progress Notes * Quinton Fountain MD - 12/11/2024 11:00 AM EDT Subjective Patient ID: Magalys Serrano is a 53 y.o. female. 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 HPI 2 days ago had onset of urine odor, occasional burning on urination, frequency. Has h/o recurrent E. Coli UTIs, has had BV in past. Denies fever, chills, n/v, vaginal discharge, abdominal or flank pain. Lives alone. Last sexually active 1 year ago. Never smoked. Occasional EtOH. Not employed. Patient Active Problem List Diagnosis Date Noted Allergic conjunctivitis of both eyes 11/06/2024 Dry skin 11/06/2024 Asthma exacerbation 03/06/2024 Primary osteoarthritis involving multiple joints 02/16/2022 Severe recurrent major depression without psychotic features (CMS/HCC) (HCC) 09/15/2018 Panic attack 03/24/2018 Posttraumatic stress disorder 03/24/2018 Vitamin D deficiency 03/24/2018 Allergic rhinitis 06/10/2016 Constipation 06/10/2016 Hemangioma of liver 06/10/2016 Mild persistent asthma 06/10/2016 The following portions of the chart were reviewed this encounter and updated as appropriate: Tobacco Allergies Meds Problems Med Hx Surg Hx Fam Hx Review of Systems Constitutional: Negative for fever. Respiratory: Negative for shortness of breath. Cardiovascular: Negative for chest pain. Gastrointestinal: Negative for abdominal pain. Genitourinary: Positive for dysuria and frequency. Negative for flank pain, urgency and vaginal discharge. Skin: Negative for rash. Neurological: Negative for headaches. Objective Physical Exam Constitutional: Appearance: Normal appearance. HENT: Nose: Nose normal. Mouth/Throat: Mouth: Mucous membranes are moist. Pharynx: Oropharynx is clear. Eyes: Conjunctiva/sclera: Conjunctivae normal. Pupils: Pupils are equal, round, and reactive to light. Cardiovascular: Rate and Rhythm: Normal rate and regular rhythm. Heart sounds: No murmur heard. Pulmonary: Effort: Pulmonary effort is normal. Breath sounds: Normal breath sounds. Abdominal: General: Abdomen is flat. Palpations: Abdomen is soft. Tenderness: There is no abdominal tenderness. There is no right CVA tenderness or left CVA tenderness. Musculoskeletal: General: Normal range of motion. Cervical back: No tenderness. Skin: Findings: No rash. Neurological: Mental Status: She is alert. Gait: Gait is intact. Psychiatric: Mood and Affect: Mood normal. Behavior: Behavior normal. Procedures Assessment/Plan Diagnoses and all orders for this visit: UTI symptoms U/a: negative. Urine C&S, self vaginal swabs for BV, CT/GC pending. Will call patient with results. Patient opted to wait for lab results before starting medication. Return to clinic if not improving or symptoms worsen. - POCT urinalysis dipstick manually resulted (CPT 40847) - Bacterial Vaginosis - Chlamydia/N. Gonorrhoeae RNA, TMA, Urogenitial - Culture, Urine, Routine documented in this encounter Plan of Treatment Scheduled Orders Name Type Priority Associated Diagnoses Orde r Schedule Culture, Urine, Routine Microbiology Routine UTI symptoms Ordered: 12/11/2024 documented as of this encounter Procedures Procedure Name Priority Date/Time Associated Diagnosis Comments BACTERIAL VAGINOSIS PANEL Routine 12/11/2024 11:08 AM EDT UTI symptoms CHLAMYDIA/N. GONORRHOEAE RNA, TMA, UROGENITAL Routine 12/11/2024 11:00 AM EDT UTI symptoms POCT URINALYSIS DIPSTICK Routine 12/11/2024 10:41 AM EDT UTI symptoms documented in this encounter Results * (ABNORMAL) Bacterial Vaginosis (12/11/2024 11:08 AM EDT) TRICHOMONAS VAGINALIS DETECTION BY PCR NOT DETECTED Not Detect [facility] BACTERIAL VAGINOSIS DETECTION BY PCR POSITIVE(A) Negative [facility] Comment:The BV organism targ ets [...] DETECTION BY PCR NOT DETECTED Not Detect [facility] Rachel glab krusei PCR NOT DETECTED Not Detect [facility] Swab Vaginal structure / Unknown 12/11/2024 11:08 AM EDT 12/11/2024 1:22 PM EDT us Quinton Fountain MD LAB MICROBIOLOGY - GENERAL ORDER JUANITO Final Result [facility] [address] [place] [phone] * Chlamydia/N. Gonorrhoeae RNA, TMA, Urogenitial (12/11/2024 11:00 AM EDT) CT PCR NOT DETECTED Not Detect. [facility] Comment:A not detected test result [...] psychologicalconsequences. NG PCR NOT DETECTED Not Detect. [facility] Comment:A not detected test result [...] lead to adverse medical, social or psychologicalconsequences. Swab (Vaginal Swab) 12/11/2024 11:00 AM EDT 12/11/2024 1:21 PM EDT us Quinton Fountain MD LAB MICROBIOLOGY - GENERAL ORDER JUANITO Final Result [facility] [address] [place] [phone] * POCT urinalysis dipstick manually resulted (CPT 50544) (12/11/2024 10:41 AM EDT) Color, UA Yellow Clarity, UA Clear Glucose, UA Negative Bilirubin, UA Negative Ketones, UA Negative Spec Grav, UA 1.015 Blood, UA Negative Negative, None Detected pH, UA 7.0 Protein, UA Negative Urobilinogen, UA 0.2 Leukocytes, UA Negative Negative, Rare, Trace Nitrite, UA Negative Negative, None Detected Appearance, UA OK Urine (Urine, Random) 12/11/2024 10:41 AM EDT Quinton Fountain MD POINT OF CARE TEST ENTER/EDIT OR DERABLES Final Result documented in this encounter Visit Diagnoses Diagnosis UTI symptoms documented in this encounter Additional Health Concerns Assessment Noted Time PHQ-9 Depression Total Score: 17 025 11:26 AM EST documented as of this encounter Care Teams Rate Clerk Passenger Relationship Specialty Start Date End Date Deborah Nicholson FNP [address] [place] [phone] PCP - General Family Medicine 10/12/21 documented as of this encounter
[2024-12-11 14:33] LABS: Bacterial Vaginosis PCR POSITIVE (Negative); Candida Group PCR NOT DETECTED (Not Detect); Candida glab krusei PCR NOT DETECTED (Not Detect); Trichomonas vaginalis PCR NOT DETECTED (Not Detect)
[2024-12-11 15:04] LABS: CT PCR NOT DETECTED (Not Detect.); NG PCR NOT DETECTED (Not Detect.)
--- OUTSIDE RECORDS SUMMARY | 2024-12-11 17:07 | XMS_ITS | Encounter Summary ---
Author Organization [employer] Address [address] [facility] [address] [place] [address] Care Team Providers Care Maintenance Mechanic 2Nd Shift Name Role Phone Deborah Nicholson TELECOM COORDINATOR Primary Care Provider [phone] Reason for Visit * Reason Comments Med Refill Encounter Details Date Type Department Care Team ([facility] Contact Info) Description 06/29/2024 Refill [facility] [address] [place], [place] [phone] Yudith Estrella MD [address] [place] [address] Exacerbation of asthma, unspecified asthma severity, unspecified [...] documented as of this encounter Care Teams Maintenance Mechanic 2Nd Shift Relationship Specialty Start Date End Date Deborah Nicholson FNP [address] [place] [phone] PCP - General Family Medicine 10/12/21 documented as of this encounter
--- OUTSIDE RECORDS SUMMARY | 2024-12-11 17:07 | XMS_ITS | Encounter Summary ---
Author Organization [employer] Address [address] [facility] [address] [place] [address] Care Team Providers Care Threshing Machine Operator Name Role Phone Deborah Nicholson MATERIAL HANDLER FLOORPERSON Primary Care Provider [phone] Encounter Details Date Type Department Care Team (Latest Contact Info) Description 12/11/2024 Travel Social History Tobacco Use Types Packs/Day [...] t he electric, gas, oil or water [employer] threatened to shut off services in your [...] documented as of this encounter Care Teams Threshing Machine Operator Relationship Specialty Start Date End Date Deborah Nicholson FNP [address] [place] [phone] PCP - General Family Medicine 10/12/21 documented as of this encounter
--- OUTSIDE RECORDS SUMMARY | 2024-12-11 17:07 | XMS_ITS | Clinical Summary ---
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 ([facility]) 09/15/2018 Panic attack 03/24/2018 Posttraumatic stress disorder 03/24/2018 Vitamin D deficiency 03/24/2018 Allergic rhinitis 06/10/2016 Constipation 06/10/2016 Hemangioma of liver 06/10/2016 Mild persistent asthma 06/10/2016 Resolved Problems Problem Noted Date Diagnosed Date Resolved Date Acute bacterial conjunctivitis of both eyes 03/06/2024 10/04/2024 Encounters Date Type Department Care Team Description 12/11/2024 11:00 AM EDT Office Visit [facility] [address] [address] Quinton Fountain MD UTI symptoms 12/11/2024 Travel 12/03/2024 Orders Only GENERIC EXTERNAL DATA DEPARTMENT Provider, Generic External Data 11/06/2024 2:40 PM EDT Office Visit [facility] [address] [place] [address] Yudith Estrella MD Allergic conjunctivitis of both eyes (Primary Dx); Dry skin 11/06/2024 Travel 10/30/2024 Orders Only GENERIC EXTERNAL DATA DEPARTMENT Provider, Generic External Data 10/26/2024 Telephone [facility] [address] [place] [address] Deborah Nicholson FNP Nov Recall 10/04/2024 1:20 PM EDT Office Visit [facility] [place] [address] [place] [address] Cielo Garland DO Recurrent UTI (Primary Dx); Burning with urination 10/04/2024 Travel 10/04/2024 Telephone [facility] [address] [place] [address] Deborah Nicholson FNP Nurse Triage from Last [...] (172 lb) 12/11/2024 10:33 AM EDT Height 157.5 cm (5' 2 ) 10/04/2024 1:12 PM EDT Body Mass Index 31.46 10/04/2024 1:12 PM EDT Plan of Treatment Health Maintenance Due Date Last Done Comments CT Colonography 1970 FIT DNA/Cologuard 1970 FIT 1970 FOBT 1970 Sigmoidoscopy 1970 Disability Screening 1970 Family Planning (PISQ) 12/24/1986 Hepatitis A Vaccines (1 of 2 - [...] 03/16/2024 SDOH Screening 03/16/2025 03/16/2024 Tobacco Screening 12/11/2025 12/11/2024 Lipid Panel 01/28/2028 01/27/2023 DTaP/Tdap/Td Vaccines (3 - Td or Tdap) 06/14/2028 06/14/2018, 06/01/2012, 08/23/2005, Additional history exists Cervical Cancer Screening 05/07/2029 HPV/Cotest 05/07/2029 05/07/2024, 10/15, 06/10/2016 Pap Smear 05/07/2029 05/07/2024, 10/31/2023 RSV Patients and Patients Aged 60 years or older (1 - 1-dose 75+ series) 12/24/2046 HIV Screening Completed 12/03/2024 Hepatitis C Screening Completed 12/03/2024 HIB Vaccines Aged Out No longer eligi [...] Associated Diagnosis Comments BACTERIAL VAGINOSIS PANEL Routine 2024 11:08 AM EDT UTI symptoms CHLAMYDIA/N. GONORRHOEAE RNA, TMA, UROGENITAL Routine 12/11/2024 11:00 AM EDT UTI symptoms POCT URINALYSIS DIPSTICK Routine 025 10:41 AM EDT UTI symptoms DRUG MONITORING, PHOSPHATIDYLETHANOL (PETH), BLOOD Routine 12/03/2024 3:01 PM EDT BRIAN SCREEN, IFA, W/REFL TITER AND PATTERN Routine 12/03/2024 3:01 PM EDT MITOCHONDRIAL ANTIBODY WITH REFLEX TO TITER Routine 12/03/2024 3:01 PM EDT LIVER FIBROSIS, FIBROTEST ACTITEST PANEL Routine 12/03/2024 3:01 PM EDT ACTIN (SMOOTH MUSCLE) ANTIBODY (IGG) Routine 12/03/2024 3:01 PM EDT HIV 1/2 ANTIGEN/ANTIBODY, FOURTH GENERATION W/RFL Routine 12/03/2024 3:01 PM EDT HEPATITIS PANEL, GENERAL Routine 025 3:01 PM EDT ALPHA FETOPROTEIN, TUMOR MARKER Routine 12/03/2024 3:01 PM EDT FERRITIN Routine 12/03/2024 3:01 PM EDT COMPREHENSIVE METABOLIC PANEL Routine 10/30/2024 12:17 PM EDT POCT URINALYSIS DIPSTICK Routine 08/21/2 025 1:23 PM EDT Recurrent UTI Burning with urination CULTURE, URINE, ROUTINE Routine 10/05/19 25 1:23 PM EDT Recurrent UTI Burning with urination HPV DNA, LOW/HIGH RISK Routine 5 12:31 PM EDT PAP SMEAR Routine 05/07/2024 12:31 PM EDT BI MAMMOGRAM SCREENING TOMOSYNTHESIS BILATERAL Routine 12/20/2023 9:15 AM EST Encounter for screening mammogram for breast cancer LIPID PANEL, STANDARD Routine 01/27/2023 9:05 AM EST Menopause syndrome HM COLONOSCOPY Routine 02/28/2019 8:21 AM EST from Last 3 Months or Most Recently Relevant to Health Maintenance Results * (ABNORMAL) Bacterial Vaginosis (12/11/2024 11:08 AM EDT) TRICHOMONAS VAGINALIS DETECTION BY PCR NOT DETECTED Not Detect [facility] BACTERIAL VAGINOSIS DETECTION BY PCR POSITIVE(A) Negative [facility] Comment:The BV organism targ ets [...] DETECTION BY PCR NOT DETECTED Not Detect [facility] Rachel glab krusei PCR NOT DETECTED Not Detect [facility] Swab Vaginal structure / Unknown 12/11/2024 11:08 AM EDT 12/11/2024 1:22 PM EDT us Quinton Fountain MD LAB MICROBIOLOGY - GENERAL ORDER JUANITO Final Result [facility] [address] [place] [phone] * Chlamydia/N. Gonorrhoeae RNA, TMA, Urogenitial (12/11/2024 11:00 AM EDT) CT PCR NOT DETECTED Not Detect. [facility] Comment:A not detected test result [...] psychologicalconsequences. NG PCR NOT DETECTED Not Detect. [facility] Comment:A not detected test result [...] 11:00 AM EDT 12/11/2024 1:21 PM EDT Quinton Fountain MD LAB MICROBIOLOGY - GENERAL ORDER JUANITO Final Result [facility] [address] [place] [address] [phone] * POCT urinalysis dipstick manually resulted (CPT 76344) (12/11/2024 10:41 AM EDT) Only the most recent of2 resultswithin the time period is included. Color, UA Yellow Clarity, UA Clear Glucose, [...] CARE TEST ENTER/EDIT OR DERABLES Final Result * Drug Monitoring, Phosphatidylethanol (PEth), Blood (12/03/2024 3:01 PM EDT) Phosphatidylethan ol, Blood SEE NOTE [facility] Comment:THE ABOVE TEST WAS P ERFORMED; HOWEVER, ANALYSIS OF THISSAMPLE INDICATES A DRUG/CHEMICAL INTERFERENCE WITH THEASSAY. WE ARE UNABLE TO REPORT A QUANTITATIVE VALUE.PERFORMING SITE:[place]/[address] [address] Harness Cutter: PATRICKW. JEAN MD,PHD, CLIA: [id number] PEth 16:0/18:2 (PLPEth) SEE NOTE [facility] Comment:THE ABOVE TEST WAS P ERFORMED; HOWEVER, ANALYSIS OF THISSAMPLE INDICATES A DRUG/CHEMICAL INTERFERENCE WITH THEASSAY. WE ARE UNABLE TO REPORT A QUANTITATIVE VALUE. PEth Comments [facility] 12/03/2024 3:01 PM EDT 12/03/2024 3:01 PM EDT us Generic External Data Provider LAB BLOOD ORDERAB LES Final Result [facility] [address] [place] [address] [phone] * Liver Fibrosis (HCV), FibroTest-ActiTest Panel (12/03/2024 3:01 PM EDT) Liver Fibrosis Score 0.07 [facility] Liver Fibrosis Stage F0 [facility] Liver Fibrosis Interpretation SEE NOTE [facility] Comment:no fibrosisFibro Lynette t Score (f) Metavir Score f>=0 and f<=0.21 : F0 (no fibrosis)f>0.21 and f<=0.27 : F0-F1 (no fibrosis)f>0.27 and f<=0.31 : F1 (minimal fibrosis)f>0.31 and f<=0.48 : F1-F2 (minimal fibrosis)f>0.48 and f<=0.58 : F2 (moderate fibrosis)f>0.58 and f<=0.72 : F3 (advanced fibrosis)f>0.72 and f<=0.74 : F3-F4 (advanced fibrosis)f>0.74 and f<=1.00 : F4 (severe fibrosis) Nec Inflam Act Score 0.04 [facility] Nec Inflam Act Grade A0 [facility] Nec Inflam Act Interpretation SEE NOTE [facility] Comment:no activityActiTest Score (a) Metavir Score a>=0 and a<=0.17 : A0 (no activity)a>0.17 and a<=0.29 : A0-A1 (no activity)a>0.29 and a<=0.36 : A1 (minimal activity)a>0.36 and a<=0.52 : A1-A2 (minimal activity)a>0.52 and a<=0.60 : A2 (significant activity)a>0.60 and a<=0.62 : A2-A3 (significant activity)a>0.62 and a<=1.00 : A3 (severe activity) MWW-Epwka-7-Macroglo bulin 149 106 - 279 mg/dL [facility] FIB-Haptoglobin 148 43 - 212 mg/dL [facility] FIB-Apolipoprotein A1 180 101 - 198 mg/dL [facility] FIB-Total Bilirubin 0.4 0.2 - 1.2 mg/dL [facility] FIB-GGT 33 3 - 70 U/L [facility] FIB-ALT 16 6 - 29 U/L [facility] Reference ID [id number] [facility] Footnote SEE NOTE [facility] Comment: The reliability of results is dependent on compliance withthe preanalytical and analytical conditions recommended byBioPredictive. The tests have to be deferred for: acutehemolysis, acute hepatitis, acute inflammation, extrahepatic cholestasis. The advice of a specialist should besought for interpretation in chronic hemolysis and Gilbert'ssyndrome. The test interpretation is not validated in livertransplant patients. Isolated extreme values of one of thecomponents should lead to caution in interpreting theresults. In case of discordance between a biopsy result lady test, it is recommended to seek the advice of aspecialist. The causes of these discordances could be due toa flaw of the test or to a flaw in the biopsy: i.e. a liverbiopsy has a 33% variability rate for one fibrosis stage.FibroTest is interpretable for chronic hepatitis B and C,alcoholic and non alcoholic steatosis. ActiTest isinterpretable for chronic hepatitis B and C.The performance characteristics have been determined by[employer] [facility] [[email or web address]]. Ithas not been cleared or approved by the U.S. Food and DrugAdministration. Performance characteristics refer to theanalytical performance of the test.[employer], the associated logo, [employer] and all associated [employer] [address] jensen are theregistered trademarks of [employer]. All third partymarks - (R) and (TM) - are the property of their respectiveowners. (C) [id number] [employer]. Allrights reserved.THIS TEST WAS PERFORMED AT:[facility]/[employer] [id number] [facility] [place] [address]WSTXMSNEHA ROTH MD,PHD,WILIAM 12/03/2024 3:01 PM EDT 12/03/2024 3:01 PM EDT us Generic External Data Provider LAB BLOOD ORDERAB LES Final Result Performing Organization Address [facility]/ZIP Co de Phone Number [facility] [address] [place] [address] [phone] * Hepatitis Panel, General (12/03/2024 3:01 PM EDT) Hepatitis A IgM Nonreactive Nonreactive [facility] Comment:IgM antibodies to [place] V not detected; does not exclude earlyacute or recovered HAV infection. ~Hepatitis B Surface Antibody REACTIVE Nonreactive [facility] Comment:REACTIVE: > 11.99 mI U/mL Hepatitis B Core Antibody Nonreactive Nonreactive [facility] Hepatitis C Antibody Nonreactive Nonreactive [facility] Comment:Antibodies to HCV no t detected; does not exclude early acuteHCV infection. Hepatitis B Surface Ag Negative Negative [facility] 12/03/2024 3:01 PM EDT 12/03/2024 3:01 PM EDT Generic External Data Provider LAB BLOOD ORDERAB LES Final Result Performing Organization Address [facility] Co de Phone Number [facility] [address] [place] [phone] * Actin (Smooth Muscle) Antibody (IgG) (12/03/2024 3:01 PM EDT) Smooth Muscle Antibody <20 <20 U [facility] Comment:Reference Range: <20 U: Negative>or=20 U: PositiveAntibodies recognizing actin are the main componentof smooth muscle antibodies associated with auto- immune liver disease. Actin antibodies are found inapproximately 75% of patients with autoimmunehepatitis (AIH) type 1, approximately 65% of patientswith autoimmune cholangitis, approximately 30% ofpatients with primary biliary cirrhosis andapproximately 2% of healthy controls. High values areclosely correlated with AIH type 1.THIS TEST WAS PERFORMED AT:[id number] [place] [address]JXENIQXERINN PENA MD,PHD 12/03/2024 3:01 PM EDT 12/03/2024 3:01 PM EDT Generic External Data Provider LAB BLOOD ORDERAB LES Final Result Performing Organization Address [facility] Co de Phone Number [facility] [address] [place] [phone] * Alpha-Fetoprotein, Tumor Marker (12/03/2024 3:01 PM EDT) Alpha Fetoprotein 1.3 ng/mL [facility] Comment:Reference Range: <6. 1The use of AFP as a tumor marker in females is not recommended.This test was performed using the Alka Coulterchemiluminescent method. Values obtained fromdifferent assay methods cannot be usedinterchangeably. AFP levels, regardless ofvalue, should not be interpreted as absoluteevidence of the presence or absence of disease.THIS TEST WAS PERFORMED AT:[facility] [address] [address]NUZQDLOKESH PONCE MD 12/03/2024 3:01 PM EDT 12/03/2024 3:01 PM EDT Generic External Data Provider LAB BLOOD ORDERAB LES Final Result Performing Organization Address [facility] de Phone Number [facility] [address] [place] [address] [phone] * (ABNORMAL) Mitochondrial Antibody with Reflex to Titer (12/03/2024 3:01 PM EDT) Pathologist [facility] Mitochondrial Antibodies POSITIVE( A) NEGATIVE [facility] Comment:THIS TEST WAS PERFOR MED AT:[facility] [id number] [place] [address] DAVON PONCE MD Mitochondrial Ab Titer 1:320(A) <1:20 titer [facility] Comment:THIS TEST WAS PERFOR MED AT:[facility] [id number] [place], [place] [address] [address]NELRXLOKESH PONCE MD 12/03/2024 3:01 PM EDT 12/03/2024 3:01 PM EDT us Generic External Data Provider LAB BLOOD ORDERAB LES Final Result Performing Organization Address [facility] Co de Phone Number [facility] [address] [place] [address] [phone] * HIV-1/2 Antigen and Antibodies, Fourth Generation, with Reflexes (12/03/2024 3:01 PM EDT) HIV AB/AG Nonreactive Nonreactive [facility] Comment:HIV-1 p24 Ag and/or HIV-1/HIV-2 Ab not detected.A test result that is nonreactive does not exclude thepossibility of exposure to or infection with HIV-1 and/orHIV-2. Nonreactive results in this assay for individualswith prior exposure to HIV-1 and/or HIV-2 may be due toantigen and antibody levels that are below the limit ofdetection of this assay.The [employer] HIV Ag/Ab Combo assay result andsupplemental assay results should be interpreted inconjunction with the patient's clinical presentation,history and other laboratory results. If the results areinconsistent with clinical evidence, additional testing issuggested to confirm the result. 12/03/2024 3:01 PM EDT 12/03/2024 3:01 PM EDT us Generic External Data Provider LAB BLOOD ORDERAB LES Final Result Performing Organization Address City/[facility] Co de Phone Number [facility] [address] [place] [address] [phone] * (ABNORMAL) BRIAN Screen,IFA, with Reflex to Titer and Pattern (12/03/2024 3:01 PM EDT) Anti Nuclear Antibody Screen POSITIVE (A) NEGATIVE [facility] Comment:BRIAN IFA is a first l ine screen for detecting thepresence of up to approximately 150 autoantibodies invarious autoimmune diseases. A positive BRIAN IFA resultis suggestive of autoimmune disease and reflexes totiter and pattern. Further laboratory testing may beconsidered if clinically indicated.For additional information, please refer tohttp://education.[employer]/faq/XAB866(This link is being provided for informational/educational purposes only.) BRIAN Titer 1:320(A) titer [facility] Comment:Reference Range <1:4 0 Negative 1:40-1:80 Low Antibody Level >1:80 Elevated Antibody Level BRIAN Pattern (A) [facility] Comment:Cytoplasmic, Reticul ar/AMA Abnormal Flag: ACoarse granular filamentous staining extendingthroughout the cytoplasm (e.g., anti-mitochondrialantibodies). Pattern is common in primary biliarycholangitis (PBC), systemic sclerosis, and rare inother systemic autoimmune rheumatic diseases (SARD).AC-21: Reticular/AMAInternational Consensus on BRIAN Patterns(https://doi.org/10.1515/hgku-9194-7110) BRIAN TITER 2 (REF LAB) 1:80(A) titer [facility] Comment:A low level BRIAN tite r may be present in pre-clinicalautoimmune diseases and normal individuals. Reference Range <1:40 Negative 1:40-1:80 Low Antibody Level >1:80 Elevated Antibody Level BRIAN Pattern 2 (A) [facility] Comment:Cytoplasmic, Fine Sp eckled Abnormal Flag: AScattered small speckles in the cytoplasm mostly withhomogeneous or dense fine speckled background (e.g.,anti-Sena-1). Pattern is associated with anti-synthetasesyndrome, polymyositis/dermatomyositis, limited systemicsclerosis, and idiopathic pleural effusion.AC-20: Fine SpeckledInternational Consensus on BRIAN Patterns(https://doi.org/10.1515/mayw-2034-1001)THIS TEST WAS PERFORMED AT:[facility] [place] [address]WMTSELAURA PONCE MD BRIAN TITER 3 [facility] BRIAN PATTERN 3 [facility] 12/03/2024 3:01 PM EDT 12/03/2024 3:01 PM EDT us Generic External Data Provider LAB BLOOD ORDERAB LES Final Result Performing Organization Address City/[facility]/ZIP Co de Phone Number [facility] [address] [place] [address] [phone] * Ferritin (12/03/2024 3:01 PM EDT) Ferritin 86 10 - 250 ng/mL [facility] 12/03/2024 3:01 PM EDT 12/03/2024 3:01 PM EDT Generic External Data Provider LAB BLOOD ORDERAB LES Final Result Performing Organization Address [facility] Co de Phone Number [facility] [address] [place] [address] [phone] * (ABNORMAL) Comprehensive Metabolic Panel (10/30/2024 12:17 PM EDT) Pathologist [facility] Sodium 141 135 - 145 mmol/L [facility] Potassium 4.2 3.3 - 5.1 mmol/L [facility] Chloride 106 96 - 108 mmol/L [facility] Carbon Dioxide 29 22 - 29 mmol/L [facility] Anion Gap 10(L) 12 - 20 [facility] Urea Nitrogen (BUN) 16 9 - 16 mg/dL [facility] Creatinine, Serum 0.68 0.5 - 1.4 mg/dL [facility] Estimated Glomerular Filt Rate >60 [facility] Comment:Chronic Kidney Disea se: Estimated GFR < 60 mL/min/1.51a5Widcfu Kidney Disease: Estimated GFR < 15 mL/min/1.73m2 Glucose 87 60 - 115 mg/dL [facility] Calcium 10.1 8.4 - 10.2 mg/dL [facility] Bilirubin, Total 0.4 0.0 - 1.0 mg/dL [facility] Aspartate Amino Transferase 32(H) 5 - 31 U/L [facility] Alanine Aminotransferase 40(H) 0 - 31 U/L [facility] Total Protein 7.4 6.5 - 8.0 g/dL [facility] Albumin Level 4.2 3.5 - 5.0 g/dL [facility] Alkaline Phosphatase 122(H) 39 - 117 U/L [facility] 10/30/2024 12:1 7 PM EDT 10/30/2024 12:17 PM EDT Generic External Data Provider LAB BLOOD ORDERAB LES Final Result [facility] [address] [place] [address] [phone] * Culture, Urine, Routine (10/04/2024 1:23 PM EDT) Urine Urine specimen obtained by clean catch procedure / Unknown 10/04/2024 1:23 PM EDT 10/04/2024 6:20 PM EDT Comment:UACC Narrative [facility] - 10/07/2024 8:02 AM EDT [...] O RDERABLES Final Result Performing Organization Address City/[facility]/ZIP Co de Phone Number [facility] [address] [place] [phone] * HPV DNA, Low/High Risk (05/07/2024 12:31 PM EDT) HPV High Risk Negative Negative [facility] HPV Genotype 16 Negative Negative [facility] HPV Genotype 18 Negative Negative [facility] Comment:HPV testing performe d at [facility] (CLIA#[id number]), [address] [place] [address].Testing for HPV was performed using the Anedr ROSA M 6800system. The presence of HPV [...] ORDERAB LES Final Result Performing Organization Address City/State/[facility] Co de Phone Number [facility] [address] [place] [phone] * Pap Smear (05/07/2024 12:31 PM EDT) 05/07/2024 12:3 1 PM EDT 05/08/2024 6:00 AM EDT Narrative [facility] - 05/10/2024 10:43 AM EDT ----- ------- Name: Magalys Serrano Age/Sex: 53/F : 1970 Unit#: [id number] Attend Dr: Philpipe Layton MD Re05/07/24 Status: DEP REF Location: [facility] Disch: ----- ------- SPEC : [id number] RECD: 05/08/24 STATUS: MANDI HAMILTON NUM: [id number] SARAH: 05/07/24-[address] [facility] [address]: Philippe Layton MD ENTERED: 05/08/24 SP TYPE: Pap Smr OTHR DR: Deborah Nicholson ORDERED: Pap Smear Interpretation Satisfactory for evaluation. Negative for intraepithelial lesion or malignancy. HPV High Risk: Negative HPV Genotyping 16: Negative HPV Genotyping 18: Negative Clinical Information LMP: Post menopausal Previous PAP test: Unknown date/findings Material Received Cervix Copies To: Deborah Nicholson [address] [place] [address] Philippe Layton MD [facility] [address] [place] [address] ----- ------- Signed (signature on file) KO Marie (ASCP) 05/10/24 1043 ----- ------- END OF REPORT us Generic External Data Provider LAB CYTOLOGY CHRISTIE PONCE Final Result [facility] [address] [place] [address] [phone] * BI Mammogram Screening Tomosynthesis Bilateral (12/20/2023 9:15 AM EST) Anatomical Region Laterality Modality Breast Bilateral Mammography 12/20/2023 9:15 AM EST Narrative 12/28/2023 12:23 PM EST [facility] [address] [place] [address] Mammography Report Signed Patient: Magalys Serrano MR#: [id number] : 1970 Acct:[id number] Age/Sex: 52 / F ADM Date: 12/20/23 Loc: HO.MAMMO Attending Dr: Deborah Nicholson HEAD AND NECK SURGEON Ordering Physician: Deborah Nicholson HEAD AND NECK SURGEON Results: 2Beni gn Findings Date of Service: 12/20/23 Follow Up: 1 Year From Orig ina Mammogram Procedure(s): MM tomosynthesis screening BI Accession Number(s): [id number] cc: Deborah Nicholson HEAD AND NECK SURGEON EXAMINATION: MM SCREENING DIGITAL BREAST TOMOSYNTHESIS, BILATERAL [...] OV> 12/28/23 1220 DD/ 4 TD/TT: 12/20/23929 Ios Architect: Procedure Note Kurtister, Image - 12/28/2023 [facility] [address] [place], [place] [address] Mammography Report Signed Patient: Bart Serrano#: [id number] : 1970Acct:[id number] Age/Sex: 52 / FADM Date: 12/20/23 Loc: HO.MAMMO Attending Dr: Deborah Nicholson HEAD AND NECK SURGEON Ordering Physician: Deborah Nicholson FNPResults: 2Beni gn Findings Date of Service: 12/20/23Follow Up: 1 Year From Orig ina Mammogram Procedure(s): MM tomosynthesis screening BI Accession Number(s): [id number] cc: Deborah Nicholson HEAD AND NECK SURGEON EXAMINATION: MM SCREENING DIGITAL BREAST TOMOSYNTHESIS, BILATERAL [...] in OV> 12/28/23 1220 DD/ 4 TD/TT: 12/20/23 0930 Ios Architect: [facility] IMG BI PROCEDURES Final Resul t * (ABNORMAL) Lipid Panel, Standard (01/27/2023 9:05 AM EST) Triglycerides 118 <150 mg/dL [facility] Comment:Desirable Triglyceri de: less than 150 mg/dLBorderline High Triglyceride 150-199 mg/dLHigh Triglyceride: 200-499 mg/dLVery High Triglyceride: greater than or equal to 5OO mg/dL Cholesterol 223(H) <200 mg/dL [facility] Comment:Desirable Cholestero l: less than 200 mg/dLBorderline High Cholesterol: 200-239 mg/dLHigh Cholesterol: greater than 239 mg/dL LDL Cholesterol Calculated 144(H) <100 mg/dL [facility] Comment:Desirable LDL: less than 100 mg/dLNear Optimal/Above Optimal LDL: 110- 129 mg/dLBorderline High LDL: 130-159 mg/dLHigh LDL: 160-189 mg/dLVery High LDL: greater than or equal to 190 mg/dL HDL Cholesterol 56 >40 mg/dL [facility] Comment:Desirable HDL: great er than 40 mg/dL Note: This HDL assay may give artificially low results in patients with liver disease. Blood Venous blood specimen / Unknown 01/27/2023 9:05 AM EST 01/27/2023 11:36 AM EST [facility] LAB BLOOD ORDERABLES Final Re sult [facility] [address] [place] [address] [phone] * Hm Colonoscopy (02/28/2019 8:21 AM EST) Historical Provider HEALTH MAINTENANCE Final Result from Last 3 Months or Most Recently Relevant to Health Maintenance Insurance [facility] C3 Care Teams Vp Platforms Relationship Specialty Start Date End Date Deborah Nicholson FNP [address] [place] [id number] PCP - General Family Medicine 10/12/21
--- OUTSIDE RECORDS SUMMARY | 2024-12-11 17:08 | XMS_ITS | Encounter Summary ---
Author Organization [employer] Address [address] [facility] 7t [place] [address] Care Team Providers Care Sign Language Translator Name Role Phone [facility] Primary Care Provider [phone] Reason for Visit * Reason Comments Med Refill Encounter Details Date Type Department Care Team ([facility] Contact Info) Description 09/12/2023 Refill [facility] MEDICINE [address] [place], [place] [phone] [facility] [address] [place], [place] [phone] Social History Tobacco Use Types Packs/Day Years [...] documented as of this encounter Care Teams Sign Language Translator Relationship Specialty Start Date End Date Deborah Nicholson FNP [address] [place] [phone] PCP - General Family Medicine 10/12/21 documented as of this encounter
--- OUTSIDE RECORDS SUMMARY | 2024-12-11 17:08 | XMS_ITS | Encounter Summary ---
Author Organization [employer] Address [address] [facility] 7t [place] [address] Care Team Providers Care Odd Piece Checker Name Role Phone [facility] Primary Care Provider [phone] Reason for Visit * Reason Comments Med Refill Encounter Details Date Type Department Care Team ([facility] Contact Info) Description 06/14/2023 Refill [facility] MEDICINE [address] [place], [place] [phone] [facility] 230 [place], [place] [phone] Dyspepsia Social History Tobacco Use Types Packs/Day [...] documented as of this encounter Care Teams Odd Piece Checker Relationship Specialty Start Date End Date Deborah Nicholson FNP [address] [place] [id number] PCP - General Family Medicine 10/12/21 documented as of this encounter
--- OUTSIDE RECORDS SUMMARY | 2024-12-11 17:08 | XMS_ITS | Encounter Summary ---
Author Organization [employer] Address [address] [facility] 7t [place] [address] Care Team Providers Care Master Chef Name Role Phone [place] [facility] Primary Care Provider [phone] Encounter Details Date Type Department Care Team ([facility] st Contact Info) Description 08/23/2023 Telephone [facility] MEDICINE [address] [place], [place] [phone] [place] [facility] [address] [place], [place] [phone] Social History Tobacco Use Types Packs/Day Years [...] t he electric, gas, oil or water [employer] threatened to shut off services in your [...] 9:06 AM EDT) [facility] T Spot TB Negative Negative [facility] Comment:A negative test resu lt [...] as aquantitative test. TS PANEL A 0 [facility] TS PANEL B 0 [facility] Negative Control Passed [facility] Positive Control Passed [facility] Comment:For additional infor sarah, please refer tohttp://education.[employer]/faq/TAF187(This link is being provided for informational/educational purposes only.)THIS TEST WAS PERFORMED AT:[employer] [id number] [place] [address]GCURYFCERINN PENA MD,PHD 08/31/2023 9:06 AM EDT 08/31/2023 11:12 AM EDT [facility] LAB BLOOD ORDERABLES Final Re sult [facility] [address] [place] [address] [phone] documented in this encounter Visit Diagnoses Diagnosis Screening examination for pulmonary tuberculosis documented in this encounter Additional Health Concerns Assessment Noted Time PHQ-9 Depression Total Score: 8 03/16/19 24 2:08 PM EST documented as of this encounter Care Teams Master Chef Relationship Specialty Start Date End Date Deborah Nicholson FNP [address] [place] [phone] PCP - General Family Medicine 10/12/21 documented as of this encounter
--- OUTSIDE RECORDS SUMMARY | 2024-12-11 17:08 | XMS_ITS | Encounter Summary ---
Author Organization [employer] Address [address] [facility] [address] [place] [address] Care Team Providers Care Plate Grinder Name Role Phone Deborah Nicholson [facility] Primary Care Provider [phone] Encounter Details Date Type Department Care Team (Late st Contact Info) Description 05/25/2023 Orders Only [facility] MEDICINE [address] [place], [place] [phone] ProviderKaye MD Social History Tobacco Use Types [...] documented as of this encounter Care Teams Plate Grinder Relationship Specialty Start Date End Date Deborah Nicholson FNP [address] [place] [phone] PCP - General Family Medicine 10/12/21 documented as of this encounter
== END 2024-12-11 09:01 | disposition home or self-care (01) ==
LOC: HO.HHCLNP 09:00
PROVIDERS: Visit Provider Emergency Medicine
DX: Z20.2 Contact with and (suspected) exposure to infections with a predominantly sexual mode of transmission (principal); R39.9 Unspecified symptoms and signs involving the genitourinary system
CPT/HCPCS: 81515; 87086; 87491; 87591

== ENCOUNTER 2024-12-20 09:18 | Outpatient (REF) | payer MEDICAID, SELFPAY ==
--- OUTSIDE RECORDS SUMMARY | 2024-12-20 10:15 | XMS_ITS | Clinical Summary ---
Author Organization [employer] Address [address] [facility] 7[address] [place] [address] Care Team Providers Care Placement Specialist Name Role Phone Deborah Nicholson [facility] Primary Care Provider [phone] Allergies No known active allergies Medications cloNIDine [...] week. 30 g 2 5 026 Active metroNIDAZOLE (Metrogel) 0.75 % vaginal gel Insert into the vagina at bedtime for 5 days. 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) 09/15/2018 Panic attack 03/24/2018 Posttraumatic stress disorder 03/24/2018 Vitamin D deficiency 03/24/2018 Allergic rhinitis 06/10/2016 Constipation 06/10/2016 Hemangioma of liver 06/10/2016 Mild persistent asthma 06/10/2016 Resolved Problems Problem Noted Date Diagnosed Date Resolved Date Acute bacterial conjunctivitis of both eyes 03/06/2024 10/04/2024 Encounters Date Type Department Care Team Description 12/15/2024 Orders Only [facility] [address] [place] [phone] Quinton Fountain MD 12/14/2024 Telephone [facility] [address] [place] [phone] Deborah Nicholson FNP Nurse Triage; Results 12/13/2024 [facility] [address] [address] Quinton Fountain MD UTI symptoms (Primary Dx) 12/13/2024 Results Follow-Up [address] [address] Quinton Fountain MD POCT urinalysis dipstick manually resulted (CPT 28717), Bacterial Vaginosis, Chlamydia/N. Gonorrhoeae RNA, TMA, Urogenitial, Culture, Urine, Routine 12/11/2024 11:00 AM EDT Office Visit [address] [address] Quinton Fountain MD UTI symptoms 12/11/2024 Travel 12/03/2024 Orders Only GENERIC EXTERNAL DATA DEPARTMENT Provider, Generic External Data 11/06/2024 2:40 PM EDT Office Visit [address] [address] Yudith Estrella MD Allergic conjunctivitis of both eyes (Primary Dx); Dry skin 11/06/2024 Travel 10/30/2024 Orders Only GENERIC EXTERNAL DATA DEPARTMENT Provider, Generic External Data 10/26/[address] [address] Deborah Nicholson FNP Nov Recall 10/04/2024 1:20 PM EDT Office Visit [address] [address] Cielo Garland DO Recurrent UTI (Primary Dx); Burning with urination 10/04/2024 Travel 10/04/[address] [address] Deborah Nicholson FNP Nurse Triage from Last [...] Associated Diagnosis Comments CULTURE, URINE, ROUTINE Routine 12/12/19 25 11:20 AM EDT UTI symptoms BACTERIAL VAGINOSIS PANEL Routine 2024 11:08 AM [...] 12:17 PM EDT POCT URINALYSIS DIPSTICK Routine 025 1:23 PM EDT Recurrent UTI Burning [...] Health Maintenance Results * Culture, Urine, Routine (12/11/2024 11:20 AM EDT) Only the most recent of2 resultswithin the time period is included. Urine Urine specimen obtained by clean catch procedure / Unknown 12/11/2024 11:20 AM EDT 12/12/2024 11:36 AM EDT Comment:UACC Narrative [facility] - 12/13/2024 10:59 AM EDT Urine Culture Report Result Urine Culture 50,000 to 100,000 cfu/ml Urine Culture Mixed bacterial marixa characteristic of Urine Culture urogenital contamination. Specimen Source: Urine clean catch Quinton Fountain MD LAB MICROBIOLOGY - GENERAL ORDER JUANITO Final Result Performing Organization Address [facility]/ZIP Co de Phone Number [facility] [address] [place] [phone] * (ABNORMAL) Bacterial Vaginosis (12/11/2024 11:08 AM EDT) TRICHOMONAS VAGINALIS DETECTION BY PCR NOT DETECTED Not Detect [facility] BACTERIAL VAGINOSIS DETECTION BY PCR POSITIVE(A) Negative [facility] Comment:The BV organism targ ets [...] DETECTION BY PCR NOT DETECTED Not Detect [facility] Rachel glab krusei PCR NOT DETECTED Not Detect [facility] Swab Vaginal structure / Unknown 12/11/2024 11:08 AM EDT 12/11/2024 1:22 PM EDT Quinton Fountain MD LAB MICROBIOLOGY - GENERAL ORDER JUANITO Final Result Performing Organization Address [facility]/ZIP Co de Phone Number [facility] [address] [place] [phone] * Chlamydia/N. Gonorrhoeae RNA, TMA, Urogenitial (12/11/2024 11:00 AM EDT) CT PCR NOT DETECTED Not Detect. [facility] Comment:A not detected test result [...] psychologicalconsequences. NG PCR NOT DETECTED Not Detect. [facility] Comment:A not detected test result [...] MICROBIOLOGY - GENERAL ORDER JUANITO Final Result [facility] [address] [place] [phone] * POCT urinalysis dipstick manually resulted (CPT 68680) (12/11/2024 10:41 AM EDT) Only the most [...] PM EDT) Phosphatidylethan ol, Blood SEE NOTE [facility] Comment:THE ABOVE TEST WAS P ERFORMED; HOWEVER, ANALYSIS OF THISSAMPLE INDICATES A DRUG/CHEMICAL INTERFERENCE WITH THEASSAY. WE ARE UNABLE TO REPORT A QUANTITATIVE VALUE.PERFORMING SITE:[employer]/[facility], [address] [place] [phone] Hospice Care Transitions Coordinator: PATRICKW. JEAN MD,PHD, CLIA: [id number] PEth 16:0/18:2 (PLPEth) SEE NOTE [facility] Comment:THE ABOVE TEST WAS P ERFORMED; HOWEVER, ANALYSIS OF THISSAMPLE INDICATES A DRUG/CHEMICAL INTERFERENCE WITH THEASSAY. WE ARE UNABLE TO REPORT A QUANTITATIVE VALUE. PEth Comments SDP [facility] 12/03/2024 3:01 PM EDT 12/03/2024 3:01 PM EDT Generic External Data Provider LAB BLOOD ORDERAB LES Final Result [facility] [address] [place] [phone] * Liver Fibrosis (HCV), FibroTest-ActiTest Panel (12/03/2024 3:01 PM EDT) Liver Fibrosis Score 0.07 [facility] Liver Fibrosis Stage F0 [facility] Liver Fibrosis Interpretation SEE NOTE [facility] Comment:no fibrosisFibro Lynette t Score [...] (severe fibrosis) Nec Inflam Act Score 0.04 [facility] Nec Inflam Act Grade A0 [facility] Nec Inflam Act Interpretation SEE NOTE [facility] Comment:no activityActiTest Score (a) Metavir Score a>=0 and a<=0.17 : A0 (no activity)a>0.17 and a<=0.29 : A0-A1 (no activity)a>0.29 and a<=0.36 : A1 (minimal activity)a>0.36 and a<=0.52 : A1-A2 (minimal activity)a>0.52 and a<=0.60 : A2 (significant activity)a>0.60 and a<=0.62 : A2-A3 (significant activity)a>0.62 and a<=1.00 : A3 (severe activity) AYD-Cigbu-6-Macroglo bulin 149 106 - 279 mg/dL [facility] FIB-Haptoglobin 148 43 - 212 mg/dL [facility] FIB-Apolipoprotein A1 180 101 - 198 mg/dL [facility] FIB-Total Bilirubin 0.4 0.2 - 1.2 mg/dL [facility] FIB-GGT 33 3 - 70 U/L [facility] FIB-ALT 16 6 - 29 U/L [facility] Reference ID [id number] [facility] Footnote SEE NOTE [facility] Comment: The reliability of results [...] and C.The performance characteristics have been determined by[employer] [facility]. Ithas not been cleared or approved by the U.S. Food and DrugAdministration. Performance characteristics refer to theanalytical performance of the test.[employer], [employer], the associated logo, [employer] and all associated [employer] jensen are theregistered trademarks of [employer]. All third partymarks - (R) and (TM) - are the property of their respectiveowners. (C) [id number] [employer]. Allrights reserved.THIS TEST WAS PERFORMED AT:[facility] [id number] [place] [address]BSKBVSNEHA ROHT MD,PHD,WILIAM 12/03/2024 3:01 PM EDT 12/03/2024 3:01 PM EDT us Generic External Data Provider LAB BLOOD ORDERAB LES Final Result [facility] [address] [place] [phone] [phone] * Hepatitis Panel, General (12/03/2024 3:01 PM EDT) Hepatitis A IgM Nonreactive Nonreactive [facility] Comment:IgM antibodies to [place] V not detected; does not exclude earlyacute or recovered HAV infection. ~Hepatitis B Surface Antibody REACTIVE Nonreactive [facility] Comment:REACTIVE: > 11.99 mI U/mL Hepatitis B Core Antibody Nonreactive Nonreactive [facility] Hepatitis C Antibody Nonreactive Nonreactive [facility] Comment:Antibodies to HCV no t detected; does not exclude early acuteHCV infection. Hepatitis B Surface Ag Negative Negative [facility] 12/03/2024 3:01 PM EDT 12/03/2024 3:01 PM EDT us Generic External Data Provider LAB BLOOD ORDERAB LES Final Result [facility] [address] [place] [address] [phone] * Actin (Smooth Muscle) Antibody (IgG) (12/03/2024 3:01 PM EDT) Pathologist [facility] Smooth Muscle Antibody <20 <20 U [facility] Comment:Reference Range: <20 U: Negative>or=20 [...] with AIH type 1.THIS TEST WAS PERFORMED AT:[facility]ITALNKATLNOQS[address] [place] [address]AWVHQZYERINN PENA MD,PHD 12/03/2024 3:01 PM EDT 12/03/2024 3:01 PM EDT Generic External Data Provider LAB BLOOD ORDERAB LES Final Result Performing Organization Address [facility] Co de Phone Number [facility] [address] [place] [phone] * Alpha-Fetoprotein, Tumor Marker (12/03/2024 3:01 PM EDT) Alpha Fetoprotein 1.3 ng/mL [facility] Comment:Reference Range: <6. 1The use of AFP as a tumor marker in females is not recommended.This test was performed using the Alka Coulterchemiluminescent method. Values obtained fromdifferent assay methods cannot be usedinterchangeably. AFP levels, regardless ofvalue, should not be interpreted as absoluteevidence of the presence or absence of disease.THIS TEST WAS PERFORMED AT:[facility] [address] [address]HGTBFRYLIE PONCE MD 12/03/2024 3:01 PM EDT 12/03/2024 3:01 PM EDT Generic External Data Provider LAB BLOOD ORDERAB LES Final Result Performing Organization Address [facility] de Phone Number [facility] [address] [place] [phone] * (ABNORMAL) Mitochondrial Antibody with Reflex to Titer (12/03/2024 3:01 PM EDT) Pathologist [facility] Mitochondrial Antibodies POSITIVE( A) NEGATIVE [facility] Comment:THIS TEST WAS PERFOR MED AT:[facility] [place] [address]QAPNHLOKESH PONCE MD Mitochondrial Ab Titer 1:320(A) <1:20 titer [facility] Comment:THIS TEST WAS PERFOR MED AT:[facility] [address] [address]IGDPGLOKESH PONCE MD 12/03/2024 3:01 PM EDT 12/03/2024 3:01 PM EDT us Generic External Data Provider LAB BLOOD ORDERAB LES Final Result Performing Organization Address City/[facility]/ZIP Co de Phone Number [facility] [address] [place] [phone] * HIV-1/2 Antigen and Antibodies, Fourth Generation, with Reflexes (12/03/2024 3:01 PM EDT) HIV AB/AG Nonreactive Nonreactive [facility] Comment:HIV-1 p24 Ag and/or HIV-1/HIV-2 Ab not detected.A test result that is nonreactive does not exclude thepossibility of exposure to or infection with HIV-1 and/orHIV-2. Nonreactive results in this assay for individualswith prior exposure to HIV-1 and/or HIV-2 may be due toantigen and antibody levels that are below the limit ofdetection of this assay.The [employer] HIV Ag/Ab Combo assay result andsupplemental assay results should be interpreted inconjunction with the patient's clinical presentation,history and other laboratory results. If the results areinconsistent with clinical evidence, additional testing issuggested to confirm the result. 12/03/2024 3:01 PM EDT 12/03/2024 3:01 PM EDT Generic External Data Provider LAB BLOOD ORDERAB LES Final Result Performing Organization Address [facility]/ZIP Co de Phone Number [facility] [address] [place] [phone] * (ABNORMAL) BRIAN Screen,IFA, with Reflex to Titer and Pattern (12/03/2024 3:01 PM EDT) Anti Nuclear Antibody Screen POSITIVE (A) NEGATIVE [facility] Comment:BRIAN IFA is a first l ine screen for detecting thepresence of up to approximately 150 autoantibodies invarious autoimmune diseases. A positive BRIAN IFA resultis suggestive of autoimmune disease and reflexes totiter and pattern. Further laboratory testing may beconsidered if clinically indicated.For additional information, please refer [email or web address](This link is being provided for informational/educational purposes only.) BRIAN Titer 1:320(A) titer [facility] Comment:Reference Range <1:4 0 Negative 1:40-1:80 Low Antibody Level >1:80 Elevated Antibody Level BRIAN Pattern (A) [facility] Comment:Cytoplasmic, Reticul ar/AMA Abnormal Flag: ACoarse granular filamentous staining extendingthroughout the cytoplasm (e.g., anti-mitochondrialantibodies). Pattern is common in primary biliarycholangitis (PBC), systemic sclerosis, and rare inother systemic autoimmune rheumatic diseases (SARD).AC-21: Reticular/AMAInternational Consensus on BRIAN Patterns(https://doi.org/10.1515/hrnd-2291-5054) BRIAN Titer 2 1:80(A) titer [facility] Comment:A low level BRIAN tite r may be present in pre-clinicalautoimmune diseases and normal individuals. Reference Range <1:40 Negative 1:40-1:80 Low Antibody Level >1:80 Elevated Antibody Level BRIAN Pattern 2 (A) [facility] Comment:Cytoplasmic, Fine Sp eckled Abnormal Flag: AScattered small speckles in the cytoplasm mostly withhomogeneous or dense fine speckled background (e.g.,anti-Sena-1). Pattern is associated with anti-synthetasesyndrome, polymyositis/dermatomyositis, limited systemicsclerosis, and idiopathic pleural effusion.AC-20: Fine SpeckledInternational Consensus on BRIAN Patterns(https://doi.org/10.1515/ggke-7848-3321)THIS TEST WAS PERFORMED AT:[facility] [place] [address]VSHPCLAURA PONCE MD BRIAN TITER 3 [facility] BRIAN PATTERN 3 [facility] 12/03/2024 3:01 PM EDT 12/03/2024 3:01 PM EDT us Generic External Data Provider LAB BLOOD ORDERAB LES Final Result [facility] [address] [place] [address] [phone] * Ferritin (12/03/2024 3:01 PM EDT) Ferritin 86 10 - 250 ng/mL [facility] 12/03/2024 3:01 PM EDT 12/03/2024 3:01 PM EDT us Generic External Data Provider LAB BLOOD ORDERAB LES Final Result [facility] [address] [place] [address] [phone] * (ABNORMAL) Comprehensive Metabolic Panel (10/30/2024 12:17 PM EDT) Pathologist [facility] Sodium 141 135 - 145 mmol/L [facility] Potassium 4.2 3.3 - 5.1 mmol/L [facility] Chloride 106 96 - 108 mmol/L [facility] Carbon Dioxide 29 22 - 29 mmol/L [facility] Anion Gap 10(L) 12 - 20 [facility] Urea Nitrogen (BUN) 16 9 - 16 mg/dL [facility] Creatinine, Serum 0.68 0.5 - 1.4 mg/dL [facility] Estimated Glomerular Filt Rate >60 [facility] Comment:Chronic Kidney Disea se: Estimated GFR < 60 mL/min/1.15m2Gmacay Kidney Disease: Estimated GFR < 15 mL/min/1.73m2 Glucose 87 60 - 115 mg/dL [facility] Calcium 10.1 8.4 - 10.2 mg/dL [facility] Bilirubin, Total 0.4 0.0 - 1.0 mg/dL [facility] Aspartate Amino Transferase 32(H) 5 - 31 U/L [facility] Alanine Aminotransferase 40(H) 0 - 31 U/L [facility] Total Protein 7.4 6.5 - 8.0 g/dL [facility] Albumin Level 4.2 3.5 - 5.0 g/dL [facility] Alkaline Phosphatase 122(H) 39 - 117 U/L [facility] 10/30/2024 12:1 7 PM EDT 10/30/2024 12:17 PM EDT us Generic External Data Provider LAB BLOOD ORDERAB LES Final Result Performing Organization Address City/[facility]/ZIP Co de Phone Number [facility] [address] [place] [phone] * HPV DNA, Low/High Risk (05/07/2024 12:31 PM EDT) HPV High Risk Negative Negative [facility] HPV Genotype 16 Negative Negative [facility] HPV Genotype 18 Negative Negative [facility] Comment:HPV testing performe d at [facility] (CLIA#[id number]), [address] [place] [address].Testing for HPV was performed using the Ander [...] ORDERAB LES Final Result Performing Organization Address City/[facility]/ZIP Co de Phone Number [facility] [address] [place] [phone] * Pap Smear (05/07/2024 12:31 PM EDT) 05/07/2024 12:3 1 PM EDT 05/08/2024 6:00 AM EDT Josefina [facility] - 05/10/2024 10:43 AM EDT ----- ------- Name: Magalys Serrano Age/Sex: 53/F : 1970 Unit#: [id number] Attend Dr: Philippe Layton MD Re05/07/24 Status: DEP REF Location: [facility] Disch: ----- ------- SPEC : [id number] RECD: 05/08/24 STATUS: MANDI HAMILTON NUM: [id number] SARAH: 05/07/24-1231 [facility] DR: Philippe Layton MD ENTERED: 05/08/24 SP TYPE: Pap Smr OTHR DR: Deborah Nicholson ORDERED: Pap Smear Interpretation Satisfactory for evaluation. Negative for intraepithelial lesion or malignancy. HPV High Risk: Negative HPV Genotyping 16: Negative HPV Genotyping 18: Negative Clinical Information LMP: Post menopausal Previous PAP test: Unknown date/findings Material Received Cervix Copies To: Deborah Nicholson [address] [place], [place] [phone] Philippe Layton MD [facility] [address] [place] [address] ----- ------- Signed (signature on file) KO Marie (ASC) 05/10/24 1043 ----- ------- END OF REPORT us Generic External Data Provider LAB CYTOLOGY CHRISTIE PONCE Final Result Performing Organization Address City/State/[facility] Co de Phone Number [facility] [address] [place] [phone] * BI Mammogram Screening Tomosynthesis Bilateral (12/20/2023 9:15 AM EST) Anatomical Region Laterality Modality Breast Bilateral Mammography 12/20/2023 9:15 AM EST Narrative 12/28/2023 12:23 PM EST [address] [place] [address] Mammography Report Signed Patient: Magalys Serrano MR#: [id number] : 1970 Acct:[id number] Age/Sex: 52 / F ADM Date: 12/20/23 Loc: [facility] Attending Dr: Deborah Nicholson GASOLINE FINISHER Ordering Physician: Deborah Nicholson Results: 2Beni gn Findings Date of Service: 12/20/23 Follow Up: 1 Year From Orig inal Mammogram Procedure(s): MM tomosynthesis screening BI Accession Number(s): [id number] cc: Deborah Nicholson GASOLINE FINISHER EXAMINATION: MM SCREENING DIGITAL BREAST TOMOSYNTHESIS, BILATERAL [...] 12/28/23 1220 DD/ 0915 TD/TT: 12/20/23 0930 Refinery Operator Coking: Procedure Note Donotuseinterpreter, Image - 12/28/2023 Isak [facility] [address] [place], [place] [address] Mammography Report Signed Patient: Bart Serrano#: [id number] : 1970Acct:[id number] Age/Sex: 52 / FADM Date: 12/20/23 Loc: [facility] Attending Dr: Deborah Nicholson GASOLINE FINISHER Ordering Physician: Deborah Nicholson FNPResults: 2Beni gn Findings Date of Service: 12/20/23Follow Up: 1 Year From Orig inal Mammogram Procedure(s): MM tomosynthesis screening BI Accession Number(s): [id number] cc: Deborah Nicholson GASOLINE FINISHER EXAMINATION: MM SCREENING DIGITAL BREAST TOMOSYNTHESIS, BILATERAL [...] OV> 12/28/23 1220 DD/ 4 TD/TT: 12/20/23929 Refinery Operator Coking: [facility] GASOLINE FINISHER IMG BI PROCEDURES Final Resul t * (ABNORMAL) Lipid Panel, Standard (01/27/2023 9:05 AM EST) Triglycerides 118 <150 mg/dL [facility] Comment:Desirable Triglyceri de: less than 150 mg/dLBorderline High Triglyceride 150-199 mg/dLHigh Triglyceride: 200-499 mg/dLVery High Triglyceride: greater than or equal to 5OO mg/dL Cholesterol 223(H) <200 mg/dL [facility] Comment:Desirable Cholestero l: less than 200 mg/dLBorderline High Cholesterol: 200-239 mg/dLHigh Cholesterol: greater than 239 mg/dL LDL Cholesterol Calculated 144(H) <100 mg/dL [facility] Comment:Desirable LDL: less than 100 mg/dLNear Optimal/Above Optimal LDL: 110- 129 mg/dLBorderline High LDL: 130-159 mg/dLHigh LDL: 160-189 mg/dLVery High LDL: greater than or equal to 190 mg/dL HDL Cholesterol 56 >40 mg/dL [facility] Comment:Desirable HDL: great er than 40 mg/dL Note: This HDL assay may give artificially low results in patients with liver disease. Blood Venous blood specimen / Unknown 01/27/2023 9:05 AM EST 01/27/2023 11:36 AM EST [facility] LAB BLOOD ORDERABLES Final Re sult [facility] [address] [place] [phone] * Hm Colonoscopy (02/28/2019 8:21 AM EST) Historical Provider MD HEALTH MAINTENANCE Final Result from Last 3 Months or Most Recently Relevant to Health Maintenance Insurance [facility] C3 Care Teams Placement Specialist Relationship Specialty Start Date End Date Deborah Nicholson [facility] [address] [place] [phone] PCP - General Family Medicine 10/12/21
--- OUTSIDE RECORDS SUMMARY | 2024-12-20 10:16 | XMS_ITS | Encounter Summary ---
Author Organization [employer] Address [address] [facility] 7t [place] [address] Care Team Providers Care Motor Installer Name Role Phone Deborah Nicholson PILE DRIVER Primary Care Provider [phone] Reason for Visit * Reason Comments Med Refill Encounter Details Date Type Department Care Team ([facility] Contact Info) Description 06/29/[address] [facility] [address] [place], [place] [phone] Yudith Estrella MD [address] [place] [address] Exacerbation of asthma, unspecified asthma severity, unspecified [...] documented as of this encounter Care Teams Motor Installer Relationship Specialty Start Date End Date Deborah Nicholson FNP [address] [place] [phone] PCP - General Family Medicine 10/12/21 documented as of this encounter
--- OUTSIDE RECORDS SUMMARY | 2024-12-20 10:16 | XMS_ITS | Encounter Summary ---
Author Organization [employer] Address [address] [facility] [address] [place] [address] Care Team Providers Care Director Educational Radio Name Role Phone Deborah Nicholson CREATIVE TECHNOLOGIST Primary Care Provider [phone] Encounter Details Date Type Department Care Team ([facility] st Contact Info) Description 12/15/2024 Orders Only [facility] [address] [place], [place] [phone] Quinton Fountain MD [address] [place], [place] [phone] Social History Tobacco Use Types Packs/Day Years [...] as of this encounter Care Teams Director Educational Radio Relationship Specialty Start Date End Date Deborah Nicholson FNP [address] [place] [phone] PCP - General Family Medicine 10/12/21 documented as of this encounter
--- OUTSIDE RECORDS SUMMARY | 2024-12-20 10:16 | XMS_ITS | Encounter Summary ---
Author Organization [employer] Address [address] [facility] [address] [place] [address] Care Team Providers Care Glaze Handler Name Role Phone [place] [facility] Primary Care Provider [phone] Reason for Visit * Reason Comments Med Refill Encounter Details Date Type Department Care Team ([facility] Contact Info) Description 06/14/2023 Refill [facility] [address] [place], [place] [phone] [facility] [address] [place], [place] [phone] Dyspepsia Social History Tobacco Use Types Packs/Day [...] documented as of this encounter Care Teams Glaze Handler Relationship Specialty Start Date End Date Deborah Nicholson FNP [address] [place] [id number] PCP - General Family Medicine 10/12/21 documented as of this encounter
--- OUTSIDE RECORDS SUMMARY | 2024-12-20 10:16 | XMS_ITS | Encounter Summary ---
Author Organization [employer] Address [address] [facility] 7t [place] [address] Care Team Providers Care Licensed Practical Vocational Nurse Name Role Phone [place] [facility] Primary Care Provider [phone] Reason for Visit * Reason Comments Med Refill Encounter Details Date Type Department Care Team ([facility] Contact Info) Description 09/12/2023 Refill [facility] [address] [place], [place] [phone] [facility] [address] [place], [place] [phone] Social History Tobacco Use Types Packs/Day Years [...] documented as of this encounter Care Teams Licensed Practical Vocational Nurse Relationship Specialty Start Date End Date Deborah Nicholson FNP [address] [place] [id number] PCP - General Family Medicine 10/12/21 documented as of this encounter
--- OUTSIDE RECORDS SUMMARY | 2024-12-20 10:16 | XMS_ITS | Encounter Summary ---
Author Organization [employer] Address [address] [facility] [address] 7t [place] [address] Care Team Providers Care Terminal Worker Name Role Phone Deborah Nicholson [employer] [facility] Primary Care Provider [phone] Encounter Details Date Type Department Care Team (Late st Contact Info) Description 05/25/2023 Orders Only [facility] [address] [place], [place] [phone] ProviderKaye MD Social History Tobacco Use Types [...] documented as of this encounter Care Teams Terminal Worker Relationship Specialty Start Date End Date Deborah Nicholson FNP [address] [place] [id number] PCP - General Family Medicine 10/12/21 documented as of this encounter
--- OUTSIDE RECORDS SUMMARY | 2024-12-20 10:16 | XMS_ITS | Encounter Summary ---
Author Organization [employer] Address [address] [facility] 7t [place] [address] Care Team Providers Care Screen Print Operator Name Role Phone [place] [facility] Primary Care Provider [phone] Encounter Details Date Type Department Care Team ([facility] st Contact Info) Description 08/23/2023 Telephone [facility] 230 [place], [place] [phone] [place] [facility] [address] [place], [place] [phone] Social History Tobacco Use Types Packs/Day Years [...] t he electric, gas, oil or water [employer] threatened to shut off services in your [...] Results * T-SPOT??.TB (08/31/2023 9:06 AM EDT) [facility] T Spot TB Negative Negative [facility] Comment:A negative test resu lt [...] as aquantitative test. TS PANEL A 0 [facility] TS PANEL B 0 [facility] Negative Control Passed [facility] Positive Control Passed [facility] Comment:For additional infor sarah, please refer [email or web address]/faq/LFM654(This link is being provided for informational/educational purposes only.)THIS TEST WAS PERFORMED AT:[id number] [place] [address]PFVYMVNERINN PENA MD,PHD 08/31/2023 9:06 AM EDT 08/31/2023 11:12 AM EDT [facility] LAB BLOOD ORDERABLES Final Re sult [facility] [address] [place] [address] [phone] documented in this encounter Visit Diagnoses Diagnosis Screening examination for pulmonary tuberculosis documented in this encounter Additional Health Concerns Assessment Noted Time PHQ-9 Depression Total Score: 8 03/16/19 24 2:08 PM EST documented as of this encounter Care Teams Screen Print Operator Relationship Specialty Start Date End Date Deborah Nicholson FNP [address] [place] [id number] PCP - General Family Medicine 10/12/21 documented as of this encounter
== END 2024-12-20 09:19 | disposition home or self-care (01) ==
LOC: HO.MAMMO 09:18
PROVIDERS: PCP Registered Nurse; Visit Provider Registered Nurse
DX: Z12.31 Encounter for screening mammogram for malignant neoplasm of breast (principal)
CPT/HCPCS: 77063; 77067

== ENCOUNTER → 2024-12-20 09:30 | Outpatient (BNV) | payer MEDICAID, SELFPAY | PROVIDERS: PCP Registered Nurse; Visit Provider Radiology Body Imaging | DX: Z12.31 Encounter for screening mammogram for malignant neoplasm of breast (principal) | CPT/HCPCS: 77063; 77067 ==

== ENCOUNTER 2025-01-17 11:31 | Outpatient (AMB) | payer MEDICAID, SELFPAY ==
[2025-01-17 11:40] VITALS: BP 122/73; PULSE 68; BMI 31.0
--- NOTE | 2025-01-17 11:40 | MHC.OFFVIS ---
Vital Signs 01/17/25 11:40 Height 5 ft 3 in Weight 175 lb BMI 31.0 BP 122/73 Blood Pressure Location Rt brachial Position Sitting Pulse 68 Intake Visit Reasons: eval linzess Intake Note: Magalys returns to in office follow up to evaluate Linzess medication. CC: Patient reports that the Linzess help sometimes but sometimes she does not have a BM. 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 ? FHX CRC She received the Linzess, although it took awhile she has only had it for a few days. She believes at the 145 micro g dose it is helping her move her bowels. It is still early to tell if this will resolve all of her issues with respect to bloating and abdominal pain. It is also too early to say whether restoring better motility will help her with her epigastric pain and GERD. She continues on her omeprazole which she feels is a good medication fit for her. For now she agrees she wants to stay in the 145 dose for a few more weeks and wait and see how things develop. With review of her labs she has elevated transaminases which likely is fatty liver. However I will initiate a workup to be sure there are no other modifiable factors. The patient says she drinks alcohol socially on occasions, there is no known family history of liver disease, but she is obese. She was educated that if it is fatty liver she will need to control her weight, her blood sugars and not drink alcohol on a regular basis to protect her future liver health. Return office visit in 6 weeks Orders: Orders BRIAN Reflex Titer and Pattern Today E66.811 - Obesity, class 1, R74.01 - Elevation of levels of liver transaminase levels Alpha Fetoprotein Today E66.811 - Obesity, class 1, R74.01 - Elevation of levels of liver transaminase levels Ferritin Today E66.811 - Obesity, class 1, R74.01 - Elevation of levels of liver transaminase levels Hepatitis A,B,C Profile Today E66.811 - Obesity, class 1, R74.01 - Elevation of levels of liver transaminase levels HIV Ab/Ag Today E66.811 - Obesity, class 1, R74.01 - Elevation of levels of liver transaminase levels Liver Fibrosis Pnl Today E66.811 - Obesity, class 1, R74.01 - Elevation of levels of liver transaminase levels Phosphatidylethanol, Blood Today E66.811 - Obesity, class 1, R74.01 - Elevation of levels of liver transaminase levels Smooth Muscle Antibody Today E66.811 - Obesity, class 1, R74.01 - Elevation of levels of liver transaminase levels Mitochondrial Antibody Today E66.811 - Obesity, class 1, R74.01 - Elevation of levels of liver transaminase levels US abdomen complete Today E66.811 - Obesity, class 1, R74.01 - Elevation of levels of liver transaminase levels LABS: Laboratory Tests 12/03/24 15:01 Ferritin 86 Liver Total Bilirubin 0.4 Liver Fibrosis Stage F0 Mitochondrial AB Titer 1:320 H Alpha Fetoprotein 1.3 BRIAN Screen POSITIVE A BRIAN Titer 1:320 H BRIAN Titer 2 1:80 H BRIAN Pattern A Anti-Smooth Muscle Ab <20 Hepatitis A IgM Ab Nonreactive Hep Bs Antigen Negative Hep Bs Antibody REACTIVE Hep B Core Total Ab Nonreactive Hepatitis C Ab (EIA) Nonreactive HIV 1&2 Ab/P24 Ag 4thGn Nonreactive ULTRASOUND OF THE ABDOMEN 02/26/2024 COLONOSCOPY BIOPSY TODAY'S VISIT [facility] Medical History Acid reflux History of Helicobacter pylori infection Menopause GERD (gastroesophageal reflux disease) Asthma Depression Anxiety Surgical History H/O midurethral sling procedure History of tubal ligation History of endometrial ablation H/O bilateral breast reduction surgery Hx of colonoscopy Hx of esophagogastroduodenoscopy Family History Mother Diabetes HTN (hypertension) Father Diabetes HTN (hypertension) Daughter Diabetes Social History Household Members: Children and None Alcohol intake: never Review of Systems Const Denies fatigue, Denies fever(s), Denies night sweats, Denies poor appetite, Reports weakness (Right leg upon standing) and Denies weight loss ENT Reports Normal hearing present, Denies dental pain, Denies dysphagia, Denies hearing loss, Denies mouth pain, Denies odynophagia, Denies throat swelling, Denies tongue swelling and Reports other (Dentition adequate) Card Reports no additional complaints Resp Reports no additional complaints GI Details: Denies abdominal pain, Denies melena, Denies bloating, Denies hematochezia, Reports constipation, Denies GI cramping, Denies dysphagia, Denies excessive flatus, Denies early satiety, Denies heartburn, Denies diarrhea, Denies nausea, Denies odynophagia, Denies vomiting and Denies hematemesis Musc Reports back pain, Reports muscle weakness and Reports stiffness Skin/Breast Denies pruritus, Denies lesions, Denies rash and Denies jaundice Neuro Reports Normal hearing present, Denies Abnormal speech present and Reports weakness (Right leg upon standing) Endo Denies fatigue Aller/Immun Denies throat swelling and Denies tongue swelling Physical Exam Vital Signs: Last Vital Signs Pulse 68 01/17/25 11:40 BP 122/73 01/17/25 11:40 BMI result Body Mass Index 31.0 Const General: cooperative, no acute distress, well developed and well groomed Nutritional Appearance: well nourished and obese Orientation/consciousness: oriented to person, oriented to place and oriented to time Limitations: language barrier HEENT Head: Yes normocephalic and Yes atraumatic Eyes General: appearance normal, both eyes and all related structures Pupils: Equal, round and reactive pupils present Neck Neck: Yes normal visual inspection and Yes no lymphadenopathy Thyroid: Thyroid normal Resp Effort & Inspection: normal respiratory effort and able to speak in complete sentences Auscultation: clear to auscultation bilaterally Cardio Rate: regular rate Rhythm: regular rhythm Heart sounds: Normal, physiologic split S2 sound present Peripheral pulses: radial pulses present and posterior tibial pulses present GI Inspection: No distended, Yes Abdominal panniculus present and Yes obesity Palpation (GI): Soft to palpation, nontender, no guarding, not rigid and No hepatosplenomegaly present Percussion: Yes normal to percussion Auscultation: normal bowel sounds Rectal Exam - Female: deferred Back/Spine/Pelvis Back: No back tenderness Thoracic/Lumbar Spine: thoracic and lumbar spine normal to inspection, thoraco-lumbar ROM limited and No lumbar spinal tenderness Sacroiliac joints: on the right tender to palpation and by passive hyperextension of lower ext Skin General skin exam: no rashes or lesions noted, turgor normal, skin not dry, no jaundice, No spider nevi and no striae Rashes: no rashes Nails: normal Neuro General: oriented to person, oriented to place, oriented to time and No gait normal (Limp and shuffling at times due to weakness) Cranial nerves: Yes Equal, round and reactive pupils present and Yes Normal hearing present Speech: No Abnormal speech present Deep tendon reflexes (DTR's): Right patellar reflex intensity grade: 4+, Left patellar reflex intensity grade: 2+, Right ankle reflex intensity grade: 3+ and Left ankle reflex intensity grade: 2+ Extrem General: Yes normal to inspection, No clubbing, No cyanosis and No edema Psych Appearance: grossly normal and well kempt Mental Status: mental status grossly normal Speech and movement: Normal speech and movement present Affect: normal affect Attitude: cooperative Thought process: Normal thought process present and not confabulating Thought content: Normal thought content present Insight: Limited insight present (Psych) Judgement: Limited judgement present (Psych) Results Reviewed Results Reviewed: Laboratory Tests 12/03/24 15:01 Ferritin 86 Liver Total Bilirubin 0.4 Liver Fibrosis Stage F0 Mitochondrial AB Titer 1:320 H Alpha Fetoprotein 1.3 BRIAN Screen POSITIVE A BRIAN Titer 1:320 H BRIAN Titer 2 1:80 H BRIAN Pattern A Anti-Smooth Muscle Ab <20 Hepatitis A IgM Ab Nonreactive Hep Bs Antigen Negative Hep Bs Antibody REACTIVE Hep B Core Total Ab Nonreactive Hepatitis C Ab (EIA) Nonreactive HIV 1&2 Ab/P24 Ag 4thGn Nonreactive Assessment & Plan Assessment & Plan (1) Primary biliary cholangitis: Code(s): K74.3 - Primary biliary cirrhosis Category: Medical (2) Transaminitis: Code(s): R74.01 - Elevation of levels of liver transaminase levels Category: Medical Plan Subjective Patient presents to follow up on constipation management with Linzess and to review abnormal liver laboratory results. She reports the current Linzess dose is not sufficient and requests a dose increase. An office machine technician was requested for discussion of liver findings. Objective Assessment & Plan Constipation on Linzess: Inadequate response to current linaclotide dose by patient report. - Increase Linzess dose to 290 micro g; prescription sent. Abnormal liver labs; suspected primary biliary cholangitis: Abnormal liver studies noted with concern for primary biliary cholangitis. - information printed in Bengali to educate her about his condition.. -we will arrange for liver biopsy to confirm the diagnosis given that she has none of the usual symptoms such as fatigue or nocturnal itching. -we will start her on ursodiol 200 mg twice a day and monitor her alk phosphatase She has a doorknob complaint of severe back pain and on exam she is exquisitely tender at the SI joint. As a courtesy I will get some x-rays of her lumbar thoracic spine and sacroiliac joint so that I can better direct her where to care for this problem. Return office visit after February 23 Orders: Orders Prothrombin Time INR Today K74.3 - Primary biliary cirrhosis, R74.01 - Elevation of levels of liver transaminase levels US biopsy liver Today K74.3 - Primary biliary cirrhosis, R74.01 - Elevation of levels of liver transaminase levels XR lumbar spine 2-3V Today M54.9 - Dorsalgia, unspecified, R29.898 - Other symptoms and signs involving the musculoskeletal system XR thoracic spine 2V Today M54.9 - Dorsalgia, unspecified, R29.898 - Other symptoms and signs involving the musculoskeletal system XR sacroiliac joint 1-2V Today M54.9 - Dorsalgia, unspecified, R29.898 - Other symptoms and signs involving the musculoskeletal system Medications: New linaclotide (Linzess) 290 mcg PO QAM 30 caps 6RF 30 days ursodiol 200 mg PO BID 60 caps 6RF K74.3 - Primary biliary cirrhosis Discontinued linaclotide (Linzess) Take first thing in the morning with a full glass of water. Discontinued Reason: Doctor's Order 145 mcg PO QAM 30 caps 6RF K58.1 - Irritable bowel syndrome with constipation Coding Level of Care Code Est Pt Level 4 (16537) Diagnoses Primary biliary cholangitis K74.3 Transaminitis R74.01 Time Spent (min) 37
== END 2025-01-17 12:51 | disposition home or self-care (01) ==
LOC: HO.HGI 11:32
PROVIDERS: PCP Registered Nurse; Visit Provider Nurse Practitioner
DX: K74.3 Primary biliary cirrhosis (principal); R74.01 Elevation of levels of liver transaminase levels
CPT/HCPCS: 99214

== ENCOUNTER 2025-01-17 11:31 | Outpatient (REF) | payer MEDICAID, SELFPAY ==
[2025-01-17 13:58] LABS: INTERNATIONAL NORM RATIO 1.0 (0.9-1.1); Prothrombin Time 12.1 SEC (11.2-13.5)
== END 2025-01-17 11:32 | disposition home or self-care (01) ==
LOC: HO.XRAY 11:31
PROVIDERS: PCP Registered Nurse; Visit Provider Nurse Practitioner
DX: K74.3 Primary biliary cirrhosis (principal); R74.01 Elevation of levels of liver transaminase levels; M54.9 Dorsalgia, unspecified; R29.898 Other symptoms and signs involving the musculoskeletal system
CPT/HCPCS: 36415; 85610; 99212

== ENCOUNTER 2025-01-21 15:42 | Outpatient (REF) | payer MEDICAID, SELFPAY ==
--- NOTE | ~2025-01-21 | XR_ITS ---
EXAMINATION: XR LUMBOSACRAL SPINE WITH OBLIQUES CLINICAL INFORMATION: Acute on chronic LBP COMPARISON: Previous x-ray May 2023 TECHNIQUE: AP, both oblique, and lateral views of the lumbar spine. Lateral view of the lumbosacral junction. FINDINGS: Mild curvature of the lumbar sacral spine to the right. Mild 2 mm anterior subluxation of L4 respect to L5. Bone alignment is otherwise normal. No fracture or dislocation. Normal disc spaces. Bilateral lower lumbar spine facet arthritis. XR/XR lumbar spine 4V min IMPRESSION: Degenerative changes. Electronically signed by: Sary Fitzgerald MD 01/21/2025 04:26 PM [facility]
--- OUTSIDE RECORDS SUMMARY | 2025-01-21 14:30 | XMS_ITS | Encounter Summary ---
Author Organization [employer] Address [address] [place] [address] 7t [place] [address] Care Team Providers Care Home Organizer Name Role Phone Deborah Nicholson Primary Care Provider [phone] Reason for Referral * Consultation (Routine) - Authorized Specialty Diagnoses / Procedures Referred By Nenita monzon Referred To Contact Physical Therapy Diagnoses Chronic right-sided low back pain with right-sided sciatica Deborah Nicholson FNP [address] [place] [address] Phone: tel: fax: [facility] [address] [place] [address] Phone: tel: fax: Referral ID Status Reason Start Date Expiration Date Visits Requested Visits Authorized [id number] Authorized Specialty Services Required 01/21/2025 01/21/2026 20 20 Reason for Visit * Reason Comments Follow-up Encounter Details Date Type Department Care Team ([facility] st Contact Info) Description 01/21/2025 2:30 PM EST Office Visit [facility] [address] [place], [place] [phone] Deborah Nicholson FNP [address] [place], [place] [phone] Chronic right-sided low back pain with right-sided sciatica (Primary Dx) Social History Tobacco Use Types [...] Sign Reading Time Taken Comments Blood Pressure 96/72 01/21/2025 2:42 PM EST Pulse 78 01/21/2025 2:42 PM EST Temperature 37.2 C (98.9 F) 01/21/2025 2:42 PM EST Respiratory Rate 20 01/21/2025 2:42 PM EST Oxygen Saturation 98% 01/21/2025 2:42 PM EST Inhaled Oxygen Concentration - - Weight 80.2 kg (176 lb 12.8 oz) 01/21/2025 2:42 PM EST Height 157.5 cm (5' 2 ) 01/21/2025 2:42 PM EST Body Mass Index 32.34 01/21/2025 2:42 PM EST documented in this encounter Plan of Treatment Upcoming Encounters Date Type Department Care Team (Late st Contact Info) Description 01/30/2025 3:15 PM EST Telemedicine [facility] MED[facility] [address] [place] [address] Deborah Nicholson FNP [address] [place] [address] Scheduled Referrals Name Type Priority Associated Diagnoses Orde r Schedule Referral to Physical Therapy Outpatient Referral Routine Chronic right-sided low back pain with right-sided sciatica Expected: 01/21/2025 (Approximate), Expires: 01/21/2026 documented as of this encounter Procedures Procedure Name Priority Date/Time Associated Diagnosis Comments XR LUMBAR SPINE COMPLETE 4+ VIEWS Routine 01/21/2025 4:10 PM EST Chronic right-sided low back pain with right-sided sciatica POCT URINALYSIS DIPSTICK Routine 01/21/2025 3:31 PM EST Chronic right-sided low back pain with right-sided sciatica documented in this encounter Results * XR Lumbar Spine Complete 4+ Views (01/21/2025 4:10 PM EST) Anatomical Region Laterality Modality Spine, L-spine Radiographic Paulette ging 01/21/2025 4:10 PM EST Narrative 01/21/2025 4:28 PM EST [facility] [address] [place] [address] XRay Report Signed Patient: Magalys Serrano MR#: [id number] : 1970 Acct:[id number] Age/Sex: 54 / F ADM Date: 01/21/25 Loc: [facility] Attending Dr: Deborah SANCHEZ Ordering Physician: Deborah Nicholson Date of Service: 01/21/25 Procedure(s): XR lumbar spine 4V min Accession Number(s): [id number] [facility] Reason for Exam: Acute on chronic LBP EXAMINATION: XR LUMBOSACRAL SPINE WITH OBLIQUES CLINICAL INFORMATION: Acute on chronic LBP COMPARISON: Previous x-ray May 2023 TECHNIQUE: AP, both oblique, and lateral views of the lumbar spine. Lateral view of the lumbosacral junction. FINDINGS: Mild curvature of the lumbar sacral spine to the right. Mild 2 mm anterior subluxation of L4 respect to L5. Bone alignment is otherwise normal. No fracture or dislocation. Normal disc spaces. Bilateral lower lumbar spine facet arthritis. XR/XR lumbar spine 4V min IMPRESSION: Degenerative changes. Electronically signed by: Sary Fitzgerald MD 01/21/2025 04:26 PM [facility] Dictated By: Sary Fitzgerald MD Signed By: <Electronically signed by Sary Fitzgerald MD in OV> 01/21/25 1626 DD/ 1610 TD/TT: 01/21/25 1615 Six Pack Packer: ZURDO Procedure Note Donotuseinterpreter, Image - 01/21/2025 [place] [address] XRay Report Signed Patient: Bart Serrano#: [id number] : 1970Acct:[id number] Age/Sex: 54 / FADM Date: 01/21/25 Loc: HO.HHCX Attending Dr: Deborah Nicholson AUTO TRANSMISSION TECHNICIAN Ordering Physician: Deborah Nicholson Date of Service: 01/21/25 Procedure(s): XR lumbar spine 4V min Accession Number(s): [id number] cc: LynDeborah hayes [facility] Reason for Exam: Acute on chronic LBP EXAMINATION: XR LUMBOSACRAL SPINE WITH OBLIQUES CLINICAL INFORMATION: Acute on chronic LBP COMPARISON: Previous x-ray May 2023 TECHNIQUE: AP, both oblique, and lateral views of the lumbar spine. Lateral view of the lumbosacral junction. FINDINGS: Mild curvature of the lumbar sacral spine to the right. Mild 2 mm anterior subluxation of L4 respect to L5. Bone alignment is otherwise normal. No fracture or dislocation. Normal disc spaces. Bilateral lower lumbar spine facet arthritis. XR/XR lumbar spine 4V min IMPRESSION: Degenerative changes. Electronically signed by: Sary Fitzgerald MD 01/21/2025 04:26 PM EST Dictated By: Sary Fitzgerald MD Signed By: <Electronically signed by Sary Fitzgerald MD in OV> 01/21/25 1626 DD/ 1610 TD/TT: 01/21/25 1615 Six Pack Packer: ZURDO [facility] IMG XR PROCEDURES Final Resul t * (ABNORMAL) POCT urinalysis dipstick manually resulted (CPT 23328) (01/21/2025 3:31 PM EST) Color, UA Yellow Clarity, UA Clear Glucose, UA Negative Bilirubin, UA Negative Ketones, UA Negative Spec Grav, UA 1.010 Blood, UA Positive(A) Negative, None Detected pH, UA 6.0 Protein, UA Negative Urobilinogen, UA 2.0 Leukocytes, UA Negative Negative, Rare, Trace, 1+ (17), 2+ (35), 3+ (70), Trace (15) Nitrite, UA Negative Negative, None Detected Appearance, UA clear QC Media Lot # [id number] Lot# Expiration Date Urine (Urine, Random) 01/21/2025 3:31 PM EST [facility] POINT OF CARE TEST ENTER/EDIT ORDERABLES Final Result documented in this encounter Visit Diagnoses Diagnosis Chronic right-sided low back pain with right-sided sciatica- Primary documented in this encounter Additional Health Concerns Assessment Noted Time PHQ-9 Depression Total Score: 17 025 11:26 AM EST documented as of this encounter Care Teams Home Organizer Relationship Specialty Start Date End Date Deborah Nicholson AUTO TRANSMISSION TECHNICIAN [address] [place] [id number] PCP - General Family Medicine 10/12/21 documented as of this encounter
--- OUTSIDE RECORDS SUMMARY | 2025-01-22 01:19 | XMS_ITS | Encounter Summary ---
Author Organization [employer] Address [address] [place] [address] Care Team Providers Care Hand Tufter Name Role Phone Deborah Nicholson GEOP[employer]ICAL PARTY CHIEF Primary Care Provider [phone] Encounter Details Date Type Department Care Team (Late st Contact Info) Description 05/25/2023 Orders Only [facility] [address] [place], [place] [id number] ProviderKaye MD Social History Tobacco Use Types [...] Info) Description 01/30/2025 3:15 PM EST Telemedicine [facility] [address] [place] [address] Deborah Nicholson [facility] [address] [place] [address] documented as of this encounter Procedures Procedure [...] documented as of this encounter Care Teams Hand Tufter Relationship Specialty Start Date End Date Deborah Nicholson FNP [address] [place] [address] PCP - General Family Medicine 10/12/21 documented as of this encounter
--- OUTSIDE RECORDS SUMMARY | 2025-01-22 01:19 | XMS_ITS | Encounter Summary ---
Author Organization [employer] Address [address] [facility] [address] [place] [address] Care Team Providers Care Flower Planter Name Role Phone Deborah Nicholson STOCK SUPERVISOR Primary Care Provider [phone] Encounter Details Date Type Department Care Team (Latest Contact Info) Description 01/21/2025 Travel Social History Tobacco Use Types Packs/Day [...] t he electric, gas, oil or water [employer] threatened to shut off services in your [...] Info) Description 01/30/2025 3:15 PM EST Telemedicine [facility] [address] [place] [address] Deborah Nicholson FNP [address] [place] [address] documented as of this encounter Visit Diagnoses Not on filedocumented in this encounter Additional Health Concerns Assessment Noted Time PHQ-9 Depression Total Score: 17 025 11:26 AM EST documented as of this encounter Care Teams Flower Planter Relationship Specialty Start Date End Date Deborah Nicholson FNP [address] [place] [address] PCP - General Family Medicine 10/12/21 documented as of this encounter
--- OUTSIDE RECORDS SUMMARY | 2025-01-22 01:19 | XMS_ITS | Clinical Summary ---
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 Role Phone Deborah Nicholson [facility] Primary Care Provider [phone] Allergies No known active allergies Medications cloNIDine (Catapres) 0.1 MG tablet TAKE 1 TABLET BY MOUTH TWICE A DAY NEEDED FOR ANXIETY/PANIC 02/08/20 22 Active fluconazole (Diflucan) 150 MG tablet TOME HESHAM TABLETA LOS D ONE DOSE 10/28/19 22 Active fluticasone (Flonase) 50 MCG/ACT nasal spray SPRAY 1 - 2 SPRAYS IN EACH NOSTRIL EVERY DAY NEEDED 05/12/19 22 Active Lidocaine, Anorectal, (Topicaine 5) 5 % gel Apply to affected area as needed 11/21/19 21 Active linaCLOtide (Linzess) 145 MCG capsule Take by mouth. Act evita mirtazapine (Remeron) 45 MG tablet TOME HESHAM [...] TABLETA TODOS LOS D 10/16/19 23 Active omeprazole (PriLOSEC) [address] capsuleIndicati ons:Dyspepsia TAKE 2 CAPSULE BY MOUTH EVERY DAY BEFORE A MEAL 180 capsule 1 01/20/20 24 Active albuterol (2.5 MG/3ML) 0.083% nebulizer solution inhale 3 milliliter by nebulization route 3 times every day 75 mL 03/02/19 25 Active budesonide-form oterol (Symbicort) 80-4.5 MCG/ACT inhalerIndicati ons:Mild intermittent asthma without complication Inhale 2 puffs every 4-6 hours as needed for cough or wheezing 1 each 03/16/19 25 Active Ventolin HFA 108 (90 [...] 04/03/19 25 Active senna (Senokot) 8.6 MG tabletIndicatio ns:Constipation , unspecified constipation type Take 1 tablet (8.6 mg) by mouth at bedtime. 120 tablet 05/19/19 25 Active topiramate (Topamax) 25 MG tabletIndicatio ns:Hot flashes Take 1 tablet (25 mg) by mouth before evening meal. 30 tablet 11 05/19/19 25 2025 Active D3-1000 25 MCG (1000 UT) capsuleIndicati ons:Hot flashes Take 1 capsule (25 mcg) by mouth Once per day. 30 capsule 05/19/19 25 2025 Active docusate sodium (Colace) 100 MG capsuleIndicati ons:Constipatio n, unspecified constipation type TOME 1 CAPSULA POR VIA ORAL TODOS LOS IBARRA 90 capsule 08/29/19 25 Active Estrogens Conjugated (Premarin) 0.625 MG/GM cream Insert 0.5 g into the vagina 2 (two) times a week. 30 g 2 10/05/19 25 2025 Active cetirizine (ZyrTEC) 10 MG tablet TAKE 1 TABLET BY MOUTH EVERY DAY NEEDED 90 tablet 3 01/03/20 25 Active naproxen (Naprosyn) 500 MG tabletIndicatio ns:Chronic right-sided low back pain with right-sided sciatica Take 1 tablet by oral route twice daily as needed for moderate pain 30 tablet 1 01/22/20 25 Active cyclobenzaprine (Flexeril) 5 MG tabletIndicatio ns:Chronic right-sided low back pain with right-sided sciatica Take 1 tablet (5 mg) by mouth if needed in the morning, at noon, and at bedtime for muscle spasms. 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 ([facility]) 09/15/2018 Panic attack 03/24/2018 Posttraumatic stress disorder 03/24/2018 Vitamin D deficiency 03/24/2018 Allergic rhinitis 06/10/2016 Constipation 06/10/2016 Hemangioma of liver 06/10/2016 Mild persistent asthma 06/10/2016 Resolved Problems Problem Noted Date Diagnosed Date Resolved Date Acute bacterial conjunctivitis of both eyes 03/06/2024 10/04/2024 Encounters Date Type Department Care Team Description 01/21/2025 2:30 PM EST Office Visit [address] [address] [facility] right-sided low back pain with right-sided sciatica (Primary Dx) 01/21/2025 Travel 01/17/2025 Orders Only GENERIC EXTERNAL DATA DEPARTMENT Provider, Generic External Data 12/30/[address] [address] GilberteDborah [facility] 12/20/2024 Orders Only [address] [address] [facility] 12/15/2024 Orders Only [facility] [address] [address] Quinton Fountain MD 12/14/[address] [address] GilbertDeborah [facility] Nurse Triage; Results 12/13/2024 Orders Only [facility] [address] [place] [phone] Quinton Fountain MD UTI symptoms (Primary Dx) 12/13/2024 Results Follow-Up [facility] [address] [place] [phone] Quinton Fountain MD POCT urinalysis dipstick manually resulted (CPT 99568), Bacterial Vaginosis, Chlamydia/N. Gonorrhoeae RNA, TMA, Urogenitial, Culture, Urine, Routine 12/11/2024 11:00 AM EDT Office Visit [facility] [address] [place] [address] Quinton Fountain MD UTI symptoms 12/11/2024 Travel 12/03/2024 Orders Only GENERIC EXTERNAL DATA DEPARTMENT Provider, Generic External Data 11/06/2024 2:40 PM EDT Office Visit [facility] [address], [place] [phone] Yudith Estrella MD Allergic conjunctivitis of both eyes (Primary Dx); Dry skin 11/06/2024 Travel 10/30/2024 Orders Only GENERIC EXTERNAL DATA DEPARTMENT Provider, Generic External Data 10/26/2024 Telephone [facility] [address] [place] [address] Lyn, Deborah, [employer] Nov Recall from Last 3 Months Immunizations Immunization Administration [...] Mass Index 32.34 01/21/2025 2:42 PM EST Plan of Treatment Upcoming Encounters Date Type Department Care Team (Late st Contact Info) Description 01/30/2025 3:15 PM EST Telemedicine [facility] [address] [place] [address] [facility] [address] [place] [address] Health Maintenance Due Date Last Done Comments CT Colonography 1971 FIT DNA/Cologuard 1971 FIT 1971 FOBT 1970 Sigmoidoscopy 1970 Disability Screening 1971 Hepatitis A Vaccines (1 of 2 - Risk 2-dose series) 12/24/1990 Hepatitis B Vaccines (1 of 3 - 19+ 3-dose series) 12/24/1990 05/07/2002, 12/13/2001, 11/13/2001 Pneumococcal Vaccine: 50+ Years (2 of 2 - PCV) 06/16/2011 06/15/2010 Colonoscopy 02/29/2020 02/28/2019 Colorectal Cancer Screening 02/29/2020 RSV Patients and Patients Aged 60 years or older (1 - Risk 50-74 years 1-dose series) 12/24/2021 Zoster Vaccines (1 of 2) 12/24/2021 Depression Monitoring 09/13/2024 03/16/2024, 025 COVID-19 Vaccine (3 - 2024- season) 2024 10/23/2020, 10/02/2020 Influenza Vaccine (#1) 2024 Alcohol/Substance Use Screening 03/16/2025 03/16/2024 SDOH Screening 03/16/2025 03/16/2024 Mammogram 12/20/2025 12/20/2024, 12/20/2023 Tobacco Screening 01/21/2026 01/21/2025 Lipid Panel 01/28/2028 01/27/2023 DTaP/Tdap/Td Vaccines (3 - Td or Tdap) 06/14/2028 06/14/2018, 06/01/2012, 08/23/2005, Additional history exists Cervical Cancer Screening 05/07/2029 HPV/Cotest 05/07/2029 05/07/2024, 10/15, 06/10/2016 Pap Smear 05/07/2029 05/07/2024, 10/31/2023 HIV Screening Completed 12/03/2024 Hepatitis C Screening [...] with right-sided sciatica POCT URINALYSIS DIPSTICK Routine 025 3:31 PM EST Chronic right-sided low back pain with right-sided sciatica PROTHROMBIN TIME-INR Routine 01/17/2025 1:06 PM EST BI MAMMOGRAM SCREENING TOMOSYNTHESIS BILATERAL Routine 12/20/2024 9:20 AM EST CULTURE, URINE, ROUTINE Routine 12/12/19 11:20 AM EDT UTI symptoms BACTERIAL VAGINOSIS [...] METABOLIC PANEL Routine 10/30/2024 12:17 PM EDT HPV DNA, LOW/HIGH RISK Routine 12:31 PM EDT PAP SMEAR Routine 05/07/2024 12:31 PM EDT LIPID PANEL, STANDARD Routine 01/27/2023 9:05 AM EST Menopause syndrome HM COLONOSCOPY Routine 02/28/2019 8:21 AM EST from Last 3 Months or Most Recently Relevant to Health Maintenance Results * XR Lumbar Spine Complete 4+ Views (01/21/2025 4:10 PM EST) Anatomical Region Laterality Modality Spine, L-spine Radiographic Paulette ging 01/21/2025 4:10 PM EST Narrative 01/21/2025 4:28 PM EST [address] [address] XRay Report Signed Patient: Magalys Serrano MR#: [id number] : 1970 Acct:[id number] Age/Sex: 54 / F ADM Date: 01/21/25 Loc: HO.HHCX Attending Dr: Deborah SANCHEZ Ordering Physician: Deborah Nicholson Date of Service: 01/21/25 Procedure(s): XR lumbar spine 4V min Accession Number(s): [id number] cc: Deborah Nicholson Reason for Exam: Acute on chronic LBP [...] by: Sary Fitzgerald MD 01/21/2025 04:26 PM [facility] Dictated By: Sary Fitzgerald MD Signed By: <Electronically signed by Sary Fitzgerald MD in OV> 01/21/25 1626 DD/ 1610 TD/TT: 01/21/25 1615 Vp Data: ZURDO Procedure Note Donotuseinterpreter, Image - 01/21/[address] [address] XRay Report Signed Patient: Bart Serrano#: [id number] : 1970Acct:[id number] Age/Sex: 54 / FADM Date: 01/21/25 Loc: HO.HHCX Attending Dr: Deborah WAGNERP Ordering Physician: Deborah Nicholson Date of Service: 01/21/25 Procedure(s): XR lumbar spine 4V min Accession Number(s): [id number] cc: GilbertDeborah [facility] Reason for Exam: Acute on chronic LBP [...] Sary Fitzgerald MD 01/21/2025 04:26 PM EST RP Dictated By: Sary Fitzgerald MD Signed By: <Electronically signed by Sary Fitzgerald MD in OV> 01/21/25 1626 DD/ 1610 TD/TT: 01/21/25 1615 Vp Data: ZURDO Result [facility] IMG XR PROCEDURES Final Resul t * (ABNORMAL) POCT urinalysis dipstick manually resulted (CPT 13617) (01/21/2025 3:31 PM EST) Only the most recent of2 resultswithin the [...] Urine (Urine, Random) 01/21/2025 3:[address] [facility] POINT OF CARE TEST ENTER/EDIT ORDERABLES Final Result * Prothrombin Time-INR (01/17/2025 1:06 PM EST) Prothrombin Time 12.1 11.2 - 13.5 SEC [facility] INTERNATIONAL NORM RATIO 1.0 0.9 - 1.1 [facility] Comment:INTERNATIONAL NORMAL IZED RATIO (INR) REFERENCE RANGES Reference RangeFor patients not on anticoagulant therapy: 0.9 - 1.1INR ranges for oral anticoagulanttherapy:For prevention and treatment of venous thrombosis and pulmonary embolism: 2.0 - 3.0For acute myocardial infarction with aspirin therapy: 2.0 - 3.0For acute myocardial infarction without aspirin therapy: 3.0 - 4.0For patients with mechanical prosthetic heart valves: 2.5 - 3.5 01/17/2025 1:06 PM EST 01/17/2025 1:06 PM EST us Generic External Data Provider LAB BLOOD ORDERAB LES Final Result [facility] [address] [place] [address] [phone] * BI Mammogram Screening Tomosynthesis Bilateral (12/20/2024 9:20 AM EST) Anatomical Region Laterality Modality Breast Bilateral Mammography 12/20/2024 9:20 AM EST Narrative 12/23/2024 6:25 PM EST [facility] [address] [place] [address] Mammography Report Signed Patient: Magalys Serrano MR#: [id number] : 1970 Acct:[id number] Age/Sex: 53 / F ADM Date: 12/20/24 Loc: HO.MAMMO Attending Dr: Deborah Nicholson [employer] Ordering Physician: Deborah Nicholson [employer] Results: 0Inco mplete- Need Additional Imaging Evaluation Date of Service: 12/20/24 Follow Up: Additional Imagi ng Procedure(s): MM tomosynthesis screening BI Accession Number(s): [id number] cc: Deborah Nicholson [employer] Reason For Exam: SCREENING EXAMINATION: MM SCREENING DIGITAL BREAST TOMOSYNTHESIS, BILATERAL CLINICAL INFORMATION: Screening. Asymptomatic. History of bilateral reduction mammoplasty in 2013. COMPARISON: Comparison made to multiple prior, most recent December 20, 2023, and most remote February 13, 2013. TECHNIQUE: Digital breast tomosynthesis is performed in mediolateral oblique and craniocaudal views along with computer-aided detection (CAD). Synthesized 2D images are generated from the tomosynthesis. FINDINGS: BREAST COMPOSITION: There are scattered areas of fibroglandular density. RIGHT BREAST: Status post reduction mammoplasty. Approximately 0.9 cm focal asymmetry in the upper outer quadrant middle depth at 6-7 cm from the nipple (MLO 32/80, CC 34/71). No suspicious calcifications or other abnormalities are seen. LEFT BREAST: Status post reduction mammoplasty. Asymmetry in the central breast on the MLO view along the retroareolar plane (MLO 31/86) appears to correlate with the asymmetry seen in the medial breast at 6 cm from the nipple on the cleavage view. No suspicious calcifications or other abnormalities are seen. MM/MM tomosynthesis screening BI IMPRESSION: RIGHT BREAST: Focal asymmetry in the upper outer quadrant middle depth. LEFT BREAST: Asymmetry in the central breast retroareolar plane on the MLO view middle depth, probably located in the medial breast on the CC view. ASSESSMENT: BI-RADS: Category 0: Incomplete - Need additional Imaging Evaluation RECOMMENDATION: 1. Additional views of the right and left breast 2. Targeted ultrasound if warranted after review of the additional views. 3. Radiology department staff will contact the patient for additional imaging. FOLLOW-UP: Additional Imaging required This examination should not preclude the clinical evaluation of a suspicious palpable abnormality. This patient's information was entered into a reminder system with a target due date for their next mammogram. Electronically signed by: Jerome Gordillo MD 12/23/2024 06:23 PM [facility] Dictated By: Jerome Gordillo MD Signed By: <Electronically signed by Jerome Gordillo MD in OV> 12/23/24 1823 DD/ 9 TD/TT: 12/20/[address] Vp Data: Procedure Note Donotuseinterpreter, Image - 12/23/2024 [facility] [address] [place] [address] Mammography Report Signed Patient: Bart Serrano#: [id number] : 1970Acct:[id number] Age/Sex: 53 / FADM Date: 12/20/24 Loc: KJ Attending Dr: Deborah Nicholson [employer] Ordering Physician: Deborah Nicholson FNPResults: 0Inco mplete- Need Additional Imaging Evaluation Date of Service: 12/20/24Follow Up: Additional Imagi ng Procedure(s): MM tomosynthesis screening BI Accession Number(s): [id number] cc: [facility] Reason For Exam: SCREENING EXAMINATION: MM SCREENING DIGITAL BREAST TOMOSYNTHESIS, BILATERAL CLINICAL INFORMATION: Screening. Asymptomatic. History of bilateral reduction mammoplasty in 2013. COMPARISON: Comparison made to multiple prior, most recent December 20, 2023, and most remote February 13, 2013. TECHNIQUE: Digital breast tomosynthesis is performed in mediolateral oblique and craniocaudal views along with computer-aided detection (CAD). Synthesized 2D images are generated from the tomosynthesis. FINDINGS: BREAST COMPOSITION: There are scattered areas of fibroglandular density. RIGHT BREAST: Status post reduction mammoplasty. Approximately 0.9 cm focal asymmetry in the upper outer quadrant middle depth at 6-7 cm from the nipple (MLO 32/80, CC 34/71). No suspicious calcifications or other abnormalities are seen. LEFT BREAST: Status post reduction mammoplasty. Asymmetry in the central breast on the MLO view along the retroareolar plane (MLO 31/86) appears to correlate with the asymmetry seen in the medial breast at 6 cm from the nipple on the cleavage view. No suspicious calcifications or other abnormalities are seen. MM/MM tomosynthesis screening BI IMPRESSION: RIGHT BREAST: Focal asymmetry in the upper outer quadrant middle depth. LEFT BREAST: Asymmetry in the central breast retroareolar plane on the MLO view middle depth, probably located in the medial breast on the CC view. ASSESSMENT: BI-RADS: Category 0: Incomplete - Need additional Imaging Evaluation RECOMMENDATION: 1. Additional views of the right and left breast 2. Targeted ultrasound if warranted after review of the additional views. 3. Radiology department staff will contact the patient for additional imaging. FOLLOW-UP: Additional Imaging required This examination should not preclude the clinical evaluation of a suspicious palpable abnormality. This patient's information was entered into a reminder system with a target due date for their next mammogram. Electronically signed by: Jerome Gordillo MD 12/23/2024 06:23 PM [facility] Dictated By: Jerome Gordillo MD Signed By: <Electronically signed by Jerome Gordillo MD in OV> 12/23/24 1823 DD/ 9 TD/TT: 12/20/[address] Vp Data: [facility] [employer] IMG BI PROCEDURES Edited Resu lt - Final * Culture, Urine, Routine (12/11/2024 11:20 AM EDT) Urine Urine specimen obtained by clean catch procedure / Unknown 12/11/2024 11:20 AM EDT 12/12/2024 11:36 AM EDT Comment:UACC Narrative [facility] - 12/13/2024 10:59 AM EDT Urine Culture Report Result Urine Culture 50,000 to 100,000 cfu/ml Urine Culture Mixed bacterial marixa characteristic of Urine Culture urogenital contamination. Specimen Source: Urine clean catch Quinton Fountain MD LAB MICROBIOLOGY - GENERAL ORDER JUANITO Final Result Performing Organization Address City/[facility]/ZIP Co de Phone Number [facility] [address] [place] [phone] * (ABNORMAL) Bacterial Vaginosis (12/11/2024 11:08 AM EDT) TRICHOMONAS VAGINALIS DETECTION BY PCR NOT DETECTED Not Detect [facility] BACTERIAL VAGINOSIS DETECTION BY PCR POSITIVE(A) Negative [facility] Comment:The BV organism targ ets [...] BY PCR NOT DETECTED Not Detect [facility] Rachel glab krusei PCR NOT DETECTED Not Detect [facility] Swab Vaginal structure / Unknown 12/11/2024 11:08 AM EDT 12/11/2024 1:22 PM EDT Quinton Fountain MD LAB MICROBIOLOGY - GENERAL ORDER UJANITO Final Result [facility] [address] [place] [phone] * Chlamydia/N. Gonorrhoeae RNA, TMA, Urogenitial (12/11/2024 11:00 AM EDT) CT PCR NOT DETECTED Not Detect. [facility] Comment:A not detected test result [...] NG PCR NOT DETECTED Not Detect. [facility] Comment:A not detected test result [...] - GENERAL ORDER JUANITO Final Result [facility] [address] [place] [address] [phone] * Drug Monitoring, Phosphatidylethanol (PEth), Blood (12/03/2024 3:01 PM EDT) Phosphatidylethan ol, Blood SEE NOTE [facility] Comment:THE ABOVE TEST WAS P ERFORMED; HOWEVER, ANALYSIS OF THISSAMPLE INDICATES A DRUG/CHEMICAL INTERFERENCE WITH THEASSAY. WE ARE UNABLE TO REPORT A QUANTITATIVE VALUE.PERFORMING SITE:[employer] Center Sales And Service Associate: PATRICKW. JEAN MD,PHD, CLIA: [id number] PEth 16:0/18:2 (PLPEth) SEE NOTE [facility] Comment:THE ABOVE TEST WAS P ERFORMED; HOWEVER, ANALYSIS OF THISSAMPLE INDICATES A DRUG/CHEMICAL INTERFERENCE WITH THEASSAY. WE ARE UNABLE TO REPORT A QUANTITATIVE VALUE. PEt Comments [facility] 12/03/2024 3:01 PM EDT 12/03/2024 3:01 PM EDT us Generic External Data Provider LAB BLOOD ORDERAB LES Final Result [facility] [address] [place] [phone] * Liver Fibrosis (HCV), FibroTest-ActiTest Panel (12/03/2024 3:01 PM EDT) Liver Fibrosis Score 0.07 [facility] Liver Fibrosis Stage F0 [facility] Liver Fibrosis Interpretation SEE NOTE [facility] Comment:no fibrosisFibro Lynette t Score [...] (severe fibrosis) Nec Inflam Act Score 0.04 [facility] Nec Inflam Act Grade A0 [facility] Nec Inflam Act Interpretation SEE NOTE [facility] Comment:no activityActiTest Score (a) Metavir Score a>=0 and a<=0.17 : A0 (no activity)a>0.17 and a<=0.29 : A0-A1 (no activity)a>0.29 and a<=0.36 : A1 (minimal activity)a>0.36 and a<=0.52 : A1-A2 (minimal activity)a>0.52 and a<=0.60 : A2 (significant activity)a>0.60 and a<=0.62 : A2-A3 (significant activity)a>0.62 and a<=1.00 : A3 (severe activity) JXG-Iynvy-3-Macroglo bulin 149 106 - 279 mg/dL [facility] FIB-Haptoglobin 148 43 - 212 mg/dL [facility] FIB-Apolipoprotein A1 180 101 - 198 mg/dL [facility] FIB-Total Bilirubin 0.4 0.2 - 1.2 mg/dL [facility] FIB-GGT 33 3 - 70 U/L [facility] FIB-ALT 16 6 - 29 U/L [facility] Reference ID [id number] [facility] Footnote SEE NOTE [facility] Comment: The reliability of results [...] and C.The performance characteristics have been determined by[facility]. Ithas not been cleared or approved by the U.S. Food and DrugAdministration. Performance characteristics refer to theanalytical performance of the test.[employer], the associated logo, [employer] and all associated [employer] jensen are theregistered trademarks of [employer]. All third partymarks - (R) and (TM) - are the property of their respectiveowners. (C) [id number] [employer]. Allrights reserved.THIS TEST WAS PERFORMED AT:[employer] [id number] [place] [address]TQRJHSNEHA ROTH MD,PHD,WILIAM 12/03/2024 3:01 PM EDT 12/03/2024 3:01 PM EDT us Generic External Data Provider LAB BLOOD ORDERAB LES Final Result [facility] [address] [place] [phone] * Hepatitis Panel, General (12/03/2024 3:01 PM EDT) Hepatitis A IgM Nonreactive Nonreactive [facility] Comment:IgM antibodies to [place] V not detected; does not exclude earlyacute or recovered HAV infection. ~Hepatitis B Surface Antibody REACTIVE Nonreactive [facility] Comment:REACTIVE: > 11.99 mI U/mL Hepatitis B Core Antibody Nonreactive Nonreactive [facility] Hepatitis C Antibody Nonreactive Nonreactive [facility] Comment:Antibodies to HCV no t detected; does not exclude early acuteHCV infection. Hepatitis B Surface Ag Negative Negative [facility] 12/03/2024 3:01 PM EDT 12/03/2024 3:01 PM EDT Generic External Data Provider LAB BLOOD ORDERAB LES Final Result Performing Organization Address [facility] Co de Phone Number [facility] [address] [place] [phone] * Actin (Smooth Muscle) Antibody (IgG) (12/03/2024 3:01 PM EDT) Smooth Muscle Antibody <20 <20 U [facility] Comment:Reference Range: <20 U: Negative>or=20 [...] with AIH type 1.THIS TEST WAS PERFORMED AT:[id number] [place] [address]FHJGZYZERINN PENA MD,PHD 12/03/2024 3:01 PM EDT 12/03/2024 3:01 PM EDT Generic External Data Provider LAB BLOOD ORDERAB LES Final Result Performing Organization Address [facility] Co de Phone Number [facility] [address] [place] [phone] * Alpha-Fetoprotein, Tumor Marker (12/03/2024 3:01 PM EDT) Pathologist [facility] Alpha Fetoprotein 1.3 ng/mL [facility] Comment:Reference Range: <6. 1The use of AFP as a tumor marker in females is not recommended.This test was performed using the [employer] Coulterchemiluminescent method. Values obtained fromdifferent assay methods cannot be usedinterchangeably. AFP levels, regardless ofvalue, should not be interpreted as absoluteevidence of the presence or absence of disease.THIS TEST WAS PERFORMED AT:[facility] [place] [address] [id number] PONCE MD 12/03/2024 3:01 PM EDT 12/03/2024 3:01 PM EDT Generic External Data Provider LAB BLOOD ORDERAB LES Final Result Performing Organization Address [facility] de Phone Number [facility] [address] [place] [address] [phone] * (ABNORMAL) Mitochondrial Antibody with Reflex to Titer (12/03/2024 3:01 PM EDT) Pathologist [facility] Mitochondrial Antibodies POSITIVE( A) NEGATIVE [facility] Comment:THIS TEST WAS PERFOR MED AT:[employer] [address] [id number] PONCE MD Mitochondrial Ab Titer 1:320(A) <1:20 titer [facility] Comment:THIS TEST WAS PERFOR MED AT:[employer] [address] [phone] PONCE MD 12/03/2024 3:01 PM EDT 12/03/2024 3:01 PM EDT Generic External Data Provider LAB BLOOD ORDERAB LES Final Result Performing Organization Address [facility] Co de Phone Number [facility] [address] [place] [address] [phone] * HIV-1/2 Antigen and Antibodies, Fourth Generation, with Reflexes (12/03/2024 3:01 PM EDT) HIV AB/AG Nonreactive Nonreactive [facility] Comment:HIV-1 p24 Ag and/or HIV-1/HIV-2 Ab not detected.A test result that is nonreactive does not exclude thepossibility of exposure to or infection with HIV-1 and/orHIV-2. Nonreactive results in this assay for individualswith prior exposure to HIV-1 and/or HIV-2 may be due toantigen and antibody levels that are below the limit ofdetection of this assay.The [employer] HIV Ag/Ab Combo assay result andsupplemental assay results should be interpreted inconjunction with the patient's clinical presentation,history and other laboratory results. If the results areinconsistent with clinical evidence, additional testing issuggested to confirm the result. 12/03/2024 3:01 PM EDT 12/03/2024 3:01 PM EDT us Generic External Data Provider LAB BLOOD ORDERAB LES Final Result [facility] [address] [place] [phone] * (ABNORMAL) BRIAN Screen,IFA, with Reflex to Titer and Pattern (12/03/2024 3:01 PM EDT) Anti Nuclear Antibody Screen POSITIVE (A) NEGATIVE [facility] Comment:BRIAN IFA is a first l ine screen for detecting thepresence of up to approximately 150 autoantibodies invarious autoimmune diseases. A positive BRIAN IFA resultis suggestive of autoimmune disease and reflexes totiter and pattern. Further laboratory testing may beconsidered if clinically indicated.For additional information, please refer tohttp://education.[employer]/faq/ACN457(This link is being provided for informational/educational purposes only.) BRIAN Titer 1:320(A) titer [facility] Comment:Reference Range <1:4 0 Negative 1:40-1:80 Low Antibody Level >1:80 Elevated Antibody Level BRIAN Pattern (A) [facility] Comment:Cytoplasmic, Reticul ar/AMA Abnormal Flag: ACoarse granular filamentous staining extendingthroughout the cytoplasm (e.g., anti-mitochondrialantibodies). Pattern is common in primary biliarycholangitis (PBC), systemic sclerosis, and rare inother systemic autoimmune rheumatic diseases (SARD).AC-21: Reticular/AMAInternational Consensus on BRIAN Patterns(https://doi.org/10.1515/wvxf-6372-3638) BRIAN Titer 2 1:80(A) titer [facility] Comment:A low level BRIAN tite r may be present in pre-clinicalautoimmune diseases and normal individuals. Reference Range <1:40 Negative 1:40-1:80 Low Antibody Level >1:80 Elevated Antibody Level BRIAN Pattern 2 (A) [facility] Comment:Cytoplasmic, Fine Sp eckled Abnormal Flag: AScattered small speckles in the cytoplasm mostly withhomogeneous or dense fine speckled background (e.g.,anti-Sena-1). Pattern is associated with anti-synthetasesyndrome, polymyositis/dermatomyositis, limited systemicsclerosis, and idiopathic pleural effusion.AC-20: Fine SpeckledInternational Consensus on BRIAN Patterns(https://doi.org/10.1515/xoct-7930-2630)THIS TEST WAS PERFORMED AT:[employer] [place] [id number] PONCE MD BRIAN TITER 3 TNP [facility] BRIAN PATTERN 3 TNP [facility] 12/03/2024 3:01 PM EDT 12/03/2024 3:01 PM EDT us Generic External Data Provider LAB BLOOD ORDERAB LES Final Result Performing Organization Address [facility] de Phone Number [facility] [address] [place] [phone] * Ferritin (12/03/2024 3:01 PM EDT) Ferritin 86 10 - 250 ng/mL [facility] 12/03/2024 3:01 PM EDT 12/03/2024 3:01 PM EDT us Generic External Data Provider LAB BLOOD ORDERAB LES Final Result Performing Organization Address [facility] de Phone Number [facility] [address] [place] [phone] * (ABNORMAL) Comprehensive Metabolic Panel (10/30/2024 12:17 PM EDT) [facility] Sodium 141 135 - 145 mmol/L [facility] Potassium 4.2 3.3 - 5.1 mmol/L [facility] Chloride 106 96 - 108 mmol/L [facility] Carbon Dioxide 29 22 - 29 mmol/L [facility] Anion Gap 10(L) 12 - 20 [facility] Urea Nitrogen (BUN) 16 9 - 16 mg/dL [facility] Creatinine, Serum 0.68 0.5 - 1.4 mg/dL [facility] Estimated Glomerular Filt Rate >60 [facility] Comment:Chronic Kidney Disea se: Estimated GFR < 60 mL/min/1.88u6Hwrfwy Kidney Disease: Estimated GFR < 15 mL/min/1.73m2 Glucose 87 60 - 115 mg/dL [facility] Calcium 10.1 8.4 - 10.2 mg/dL [facility] Bilirubin, Total 0.4 0.0 - 1.0 mg/dL [facility] Aspartate Amino Transferase 32(H) 5 - 31 U/L [facility] Alanine Aminotransferase 40(H) 0 - 31 U/L [facility] Total Protein 7.4 6.5 - 8.0 g/dL [facility] Albumin Level 4.2 3.5 - 5.0 g/dL [facility] Alkaline Phosphatase 122(H) 39 - 117 U/L [facility] 10/30/2024 12:1 7 PM EDT 10/30/2024 12:17 PM EDT us Generic External Data Provider LAB BLOOD ORDERAB LES Final Result [facility] [address] [place] [phone] * HPV DNA, Low/High Risk (05/07/2024 12:31 PM EDT) [facility] HPV High Risk Negative Negative [facility] HPV Genotype 16 Negative Negative [facility] HPV Genotype 18 Negative Negative [facility] Comment:HPV testing performe d at [facility] (CLIA#[id number]), [address] [place] [id number].Testing for HPV was performed using the An[employer] [...] ORDERAB LES Final Result Performing Organization Address City/State/[facility] Co de Phone Number [facility] [address] [place] [phone] * Pap Smear (05/07/2024 12:31 PM EDT) 05/07/2024 12:3 1 PM EDT 05/08/2024 6:00 AM EDT Narrative [facility] - 05/10/2024 10:43 AM EDT ----- ------- Name: SerranoMagalys Age/Sex: 53/F : 1970 Unit#: [id number] Attend Dr: Philippe Layton MD Re05/07/24 Status: DEP [facility] Disch: ----- ------- SPEC : [id number] RECD: 05/08/24 STATUS: MANDI HAMILTON NUM: [id number] SARAH: 05/07/24-[address] [facility] [address]: Philippe Layton MD ENTERED: 05/08/24 SP TYPE: Pap Smr OTHR DR: Deborah Nicholson [facility] ORDERED: Pap Smear Interpretation Satisfactory for evaluation. Negative for intraepithelial lesion or malignancy. HPV High Risk: Negative HPV Genotyping 16: Negative HPV Genotyping 18: Negative Clinical Information LMP: Post menopausal Previous PAP test: Unknown date/findings Material Received Cervix Copies To: Deborah Nicholson [facility] [address] [place] [address] Philippe Layton MD [facility] [address] [place] [address] ----- ------- Signed (signature on file) KO Marie ([facility]) 05/10/24 1043 ----- ------- END OF REPORT Generic External Data Provider LAB CYTOLOGY ORDE RABLES Final Result Performing Organization Address [facility]/ZIP Co de Phone Number [facility] [address] [place] [address] [phone] * (ABNORMAL) Lipid Panel, Standard (01/27/2023 9:05 AM EST) Triglycerides 118 <150 mg/dL [facility] Comment:Desirable Triglyceri de: less than 150 mg/dLBorderline High Triglyceride 150-199 mg/dLHigh Triglyceride: 200-499 mg/dLVery High Triglyceride: greater than or equal to 5OO mg/dL Cholesterol 223(H) <200 mg/dL [facility] Comment:Desirable Cholestero l: less than 200 mg/dLBorderline High Cholesterol: 200-239 mg/dLHigh Cholesterol: greater than 239 mg/dL LDL Cholesterol Calculated 144(H) <100 mg/dL [facility] Comment:Desirable LDL: less than 100 mg/dLNear Optimal/Above Optimal LDL: 110- 129 mg/dLBorderline High LDL: 130-159 mg/dLHigh LDL: 160-189 mg/dLVery High LDL: greater than or equal to 190 mg/dL HDL Cholesterol 56 >40 mg/dL [facility] Comment:Desirable HDL: great er than 40 mg/dL Note: This HDL assay may give artificially low results in patients with liver disease. Blood Venous blood specimen / Unknown 01/27/2023 9:05 AM EST 01/27/2023 11:36 AM EST [facility] [employer] LAB BLOOD ORDERABLES Final Re sult Performing Organization Address City/[facility]/ZIP Co de Phone Number [facility] [address] [place] [phone] * Hm Colonoscopy (02/28/2019 8:21 AM EST) Historical Provider HEALTH MAINTENANCE Final Result from Last 3 Months or Most Recently Relevant to Health Maintenance Insurance [facility] C3 Care Teams Mining Machinery Assembler Relationship Specialty Start Date End Date Deborah Nicholson FNP [address] [place] [phone] PCP - General Family Medicine 10/12/21
--- OUTSIDE RECORDS SUMMARY | 2025-01-22 01:19 | XMS_ITS | Encounter Summary ---
Author Organization [employer] Address [address] [facility] 7t [place] [address] Care Team Providers Care Jewel Gauger Name Role Phone [facility] Primary Care Provider Reason for Visit * Reason Comments Med Refill Encounter Details Date Type Department Care Team ([facility] Contact Info) Description 09/12/2023 Refill [facility] [address] [place], [place] [phone] [facility] [address] [place], [place] [phone] Social History Tobacco Use Types Packs/Day Years [...] 01/30/2025 3:15 PM EST Telemedicine [facility]INE [address] [place] [phone] Deborah Nicholson FNP [address] [place] [address] documented as of this encounter Visit Diagnoses Not on filedocumented in this encounter Additional Health Concerns Assessment Noted Time PHQ-9 Depression Total Score: 8 03/16/19 24 2:08 PM EST documented as of this encounter Care Teams Jewel Gauger Relationship Specialty Start Date End Date Deborah Nicholson FNP [address] [place] [address] PCP - General Family Medicine 10/12/21 documented as of this encounter
--- OUTSIDE RECORDS SUMMARY | 2025-01-22 01:19 | XMS_ITS | Encounter Summary ---
Author Organization [employer] Address [address] [facility] [address]t [place] [address] Care Team Providers Care [employer] Name Role Phone [facility] Primary Care Provider [phone] Reason for Visit * Reason Comments Med Refill Encounter Details Date Type Department Care Team ([facility] Contact Info) Description 06/14/2023 Refill [facility] [address] [place], [place] [phone] [facility] [address] [place], [place] [phone] Dyspepsia Social History Tobacco Use Types Packs/Day [...] your housing situation today? I have uriel beaslye 12/20/[address] you li [...] Info) Description 01/30/2025 3:15 PM EST Telemedicine [facility] [address] [place] [address] Deborah Nicholson FNP [address] [place] [address] documented as of this encounter Visit Diagnoses Diagnosis Dyspepsia Dyspepsia and other specified disorders of function of stomach documented in this encounter Additional Health Concerns Assessment Noted Time PHQ-9 Depression Total Score: 8 03/16/19 24 2:08 PM EST documented as of this encounter Care Teams [employer] Relationship Specialty Start Date End Date Deborah Nicholson FNP [address] [place] [address] PCP - General Family Medicine 10/12/21 documented as of this encounter
--- OUTSIDE RECORDS SUMMARY | 2025-01-22 01:19 | XMS_ITS | Encounter Summary ---
Author Organization [employer] Address [address] [facility] [address]t [place] [address] Care Team Providers Care Press Box Custodian Name Role Phone [facility] Primary Care Provider [phone] Encounter Details Date Type Department Care Team ([facility] st Contact Info) Description 08/23/2023 Telephone [facility] MEDICINE [address] [place], [place] [phone] [facility] [address] [place], [place] [phone] Social History Tobacco Use Types Packs/Day Years [...] t he electric, gas, oil or water swabr threatened to shut off services in your [...] Info) Description 01/30/2025 3:15 PM EST Telemedicine [facility]ICINE [address] [place] [address] [facility] [address] [place] [address] documented as of this encounter Procedures Procedure Name Priority Date/Time Associated Diagnosis Comments T-SPOT(R).TB Routine 08/31/2023 9:06 AM EDT Screening examination for pulmonary tuberculosis documented in this encounter Results * T-SPOT??.TB (08/31/2023 9:06 AM EDT) [facility] T Spot TB Negative Negative [facility] Comment:A negative test resu lt [...] as aquantitative test. TS PANEL A 0 [facility] TS PANEL B 0 [facility] Negative Control Passed [facility] Positive Control Passed [facility] Comment:For additional infor mation, please refer tohttp://education.[employer]/faq/PTW116(This link is being provided for informational/educational purposes only.)THIS TEST WAS PERFORMED AT:[employer] [id number] [place] [address]WTAQWWIERINN PENA MD,PHD 08/31/2023 9:06 AM EDT 08/31/2023 11:12 AM EDT [facility] LAB BLOOD ORDERABLES Final Re sult [facility] [address] [place] [phone] documented in this encounter Visit Diagnoses Diagnosis Screening examination for pulmonary tuberculosis documented in this encounter Additional Health Concerns Assessment Noted Time PHQ-9 Depression Total Score: 8 03/16/19 24 2:08 PM EST documented as of this encounter Care Teams Press Box Custodian Relationship Specialty Start Date End Date [facility] [address] [place] [phone] PCP - General Family Medicine 10/12/21 documented as of this encounter
--- OUTSIDE RECORDS SUMMARY | 2025-01-22 01:19 | XMS_ITS | Encounter Summary ---
Author Organization [employer] Address [address] [facility] [address]t [place] [address] Care Team Providers Care Metal Flooring Installer Name Role Phone Deborah Nicholson DAG SPR[employer]ER Primary Care Provider [phone] Reason for Visit * Reason Comments Med Refill Encounter Details Date Type Department Care Team ([facility] Contact Info) Description 06/29/2024 Refill [facility] [address] [place], [place] [phone] Yudith Estrella MD [address] [place] [address] Exacerbation of asthma, unspecified asthma severity, unspecified [...] Info) Description 01/30/2025 3:15 PM EST Telemedicine [facility] [address] [place] [address] Deborah Nicholson FNP [address] [place] [address] documented as of this encounter Visit Diagnoses Diagnosis Exacerbation of asthma, unspecified asthma severity, unspecified whether persistent documented in this encounter Additional Health Concerns Assessment Noted Time PHQ-9 Depression Total Score: 17 025 11:26 AM EST documented as of this encounter Care Teams Metal Flooring Installer Relationship Specialty Start Date End Date Deborah Nicholson FNP [address] [place] [address] PCP - General Family Medicine 10/12/21 documented as of this encounter
--- OUTSIDE RECORDS SUMMARY | 2025-01-22 01:19 | XMS_ITS | Encounter Summary ---
Author Organization [employer] Address [address] [facility] [address] [place] [address] Care Team Providers Care Library Technical Assistant Name Role Phone Deborah Nicholson SUSTAINABILITY PROJECT MANAGER Primary Care Provider [phone] Encounter Details Date Type Department Care Team ([facility] Contact Info) Description 01/17/2025 Orders Only GENERIC EXTERNAL DATA DEPARTMENT [...] Info) Description 01/30/2025 3:15 PM EST Telemedicine [facility] MEDICINE [address] [place], [place] [phone] [facility] [address] [place], [place] [phone] documented as of this encounter Procedures Procedure Name Priority Date/Time Associated Diagnosis Comments PROTHROMBIN TIME-INR Routine 01/17/2025 1:06 PM EST documented in this encounter Results * Prothrombin Time-INR (01/17/2025 1:06 PM EST) Prothrombin Time 12.1 11.2 - 13.5 SEC [facility] INTERNATIONAL NORM RATIO 1.0 0.9 - 1.1 [facility] Comment:INTERNATIONAL NORMAL IZED RATIO (INR) [...] Provider LAB BLOOD ORDERAB LES Final Result [facility] [address] [place] [address] [phone] documented in this encounter Visit Diagnoses Not on filedocumented in this encounter Additional Health Concerns Assessment Noted Time PHQ-9 Depression Total Score: 17 025 11:26 AM EST documented as of this encounter Care Teams Library Technical Assistant Relationship Specialty Start Date End Date Deborah Nicholson FNP [address] [place] [phone] PCP - General Family Medicine 10/12/21 documented as of this encounter
== END 2025-01-21 15:43 | disposition home or self-care (01) ==
LOC: HO.HHCX 15:42
PROVIDERS: PCP Registered Nurse; Visit Provider Registered Nurse
DX: M54.41 Lumbago with sciatica, right side (principal); G89.29 Other chronic pain
CPT/HCPCS: 72110

== ENCOUNTER → 2025-01-21 15:47 | Outpatient (BNV) | payer MEDICAID, SELFPAY | PROVIDERS: PCP Registered Nurse; Visit Provider Radiology Diagnostic Radiology | DX: M51.360 Other intervertebral disc degeneration, lumbar region with discogenic back pain only (principal) | CPT/HCPCS: 72110 ==